=== PATIENT | female | born 1945 | race Caucasian/White ===

== ENCOUNTER 2019-11-13 17:54 | Inpatient (IN) | payer MEDICARE, BC ==
--- NOTE | 2019-11-13 18:07 | ED ---
General Adult HPI - General Chief complaint: Chest Pain Stated complaint: chest pain Time Seen by Provider: 11/13/19 18:00 Source: patient Mode of arrival: wheelchair Limitations: no limitations - History of Present Illness Initial comments: Patient presents to the ED with her for evaluation. Patient states that she developed lower central chest pain about 1.5 hours ago while at rest. Patient states that she ate some chili about 3 hours ago, and she is unsure if it may be the cause of her chest pain. Patient states that her chest pain is currently very mild, and she rates it 2/10 in intensity. She also admits to having associated jaw pain. Patient denies trauma or injury, fever or chills, headache, focal numbness/weakness/neuro deficit, arm pain, back pain, pleuritic pain, fever or chills, cough or cold symptoms, dyspnea, palpitations, dizziness, nausea/vomiting/diaphoresis, abdominal pain, urinary symptoms, leg or calf swelling or pain, or any other symptoms or complaints. Patient has CAD risk factors of hypertension, hyperlipidemia and family history of ID in her father. - Related Data Allergies Allergy/AdvReac Type Severity Reaction Status Date / Time codeine Allergy Unknown Verified 11/13/19 17:59 Review of Systems ROS Statement: Those systems with pertinent positive or pertinent negative responses have been documented in the HPI. ROS Other: All systems not noted in ROS Statement are negative. Past Medical History Past Medical History: Hyperlipidemia, Hypertension, Thyroid Disorder History of Any Multi-Drug Resistant Organisms: None Reported Past Surgical History: Tubal Ligation Additional Past Surgical History / Comment(s): thyroidectomy Past Psychological History: No Psychological Hx Reported Smoking Status: Never smoker Past Alcohol Use History: None Reported Past Drug Use History: None Reported General Exam Limitations: no limitations General appearance: alert, in no apparent distress Head exam: Present: atraumatic, normocephalic Eye exam: Present: normal appearance, EOMI ENT exam: Present: mucous membranes moist Neck exam: Present: other (Trachea is in midline) Respiratory exam: Present: normal lung sounds bilaterally. Absent: respiratory distress, wheezes, rales, rhonchi, chest wall tenderness Cardiovascular Exam: Present: regular rate, normal rhythm, normal heart sounds, other (Normal radial pulses bilaterally) GI/Abdominal exam: Present: soft. Absent: distended, tenderness, guarding Extremities exam: Present: other (Negative Prasanna's sign bilaterally). Absent: tenderness, pedal edema, calf tenderness Neurological exam: Present: alert, oriented X3. Absent: motor sensory deficit Psychiatric exam: Present: normal affect, normal mood Skin exam: Present: warm, dry, intact, normal color Course Vital Signs 11/13/19 11/13/19 17:54 18:02 Temperature 97.6 F Pulse Rate 81 Respiratory 18 20 Rate Blood Pressure 228/101 O2 Sat by Pulse 98 Oximetry - Reevaluation(s) Reevaluation #1: 11/13/19 20:38 Case, H&P and test results/imaging reports were discussed with Dr. Haley (general surgery). He recommends giving the patient a dose of IV antibiotics. He also recommends admission to the patient's medical service, and he states that he will see the patient in consultation. He has no further recommendations at this time. 11/13/19 20:43 Case, H&P, test results, ED management and my discussion with Dr. Haley as above were discussed with Dr. Boss. He accepts hospital floor admission. He has no further recommendations at this time. 11/13/19 20:47 Patient states that her pain has currently improved. Patient denies development of any new symptoms while in the ED. Patient's abdomen remains soft and nontender on exam. Patient and are aware of the patient's test results and my discussions as above. Patient agrees with hospital admission at this time. EKG Findings - EKG Comments: EKG Findings:: Normal sinus rhythm, ventricular rate of 76 bpm, no ectopy, normal AR and QRS intervals, normal QT interval, normal axis, minimal voltage criteria for LVH, no ST or T-wave abnormality Medical Decision Making - Medical Decision Making Given the patient's transaminitis and gallstones noted on ultrasound gallbladder, I suspect that the patient's pain may have been secondary to biliary colic. Patient does not have a Mckeon's sign on exam. Patient's troponin is negative. Patient's CT angiogram chest is negative for PE. Still, given the patient's cardiac risk factors and report of chest pain and jaw pain, will admit the patient for cardiac workup and rule out. Dr. Boss has accepted hospital admission. Dr. Haley has agreed to see the patient in consultation. Patient and agree with this plan. - Lab Data Result diagrams: 11/13/19 18:13 11/13/19 18:13 Lab Results 11/13/19 11/13/19 11/13/19 Range/Units 18:13 18:13 18:13 WBC 6.0 (3.8-10.6) k/uL RBC 4.15 (3.80-5.40) m/uL Hgb 12.9 (11.4-16.0) gm/dL Hct 37.1 (34.0-46.0) % MCV 89.3 (80.0-100.0) fL MCH 31.1 (25.0-35.0) pg MCHC 34.8 (31.0-37.0) g/dL RDW 12.6 (11.5-15.5) % Plt Count 274 (150-450) k/uL Neutrophils % 60 % Lymphocytes % 29 % Monocytes % 5 % Eosinophils % 2 % Basophils % 1 % Neutrophils # 3.6 (1.3-7.7) k/uL Lymphocytes # 1.8 (1.0-4.8) k/uL Monocytes # 0.3 (0-1.0) k/uL Eosinophils # 0.1 (0-0.7) k/uL Basophils # 0.0 (0-0.2) k/uL PT (9.0-12.0) sec INR (<1.2) APTT (22.0-30.0) sec D-Dimer (<0.60) mg/L FEU Sodium 140 (137-145) mmol/L Potassium 3.7 (3.5-5.1) mmol/L Chloride 104 (98-107) mmol/L Carbon Dioxide 26 (22-30) mmol/L Anion Gap 10 mmol/L BUN 25 H (7-17) mg/dL Creatinine 0.85 (0.52-1.04) mg/dL Est GFR (CKD-EPI)AfAm 77 (>60 ml/min/1.73 sqM) Est GFR (CKD-EPI)NonAf 67 (>60 ml/min/1.73 sqM) Glucose 125 H (74-99) mg/dL Calcium 9.6 (8.4-10.2) mg/dL Magnesium 1.8 (1.6-2.3) mg/dL Total Bilirubin 0.7 (0.2-1.3) mg/dL AST 147 H (14-36) U/L ALT 63 H (4-34) U/L Alkaline Phosphatase 122 (38-126) U/L Troponin I (0.000-0.034) ng/mL NT-Pro-B Natriuret Pep 381 pg/mL Total Protein 7.6 (6.3-8.2) g/dL Albumin 4.3 (3.5-5.0) g/dL Lipase 293 (23-300) U/L 11/13/19 11/13/19 Range/Units 18:13 18:13 WBC (3.8-10.6) k/uL RBC (3.80-5.40) m/uL Hgb (11.4-16.0) gm/dL Hct (34.0-46.0) % MCV (80.0-100.0) fL MCH (25.0-35.0) pg MCHC (31.0-37.0) g/dL RDW (11.5-15.5) % Plt Count (150-450) k/uL Neutrophils % % Lymphocytes % % Monocytes % % Eosinophils % % Basophils % % Neutrophils # (1.3-7.7) k/uL Lymphocytes # (1.0-4.8) k/uL Monocytes # (0-1.0) k/uL Eosinophils # (0-0.7) k/uL Basophils # (0-0.2) k/uL PT 10.5 (9.0-12.0) sec INR 1.0 (<1.2) APTT 21.8 L (22.0-30.0) sec D-Dimer 1.04 H (<0.60) mg/L FEU Sodium (137-145) mmol/L Potassium (3.5-5.1) mmol/L Chloride (98-107) mmol/L Carbon Dioxide (22-30) mmol/L Anion Gap mmol/L BUN (7-17) mg/dL Creatinine (0.52-1.04) mg/dL Est GFR (CKD-EPI)AfAm (>60 ml/min/1.73 sqM) Est GFR (CKD-EPI)NonAf (>60 ml/min/1.73 sqM) Glucose (74-99) mg/dL Calcium (8.4-10.2) mg/dL Magnesium (1.6-2.3) mg/dL Total Bilirubin (0.2-1.3) mg/dL AST (14-36) U/L ALT (4-34) U/L Alkaline Phosphatase (38-126) U/L Troponin I <0.012 (0.000-0.034) ng/mL NT-Pro-B Natriuret Pep pg/mL Total Protein (6.3-8.2) g/dL Albumin (3.5-5.0) g/dL Lipase (23-300) U/L - Radiology Data Radiology results: report reviewed (Ultrasound gallbladder shows gallbladder wall thickening with numerous gallstones consistent with acute and chronic cholecystitis, no dilated ducts, common bile duct is 5 mm, no focal liver defect; CT angiogram chest is negative for pulmonary embolism, but shows numerous gallstones), image reviewed (Chest x-ray is negative) Disposition Clinical Impression: Chest pain, Cholelithiasis Disposition: ADMITTED IP TO THIS [facility] Condition: Stable Is patient prescribed a controlled substance at d/c from ED?: No Referrals: Charley Brown MD [Primary Care Provider] - 1-2 days Time of Disposition: 20:43
[2019-11-13] MEDS ORDERED: ASPIRIN 81 MG PO STA (18:15)
[2019-11-13] MEDS ORDERED: NITROGLYCERIN OINT 1 INCH/GM PACKET TOPICAL STA (18:15)
[2019-11-13 18:52] LABS: Basophils % (A) 1 %; Eosinophils # (A) 0.1 k/uL (0-0.7); Eosinophils % (A) 2 %; HCT 37.1 % (34.0-46.0); HGB 12.9 gm/dL (11.4-16.0); Lymphocytes # (A) 1.8 k/uL (1.0-4.8); Lymphocytes % (A) 29 %; MCH 31.1 pg (25.0-35.0); MCHC 34.8 g/dL (31.0-37.0); MCV 89.3 fL (80.0-100.0); Mean Platelet Volume 7.3; Monocytes # (A) 0.3 k/uL (0-1.0); Monocytes % (A) 5 %; Neutrophils # (A) 3.6 k/uL (1.3-7.7); Neutrophils % (A) 60 %; Platelet Count 274 k/uL (150-450); RBC 4.15 m/uL (3.80-5.40); RDW 12.6 % (11.5-15.5)
--- NOTE | 2019-11-13 18:57 | XR ---
EXAMINATION TYPE: XR chest 2V DATE OF EXAM: 11/13/2019 COMPARISON: None HISTORY: Chest pain TECHNIQUE: 2 views FINDINGS: Heart is normal. Lungs are clear. Costophrenic angles are clear. There are chest leads. Bon y thorax is intact. IMPRESSION: No active cardiopulmonary disease. Normal heart.
[2019-11-13 19:00] LABS: Albumin 4.3 g/dL (3.5-5.0); Calcium 9.6 mg/dL (8.4-10.2); Magnesium 1.8 mg/dL (1.6-2.3); Potassium 3.7 mmol/L (3.5-5.1); Total Bilirubin 0.7 mg/dL (0.2-1.3); Total Protein 7.6 g/dL (6.3-8.2)
[2019-11-13 19:11] LABS: Prothrombin Time 10.5 sec (9.0-12.0)
[2019-11-13 19:13] LABS: D-Dimer 1.04 mg/L FEU (<0.60); Partial Thromboplastin Time 21.8 sec (22.0-30.0)
[2019-11-13] MEDS ORDERED: HYDROmorphone 0.5 MG/0.5 ML SYRINGE IM STA (19:24)
--- NOTE | 2019-11-13 19:47 | US ---
EXAMINATION TYPE: US gallbladder DATE OF EXAM: 11/13/2019 COMPARISON: NONE CLINICAL HISTORY: elevated LFT's, lower chest pain. EXAM MEASUREMENTS: Liver Length: cm Gallbladder Wall: cm CBD: cm Right Kidney: cm Large body habitus, technically difficult and somewhat limited study. Pancreas: Obscured by bowel gas Liver: Increased attenuation, decreased visualization of vessels suggestive of fatty infiltrate Gallbladder: TETE sign, thickened wall measuring up to 1.0cm, stones Evidence for sonographic Mckeon's sign: no CBD: wnl Right Kidney: cyst measuring 1.7 x 1.6 x 1.4cm IMPRESSION: There is thickening gallbladder wall with numerous gallstones consistent with acute and c hronic cholecystitis. No dilated ducts. Common bile duct is 5 mm. No focal liver defect.
--- NOTE | 2019-11-13 20:25 | CT ---
EXAMINATION TYPE: CT chest angio for PE DATE OF EXAM: 11/13/2019 COMPARISON: None HISTORY: Right sided chest pain with elevated d-dimer. CT DLP: 569.3 mGycm Automated exposure control for dose reduction was used. CONTRAST: Performed with IV Contrast, patient injected with 100 mL of Isovue 370. There are 3-D post processed images. There is no pleural effusion. The lungs are clear of infiltrate. Heart size is normal. There is no pe ricardial effusion. There are no hilar masses. There is no mediastinal adenopathy. There is normal co ntrast opacification of the pulmonary arteries. There are no filling defects. Upper abdominal soft ti ssues are intact. There are numerous calcified gallstones. IMPRESSION: No evidence of pulmonary embolism. Numerous gallstones.
[2019-11-13] MEDS ORDERED: PIPERACILLIN-TAZOBACTAM 4.5 GM in SODIUM CHLORIDE 0.9% 100 ML IVPB STA (20:40)
[2019-11-13] MEDS ORDERED: NALOXONE 0.4 MG/ML 1 ML VIAL IV PRN (20:44)
[2019-11-13] MEDS ORDERED: LABETALOL 5 MG/ML VIAL MDV IVP STA (21:04)
[2019-11-13] MEDS: SODIUM CHLORIDE 0.9% 1,000 ML IV SCH (21:14)
[2019-11-14] MEDS: MORPHINE SULFATE 4 MG/ML SYRINGE IV PRN ×3 (03:30→17:27)
[2019-11-14] MEDS: ONDANSETRON 4 MG/2 ML VIAL IVP PRN ×4 (03:31→22:47)
[2019-11-14 07:28] LABS: Basophils % (A) 1 %; Eosinophils # (A) 0.1 k/uL (0-0.7); Eosinophils % (A) 2 %; HCT 31.9 % (34.0-46.0); HGB 10.9 gm/dL (11.4-16.0); Lymphocytes % (A) 23 %; MCH 31.1 pg (25.0-35.0); MCHC 34.1 g/dL (31.0-37.0); MCV 91.3 fL (80.0-100.0); Mean Platelet Volume 8.3; Monocytes # (A) 0.5 k/uL (0-1.0); Monocytes % (A) 10 %; Neutrophils # (A) 2.7 k/uL (1.3-7.7); Neutrophils % (A) 62 %; Platelet Count 227 k/uL (150-450); RDW 12.8 % (11.5-15.5); WBC 4.4 k/uL (3.8-10.6)
[2019-11-14 07:41] LABS: Albumin 3.3 g/dL (3.5-5.0); Calcium 8.8 mg/dL (8.4-10.2); Potassium 4.3 mmol/L (3.5-5.1); Total Bilirubin 0.6 mg/dL (0.2-1.3); Total Protein 6.2 g/dL (6.3-8.2)
[2019-11-14] MEDS ORDERED: ATORVASTATIN 20 MG TAB PO SCH (09:00)
[2019-11-14] MEDS ORDERED: DEXAMETHASONE SOD PHOSPHATE 10 MG/ML 1 ML VIAL IV ONE (09:03)
[2019-11-14] MEDS ORDERED: ONDANSETRON 4 MG/2 ML VIAL IVP ONE (09:03)
--- NOTE | 2019-11-14 10:03 | P.HPIM ---
History of Present Illness H&P Date: 11/14/19 Chief Complaint: Chest pain. Cholecystitis This is a 74-year-old female patient of Dr. Brown. Patient presented to the ER with complaints of chest discomfort. Patient reports that she ate chili about 3 hours prior to pain starting patient does rate the pain radiated towards her jaw. Patient does have a past medical history of hyperlipidemia, hypertension, hyperthyroidism. Troponins have been negative 3. d-dimer elevated at 1.04. CTA of the chest was performed showing no evidence of pulmonary embolism but numerous gallstones. Gallbladder ultrasound completed showing thickening gallbladder wall with numerous gallstones consistent with acute and chronic cholecystitis no dilated ducts, bile duct is 5 mm no focal liver defect. EKG completed showing normal sinus rhythm minimal voltage criteria for LVH may be normal variant. Dr. Haley has been consulted for surgical services. Cardiology has been consulted for cardiac clearance prior to surgery. At this time patient denies chest pain or shortness of breath. Patient denies any nausea vomiting or diarrhea. Patient denies any urinary burning or frequency. Patient denies any history of cardiac conditions. Patient denies any history of stents. Patient denies any history of blood clots or irregular heart rate. Patient denies history of diabetes. Review of Systems Please refer to HPI otherwise unremarkable Past Medical History Past Medical History: Hyperlipidemia, Hypertension, Sleep Apnea/CPAP/BIPAP, Thyroid Disorder History of Any Multi-Drug Resistant Organisms: None Reported Past Surgical History: Tubal Ligation Additional Past Surgical History / Comment(s): thyroidectomy Past Anesthesia/Blood Transfusion Reactions: No Reported Reaction Past Psychological History: No Psychological Hx Reported Smoking Status: Former smoker Past Alcohol Use History: Occasional, Rare Past Drug Use History: None Reported - Past Family History Father History Unknown: Yes Mother History Unknown: Yes Medications and Allergies Home Medications Medication Instructions Recorded Confirmed Type Acetaminophen [Tylenol Arthritis] 1,300 mg PO HS 11/14/19 11/14/19 History Aspirin EC [Ecotrin Low Dose] 81 mg PO HS 11/14/19 11/14/19 History Atenolol [Tenormin] 50 mg PO HS 11/14/19 11/14/19 History Calcium Carbonate [Calcium] 600 mg PO HS 11/14/19 11/14/19 History Cholecalciferol [Vitamin D3 (25 1,000 unit PO DAILY 11/14/19 11/14/19 History Mcg = 1000 Iu)] Cinnamon Bark [Cinnamon] 500 mg PO DAILY 11/14/19 11/14/19 History Enalapril [Vasotec] 15 mg PO DAILY 11/14/19 11/14/19 History Flaxseed Oil 1,000 mg PO DAILY 11/14/19 11/14/19 History Furosemide [Lasix] 20 mg PO DAILY 11/14/19 11/14/19 History Levothyroxine Sodium [Synthroid] 75 mcg PO DAILY 11/14/19 11/14/19 History [place]-3 Fatty Acids/Fish Oil [Fish 1 cap PO DAILY 11/14/19 11/14/19 History Oil 1,000 mg Softgel] Simvastatin [Zocor] 40 mg PO MOWEFR 11/14/19 11/14/19 History Turmeric Curcumin Complex 1 tab PO DAILY 11/14/19 11/14/19 History Ubidecarenone [Co Q-10] 100 mg PO DAILY 11/14/19 11/14/19 History Vit C/E/Zn/Coppr/Lutein/Zeaxan 1 cap PO DAILY 11/14/19 11/14/19 History [Preservision Areds 2 Softgel] Allergies Allergy/AdvReac Type Severity Reaction Status Date / Time codeine Allergy Unknown Verified 11/14/19 09:30 Physical Exam Vitals: Vital Signs Temp Pulse Pulse Pulse Resp BP BP 11/14/19 07:50 98.6 F 69 17 170/81 11/14/19 00:52 98.3 F 64 17 147/68 11/13/19 22:57 98.2 F 72 18 156/73 11/13/19 21:53 78 18 153/80 11/13/19 20:52 68 18 201/94 11/13/19 18:02 20 11/13/19 17:54 97.6 F 81 18 228/101 Pulse Ox 11/14/19 07:50 93 L 11/14/19 00:52 96 11/13/19 22:57 98 11/13/19 21:53 100 11/13/19 20:52 98 11/13/19 18:02 11/13/19 17:54 98 Intake and Output 11/13/19 11/14/19 11/14/19 22:59 06:59 14:59 Intake Total 80 480 Balance 80 480 Intake: Intake, IV Titration 80 480 Amount Sodium Chloride 0.9% 1, 80 480 000 ml @ 80 mls/hr IV . [id number] [facility] Rx#:[id number] Other: Voiding Method Toilet Toilet # Voids 1 2 Weight 95.254 kg Head normocephalic Neck supple Lungs clear to auscultation bilaterally no wheezing or crackles Heart regular rate and rhythm S1-S2, no rub or gallop Abdomen is soft nontender nondistended positive bowel sounds no hepatosplenomegaly Extremities no edema Neuro alert and orientated to 3 Results CBC & Chem 7: 11/14/19 06:30 11/14/19 06:30 Labs: Abnormal Lab Results - Last 24 Hours (Table) 11/13/19 11/13/19 11/14/19 Range/Units 18:13 18:13 06:30 RBC 3.50 L (3.80-5.40) m/uL Hgb 10.9 L (11.4-16.0) gm/dL Hct 31.9 L (34.0-46.0) % APTT 21.8 L (22.0-30.0) sec D-Dimer 1.04 H (<0.60) mg/L FEU Carbon Dioxide (22-30) mmol/L BUN 25 H (7-17) mg/dL Glucose 125 H (74-99) mg/dL AST 147 H (14-36) U/L ALT 63 H (4-34) U/L Alkaline Phosphatase (38-126) U/L Total Protein (6.3-8.2) g/dL Albumin (3.5-5.0) g/dL 11/14/19 Range/Units 06:30 RBC (3.80-5.40) m/uL Hgb (11.4-16.0) gm/dL Hct (34.0-46.0) % APTT (22.0-30.0) sec D-Dimer (<0.60) mg/L FEU Carbon Dioxide 31 H (22-30) mmol/L BUN 20 H (7-17) mg/dL Glucose (74-99) mg/dL AST 233 H (14-36) U/L ALT 193 H (4-34) U/L Alkaline Phosphatase 134 H (38-126) U/L Total Protein 6.2 L (6.3-8.2) g/dL Albumin 3.3 L (3.5-5.0) g/dL Thrombosis Risk Factor Assmnt - Choose All That Apply Any of the Below Risk Factors Present?: Yes Each Risk Factor Represents 3 Points: Age 75 years or older Thrombosis Risk Factor Assessment Total Risk Factor Score: 3 Thrombosis Risk Factor Assessment Level: Moderate Risk Assessment and Plan Assessment: 1. Chest pain likely secondary to cholecystitis. Troponins negative 3. Chest CTA completed showing no evidence of pulmonary embolism. Numerous gallstones. Gallbladder ultrasound completed showing thickening gallbladder wall with numerous gallstones consistent with acute and chronic cholecystitis no dilated ducts. Common bile duct is 5 mm no focal level defect. Surgical services have been consulted. Cardiology services have been consulted for cardiac clearance. 2-D echo has been ordered 2. Elevated liver enzymes likely secondary to gallstones. AST 233 ALT 1 and 3 alkaline phosphatase 134. Lipitor on hold 3. History of hypothyroidism. Synthroid resumed 4. Essential hypertension with elevated blood pressures. Home meds resumed at this time 5. History of sleep apnea or CPAP at home DVT prophylaxis SCDs. GI prophylaxis Pepcid Surgical and cardiology services have been consulted patient to obtain cardiac clearance prior to surgery Time with Patient: Greater than 30 (Greater than 60% of the total time spent in counseling and coordination of care. I performed an examination of the patient and discussed their management with the Nurse Practitioner. I have reviewed the Nurse Practitioner's notes and agree with the documented findings and plan of care)
--- NOTE | 2019-11-14 10:10 | CONS ---
CONSULTATION Mrs. Nieto is a 74-year-old female with no prior history of coronary artery disease who presented with epigastric discomfort. She felt initially that the discomfort was related to the chili she ate. She had similar discomfort in the past and a few years ago, has underwent a stress test that showed no evidence of inducible ischemia according to her. She is average in his exercise tolerance, has no exertional chest discomfort. She has no dyspnea. No dizziness or palpitation on a regular basis. She has no history of PND, orthopnea, or peripheral edema. On presentation she had elevation of liver function tests and subsequently underwent a gallbladder ultrasound that showed thickening of the gallbladder with multiple cholelithiasis and cholecystitis evidenced. There is no evidence of dilatation of the duct. The patient is not aware of any prior history of cholelithiasis. Her coronary risk factors are remarkable for hypertension and hyperlipidemia. She is nonsmoker, nondiabetic. MEDICATION: Her medications include simvastatin 40 mg daily, Lasix 20 mg daily, enalapril 15 mg daily, calcium, atenolol 50 mg daily, aspirin once a day. REVIEW OF SYSTEMS: RESPIRATORY SYSTEM: She has no documented history of asthma or emphysema. No bronchitis. GI SYSTEM: She has no nausea. She has constipation. She had the epigastric pain as noted. SYSTEM: No dysuria or hematuria. NERVOUS SYSTEM: No stroke or seizure. FAMILY HISTORY: Her father had a myocardial infarction in his 60s. PHYSICAL EXAMINATION: She is a 74-year-old female, alert, oriented, in no apparent distress. Blood pressure running in the 140s to 170s with the heart rate in the 70s. HEAD: Normocephalic. EYES: Sclerae anicteric. NECK: Good upstroke. No bruit. No jugular venous distention. LUNGS: Clear to auscultation. HEART: Regular rate and rhythm. S1, S2. No S3. No rub or gallop. ABDOMEN: Soft, obese. Positive bowel sounds. No organomegaly. No significant tenderness. EXTREMITIES: No edema. Intact distal pulses. LAB DATA: Lab data revealed an AST 147, subsequently 233, ALT of 63, subsequently 193. Troponin less than 0.012. NT proBNP of 381. BUN and creatinine 20 and 0.83. Hemoglobin of 10.9, white blood cell of 4.4. EKG revealed a sinus mechanism, normal axis and intervals, left ventricular hypertrophy. IMPRESSION: 1. Acute cholecystitis. 2. Symptoms of epigastric pain, atypical for chest discomfort. 3. Hypertension. 4. Hyperlipidemia. RECOMMENDATION: I will re-initiate treatment with the beta emely and DOMENICA inhibitor. I will hold on her statin at this time. I will obtain echocardiogram with Doppler. The patient should be stable to proceed with scheduled surgical intervention. Depending on her progress, further recommendation will be made. Thank you for this consult. We will follow with you. YASMIN / IJN: [id number] /
[2019-11-14] MEDS: LACTATED RINGERS 1,000 ML IV SCH (10:18)
[2019-11-14] MEDS: LISINOPRIL 20 MG TAB PO SCH (10:18)
[2019-11-14] MEDS: SODIUM CHLORIDE 0.9% 1,000 ML IV SCH ×2 (10:19→20:53)
[2019-11-14] MEDS: hydrALAZINE HCL 20 MG/ML 1 ML VIAL IVP PRN ×2 (17:59→21:41)
[2019-11-14] MEDS ORDERED: ATENOLOL 50 MG TAB PO SCH (21:00)
[2019-11-15] MEDS: hydrALAZINE HCL 20 MG/ML 1 ML VIAL IVP PRN ×2 (02:11→05:44)
[2019-11-15] MEDS: ONDANSETRON 4 MG/2 ML VIAL IVP PRN (04:12)
[2019-11-15] MEDS ORDERED: LEVOTHYROXINE 75 MCG TAB PO SCH (06:30)
[2019-11-15] MEDS ORDERED: METOCLOPRAMIDE 5 MG/ML 2 ML VIAL IVP PRN (07:19)
[2019-11-15] MEDS: MORPHINE SULFATE 4 MG/ML SYRINGE IV PRN (07:26)
[2019-11-15 07:49] LABS: Basophils % (A) 0 %; Eosinophils # (A) 0.1 k/uL (0-0.7); Eosinophils % (A) 1 %; HCT 36.2 % (34.0-46.0); HGB 12.6 gm/dL (11.4-16.0); Lymphocytes % (A) 14 %; MCH 31.1 pg (25.0-35.0); MCHC 34.8 g/dL (31.0-37.0); MCV 89.5 fL (80.0-100.0); Mean Platelet Volume 7.5; Monocytes # (A) 0.3 k/uL (0-1.0); Monocytes % (A) 5 %; Neutrophils # (A) 5.5 k/uL (1.3-7.7); Neutrophils % (A) 80 %; Platelet Count 271 k/uL (150-450); RBC 4.05 m/uL (3.80-5.40); RDW 12.8 % (11.5-15.5)
--- NOTE | 2019-11-15 07:56 | P.GSCN ---
History of Present Illness Consult date: 11/14/19 Reason for Consult: right upper quadrant pain History of present illness: this a 74-year-old female who presented to the emergency room with complaints of chest and right quadrant pain. Patient's workup found have evidence of cholelithiasis and chronic cholecystitis. Past Medical History Past Medical History: Hyperlipidemia, Hypertension, Sleep Apnea/CPAP/BIPAP, Thyroid Disorder History of Any Multi-Drug Resistant Organisms: None Reported Past Surgical History: Tubal Ligation Additional Past Surgical History / Comment(s): thyroidectomy Past Anesthesia/Blood Transfusion Reactions: No Reported Reaction Past Psychological History: No Psychological Hx Reported Smoking Status: Former smoker Past Alcohol Use History: Occasional, Rare Past Drug Use History: None Reported - Past Family History Father History Unknown: Yes Mother History Unknown: Yes Medications and Allergies Home Medications Medication Instructions Recorded Confirmed Type Acetaminophen [Tylenol Arthritis] 1,300 mg PO HS 11/14/19 11/14/19 History Aspirin EC [Ecotrin Low Dose] 81 mg PO HS 11/14/19 11/14/19 History Atenolol 50 mg PO DAILY 11/14/19 11/14/19 History Calcium Carbonate [Calcium] 600 mg PO HS 11/14/19 11/14/19 History Cholecalciferol [Vitamin D3 (25 1,000 unit PO DAILY 11/14/19 11/14/19 History Mcg = 1000 Iu)] Cinnamon Bark [Cinnamon] 500 mg PO DAILY 11/14/19 11/14/19 History Enalapril [Vasotec] 15 mg PO DAILY 11/14/19 11/14/19 History Flaxseed Oil 1,000 mg PO DAILY 11/14/19 11/14/19 History Furosemide [Lasix] 20 mg PO DAILY 11/14/19 11/14/19 History Levothyroxine Sodium [Synthroid] 75 mcg PO DAILY 11/14/19 11/14/19 History [place]-3 Fatty Acids/Fish Oil [Fish 1 cap PO DAILY 11/14/19 11/14/19 History Oil 1,000 mg Softgel] Simvastatin [Zocor] 40 mg PO MOWEFR 11/14/19 11/14/19 History Turmeric Curcumin Complex 1 tab PO DAILY 11/14/19 11/14/19 History Ubidecarenone [Co Q-10] 100 mg PO DAILY 11/14/19 11/14/19 History Vit C/E/Zn/Coppr/Lutein/Zeaxan 1 cap PO DAILY 11/14/19 11/14/19 History [Preservision Areds 2 Softgel] Allergies Allergy/AdvReac Type Severity Reaction Status Date / Time codeine Allergy Unknown Verified 11/14/19 09:30 Surgical - Exam Vital Signs Temp Pulse Resp BP Pulse Ox 97.6 F 81 18 228/101 98 11/13/19 17:54 11/13/19 17:54 11/13/19 17:54 11/13/19 17:54 11/13/19 17:54 - General well developed, well nourished, no distress - Eyes PERRL - ENT normal pinna - Neck no masses - Respiratory normal expansion - Cardiovascular Rhythm: regular - Abdomen minimal rectal quadrant pain Abdomen: soft Results - Labs 11/15/19 06:52 11/14/19 06:30 - Imaging US - abdomen: report reviewed (thickened gallbladder wall, cholelithiasis acute and chronic cholecystitis) Assessment and Plan Assessment: acute cholecystitis. Patient will undergo laparoscopic cholecystectomy in the a.m.
[2019-11-15 08:04] LABS: ALT 146 U/L (4-34); AST 95 U/L (14-36); African American GFR (CKD) >90 (>60 ml/min/1.73 sqM); Albumin 4.1 g/dL (3.5-5.0); Alkaline Phosphatase 135 U/L (38-126); Anion Gap 10 mmol/L; Blood Urea Nitrogen 12 mg/dL (7-17); Calcium 9.2 mg/dL (8.4-10.2); Carbon Dioxide 21 mmol/L (22-30); Chloride 104 mmol/L (98-107); Glucose 127 mg/dL (74-99); Non-African American GFR(CKD) 86 (>60 ml/min/1.73 sqM); Sodium 135 mmol/L (137-145); Total Bilirubin 0.9 mg/dL (0.2-1.3); Total Protein 7.5 g/dL (6.3-8.2)
[2019-11-15] MEDS ORDERED: FUROSEMIDE 20 MG TAB PO SCH (09:00)
[2019-11-15] MEDS ORDERED: FAMOTIDINE 20 MG TAB PO SCH (09:00)
[2019-11-15] MEDS ORDERED: DEXAMETHASONE SOD PHOSPHATE 10 MG/ML 1 ML VIAL IV ONE (09:25)
[2019-11-15] MEDS ORDERED: ONDANSETRON 4 MG/2 ML VIAL IVP ONE (09:25)
[2019-11-15] MEDS: SODIUM CHLORIDE 0.9% 1,000 ML IV SCH ×2 (09:31→10:00)
[2019-11-15] MEDS ORDERED: SUCCINYLCHOLINE CHLORIDE 100 MG/5 ML SYR IV ONE (09:48)
[2019-11-15] MEDS ORDERED: GLYCOPYRROLATE 0.2 MG/ML 2 ML VIAL ONE (09:48)
[2019-11-15] MEDS ORDERED: NEOSTIGMINE 1 MG/ML 10 ML VIAL ONE (09:48)
[2019-11-15] MEDS ORDERED: KETOROLAC 30 MG/ML 1 ML VIAL ONE (09:48)
[2019-11-15] MEDS ORDERED: MIDAZOLAM 2 MG/2 ML VIAL ONE (09:48)
[2019-11-15] MEDS ORDERED: LIDOCAINE 1% INJ 10MG/ML (20 ML MDV) ONE (09:48)
[2019-11-15] MEDS ORDERED: ROCURONIUM BROMIDE 10 MG/ML 10 ML VIAL IV ONE (09:48)
[2019-11-15] MEDS ORDERED: PROPOFOL 10 MG/ML 20 ML VIAL IV ONE (09:48)
[2019-11-15] MEDS ORDERED: fentaNYL (PF) 50 MCG/ML 2 ML AMP ONE (09:48)
--- NOTE | 2019-11-15 09:53 | P.PN ---
Subjective Progress Note Date: 11/15/19 Principal diagnosis: Cholecystitis This is a pleasant 74-year-old female with no prior history of CAD who presented with epigastric discomfort. Liver function tests were found to be abnormal on admission and she subsequently underwent ultrasound of the gallbladder which showed thickening of the gallbladder with multiple cholelithiasis and evidence of cholecystitis. She's been no complaint of chest discomfort. EKG on admission showed sinus rhythm with no ST-T wave abnormalities indicative of ischemia. Troponins were negative 3 and NT proBNP was normal. The patient is scheduled to undergo cholecystectomy today by Dr. Haley. Patient continues to have abdominal discomfort. Denies any complaints of chest discomfort, palpitations, dizziness or lightheadedness. She has no edema and no complaints of orthopnea. Objective - Vital Signs Vital signs: Vital Signs Temp 97.7 F 11/15/19 09:24 Pulse 76 11/15/19 09:24 Resp 18 11/15/19 09:24 BP 188/86 11/15/19 09:24 Pulse Ox 94 L 11/15/19 09:24 Intake & Output 11/14/19 11/15/19 11/15/19 18:59 06:59 18:59 Intake Total 550 Output Total 20 Balance 550 -20 Intake: Oral 550 Output: Emesis 20 Other: Voiding Method Toilet Toilet # Voids 2 1 - Exam PHYSICAL EXAMINATION: HEENT: Head is atraumatic, normocephalic. Pupils equal, round. Neck is supple. There is no elevated jugular venous pressure. HEART EXAMINATION: Heart sounds regular, S1 and S2 normal. No murmur or gallop heard. CHEST EXAMINATION: Lungs are clear to auscultation and precussion. No chest wall tenderness is noted on palpation or with deep breathing. ABDOMEN: Soft, nontender. Bowel sounds are heard. No organomegaly noted. EXTREMITIES: 2+ peripheral pulses with no evidence of peripheral edema and no calf tenderness noted. NEUROLOGIC patient is awake, alert and oriented x3. . - Labs CBC & Chem 7: 11/15/19 06:52 11/15/19 06:52 Labs: Abnormal Lab Results - Last 24 Hours (Table) 11/15/19 Range/Units 06:52 Sodium 135 L (137-145) mmol/L Carbon Dioxide 21 L (22-30) mmol/L Glucose 127 H (74-99) mg/dL AST 95 H (14-36) U/L ALT 146 H (4-34) U/L Alkaline Phosphatase 135 H (38-126) U/L Assessment and Plan Assessment: #1 acute cholecystitis #2 symptoms of epigastric pain, atypical for chest discomfort #3 hypertension #4 hyperlipidemia Plan: From cardiology's perspective, continue as needed hydralazine preoperatively for blood pressure control. Continue DOMENICA inhibitor and beta emely. Blood pressure remains elevated however this could be due to discomfort and anxiety surrounding the surgery. We will follow the patient and provide further recommendations accordingly. MANUFACTURING QUALITY INSPECTOR note has been reviewed, I agree with a documented findings and plan of care. Patient was seen and examined.
[2019-11-15] MEDS ORDERED: SODIUM CHLORIDE 0.9% 50 ML with ceFAZolin 2,000 MG IV ONE ×2 (10:00)
--- NOTE | 2019-11-15 10:00 | ECHOF ---
Referral Reason:htn MEASUREMENTS -------- HEIGHT: 165.1 cm WEIGHT: 95.3 kg BP: 170/81 IVSd: 1.2 cm (0.6 - 1.1) LVIDd: 4.2 cm (3.9 - 5.3) LVPWd: 1.4 cm (0.6 - 1.1) IVSs: 2.2 cm LVIDs: 2.2 cm LVPWs: 1.9 cm LAESV Index (A-L): 27.22 ml/m Ao Diam: 3.5 cm (2.0 - 3.7) AV Cusp: 1.8 cm (1.5 - 2.6) LA Diam: 4.1 cm (2.7 - 3.8) MV EXCURSION: 18.395 mm (> 18.000) MV EF SLOPE: 102 mm/s (70 - 150) EPSS: 0.3 cm MV E Joel: 0.98 m/s MV DecT: 236 ms MV A Joel: 1.06 m/s MV E/A Ratio: 0.93 AV maxP.21 mmHg AV meanP.48 mmHg RAP: 5.00 mmHg RVSP: 16.63 mmHg FINDINGS -------- Sinus rhythm. This was a technically adequate study. The left ventricular size is normal. There is mild concentric left ventricular hypertrophy. Overa ll left ventricular systolic function is normal with, an EF between 55 - 60 %. The right ventricle is normal in size. Normal LA size by volume 22+/-6 ml/m2. The right atrial size is normal. There is mild aortic valve sclerosis. Peak/mean gradient across the Aortic Valve is 14.21mmHg / 7.4 8mmHg. The mitral valve is normal. Mild mitral regurgitation is present. The tricuspid valve appears structurally normal. Mild tricuspid regurgitation present. Right vent ricular systolic pressure is normal at < 35 mmHg. Trace/mild (physiologic) pulmonic regurgitation. The aortic root size is normal. IVC Not well visulized. There is no pericardial effusion. CONCLUSIONS -------- 1. Sinus rhythm. 2. This was a technically adequate study. 3. The left ventricular size is normal. 4. There is mild concentric left ventricular hypertrophy. 5. Overall left ventricular systolic function is normal with, an EF between 55 - 60 %. 6. Normal LA size by volume 22+/-6 ml/m2. 7. There is mild aortic valve sclerosis. 8. Peak/mean gradient across the Aortic Valve is 14.21mmHg / 7.48mmHg. 9. The mitral valve is normal. 10. Mild mitral regurgitation is present. 11. The tricuspid valve appears structurally normal. 12. Mild tricuspid regurgitation present. 13. Right ventricular systolic pressure is normal at < 35 mmHg. 14. Trace/mild (physiologic) pulmonic regurgitation. 15. The aortic root size is normal. 16. IVC Not well visulized. 17. There is no pericardial effusion. STUDENT NURSE: Natalia Lockhart RDCS
[2019-11-15] MEDS ORDERED: BUPIVACAINE (PF) 0.25% 30 ML VIAL SQ ONE (10:31)
--- NOTE | 2019-11-15 10:31 | P.PN ---
Subjective Progress Note Date: 11/15/19 This is a 74-year-old female patient of Dr. Brown. Patient presented to the ER with complaints of chest discomfort. Patient reports that she ate chili about 3 hours prior to pain starting patient does rate the pain radiated towards her jaw. Patient does have a past medical history of hyperlipidemia, hypertension, hyperthyroidism. Troponins have been negative 3. d-dimer elevated at 1.04. CTA of the chest was performed showing no evidence of pulmonary embolism but numerous gallstones. Gallbladder ultrasound completed showing thickening gallbladder wall with numerous gallstones consistent with acute and chronic cholecystitis no dilated ducts, bile duct is 5 mm no focal liver defect. EKG completed showing normal sinus rhythm minimal voltage criteria for LVH may be normal variant. Dr. Haley has been consulted for surgical services. Cardiology has been consulted for cardiac clearance prior to surgery. At this time patient denies chest pain or shortness of breath. Patient denies any nausea vomiting or diarrhea. Patient denies any urinary burning or frequency. Patient denies any history of cardiac conditions. Patient denies any history of stents. Patient denies any history of blood clots or irregular heart rate. Patient denies history of diabetes. On 11/15/2019 patient is alert and oriented 3. Patient was evaluated by cardiology services. Patient to have lap cholecystectomy today with Dr. Haley. 2-D echo completed showing an EF of 55-60%. Liver enzymes are tr ending down. Hydralazine when necessary has been added per cardiology for blood pressure control. This time patient denies chest pain or shortness of breath. Patient denies nausea vomiting or diarrhea. Patient denies any urinary burning or frequency Objective - Vital Signs Vital signs: Vital Signs Temp 97.7 F 11/15/19 09:24 Pulse 76 11/15/19 09:24 Resp 18 11/15/19 09:24 BP 188/86 11/15/19 09:24 Pulse Ox 94 L 11/15/19 09:24 Intake & Output 11/14/19 11/15/19 11/15/19 18:59 06:59 18:59 Intake Total 550 50 Output Total 20 Balance 550 30 Intake: IV 50 Oral 550 Output: Emesis 20 Other: Voiding Method Toilet Toilet # Voids 2 1 - Exam Head normocephalic Neck supple Lungs clear to auscultation bilaterally no wheezing or crackles Heart regular rate and rhythm S1-S2, no rub or gallop Abdomen is soft nontender nondistended positive bowel sounds no hepatosplenomegaly Extremities no edema Neuro alert and orientated to 3 - Labs CBC & Chem 7: 11/15/19 06:52 11/15/19 06:52 Labs: Abnormal Lab Results - Last 24 Hours (Table) 11/15/19 Range/Units 06:52 Sodium 135 L (137-145) mmol/L Carbon Dioxide 21 L (22-30) mmol/L Glucose 127 H (74-99) mg/dL AST 95 H (14-36) U/L ALT 146 H (4-34) U/L Alkaline Phosphatase 135 H (38-126) U/L Assessment and Plan Assessment: 1. Chest pain likely secondary to cholecystitis. Troponins negative 3. Chest CTA completed showing no evidence of pulmonary embolism. Numerous gallstones. Gallbladder ultrasound completed showing thickening gallbladder wall with numerous gallstones consistent with acute and chronic cholecystitis no dilated ducts. Common bile duct is 5 mm no focal level defect. Surgical services have been consulted. Cardiology services have been consulted for cardiac clearance. G echo completed showing an EF of 55-60%. Patient to undergo lap antoni today per surgical services 2. Elevated liver enzymes likely secondary to gallstones. AST 233 ALT 1 and 3 alkaline phosphatase 134. Lipitor on hold. Her enzymes are trending down 3. History of hypothyroidism. Synthroid resumed 4. Essential hypertension with elevated blood pressures. Home meds resumed at this time. Hydralazine when necessary as needed for high blood pressure. Cardiology services are following 5. History of sleep apnea or CPAP at home DVT prophylaxis SCDs. GI prophylaxis Pepcid Surgical and cardiology services have been consulted I performed an examination of the patient and discussed their management with the Nurse Practitioner. I have reviewed the Nurse Practitioner's notes and agree with the documented findings and plan of care
--- NOTE | 2019-11-15 11:05 | P.OP ---
Date of Procedure: 11/15/19 Preoperative Diagnosis: cholecystitis Cholelithiasis Postoperative Diagnosis: cholecystitis Cholelithiasis Procedure(s) Performed: laparoscopic cholecystectomy Anesthesia: RITIKA Surgeon: Woody Haley Estimated Blood Loss (ml): 10 Pathology: other (gall bladder) Condition: stable Disposition: PACU Description of Procedure: The patient was placed on the operating table. The patient received a general endotracheal tube anesthesia. The patients abdomen was prepped and draped in the usual sterile fashion. Through an infraumbilical stab incision, the fascia of the anterior abdominal wall was grasped with a pair of Kochers and then the Veress needle was placed in the peritoneal cavity. Position of the Veress needle was confirmed with positive drop test. The abdomen was then insufflated. After adequate insufflation, the 10 mm trocar was placed in the pe ritoneal cavity. Following this the laparoscope was placed in the peritoneal cavity. The patient was placed in the head-up, right side up position and then a 5 mm trocar was placed in the right lateral and right subcostal position under direct visualization. A 8 mm trocar was placed in the epigastric position. The gallbladder was grasped in the fundus and infundibulum. Traction on the gallbladder was placed in the lateral and the cephalad positions. The triangle of [place] was visualized.. The cystic duct was bluntly dissected until the union of the cystic duct and common bile duct was seen. A critical view of safety was achieved. The cystic duct was then divided and sealed with the Harmonic scissors. A PDS Endoloop was then placed throughout the cystic duct stump. The cystic artery divided and sealed with the Harmonic scissors. The gallbladder was then removed from the liver bed using Harmonic scissors. The gallbladder was then extracted through the epigastric port site. Operative field was checked for any bleeding spots and Harmonic scissors was used to coagulate the liver bed. The abdomen was irrigated. The trocars were removed. The skin was closed using interrupted 3-0 Vicryl suture. Dermabond dressing were applied. The patient tolerated the procedure well.
[2019-11-15] MEDS ORDERED: LACTATED RINGERS 1,000 ML IV ONE (11:53)
[2019-11-15] MEDS: HYDROmorphone 0.5 MG/0.5 ML SYRINGE IVP PRN ×2 (11:54→12:00)
[2019-11-15] MEDS ORDERED: LABETALOL SYRINGE 5 MG/ML IVP ONE ×2 (12:05)
--- NOTE | 2019-11-15 12:19 | P.DS ---
Providers Date of admission: 11/15/19 10:10 Expected date of discharge: 11/15/19 Attending physician: Harman Boss Consults: 11/13/19 20:45 Consult Physician Urgent Consulting Provider: Woody Haley Consult Reason/Comments: Cholelithiasis Do you want consulting provider notified?: Yes 11/14/19 09:03 Consult Physician Urgent Consulting Provider: Danial Mccormick Consult Reason/Comments: cardio clearence Do you want consulting provider notified?: Yes Primary care physician: Charley Brown Hospital Course: Discharge diagnosis 1. Chest pain likely secondary to cholecystitis. Troponins negative 3. Chest CTA completed showing no evidence of pulmonary embolism. Numerous gallstones. Gallbladder ultrasound completed showing thickening gallbladder wall with numerous gallstones consistent with acute and chronic cholecystitis no dilated ducts. Common bile duct is 5 mm no focal level defect. Surgical services have been consulted. Cardiology services have been consulted for cardiac clearance. 2 echo completed showing an EF of 55-60%. Per cardiology services symptoms of epigastric pain atypical for chest discomfort secondary to acute cholecystitis. Status post laparoscopic cholecystectomy with Dr. Haley. Per surgical services. Patient may be discharged home later today if pain is well- controlled. Pain medications per surgical services 2. Elevated liver enzymes likely secondary to gallstones. AST 233 ALT 1 and 3 alkaline phosphatase 134. Lipitor on hold. Her enzymes are trending down 3. History of hypothyroidism. Synthroid resumed 4. Essential hypertension with elevated blood pressures. Home meds resumed at this time. Hydralazine when necessary as needed for high blood pressure. Cardiology services are following. Hydralazine has been added for blood pressure control 5. History of sleep apnea or CPAP at home Hospital course This is a 74-year-old female patient of Dr. Brown. Patient presented to the ER with complaints of chest discomfort. Patient reports that she ate chili about 3 hours prior to pain starting patient does rate the pain radiated towards her jaw. Patient does have a past medical history of hyperlipidemia, hypertension, hyperthyroidism. Troponins have been negative 3. d-dimer elevated at 1.04. CTA of the chest was performed showing no evidence of pulmonary embolism but numerous gallstones. Gallbladder ultrasound completed showing thickening gallbladder wall with numerous gallstones consistent with acute and chronic cholecystitis no dilated ducts, bile duct is 5 mm no focal liver defect. EKG completed showing normal sinus rhythm minimal voltage criteria for LVH may be normal variant. Dr. Haley has been consulted for surgical services. Cardiology has been consulted for cardiac clearance prior to surgery. At this time patient denies chest pain or shortness of breath. Patient denies any nausea vomiting or diarrhea. Patient denies any urinary burning or frequency. Patient denies any history of cardiac conditions. Patient denies any history of stents. Patient denies any history of blood clots or irregular heart rate. Pat shanika denies history of diabetes. On 11/15/2019 patient is alert and oriented 3. Patient was evaluated by cardiology services. Patient to have lap cholecystectomy today with Dr. Haley. 2-D echo completed showing an EF of 55-60%. Liver enzymes are trending down. Hydralazine when necessary has been added per cardiology for blood pressure control. This time patient denies chest pain or shortness of breath. Patient denies nausea vomiting or diarrhea. Patient denies any urinary burning or frequency Per surgical services patient may be discharged home later today. Patient is status post lap cholecystectomy. Patient to be cleared by surgical services prior to discharge. Hydralazine has been negative for blood pressure control. Patient was evaluated by cardiology services chest pain atypical for chest discomfort secondary to acute cholecystitis. Pain meds per surgical services for discharge. I performed an examination of the patient and discussed their management with the Nurse Practitioner. I have reviewed the Nurse Practitioner's notes and agree with the documented findings and plan of care Patient Condition at Discharge: Stable Plan - Discharge Summary Discharge Rx Participant: Yes New Discharge Prescriptions: New hydrALAZINE HCL [Apresoline] 25 mg PO TID 30 Days #90 tab Continue Calcium Carbonate [Calcium] 600 mg PO HS Flaxseed Oil 1,000 mg PO DAILY Cinnamon Bark [Cinnamon] 500 mg PO DAILY Cholecalciferol [Vitamin D3 (25 Mcg = 1000 Iu)] 1,000 unit PO DAILY Vit C/E/Zn/Coppr/Lutein/Zeaxan [Preservision Areds 2 Softgel] 1 cap PO DAILY Ubidecarenone [Co Q-10] 100 mg PO DAILY [place]-3 Fatty Acids/Fish Oil [Fish Oil 1,000 mg Softgel] 1 cap PO DAILY Aspirin EC [Ecotrin Low Dose] 81 mg PO HS Levothyroxine Sodium [Synthroid] 75 mcg PO DAILY Furosemide [Lasix] 20 mg PO DAILY Enalapril [Vasotec] 15 mg PO DAILY Turmeric Curcumin Complex 1 tab PO DAILY Acetaminophen [Tylenol Arthritis] 1,300 mg PO HS Atenolol 50 mg PO DAILY Discontinued Simvastatin [Zocor] 40 mg PO MOWEFR Discharge Medication List Acetaminophen [Tylenol Arthritis] 1,300 mg PO HS 11/14/19 [History] Aspirin EC [Ecotrin Low Dose] 81 mg PO HS 11/14/19 [History] Atenolol 50 mg PO DAILY 11/14/19 [History] Calcium Carbonate [Calcium] 600 mg PO HS 11/14/19 [History] Cholecalciferol [Vitamin D3 (25 Mcg = 1000 Iu)] 1,000 unit PO DAILY 11/14/19 [History] Cinnamon Bark [Cinnamon] 500 mg PO DAILY 11/14/19 [History] Enalapril [Vasotec] 15 mg PO DAILY 11/14/19 [History] Flaxseed Oil 1,000 mg PO DAILY 11/14/19 [History] Furosemide [Lasix] 20 mg PO DAILY 11/14/19 [History] Levothyroxine Sodium [Synthroid] 75 mcg PO DAILY 11/14/19 [History] [place]-3 Fatty Acids/Fish Oil [Fish Oil 1,000 mg Softgel] 1 cap PO DAILY 11/14/19 [History] Turmeric Curcumin Complex 1 tab PO DAILY 11/14/19 [History] Ubidecarenone [Co Q-10] 100 mg PO DAILY 11/14/19 [History] Vit C/E/Zn/Coppr/Lutein/Zeaxan [Preservision Areds 2 Softgel] 1 cap PO DAILY 11/14/19 [History] hydrALAZINE HCL [Apresoline] 25 mg PO TID 30 Days #90 tab 11/15/19 [Rx] Follow up Appointment(s)/Referral(s): Charley Brown MD [Primary Care Provider] - 1-2 days Woody Haley MD [STAFF PHYSICIAN] - 1 Week Activity/Diet/Wound Care/Special Instructions: Activity as tolerated
[2019-11-15] MEDS: LISINOPRIL 20 MG TAB PO SCH (12:30)
[2019-11-15] MEDS: LACTATED RINGERS 1,000 ML IV SCH (12:30)
[2019-11-15 14:17] VITALS: BP 164/77; PULSE 61; RESP 17; TEMP 98.6
[2019-11-15] MEDS ORDERED: HYDROcodone/APAP 5-325MG 1 EACH TAB PO PRN (15:45)
[2019-11-15] MEDS ORDERED: ACETAMINOPHEN TAB 325 MG TAB PO PRN (15:53)
[2019-11-15] MEDS ORDERED: hydrALAZINE HCL 25 MG TAB PO SCH (16:00)
[2019-11-15] MEDS ORDERED: DOCUSATE 100 MG CAP PO PRN (17:15)
== END 2019-11-15 17:56 | disposition home or self-care (01) | DRG 419 ==
LOC: EC 17:54 → 4SSUR 20:46 → OBSVTOIN 11-15 10:10
PROVIDERS: ADMIT Internal Medicine; ATTEND Internal Medicine
PROC: 0FT44ZZ Resection of Gallbladder, Percutaneous Endoscopic Approach (ICD-10-PCS; principal; 2019-11-15 10:15)
DX: K80.12 Calculus of gallbladder with acute and chronic cholecystitis without obstruction (principal); I25.10 Atherosclerotic heart disease of native coronary artery without angina pectoris; I10 Essential (primary) hypertension; G47.30 Sleep apnea, unspecified; E78.5 Hyperlipidemia, unspecified; R68.84 Jaw pain; E89.0 Postprocedural hypothyroidism; F41.9 Anxiety disorder, unspecified; Z88.5 Allergy status to narcotic agent; Z98.51 Tubal ligation status; Z87.891 Personal history of nicotine dependence; Z79.82 Long term (current) use of aspirin; Z79.899 Other long term (current) drug therapy; Z79.890 Hormone replacement therapy; Z82.49 Family history of ischemic heart disease and other diseases of the circulatory system
CPT/HCPCS: 36415; 71046; 71275; 76705; 80053; 83690; 83735; 83880; 84484; 85025; 85379; 85610; 85730; 88304; 93005; 93306; 94760; 96365; 96375; 99285

== ENCOUNTER → 2020-09-21 | Outpatient (CLI) | payer MEDICARE ==
--- NOTE | 2020-09-21 18:25 | CT ---
EXAMINATION TYPE: CT angio head neck DATE OF EXAM: 09/21/2020 HISTORY: Hypertension COMPARISON: Ultrasound thyroid 08/02/2014. CT DLP: 348.5 mGycm. Automated Exposure Control for Dose Reduction was Utilized. TECHNIQUE: CTA scan of the neck is performed with IV Contrast, patient injected with 65 mL of Isovue 370, axial images are obtained, coronal and sagittal reformatted images are reviewed. Three-D recons tructed images are created on an independent workstation and reviewed. Stenosis calculated utilizing NASCET criteria. FINDINGS: Carotid/Vascular Structures: Normal branching pattern of the thoracic aortic arch. There is no clinic ally significant stenosis, occlusion, or aneurysmal dilatation of the arteries of the neck. Cervical of [place]: Vertebral basilar system appears normal. Posterior cerebral vasculature is unrema rkable. Internal carotid arteries bifurcate normally into A1 and M1 segments. A2 segments are normal. The anterior communicating artery is patent. Left Posterior communicating artery is patent. Right po sterior communicating artery is patent. Other: Heterogenous appearance of the left thyroid gland with coarse calcifications. Status post righ t thyroidectomy. IMPRESSION: No flow-limiting stenosis, occlusion, or aneurysm of the arteries of the head and neck.
== END | disposition home or self-care (01) ==
LOC: RADCTMAIN 11:05
PROVIDERS: ATTEND Family Medicine
DX: R42 Dizziness and giddiness (principal); I10 Essential (primary) hypertension; Z82.49 Family history of ischemic heart disease and other diseases of the circulatory system
CPT/HCPCS: 82565; 84520; 70496; 70498; 36415; Q9967

== ENCOUNTER 2022-01-02 13:33 | Emergency (ER) | payer MEDICARE ==
[2022-01-02 14:30] VITALS: TEMP 98.1
[2022-01-02 15:02] LABS: HCT 37.7 % (34.0-46.0); HGB 12.7 gm/dL (11.4-16.0); MCH 31.7 pg (25.0-35.0); MCHC 33.8 g/dL (31.0-37.0); MCV 93.6 fL (80.0-100.0); Mean Platelet Volume 7.9; Platelet Count 246 k/uL (150-450); RBC 4.02 m/uL (3.80-5.40); WBC 5.1 k/uL (3.8-10.6)
[2022-01-02 15:14] LABS: Albumin 3.9 g/dL (3.5-5.0); Calcium 9.1 mg/dL (8.4-10.2); Potassium 4.4 mmol/L (3.5-5.1); Total Bilirubin 0.5 mg/dL (0.2-1.3)
[2022-01-02] MEDS ORDERED: hydrALAZINE HCL 50 MG TAB PO STA (16:51)
--- NOTE | 2022-01-02 16:52 | ED ---
General Adult HPI - General Chief complaint: Recheck/Abnormal Lab/Rx Stated complaint: High BP-sent by PCP Time Seen by Provider: 01/02/22 16:11 Source: patient Mode of arrival: ambulatory Limitations: no limitations - History of Present Illness Initial comments: Elena is a 76-year-old female who presents the ER today at the advice of an outside clinic due to her hypertension. Patient has a history of hypertension she is on multiple medications. She reports she's been compliant with these medications. She had an appointment today for intake with a pain management doctor for possible injections in her cervical spine due to chronic pain. At that appointment she was noted to have a blood pressure of greater than 200/100 and was advised to come to the emergency department. Patient denies any acute complaints today. - Related Data Home Medications Medication Instructions Recorded Confirmed Aspirin EC [Ecotrin Low Dose] 81 mg PO HS 11/14/19 01/02/22 Calcium Carbonate [Calcium] 600 mg PO HS 11/14/19 01/02/22 Cholecalciferol [Vitamin D3 (25 1,000 unit PO DAILY 11/14/19 01/02/22 Mcg = 1000 Iu)] Furosemide [Lasix] 20 mg PO DAILY 11/14/19 01/02/22 Levothyroxine Sodium [Synthroid] 75 mcg PO DAILY 11/14/19 01/02/22 Ubidecarenone [Co Q-10] 100 mg PO DAILY 11/14/19 01/02/22 Vit C/E/Zn/Coppr/Lutein/Zeaxan 1 cap PO DAILY 11/14/19 01/02/22 [Preservision Areds 2 Softgel] atenoloL 100 mg PO HS 11/14/19 01/02/22 Baclofen [Lioresal] 20 mg PO HS 01/02/22 01/02/22 Enalapril [Vasotec] 40 mg PO DAILY 01/02/22 01/02/22 Fexofenadine HCl [Viviana Allergy] 180 mg PO DAILY 01/02/22 01/02/22 Ibuprofen [Motrin] 600 mg PO Q6H PRN 01/02/22 01/02/22 Magnesium 200 mg PO DAILY 01/02/22 01/02/22 Simvastatin [Zocor] 40 mg PO HS 01/02/22 01/02/22 hydrALAZINE HCL [Apresoline] 25 mg PO BID 01/02/22 01/02/22 traMADol HCL 50 mg PO Q3H PRN 01/02/22 01/02/22 Allergies Allergy/AdvReac Type Severity Reaction Status Date / Time codeine Allergy Unknown Verified 01/02/22 17:28 Review of Systems ROS Statement: Those systems with pertinent positive or pertinent negative responses have been documented in the HPI. ROS Other: All systems not noted in ROS Statement are negative. Past Medical History Past Medical History: Hyperlipidemia, Hypertension, Sleep Apnea/CPAP/BIPAP, Thyroid Disorder History of Any Multi-Drug Resistant Organisms: None Reported Past Surgical History: Tubal Ligation Additional Past Surgical History / Comment(s): thyroidectomy Past Anesthesia/Blood Transfusion Reactions: No Reported Reaction Past Psychological History: No Psychological Hx Reported Smoking Status: Never smoker Past Alcohol Use History: Occasional, Rare Past Drug Use History: None Reported - Past Family History Father History Unknown: Yes Mother History Unknown: Yes General Exam - General Exam Comments Initial Comments: Physical Exam GENERAL: Patient is well-developed and well-nourished. Patient is nontoxic and well- hydrated and is in no distress. HENT: Normocephalic, Atraumatic. EYES: PERRL, EOMI PULMONARY: Unlabored respirations. No audible rales rhonchi or wheezing was noted. CARDIOVASCULAR: There is a regular rate and rhythm without any murmurs gallops or rubs. ABDOMEN: Soft and nontender with normal bowel sounds. SKIN: Skin is clear with no lesions or rashes and otherwise unremarkable. : Deferred NEUROLOGIC: Patient is alert and oriented x3. Moving all extremities spontaneously MUSCULOSKELETAL: Normal extremities with adequate strength and full range of motion. No lower extremity swelling or edema. No calf tenderness. PSYCHIATRIC: Normal psychiatric evaluation. Limitations: no limitations Course Vital Signs 01/02/22 01/02/22 14:28 17:08 Temperature 98.1 F Pulse Rate 79 73 Respiratory 16 18 Rate Blood Pressure 227/105 226/110 O2 Sat by Pulse 95 97 Oximetry EKG Findings - EKG Comments: EKG Findings:: EKG was obtained due to hypertension, EKG was obtained at 1446 rate is 72 rhythm is sinus normal axis, normal intervals, GA 170 QRS 110 QTC 404 there are no acute ST elevations or depressions no evidence of ischemia or infarction Medical Decision Making - Medical Decision Making The patient was seen and evaluated labs at been obtained in triage though the patient was asymptomatic Patient remained hypertensive she was given hydralazine which she takes at home, blood pressure improved significantly she remained asymptomatic given her normal meds I will discharge her home at this time she'll follow up outpatient for HTN management - Lab Data Result diagrams: 01/02/22 14:53 01/02/22 14:53 Lab Results 01/02/22 01/02/22 01/02/22 Range/Units 14:53 14:53 14:53 WBC 5.1 (3.8-10.6) k/uL RBC 4.02 (3.80-5.40) m/uL Hgb 12.7 (11.4-16.0) gm/dL Hct 37.7 (34.0-46.0) % MCV 93.6 (80.0-100.0) fL MCH 31.7 (25.0-35.0) pg MCHC 33.8 (31.0-37.0) g/dL RDW 13.0 (11.5-15.5) % Plt Count 246 (150-450) k/uL MPV 7.9 Sodium 139 (137-145) mmol/L Potassium 4.4 (3.5-5.1) mmol/L Chloride 105 (98-107) mmol/L Carbon Dioxide 28 (22-30) mmol/L Anion Gap 6 mmol/L BUN 27 H (7-17) mg/dL Creatinine 0.90 (0.52-1.04) mg/dL Est GFR (CKD-EPI)AfAm 71 (>60 ml/min/1.73 sqM) Est GFR (CKD-EPI)NonAf 62 (>60 ml/min/1.73 sqM) Glucose 117 H (74-99) mg/dL Calcium 9.1 (8.4-10.2) mg/dL Total Bilirubin 0.5 (0.2-1.3) mg/dL AST 28 (14-36) U/L ALT 20 (4-34) U/L Alkaline Phosphatase 77 (38-126) U/L Troponin I <0.012 (0.000-0.034) ng/mL Total Protein 7.0 (6.3-8.2) g/dL Albumin 3.9 (3.5-5.0) g/dL Disposition Clinical Impression: Hypertension Disposition: HOME SELF-CARE Condition: Stable Additional Instructions: Continue to take home medications, follow up with her primary care physician for discussion of hypertension and possible changing her medications Return to the emergency department if he develop any chest pain, headache vision changes or any new or concerning symptoms Is patient prescribed a controlled substance at d/c from ED?: No Referrals: Charley Brown MD [Primary Care Provider] - 1-2 days
[2022-01-02 17:12] VITALS: RESP 18
[2022-01-02] MEDS ORDERED: ENALAPRILAT 1.25 MG/ML 1 ML VIAL IVP STA (17:37)
[2022-01-02 18:23] VITALS: BP 174/84; PULSE 71
== END 2022-01-02 18:16 | disposition home or self-care (01) ==
LOC: EC 13:33
DX: I10 Essential (primary) hypertension (principal); E78.5 Hyperlipidemia, unspecified; Z79.82 Long term (current) use of aspirin; Z79.890 Hormone replacement therapy; Z79.899 Other long term (current) drug therapy
CPT/HCPCS: 36415; 80053; 84484; 85027; 93005; 99284

== ENCOUNTER → 2022-01-02 | Outpatient (CLI) | payer MEDICARE ==
[2022-01-02 12:56] VITALS: PULSE 70; RESP 18; TEMP 98.2
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
[2022-01-02 13:29] VITALS: BP 200/92
== END ==
LOC: PNWHC3 12:16
PROVIDERS: ATTEND Physician Assistant Medical
DX: M48.02 Spinal stenosis, cervical region (principal); M50.30 Other cervical disc degeneration, unspecified cervical region; M47.812 Spondylosis without myelopathy or radiculopathy, cervical region; E78.5 Hyperlipidemia, unspecified; I10 Essential (primary) hypertension; Z87.891 Personal history of nicotine dependence; Z88.5 Allergy status to narcotic agent
CPT/HCPCS: 99211

== ENCOUNTER 2022-02-06 08:00 | Day surgery (SDC) | payer MEDICARE ==
[2022-02-05 08:45] VITALS: BMI 38.6
[~2022-02-06 08:00] MED LIST: LACTATED RINGERS 1,000 ML IV SCH; LIDOCAINE 1% (10MG/ML) FOR IV START INTRADERMA PRN
[2022-02-06 08:26] VITALS: RESP 20; TEMP 97.4
[2022-02-06] MEDS ORDERED: ENALAPRILAT 1.25 MG/ML 1 ML VIAL ONE (08:39)
[2022-02-06] MEDS ORDERED: ENALAPRILAT 1.25 MG/ML 1 ML VIAL IVP ONE (08:43)
[2022-02-06] MEDS ORDERED: ENALAPRILAT 1.25 MG/ML 1 ML VIAL IV ONE (08:54)
--- NOTE | 2022-02-06 09:02 | P.PN ---
Progress Note - Text Progress Note Date: 02/06/22 This is 76 years old female, who was scheduled to have diagnostic medial branch block cervical area at C5, C6, C7, bilaterally, in the preop holding area patient was interviewed , and during the examination , the patient indicated that her pain in the upper cervical area, the pain mostly coming from C3, C4, C5 component, we tried to change the procedure to do the block on these levels, but we needed prior authorization from the insurance,for this reason, the procedure today will be canceled , we will get prior authorization from the insurance to do the diagnostic medial branch block bilateral C3, C4, C5, note= in the preop holding area the blood pressure was more than 200 and patient given vasotec 0.625 IV X2 . and patient will follow up with the primary care for blood pressure management
[2022-02-06 09:09] VITALS: BP 195/70; PULSE 76
== END 2022-02-06 09:09 | disposition home or self-care (01) ==
LOC: ORPAIN 08:00
PROVIDERS: ATTEND Specialist
DX: M54.2 Cervicalgia (principal); R20.2 Paresthesia of skin; Z53.8 Procedure and treatment not carried out for other reasons; M47.812 Spondylosis without myelopathy or radiculopathy, cervical region; M48.02 Spinal stenosis, cervical region

== ENCOUNTER 2022-03-06 07:34 | Day surgery (SDC) | payer MEDICARE ==
[~2022-03-06 07:34] MED LIST changes: -LIDOCAINE 1% (10MG/ML) FOR IV START INTRADERMA PRN
[2022-03-06 08:14] VITALS: RESP 16
[2022-03-06] MEDS ORDERED: LACTATED RINGERS 1,000 ML IV ONE (08:17)
[2022-03-06] MEDS ORDERED: LABETALOL 5 MG/ML VIAL MDV IV ONE (08:17)
[2022-03-06] MEDS ORDERED: ROPIVACAINE 5MG/ML 20ML VIAL ONE (08:22)
[2022-03-06] MEDS ORDERED: MIDAZOLAM 2 MG/2 ML VIAL ONE (08:22)
[2022-03-06] MEDS ORDERED: DEXAMETHASONE SOD PHOSPHATE 10 MG/ML 1 ML VIAL ONE (08:22)
--- NOTE | 2022-03-06 08:48 | P.PCN ---
Date of Procedure: 03/06/22 Description of Procedure: PREOPERATIVE DIAGNOSIS: Cervical Facet syndrome /cervical spondylosis. POSTOPERATIVE DIAGNOSIS: Cervical Facet syndrome /cervical spondylosis. PROCEDURES: Bilateral cervical C3-C4, and C4-C5 medial branch injections, with fluoroscopic guidance #1, SURGEON: Gilda Payne ANESTHESIA: 4ml of Local lidocaine 1% , and IV sedation with : versed 1mg, EBL: None Specimen removed: None Fluoroscopic image: Saved to electronic medical records. PROCEDURE INDICATION: Patient had chronic neck pain. He tried conservative therapy with minimal benefits. Came here for intervention procedure. PROCEDURE DESCRIPTION: The patient was seen and identified in the preoperative area. Risks, benefits, complications, and alternatives were discussed with the patient. The patient agreed to pursue with the procedure and signed the consent. IV was started and vital signs were stable. Patient was taken to the procedure room and time out was completed. The patient was placed in the prone position on the procedure table and cervical area was prepped with ChloraPrep 1 and draped in the usual sterile fashion. Critical pause was taken. Vital signs were closely monitored during the procedure. Using AP fluoroscopy, right side the waist of lateral margins of C4 was dentifie d and localized with 1% lidocaine. We used 22-gauge 3-1/2 inch spinal needles 1 used for the procedure. Using the posterior approach, spinal cannulas were guided by anterior posterior fluoroscopy to the waists of the lateral krista of C4. Needle tip position was confirmed at the centroid of the trapezoids of C4 with lateral fluoroscopy. 0.5 ml of block solution was given at each level. The C4 needle was redirected under lateral view to C3 level, and C5 levels . Each site injected after negative aspiration 0.5 mL of block solution. Block solution contained 10 MG of dexamethasone and 4 mL of preservative-free ropivacaine 0.5%. [place] were removed intact. Entire procedure repeated on the left side . [place] removed intact. Skin was cleansed and bandages were applied. COMPLICATIONS: None. DISPOSITION / PLANS: The patient was placed in a supine position and transferred to the recovery area in a stable condition for observation and was discharged from the recovery room after meeting discharge criteria. Home discharge instructions given to the patient by the staff. The patient was reexamined prior to discharge. Scheduled to follow up with the pain clinic in 2- 4 weeks dura tion.
[2022-03-06 09:13] VITALS: BP 162/75; PULSE 78; TEMP 97.9
[2022-03-06] MEDS ORDERED: IV FLUID CONTINUATION 1,000 ML IV ONE (09:18)
--- NOTE | 2022-03-06 09:38 | FL ---
EXAMINATION TYPE: FL guided pain mgmt statistic DATE OF EXAM: 03/06/2022 HISTORY: Fluoroscopy time 11 seconds of fluoroscopy provided. IMPRESSION: 1. Fluoroscopy time.
== END 2022-03-06 09:31 | disposition home or self-care (01) ==
LOC: ORPAIN 07:34
DX: M47.892 Other spondylosis, cervical region (principal); M47.812 Spondylosis without myelopathy or radiculopathy, cervical region; I10 Essential (primary) hypertension
CPT/HCPCS: 64490; 64491; J2250; J1100; J2795; 99152

== ENCOUNTER → 2022-03-17 | Outpatient (CLI) | payer MEDICARE ==
[2022-03-17 14:30] VITALS: BP 215/88; PULSE 73; RESP 18
--- NOTE | 2022-03-17 14:51 | P.PN ---
Subjective Progress Note Date: 03/17/22 Principal diagnosis: A 76 yr old female with a history of severe and chronic neck pain secondary to cervical degenerative disc diseases and spondylosis with facet arthropathy presents today for evaluation of facet block of the medial branches C3-C4, C4-C5 #1. Patient states she experienced 75% pain relief status post procedure. Pain level is currently at 2 out of 10 in intensity, dull, burning, stabbing sensation in the upper middle aspects of her cervical spine with radiation of pain to her shoulders bilaterally as well as up the head. Pain is provoked by extension and rotation. Pain is alleviated with medications, patches, injections, heat and very rarely, physical therapy in November 2021 integrated with massage therapy, chiropractic treatments in the past, home exercise regimen, hot showers, repositioning and rest. Interventional pain procedures completed include facet blocks of the medial branches C3-C4, C4-C5 #1 Patient is currently on Lidoderm patches Patient denies any side effects of the medication(s), denies excessive drowsiness or sleepiness, denies suicidal ideation and reports that the current pain medication is helping to control the pain and improve activities of daily living. Patient denies any motor or sensory deficits. Patient denies any fever or night sweats, denies any change in the bowel movements or urination. Physical Examination: -Constitutional: Cooperative. Not in acute distress . -HEENT: Neck is supple. No lymphadenopathy. No thyromegaly. Normal thyroid size. Eyes: No ptosis , no icterus, no photophobia. ENT: No auditory deficits. Normal oropharynx. No Thrush. - Respiratory: Chest clear to auscultations bilaterally. No wheezing. No rhonchi. - Cardiovascular: Regular rate and rhythm. S1 / S2 , no S3 , no S4. - Gastrointestinal: Abdomen soft no tenderness. Bowel sounds positive in all four quadrants. No organomegaly. - Genitourinary: Deferred. - Neurologic: Cranial nerve II to XII intact. No focal neurological deficits. - Psychatric: Alert & oriented x 3. Matching mood & appropriate affect. Judgment and insight intact. - Lymphatic: No Lymphadenopathy. - Musculoskeletal: Cervical spine: Muscle bulk/ tone/ strength in the bilateral upper extremities normal. Facet loading test cervical area positive. Lumbar spine: Motor bulk/ tone/ strength lower extremities , thigh and legs : 5/5 Deep tendon reflexes : Normal Knee Jerk. Normal Ankle Jerk . Vertebral body tenderness to palpation over Lumbar Facet Loading Test positive Straight Leg Raise: positive at 30 degrees right side/ left side Gaenslen's Test positive Sacral spine : Severe tenderness over the Sacroiliac joint: right side / left side Range of motion: Flexion of the lumbar spine <60 degrees Range of motion: Extension of the lumbar spine <20 degrees Gaenslen's Test positive Dede test: positive right side / left side Assessment and plan: Chronic neck pain secondary to cervical degenerative disc disease , spondylosis with facet arthropathy without myelopathy Recommendation of facet blocks and medial branches C3-C4, C4-C5 #2 with TPIs of BL C3-C7. Risks, benefits of procedure discussed and patient verbalized understanding. Denies anticoagulant use. Denies medical history of diabetes. Pt admits to elevated blood pressure and currently working with her PCP for management. All patient questions answered MAPS reviewed and it was appropriate. I have spent 31 minutes on patient care today. Dr Zuleta was available by phone for the evaluation of this patient. The time was used to review the medical records including relevant urine studies and Prescription history (MAPs), review of the available imaging, evaluation and examination of the patient, coordination of care with the medical staff and if applicable referring physicians, as well as creation of the medical record Objective - Vital Signs Vital signs: Vital Signs Temp Pulse 73 03/17/22 14:16 Resp 18 03/17/22 14:16 BP 215/88 03/17/22 14:16 Pulse Ox 95 03/17/22 14:16 Intake & Output 03/16/22 03/17/22 03/17/22 18:59 06:59 18:59 Weight 103.873 kg PQRS Measure Charge Sheet Mode of Arrival: Ambulatory - Pain Location Neck Non-Pharmacological Interventions: Chiropractic Treatment, Heat, Home Exercise, Inactivity, Massage, Physical Therapy, Position/Reposition, Stretching Pharmacological Interventions: Block, PRN Medication, Topical Medication PQRS Narrative: Smoking Status Former smoker Blood Pressure 215/88 Pain Intensity [Neck] 2 Scale Used Numeric (1 - 10) Hx Alcohol Use (MH) No Home Medications: Ambulatory Orders Aspirin EC [Ecotrin Low Dose] 81 mg PO HS 11/14/19 Calcium Carbonate [Calcium] 600 mg PO HS 11/14/19 Cholecalciferol [Vitamin D3 (25 Mcg = 1000 Iu)] 1,000 unit PO DAILY 11/14/19 Furosemide [Lasix] 20 mg PO DAILY 11/14/19 Levothyroxine Sodium [Synthroid] 75 mcg PO DAILY 11/14/19 Ubidecarenone [Co Q-10] 100 mg PO DAILY 11/14/19 Vit C/E/Zn/Coppr/Lutein/Zeaxan [Preservision Areds 2 Softgel] 1 cap PO DAILY 11/14/19 atenoloL 100 mg PO HS 11/14/19 Baclofen [Lioresal] 20 mg PO HS 01/02/22 Enalapril [Vasotec] 40 mg PO DAILY 01/02/22 Fexofenadine HCl [Viviana Allergy] 180 mg PO DAILY 01/02/22 Ibuprofen [Motrin] 600 mg PO HS 01/02/22 Magnesium 200 mg PO DAILY 01/02/22 Simvastatin [Zocor] 40 mg PO HS 01/02/22 hydrALAZINE HCL [Apresoline] 50 mg PO BID 01/02/22 traMADol HCL 50 mg PO Q3H PRN 01/02/22 Lidocaine 5% Patch [Lidoderm] 1 patch TOPICAL DAILY 15 Days #15 patch 03/10/22
== END ==
LOC: PNWHC3 13:34
PROVIDERS: ATTEND Specialist
DX: M50.30 Other cervical disc degeneration, unspecified cervical region (principal); M47.812 Spondylosis without myelopathy or radiculopathy, cervical region; G89.29 Other chronic pain; Z88.5 Allergy status to narcotic agent; Z87.891 Personal history of nicotine dependence
CPT/HCPCS: 99211

== ENCOUNTER → 2022-05-05 | Day surgery (SDC) | payer MEDICARE ==
[2022-05-05 10:52] VITALS: BP 172/101; PULSE 70; RESP 12; TEMP 98.6
--- NOTE | 2022-05-05 14:21 | MM ---
Electronically signed and approved by: Neptali Tucker M.D. [facility]iolog[facility]
== END ==
LOC: RADMAMWWP 10:08
PROVIDERS: ATTEND Student in an Organized Health Care Education/Training Program
DX: R92.8 Other abnormal and inconclusive findings on diagnostic imaging of breast (principal); Z53.8 Procedure and treatment not carried out for other reasons; R03.0 Elevated blood-pressure reading, without diagnosis of hypertension; S19.9XXA Unspecified injury of neck, initial encounter; S39.92XA Unspecified injury of lower back, initial encounter; W19.XXXA Unspecified fall, initial encounter

== ENCOUNTER 2022-06-03 16:41 | Inpatient (IN) | payer MEDICARE ==
--- NOTE | 2022-06-03 18:34 | ED ---
General Adult HPI - General Chief complaint: Back Pain/Injury Stated complaint: Fall-Back Pain Time Seen by Provider: 06/03/22 18:00 Source: patient, family, RN notes reviewed Mode of arrival: EMS Limitations: physical limitation - History of Present Illness Initial comments: 77-year-old female presents to the emergency department via EMS from home with complaints of persistent pain between her shoulders. Patient states this pain has been an ongoing issue, but has worsened over the past week. Patient states she did have a fall while on a cruise last week. States she flew in from [place] today. Also had COVID eight weeks ago. Pain is exacerbated by movement and deep breathing while sitting up right and alleviated to a tolerable level while recli [place]. States she did receive an injection of anti-inflammatory pain medication while on the cruise due to the pain. Reports decreased mobility and strength as well. Denies fever, chills, headache, dizziness, chest pain, abdominal pain, nausea, vomiting, diarrhea, loss of bowel or bladder control, saddle anesthesia, or foot drop. - Related Data Home Medications Medication Instructions Recorded Confirmed Albuterol Inhaler [Ventolin Hfa 2 puff INHALATION RT-Q6H PRN 06/03/22 06/03/22 Inhaler] Aspirin EC [Ecotrin Low Dose] 81 mg PO DAILY 06/03/22 06/03/22 Baclofen [Lioresal] 20 mg PO QID PRN 06/03/22 06/03/22 Calcium Carbonate [Calcium] 600 mg PO DAILY 06/03/22 06/03/22 Cholecalciferol [Vitamin D3 (25 25 mcg PO DAILY 06/03/22 06/03/22 Mcg = 1000 Iu)] Co Q-10 100mg 100 mg PO DAILY 06/03/22 06/03/22 Enalapril [Vasotec] 40 mg PO DAILY 06/03/22 06/03/22 Fluticasone/Umeclidin/Vilanter 1 puff INHALATION RT-BID 06/03/22 06/03/22 [Trelegy Ellipta 200-62.5-25] Furosemide [Lasix] 20 mg PO DAILY 06/03/22 06/03/22 Levothyroxine Sodium [Synthroid] 75 mcg PO DAILY 06/03/22 06/03/22 Magnesium 200 mg PO DAILY 06/03/22 06/03/22 Simvastatin 40 mg PO HS 06/03/22 06/03/22 Vit C/E/Zn/Coppr/Lutein/Zeaxan 1 tab PO DAILY 06/03/22 06/03/22 [Preservision Areds 2 Chew Tab] atenoloL [Atenolol] 100 mg PO HS 06/03/22 06/03/22 hydrALAZINE HCL [Apresoline] 50 mg PO BID 06/03/22 06/03/22 traMADol HCL 50 mg PO QID PRN 06/03/22 06/03/22 Allergies Allergy/AdvReac Type Severity Reaction Status Date / Time codeine Allergy Unknown Verified 06/03/22 23:05 Review of Systems ROS Statement: Those systems with pertinent positive or pertinent negative responses have been documented in the HPI. ROS Other: All systems not noted in ROS Statement are negative. Past Medical History Past Medical History: Hyperlipidemia, Hypertension, Thyroid Disorder History of Any Multi-Drug Resistant Organisms: None Reported Past Surgical History: Cholecystectomy, Tubal Ligation Past Psychological History: No Psychological Hx Reported Smoking Status: Never smoker Past Alcohol Use History: None Reported Past Drug Use History: None Reported General Exam Limitations: physical limitation General appearance: alert, in no apparent distress (Well-developed, well- nourished female in no acute distress at rest. Initial temperature 97.2, pulse 72, respirations 18, blood pressure 158/88, pulse ox 87% on room air, 95% on 2 L.) Head exam: Present: atraumatic, normocephalic, normal inspection Eye exam: Present: normal appearance, PERRL, EOMI. Absent: scleral icterus, conjunctival injection, periorbital swelling Neck exam: Present: normal inspection, full ROM. Absent: tenderness, meningismus, lymphadenopathy Respiratory exam: Present: normal lung sounds bilaterally. Absent: respiratory distress, wheezes, rales, rhonchi, stridor, chest wall tenderness Cardiovascular Exam: Present: regular rate, normal rhythm, normal heart sounds. Absent: systolic murmur, diastolic murmur, rubs, gallop, clicks GI/Abdominal exam: Present: soft, normal bowel sounds. Absent: distended, tenderness, guarding, rebound, rigid Back exam: Present: paraspinal tenderness (thoracic back pain, worsens with repositioning from laying flat to upright, as well as with palpation), vertebral tenderness Neurological exam: Present: alert, oriented X3 Psychiatric exam: Present: normal affect, normal mood Skin exam: Present: warm, dry, intact, normal color, other (scattered contusions on all four extremities; patient states this is not unusual as she takes a baby Aspirin daily.). Absent: rash Course Vital Signs 06/03/22 06/03/22 06/03/22 16:59 17:09 23:15 Temperature 97.2 F L 98.0 F Pulse Rate 72 78 Respiratory 18 18 Rate Blood Pressure 158/88 128/60 O2 Sat by Pulse 87 L 95 95 Oximetry - Reevaluation(s) Reevaluation #1: 06/03/22 19:45 Upon reassessment, patient continues to rest comfortably rating her pain a 1 out of 10 if she is not moving. However reports when repositioning upright the pain remains significant. Discussed laboratory studies resulted at this time. Explained that if d-dimer was elevated, that there would be need to do CT of the chest today which patient was agreeable. 06/03/22 22:15 Updated on results and CT findings. Explained plan of care including initiating heparin and admitting to the hospital. Patient is agreeable. Medical Decision Making - Medical Decision Making This is a 77-year-old female with a past medical history of hypertension, hyperlipidemia, and thyroid disease who presents to the emergency department via EMS from home for evaluation of back pain. Upon exam, patient is resting comfortably in a supine reclined position. However, upon repositioning upright and leaning forward, patient complains of back pain in the mid upper portion of the thoracic region. Patient has had this discomfort for 6 weeks or more, however reports it worsened while on the cruise after a fall. Denied any chest pain. She also reports having had Covid 8 weeks ago and has had issues with persistent shortness of breath since. Has been using Duo-Nebs at home with minimal relief. States she is able to breathe freely and easily at rest. Lung sounds are clear to auscultation. Room air sat was 87%, however increase to 95% on 2 L. Patient was given pain medication for her back discomfort with improvement. Chest x-ray is negative. EKG was obtained and is normal. Laboratory studies were reviewed showing an elevated troponin and d-dimer. Patient did have a CT that showed bilateral pulmonary emboli. She was heparinized and admitted to the hospital. I did speak with Dr. Boss who agrees to accept this admission. Cardiology and vascular consults were placed. The patient is agreeable with this plan of care. Attending: Parul. - Lab Data Result diagrams: 06/03/22 18:47 06/03/22 18:47 Lab Results 06/03/22 06/03/22 06/03/22 Range/Units 18:45 18:45 18:45 WBC (3.8-10.6) k/uL RBC (3.80-5.40) m/uL Hgb (11.4-16.0) gm/dL Hct (34.0-46.0) % MCV (80.0-100.0) fL MCH (25.0-35.0) pg MCHC (31.0-37.0) g/dL RDW (11.5-15.5) % Plt Count (150-450) k/uL MPV Neutrophils % % Lymphocytes % % Monocytes % % Eosinophils % % Basophils % % Neutrophils # (1.3-7.7) k/uL Lymphocytes # (1.0-4.8) k/uL Monocytes # (0-1.0) k/uL Eosinophils # (0-0.7) k/uL Basophils # (0-0.2) k/uL PT (9.0-12.0) sec INR (<1.2) APTT (22.0-30.0) sec D-Dimer (<0.60) mg/L FEU Sodium (137-145) mmol/L Potassium (3.5-5.1) mmol/L Chloride (98-107) mmol/L Carbon Dioxide (22-30) mmol/L Anion Gap mmol/L BUN (7-17) mg/dL Creatinine (0.52-1.04) mg/dL Est GFR (CKD-EPI)AfAm (>60 ml/min/1.73 sqM) Est GFR (CKD-EPI)NonAf (>60 ml/min/1.73 sqM) Glucose (74-99) mg/dL Calcium (8.4-10.2) mg/dL Total Bilirubin (0.2-1.3) mg/dL AST (14-36) U/L ALT (4-34) U/L Alkaline Phosphatase (38-126) U/L Troponin I 0.165 H* (0.000-0.034) ng/mL NT-Pro-B Natriuret Pep 1630 pg/mL Total Protein (6.3-8.2) g/dL Albumin (3.5-5.0) g/dL Lipase 186 (23-300) U/L 06/03/22 06/03/22 06/03/22 Range/Units 18:47 18:47 18:47 WBC 7.9 (3.8-10.6) k/uL RBC 4.48 (3.80-5.40) m/uL Hgb 14.0 (11.4-16.0) gm/dL Hct 41.1 (34.0-46.0) % MCV 91.8 (80.0-100.0) fL MCH 31.2 (25.0-35.0) pg MCHC 34.0 (31.0-37.0) g/dL RDW 13.8 (11.5-15.5) % Plt Count 223 (150-450) k/uL MPV 7.5 Neutrophils % 79 % Lymphocytes % 13 % Monocytes % 6 % Eosinophils % 1 % Basophils % 1 % Neutrophils # 6.2 (1.3-7.7) k/uL Lymphocytes # 1.0 (1.0-4.8) k/uL Monocytes # 0.5 (0-1.0) k/uL Eosinophils # 0.1 (0-0.7) k/uL Basophils # 0.0 (0-0.2) k/uL PT 10.5 (9.0-12.0) sec INR 1.0 (<1.2) APTT 20.7 L (22.0-30.0) sec D-Dimer 5.00 H (<0.60) mg/L FEU Sodium 132 L (137-145) mmol/L Potassium 4.0 (3.5-5.1) mmol/L Chloride 96 L (98-107) mmol/L Carbon Dioxide 31 H (22-30) mmol/L Anion Gap 5 mmol/L BUN 31 H (7-17) mg/dL Creatinine 0.80 (0.52-1.04) mg/dL Est GFR (CKD-EPI)AfAm 81 (>60 ml/min/1.73 sqM) Est GFR (CKD-EPI)NonAf 71 (>60 ml/min/1.73 sqM) Glucose 126 H (74-99) mg/dL Calcium 8.6 (8.4-10.2) mg/dL Total Bilirubin 0.6 (0.2-1.3) mg/dL AST 25 (14-36) U/L ALT 26 (4-34) U/L Alkaline Phosphatase 84 (38-126) U/L Troponin I (0.000-0.034) ng/mL NT-Pro-B Natriuret Pep pg/mL Total Protein 6.3 (6.3-8.2) g/dL Albumin 3.6 (3.5-5.0) g/dL Lipase (23-300) U/L - EKG Data EKG shows normal: sinus rhythm Rate: normal EKG Comments: EKG obtained at 2157 shows sinus rhythm with moderate intraventricular conduction delay. Ventricular rate 75, KS interval 151, QRS duration 113, QT/QTC 390/119. Interpretation borderline ECG. - Radiology Data Radiology results: report reviewed, image reviewed Chest x-ray was obtained. Report was reviewed in its entirety. Impression per Dr. García is no acute cardiopulmonary disease/process. CT chest for PE was obtained. Report was reviewed in its entirety. Impression per Dr. García is #1. Bilateral pulmonary emboli involving the subsegmental branches of the bilateral upper and lower lobes as well as the middle lobe. Correlate with cardiac serum markers for right heart strain. #2.. Pancreatic lesion which is indeterminate measuring 50 Hounsfield units given that it was previously 32 Hounsfield units and was larger in 2019. This could represent involuting slightly complex pseudocyst versus lymph node. Correlate with prior history of pancreatitis. If there is clinical concern consider, MRI of the a bdomen with IV contrast. Disposition Clinical Impression: Pulmonary embolism, bilateral, Hypoxia, Back pain Disposition: ADMITTED IP TO THIS HOSP Condition: Serious Decision Date: 06/03/22 Decision Time: 21:49
[2022-06-03] MEDS ORDERED: ORPHENADRINE 30 MG/ML 2 ML VIAL IVP STA (18:38)
[2022-06-03 19:16] LABS: Basophils % (A) 1 %; Eosinophils # (A) 0.1 k/uL (0-0.7); Eosinophils % (A) 1 %; HCT 41.1 % (34.0-46.0); Lymphocytes % (A) 13 %; MCH 31.2 pg (25.0-35.0); MCV 91.8 fL (80.0-100.0); Mean Platelet Volume 7.5; Monocytes # (A) 0.5 k/uL (0-1.0); Monocytes % (A) 6 %; Neutrophils # (A) 6.2 k/uL (1.3-7.7); Neutrophils % (A) 79 %; Platelet Count 223 k/uL (150-450); RBC 4.48 m/uL (3.80-5.40); RDW 13.8 % (11.5-15.5); WBC 7.9 k/uL (3.8-10.6)
[2022-06-03 19:19] LABS: Albumin 3.6 g/dL (3.5-5.0); Calcium 8.6 mg/dL (8.4-10.2); Total Bilirubin 0.6 mg/dL (0.2-1.3); Total Protein 6.3 g/dL (6.3-8.2)
[2022-06-03 19:32] LABS: Partial Thromboplastin Time 20.7 sec (22.0-30.0); Prothrombin Time 10.5 sec (9.0-12.0)
--- NOTE | 2022-06-03 19:48 | XR ---
EXAMINATION TYPE: XR chest 1V portable DATE OF EXAM: 06/03/2022 7:12 PM COMPARISON: Chest radiographs from 11/13/2019 TECHNIQUE: XR chest 1V portable Frontal view of the chest. CLINICAL INDICATION:Female, 77 years old with history of shortness of breath, recent COVID; FINDINGS: Lungs/Pleura: There is no evidence of pleural effusion, focal consolidation, or pneumothorax. Streak y atelectasis within the lung bases. Pulmonary vascularity: Unremarkable. Heart/mediastinum: Cardiomediastinal silhouette is unremarkable. Musculoskeletal: Degenerative changes of the shoulder joints. IMPRESSION: No acute cardiopulmonary disease/process.
[2022-06-03] MEDS ORDERED: SODIUM CHLORIDE 0.9% 500 ML 500 ML IV STA (19:53)
[2022-06-03] MEDS ORDERED: ONDANSETRON 4 MG/2 ML VIAL IVP STA (20:00)
[2022-06-03] MEDS ORDERED: MORPHINE SULFATE 2 MG/ML SYRINGE IVP ONE (20:00)
--- NOTE | 2022-06-03 21:30 | CT ---
EXAMINATION TYPE: CT chest angio for PE CT DLP: 818.2 mGycm, Automated exposure control for dose reduction was used. DATE OF EXAM: 06/03/2022 9:07 PM COMPARISON: Chest radiograph 06/03/2022. CT angiogram no 11/13/2019. CLINICAL INDICATION:Female, 77 years old with history of shortness of breath, elevated D-Dimer; short ness of breath, elevated D-Dimer TECHNIQUE/CONTRAST: CTA scan of the thorax is performed with IV Contrast, patient injected with 100ml mL of Isovue 370, p ulmonary embolism protocol. MIP images are created and reviewed. FINDINGS: Pulmonary Artery: Filling defects are seen within the bilateral lung pulmonary arterial vasculature i ncluding the right upper, right middle and right lower lobes as well as the left lower and left upper lobes segmental and subsegmental branches. No significant reflux of contrast into the hepatic veins is seen to suggest right heart strain. The interventricular septum is mildly straightened which could be due to phase of cardiac cycle Lungs/Pleura: No evidence of focal consolidation, pleural effusion or pneumothorax. Airway: Large airways are patent. Heart: Heart is mildly enlarged for size. Vasculature: No evidence of aortic aneurysm. Mediastinum: No gross evidence of adenopathy. Musculoskeletal: No acute osseous abnormalities Soft Tissues: Unremarkable. Lower neck: The right thyroid gland is absent. Mild heterogenous appearance of the left thyroid gland . Upper Abdomen: Right renal cyst measuring up to 2.9 cm. Dilation of the extrahepatic biliary system w hich can be seen in post cholecystectomy physiology. Abnormal peripancreatic lesion measuring up to 1 6 mm in short axis and 50 Hounsfield units, this was previously larger measuring up to 3.0 cm and glory suring 32 Hounsfield units Hounsfield units. IMPRESSION: 1. Bilateral pulmonary emboli involving the subsegmental branches of the bilateral upper and lower lo bes as well as the middle lobe. Correlate with cardiac serum markers for right heart strain. 2. Peripancreatic lesion which is indeterminate measuring 50 Hounsfield units given that it was previ ously 32 Hounsfield units and was larger in 2019. This could represent involuting slightly complex ps eudocyst versus lymph node. Correlate with prior history of pancreatitis, If there is clinically conc ruy consider MRI of the abdomen with IV contrast.
[2022-06-03] MEDS ORDERED: HEPARIN SODIUM 1,000 UN/ML (10ML VL) IV ONE (22:10)
[2022-06-03] MEDS ORDERED: HEPARIN SODIUM 1,000 UN/ML (10ML VL) IV PRN (22:10)
[2022-06-03] MEDS ORDERED: ACETAMINOPHEN TAB 325 MG TAB PO PRN (22:27)
[2022-06-03] MEDS ORDERED: MORPHINE SULFATE 4 MG/ML SYRINGE IV PRN (22:27)
[2022-06-03] MEDS ORDERED: NALOXONE 0.4 MG/ML 1 ML VIAL IV PRN (22:27)
[2022-06-03] MEDS: HEPARIN SOD,PORK IN 0.45% NACL 25,000 UNIT in 0.45% NACL 1 250ML.BAG IV SCH (23:06)
[2022-06-03] MEDS: SODIUM CHLORIDE 0.9% 1,000 ML IV SCH (23:31)
[2022-06-04 03:44] LABS: Basophils # (A) 0.1 k/uL (0-0.2); Basophils % (A) 1 %; Eosinophils # (A) 0.2 k/uL (0-0.7); Eosinophils % (A) 3 %; HCT 37.1 % (34.0-46.0); HGB 12.5 gm/dL (11.4-16.0); Lymphocytes # (A) 1.1 k/uL (1.0-4.8); Lymphocytes % (A) 18 %; MCH 30.3 pg (25.0-35.0); MCHC 33.7 g/dL (31.0-37.0); Mean Platelet Volume 8.1; Monocytes # (A) 0.4 k/uL (0-1.0); Monocytes % (A) 7 %; Neutrophils # (A) 4.5 k/uL (1.3-7.7); Neutrophils % (A) 71 %; Platelet Count 181 k/uL (150-450); RBC 4.13 m/uL (3.80-5.40); RDW 13.6 % (11.5-15.5); WBC 6.3 k/uL (3.8-10.6)
[2022-06-04 04:59] LABS: Calcium 7.9 mg/dL (8.4-10.2); Potassium 3.5 mmol/L (3.5-5.1)
[2022-06-04] MEDS: LEVOTHYROXINE 75 MCG TAB PO SCH (06:37)
[2022-06-04] MEDS: ONDANSETRON 4 MG/2 ML VIAL IVP PRN (06:44)
[2022-06-04] MEDS: SYMBICORT 80-4.5 MCG INHALER INHALATION SCH ×2 (07:23→19:06)
[2022-06-04] MEDS: IPRATROPIUM 0.5 MG/2.5 ML NEBU INHALATION SCH ×4 (07:23→19:06)
[2022-06-04] MEDS ORDERED: FUROSEMIDE 20 MG TAB PO SCH (09:00)
[2022-06-04] MEDS ORDERED: HYDROmorphone 0.5 MG/0.5 ML SYRINGE IVP STA (09:04)
[2022-06-04] MEDS: lisinopriL 20 MG TAB PO SCH ×2 (09:05→20:18)
[2022-06-04] MEDS: FAMOTIDINE 20 MG TAB PO SCH ×2 (09:06→20:18)
[2022-06-04] MEDS: hydrALAZINE HCL 50 MG TAB PO SCH ×2 (09:06→20:30)
--- NOTE | 2022-06-04 09:48 | US ---
EXAMINATION TYPE: US venous doppler duplex LE DATE OF EXAM: 06/04/2022 9:31 AM COMPARISON: NONE CLINICAL HISTORY: dvt pain. BLE Pain after recent fall SIDE PERFORMED: Bilateral TECHNIQUE: The lower extremity deep venous system is examined utilizing real time linear array sonog jose david with graded compression, doppler sonography and color-flow sonography. VESSELS IMAGED: Common Femoral Vein Deep Femoral Vein Greater Saphenous Vein * Femoral Vein Popliteal Vein Small Saphenous Vein * Proximal Calf Veins (* superficial vessels) Right Leg: Negative for DVT Left Leg: Negative for DVT Left calf veins limited Grayscale, color doppler, spectral doppler imaging performed of the deep veins of the bilateral lower extremities. There is normal flow, compressibility, vascular waveforms. IMPRESSION: No ultrasound evidence for acute deep or superficial venous thrombosis in either lower extremity.
--- NOTE | 2022-06-04 11:46 | CA ---
Transthoracic Echo Report Name: Elena Nieto Age: 77 Gender: F : 1945 Exam Date: 06/04/2022 09:48 Exam Location: [facility] Ht (in): 65 Wt (lb): 250 Ordering Physician: Laura Leiva Attending/Referring Phys: Sales Secretary Danielle Cooper RDCS Procedure CPT: Indications: PE, evaluate for right heart strain Cardiac Hx: Technical Quality: Good Contrast 1: Total Dose (mL): Contrast 2: Total Dose (mL): MEASUREMENTS (Male / Female) Normal Values 2D ECHO LV Diastolic Diameter PLAX 4.4 cm 4.2 - 5.9 / 3.9 - 5.3 cm LV Systolic Diameter PLAX 2.8 cm IVS Diastolic Thickness 1.2 cm 0.6 - 1.0 / 0.6 - 0.9 cm LVPW Diastolic Thickness 1.2 cm 0.6 - 1.0 / 0.6 - 0.9 cm LV Relative Wall Thickness 0.6 RV Internal Dim ED PLAX 3.2 cm LA Systolic Diameter LX 3.7 cm 3.0 - 4.0 / 2.7 - 3.8 cm LA Volume 56.2 cm??? 18 - 58 / 22 - 52 cm??? M-MODE Aortic Root Diameter MM 3.5 cm MV E Point Septal Separation 0.6 cm AV Cusp Separation MM 2.3 cm DOPPLER AV Peak Velocity 169.3 cm/s AV Peak Gradient 11.5 mmHg MV Area PHT 2.0 cm??? Mitral E Point Velocity 68.0 cm/s Mitral A Point Velocity 116.0 cm/s Mitral E to A Ratio 0.6 MV Deceleration Time 383.5 ms MV E' Velocity 6.4 cm/s Mitral E to MV E' Ratio 10.6 TR Peak Velocity 324.4 cm/s TR Peak Gradient 42.1 mmHg Right Ventricular Systolic Press 47.1 mmHg FINDINGS Left Ventricle Left ventricular ejection fraction is estimated at 55-60 %. Left ventricular cavity size normal. Borderline left ventricular hypertrophy. Right Ventricle Normal right ventricular size. Moderate pulmonary hypertension. Right ventricular systolic pressure estimated at 47 mm hg. Right Atrium Normal right atrial size. Left Atrium Normal left atrial size. Mildly increased left atrial volume. No evidence for an atrial septal defect. Mitral Valve Mitral valve thickened. Mild mitral annular calcification. Mild mitral regurgitation Aortic Valve Trileaflet aortic valve. Focal thickening of the aortic valve cusps. Tricuspid Valve Mild tricuspid regurgitation. Normal appearance of the tricuspid valve Pulmonic Valve Not well visualized Pericardium Normal pericardium. No pericardial effusion. Aorta Normal size aortic root and proximal ascending aorta. CONCLUSIONS 1. Normal left ventricle size and systolic function 2. Normal right ventricle size with [id number] pulmonary hypertension 3. Mitral anulus calcification with mild mitral regurgitation 4. Mild tricuspid regurgitation Previewed by: Dr. Dick Jurado MD (Electronically Signed) Final Date: 04 June 2022 11:45
[2022-06-04] MEDS: SODIUM CHLORIDE 0.9% 1,000 ML IV SCH (13:13)
[2022-06-04] MEDS: HEPARIN SOD,PORK IN 0.45% NACL 25,000 UNIT in 0.45% NACL 1 250ML.BAG IV SCH ×2 (13:15→18:42)
--- NOTE | 2022-06-04 15:11 | P.CONS ---
History of Present Illness - Reason for Consult Consult date: 06/04/22 Peripancreatic lesion Requesting physician: Nicki Houston - Chief Complaint Back pain - History of Present Illness This appeared pleasant 77-year-old female who presented to the emergency department with complaints of persistent pain between her shoulder blades. It has been ongoing issue for the last couple months but has been worsening over the past 1 week. She's had multiple falls over the last couple months as well. She states that she was diagnosed with Covid in March of this year and since then has had numbness and tingling in her upper and lower extremities. Patient was also noted to have a low oxygen saturation of 87% on admission. She is currently on 3 L of nasal cannula. She states she's had shortness of breath but she has related that to her COVID-19. She underwent a CT angiogram of the chest was found to have bilateral pulmonary embolism as well as a finding of care he pancreatic lesion which is indeterminate, which had been measuring larger in 2018. Report states it could represent a complex pseudocyst versus a lymph node. Patient denies any previous history of knowing of any pseudocyst or pancreatic lesion, she still denies any history of pancreatitis. She denies any chest pain, abdominal pain, epigastric pain, nausea or vomiting. Patient had elevated troponins 3, echocardiogram pending. Patient was started on a heparin drip, cardiology and pulmonology following for pulmonary embolism. WBC 6.3 hemoglobin 12.5 hematocrit 37 platelet count 181,000 total bilirubin 0.6 AST 25 ALT 26 alkaline phosphatase 84 lipase 186 Review of Systems REVIEW OF SYSTEMS: CARDIOPULMONARY: No chest pain, positive shortness of breath. Gastrointestinal: No abdominal pain. No epigastric pain. No nausea or vomiti ng. No hematemesis, coffee-ground emesis. No rectal bleeding, or melena. GENITOURINARY: No dysuria or hematuria. MUSCULOSKELETAL: Reports normal range of motion. Complaints of pain between her shoulder blades. Numbness and tingling in upper and lower extremities. Skin: No rashes. No jaundice. ENDOCRINE: No chills, fevers. No excessive weight gain or loss. No polydipsia or polyuria. PSYCHIATRIC: Unremarkable. NEUROLOGY: No change in mental status. Denies dizziness, headache. ENT: Vision unremarkable. CONSTITUTIONAL: No recent weight loss. No fever, chills, night sweats. Past Medical History Past Medical History: Hyperlipidemia, Hypertension, Thyroid Disorder Additional Past Medical History / Comment(s): Arthritis History of Any Multi-Drug Resistant Organisms: None Reported Past Surgical History: Cholecystectomy, Tubal Ligation Additional Past Surgical History / Comment(s): bilateral cataract surgery Past Anesthesia/Blood Transfusion Reactions: No Reported Reaction Past Psychological History: No Psychological Hx Reported Smoking Status: Former smoker Past Alcohol Use History: Rare Past Drug Use History: None Reported - Past Family History Father Family Medical History: Coronary Artery Disease (CAD), Myocardial Infarction ([place]) Mother Family Medical History: Cancer Medications and Allergies Home Medications Medication Instructions Recorded Confirmed Type Albuterol Inhaler [Ventolin Hfa 2 puff INHALATION RT-Q6H PRN 06/03/22 06/03/22 History Inhaler] Aspirin EC [Ecotrin Low Dose] 81 mg PO DAILY 06/03/22 06/03/22 History Baclofen [Lioresal] 20 mg PO QID PRN 06/03/22 06/03/22 History Calcium Carbonate [Calcium] 600 mg PO DAILY 06/03/22 06/03/22 History Cholecalciferol [Vitamin D3 (25 25 mcg PO DAILY 06/03/22 06/03/22 History Mcg = 1000 Iu)] Co Q-10 100mg 100 mg PO DAILY 06/03/22 06/03/22 History Enalapril [Vasotec] 40 mg PO DAILY 06/03/22 06/03/22 History Fluticasone/Umeclidin/Vilanter 1 puff INHALATION RT-BID 06/03/22 06/03/22 Histor y [Trelegy Ellipta 200-62.5-25] Furosemide [Lasix] 20 mg PO DAILY 06/03/22 06/03/22 History Levothyroxine Sodium [Synthroid] 75 mcg PO DAILY 06/03/22 06/03/22 History Magnesium 200 mg PO DAILY 06/03/22 06/03/22 History Simvastatin 40 mg PO HS 06/03/22 06/03/22 History Vit C/E/Zn/Coppr/Lutein/Zeaxan 1 tab PO DAILY 06/03/22 06/03/22 History [Preservision Areds 2 Chew Tab] atenoloL [Atenolol] 100 mg PO HS 06/03/22 06/03/22 History hydrALAZINE HCL [Apresoline] 50 mg PO BID 06/03/22 06/03/22 History traMADol HCL 50 mg PO QID PRN 06/03/22 06/03/22 History Allergies Allergy/AdvReac Type Severity Reaction Status Date / Time codeine Allergy Unknown Verified 06/03/22 23:05 Physical Exam Vitals: Vital Signs Temp Pulse Resp BP Pulse Ox 06/04/22 08:00 92 L 06/04/22 07:33 74 16 06/04/22 07:23 66 16 06/04/22 06:50 87 22 184/102 97 06/03/22 23:15 98.0 F 78 18 128/60 95 06/03/22 17:09 95 06/03/22 16:59 97.2 F L 72 18 158/88 87 L Intake and Output 06/03/22 06/04/22 06/04/22 22:59 06:59 14:59 Intake Total 111.926 Balance 111.926 Intake: Intake, IV Titration 111.926 Amount Heparin Sod,Pork in 0.45% 111.926 NaCl 25,000 unit In 0.45 % NaCl 1 250ml.bag @ 18 UNITS/KG/HR 20.412 mls/hr IV .[id number] [facility] Rx#: [id number] Other: Weight 113.398 kg 113.398 kg General appearance: The patient is alert, oriented, appears in no acute distress. HET: Head is normocephalic and atraumatic. Conjunctiva pink. Sclera anicteric. Neck: Supple without lymphadenopathy. Abdomen: Soft, nontender, nondistended with bowel sounds. No guarding or rigidity. Extremities: Normal skin color and turgor. No pedal edema Skin: No rashes, no jaundice Neurological: No focal deficits. Alert and oriented x 3. Results CBC & Chem 7: 06/04/22 03:34 06/04/22 03:34 Labs: Abnormal Lab Results - Last 24 Hours (Table) 06/03/22 06/03/22 06/03/22 Range/Units 18:45 18:47 18:47 APTT 20.7 L (22.0-30.0) sec D-Dimer 5.00 H (<0.60) mg/L FEU Sodium 132 L (137-145) mmol/L Chloride 96 L (98-107) mmol/L Carbon Dioxide 31 H (22-30) mmol/L BUN 31 H (7-17) mg/dL Glucose 126 H (74-99) mg/dL Calcium (8.4-10.2) mg/dL Troponin I 0.165 H* (0.000-0.034) ng/mL 06/04/22 06/04/22 06/04/22 Range/Units 00:08 03:34 03:34 APTT >200.0 H* (22.0-30.0) sec D-Dimer (<0.60) mg/L FEU Sodium 133 L (137-145) mmol/L Chloride (98-107) mmol/L Carbon Dioxide (22-30) mmol/L BUN 24 H (7-17) mg/dL Glucose 111 H (74-99) mg/dL Calcium 7.9 L (8.4-10.2) mg/dL Troponin I 0.126 H* (0.000-0.034) ng/mL 06/04/22 Range/Units 03:34 APTT (22.0-30.0) sec D-Dimer (<0.60) mg/L FEU Sodium (137-145) mmol/L Chloride (98-107) mmol/L Carbon Dioxide (22-30) mmol/L BUN (7-17) mg/dL Glucose (74-99) mg/dL Calcium (8.4-10.2) mg/dL Troponin I 0.135 H* (0.000-0.034) ng/mL Comments: Chest CTA. Pancreatic lesion which is indeterminate measuring 50 Hounsfield units given that it was previously 32 Hounsfield units and was larger in 2019. This could represent involuting slightly complex pseudocyst versus lymph node. Correlate with prior history of pancreatitis if there is clinically concern cons ider MRI of the abdomen with IV contrast. CT scan - chest: report reviewed Assessment and Plan (1) Pancreatic lesion Narrative/Plan: Pleasant 77-year-old female who presented to the emergency department with complaints of pain between her shoulder blades. Patient had a recent diagnosis of COVID-19 infection back in March of this year. She was found to be hypoxic on admission and had a CT angiogram showing bilateral pulmonary embolism as well as a a pancreatic lesion that actually is smaller in size in previously seen on CT in 2019. Patient states she was not aware of any pancreatic lesion in the past. Denies any history of pancreatitis. This is likely incidental finding and since he lesion is significantly smaller in the past there is no acute concern. Patient can have outpatient follow-up with gastroenterology and consider possible MRI in the future. No further workup indicated. Current Visit: Yes Status: Acute Code(s): K86.9 - DISEASE OF PANCREAS, UNSPECIFIED SNOMED Code(s): 5852747 Plan: 1. Continue symptomatic and supportive care 2. Continue with medical management 3. No plans for any further workup 4. It was discussed with patient for follow-up with gastroenterology, can consider outpatient MRI Thank you for this consultation, we will sign off at this time. Dr. Nicole Kiran I agree with the dictator's note, documented as a scribe by Laura Duke.
[2022-06-04] MEDS: hydrALAZINE HCL 20 MG/ML 1 ML VIAL IVP PRN (15:38)
--- NOTE | 2022-06-04 17:24 | P.HPIM ---
History of Present Illness H&P Date: 06/04/22 Elena Nieto, is a 77-year-old female who presented to [facility] emergency room with a chief complaint of upper back pain She was evaluated in the emergency room vital examination on presentation revealed a temperature of 97.2 pulse 72 respiration 18 blood pressure 158/88 pulse ox 87% on room air Laboratory data revealed a white blood count of 7.9 hemoglobin 14.0 platelet count 223 d-dimer 5 sodium 132 potassium 4.0 chloride 96 CO2 31 BUN 31 creatinine 0.8 troponin 0.165 BNP 1630 Testing in the emergency room revealed CT angiogram of the chest was done in the emergency room and revealed evidence of bilateral pulmonary emboli involving the subsegmental branches of the bilateral upper and lower lobes as well as the middle lobe, and also revealed evidence of a peripancreatic lesion which is indeterminate and was larger in 2019 and might represent a complex pseudocyst versus a lymph node Patient was admitted to medical floor for further evaluation and treatment, consultation for cardiology and gastroenterology were initiated Past Medical History Past Medical History: Hyperlipidemia, Hypertension, Thyroid Disorder Additional Past Medical History / Comment(s): Arthritis History of Any Multi-Drug Resistant Organisms: None Reported Past Surgical History: Cholecystectomy, Tubal Ligation Additional Past Surgical History / Comment(s): bilateral cataract surgery Past Anesthesia/Blood Transfusion Reactions: No Reported Reaction Past Psychological History: No Psychological Hx Reported Smoking Status: Former smoker Past Alcohol Use History: Rare Past Drug Use History: None Reported - Past Family History Father Family Medical History: Coronary Artery Disease (CAD), Myocardial Infarction ([place]) Mother Family Medical History: Cancer Medications and Allergies Home Medications Medication Instructions Recorded Confirmed Type Albuterol Inhaler [Ventolin Hfa 2 puff INHALATION RT-Q6H PRN 06/03/22 06/03/22 History Inhaler] Aspirin EC [Ecotrin Low Dose] 81 mg PO DAILY 06/03/22 06/03/22 History Baclofen [Lioresal] 20 mg PO QID PRN 06/03/22 06/03/22 History Calcium Carbonate [Calcium] 600 mg PO DAILY 06/03/22 06/03/22 History Cholecalciferol [Vitamin D3 (25 25 mcg PO DAILY 06/03/22 06/03/22 History Mcg = 1000 Iu)] Co Q-10 100mg 100 mg PO DAILY 06/03/22 06/03/22 History Enalapril [Vasotec] 40 mg PO DAILY 06/03/22 06/03/22 History Fluticasone/Umeclidin/Vilanter 1 puff INHALATION RT-BID 06/03/22 06/03/22 History [Trelegy Ellipta 200-62.5-25] Furosemide [Lasix] 20 mg PO DAILY 06/03/22 06/03/22 History Levothyroxine Sodium [Synthroid] 75 mcg PO DAILY 06/03/22 06/03/22 History Magnesium 200 mg PO DAILY 06/03/22 06/03/22 History Simvastatin 40 mg PO HS 06/03/22 06/03/22 History Vit C/E/Zn/Coppr/Lutein/Zeaxan 1 tab PO DAILY 06/03/22 06/03/22 History [Preservision Areds 2 Chew Tab] atenoloL [Atenolol] 100 mg PO HS 06/03/22 06/03/22 History hydrALAZINE HCL [Apresoline] 50 mg PO BID 06/03/22 06/03/22 History traMADol HCL 50 mg PO QID PRN 06/03/22 06/03/22 History Allergies Allergy/AdvReac Type Severity Reaction Status Date / Time codeine Allergy Unknown Verified 06/03/22 23:05 Physical Exam Vitals: Vital Signs Temp Pulse Resp BP Pulse Ox 06/04/22 11:24 71 18 06/04/22 11:16 75 16 06/04/22 09:10 98.2 F 68 20 191/88 96 06/04/22 08:00 92 L 06/04/22 07:33 74 16 06/04/22 07:23 66 16 06/04/22 06:50 87 22 184/102 97 06/03/22 23:15 98.0 F 78 18 128/60 95 06/03/22 17:09 95 06/03/22 16:59 97.2 F L 72 18 158/88 87 L Intake and Output 06/03/22 06/04/22 06/04/22 22:59 06:59 14:59 Intake Total 111.926 51.937 Balance 111.926 51.937 Intake: Intake, IV Titration 111.926 51.937 Amount Heparin Sod,Pork in 0.45% 111.926 51.937 NaCl 25,000 unit In 0.45 % NaCl 1 250ml.bag @ 18 UNITS/KG/HR 20.412 mls/hr IV .[id number] [facility] Rx#: [id number] Other: Weight 113.398 kg 113.398 kg In general patient is alert and oriented x 3 in no distress HEENT head normocephalic and atraumatic Neck is supple no JVD no goiter no lymphadenopathy no carotid bruit Chest examination is clear to auscultation no crackles no wheezing Cardiac exam reveals regular heart sounds S1 and S2 no gallops no murmurs Abdomen is soft nontender no organomegaly with normal bowel sounds Extremity exam reveals no edema no cyanosis or clubbing Neurological examination reveals no gross focal deficits Results CBC & Chem 7: 06/04/22 03:34 06/04/22 03:34 Labs: Abnormal Lab Results - Last 24 Hours (Table) 06/03/22 06/03/22 06/03/22 Range/Units 18:45 18:47 18:47 APTT 20.7 L (22.0-30.0) sec D-Dimer 5.00 H (<0.60) mg/L FEU Sodium 132 L (137-145) mmol/L Chloride 96 L (98-107) mmol/L Carbon Dioxide 31 H (22-30) mmol/L BUN 31 H (7-17) mg/dL Glucose 126 H (74-99) mg/dL Calcium (8.4-10.2) mg/dL Troponin I 0.165 H* (0.000-0.034) ng/mL 06/04/22 06/04/22 06/04/22 Range/Units 00:08 03:34 03:34 APTT >200.0 H* (22.0-30.0) sec D-Dimer (<0.60) mg/L FEU Sodium 133 L (137-145) mmol/L Chloride (98-107) mmol/L Carbon Dioxide (22-30) mmol/L BUN 24 H (7-17) mg/dL Glucose 111 H (74-99) mg/dL Calcium 7.9 L (8.4-10.2) mg/dL Troponin I 0.126 H* (0.000-0.034) ng/mL 06/04/22 06/04/22 Range/Units 03:34 09:28 APTT 37.4 H (22.0-30.0) sec D-Dimer (<0.60) mg/L FEU Sodium (137-145) mmol/L Chloride (98-107) mmol/L Carbon Dioxide (22-30) mmol/L BUN (7-17) mg/dL Glucose (74-99) mg/dL Calcium (8.4-10.2) mg/dL Troponin I 0.135 H* (0.000-0.034) ng/mL Thrombosis Risk Factor Assmnt - Choose All That Apply Other Risk Factors: Yes Each Risk Factor Represents 3 Points: Age 75 years or older Thrombosis Risk Factor Assessment Total Risk Factor Score: 3 Thrombosis Risk Factor Assessment Level: Moderate Risk Assessment and Plan Plan: Upper back pain, severe per patient, with evidence of multilobar pulmonary embolism History of chronic back pain patient recently received epidural injections at the pain clinic, will consult anesthesiology Peripancreatic lesion, not entirely clear on computed tomography scan, patient stated that she was seen by Dr. Kiran the past, consultation was requested. CT mentions that the lesion was larger in 2019 which is reassuring. Underlying history of diabetes mellitus type 2 Underlying history of hypertension Underlying history of hyperlipidemia Underlying history of hypothyroidism At this time patient is admitted to telemetry floor Auscultation for cardiology and gastroenterology were initiated Patient was started on IV heparin in the emergency room For GI prophylaxis Will use Protonix Recheck labs and follow-up in a.m.
[2022-06-04] MEDS: HYDROmorphone 0.5 MG/0.5 ML SYRINGE IVP PRN ×2 (17:57→23:51)
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
[2022-06-04] MEDS: ATORVASTATIN 20 MG TAB PO SCH (20:18)
[2022-06-04] MEDS ORDERED: atenoloL 50 MG TAB PO SCH (21:00)
[2022-06-04] MEDS: atenoloL 50 MG TAB PO SCH (21:35)
[2022-06-05] MEDS: SODIUM CHLORIDE 0.9% 1,000 ML IV SCH ×2 (00:10→16:40)
[2022-06-05] MEDS: LEVOTHYROXINE 75 MCG TAB PO SCH (05:42)
[2022-06-05] MEDS: PANTOPRAZOLE 40 MG TABLET PO SCH (06:34)
[2022-06-05] MEDS: SYMBICORT 80-4.5 MCG INHALER INHALATION SCH ×2 (07:45→20:29)
[2022-06-05] MEDS: IPRATROPIUM 0.5 MG/2.5 ML NEBU INHALATION SCH ×4 (07:45→20:29)
[2022-06-05] MEDS: hydrALAZINE HCL 50 MG TAB PO SCH ×2 (08:05→21:23)
[2022-06-05] MEDS: HYDROmorphone 0.5 MG/0.5 ML SYRINGE IVP PRN ×3 (08:05→21:23)
[2022-06-05] MEDS: lisinopriL 20 MG TAB PO SCH ×2 (08:05→21:23)
[2022-06-05] MEDS: FAMOTIDINE 20 MG TAB PO SCH ×2 (08:05→21:23)
[2022-06-05 08:14] LABS: Basophils % (A) 0 %; Eosinophils # (A) 0.1 k/uL (0-0.7); Eosinophils % (A) 2 %; HGB 12.3 gm/dL (11.4-16.0); Lymphocytes # (A) 0.7 k/uL (1.0-4.8); Lymphocytes % (A) 15 %; MCH 30.9 pg (25.0-35.0); MCHC 33.3 g/dL (31.0-37.0); MCV 92.6 fL (80.0-100.0); Mean Platelet Volume 7.4; Monocytes # (A) 0.3 k/uL (0-1.0); Monocytes % (A) 6 %; Neutrophils # (A) 3.6 k/uL (1.3-7.7); Neutrophils % (A) 74 %; Platelet Count 187 k/uL (150-450); RBC 3.99 m/uL (3.80-5.40); RDW 13.9 % (11.5-15.5); WBC 4.9 k/uL (3.8-10.6)
[2022-06-05 08:35] LABS: Albumin 2.8 g/dL (3.5-5.0); Calcium 7.9 mg/dL (8.4-10.2); Potassium 4.1 mmol/L (3.5-5.1); Total Bilirubin 0.9 mg/dL (0.2-1.3); Total Protein 5.3 g/dL (6.3-8.2)
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
[2022-06-05] MEDS: HEPARIN SOD,PORK IN 0.45% NACL 25,000 UNIT in 0.45% NACL 1 250ML.BAG IV SCH (16:41)
--- NOTE | 2022-06-05 18:27 | PN ---
PROGRESS NOTE Mrs. Elena Nieto had pulmonary emboli yesterday, hemodynamically stable, and no evidence of any right ventricular strain. She is doing well today. No chest pain or shortness of breath. She is on IV heparin. I will switch her to 10 mg b.i.d. of Eliquis starting this evening, and then after one week 5 mg b.i.d. Vitals are stable. No JVD. S1-S2 heard normally. No significant murmurs. Lungs are clear. Abdomen is soft, nontender. Lower extremities reveal palpable pulses. No edema. Central nervous system is normal. RECOMMENDATIONS: Plan is to switch her from IV heparin to Eliquis 10 mg b.i.d. later on today or early tomorrow. Patient can be discharged in the morning. MMODL / IJN: [id number] /
[2022-06-05] MEDS: ATORVASTATIN 20 MG TAB PO SCH (21:23)
[2022-06-05] MEDS: APIXABAN 5 MG TAB PO SCH (21:23)
[2022-06-05] MEDS: atenoloL 50 MG TAB PO SCH (21:23)
[2022-06-06] MEDS: HYDROmorphone 0.5 MG/0.5 ML SYRINGE IVP PRN ×5 (04:19→20:03)
[2022-06-06] MEDS: LEVOTHYROXINE 75 MCG TAB PO SCH (05:16)
[2022-06-06] MEDS: PANTOPRAZOLE 40 MG TABLET PO SCH (06:28)
[2022-06-06] MEDS: SYMBICORT 80-4.5 MCG INHALER INHALATION SCH ×2 (07:36→19:39)
[2022-06-06] MEDS: IPRATROPIUM 0.5 MG/2.5 ML NEBU INHALATION SCH ×4 (07:37→19:39)
[2022-06-06] MEDS: FAMOTIDINE 20 MG TAB PO SCH ×2 (07:55→20:03)
[2022-06-06] MEDS: lisinopriL 20 MG TAB PO SCH ×2 (07:55→20:03)
[2022-06-06] MEDS: hydrALAZINE HCL 50 MG TAB PO SCH ×2 (07:55→20:03)
[2022-06-06] MEDS: APIXABAN 5 MG TAB PO SCH ×2 (07:55→20:03)
[2022-06-06] MEDS: SODIUM CHLORIDE 0.9% 1,000 ML IV SCH (10:45)
[2022-06-06] MEDS ORDERED: LORazepam 2 MG/ML INJ IV PRN (13:10)
[2022-06-06] MEDS ORDERED: LORazepam 1 MG/0.5 ML VIAL IV PRN (13:12)
--- NOTE | 2022-06-06 14:27 | P.PN ---
Subjective Progress Note Date: 06/05/22 Elena Nieto, is a 77-year-old female who presented to [facility] emergency room with a chief complaint of upper back pain She was evaluated in the emergency room vital examination on presentation revealed a temperature of 97.2 pulse 72 respiration 18 blood pressure 158/88 pulse ox 87% on room air Laboratory data revealed a white blood count of 7.9 hemoglobin 14.0 platelet count 223 d-dimer 5 sodium 132 potassium 4.0 chloride 96 CO2 31 BUN 31 creatinine 0.8 troponin 0.165 BNP 1630 Testing in the emergency room revealed CT angiogram of the chest was done in the emergency room and revealed evidence of bilateral pulmonary emboli involving the subsegmental branches of the bilateral upper and lower lobes as well as the middle lobe, and also revealed evidence of a peripancreatic lesion which is indeterminate and was larger in 2019 and might represent a complex pseudocyst versus a lymph node Patient was admitted to medical floor for further evaluation and treatment, consultation for cardiology and gastroenterology were initiated On 06/05/2022 patient was seen and examined the telemetry floor she is alert and oriented 3 in no apparent distress she is complaining of upper back pain between her shoulder blades, otherwise she denies any complaints there is no fever or chills no headache or dizziness no chest pain no shortness of breath no cough no nausea or vomiting no abdominal pain no diarrhea and no urinary symptoms, temperature is 97.6 pulse 70 respirations 16 blood pressure 153/64 pulse ox 94% on 2 L nasal cannula white blood count 4.9 hemoglobin 12.3 platelet count 187 sodium 132 potassium 4.1 chloride 105 BUN 18 creatinine 0.8 Objective - Vital Signs Vital signs: Vital Signs Temp 98 F 06/05/22 08:13 Pulse 71 06/05/22 08:13 Resp 17 06/05/22 08:13 BP 144/84 06/05/22 08:13 Pulse Ox 93 L 06/05/22 08:13 FiO2 Intake & Output 06/04/22 06/05/22 06/05/22 18:59 06:59 18:59 Intake Total 318.074 131.242 86.732 Output Total 150 Balance 318.074 -18.758 86.732 Intake: Intake, IV Titration 138.074 131.242 86.732 Amount Heparin Sod,Pork in 0.45% 138.074 131.242 86.732 NaCl 25,000 unit In 0.45 % NaCl 1 250ml.bag @ 18 UNITS/KG/HR 20.412 mls/hr IV .[id number] [facility] Rx#: [id number] Oral 180 Output: Urine 150 Other: Voiding Method External Catheter External Catheter # Voids 1 - Exam In general patient is alert and oriented x 3 in no distress HEENT head normocephalic and atraumatic Neck is supple no JVD no goiter no lymphadenopathy no carotid bruit Chest examination is clear to auscultation no crackles no wheezing Cardiac exam reveals regular heart sounds S1 and S2 no gallops no murmurs Abdomen is soft nontender no organomegaly with normal bowel sounds Extremity exam reveals no edema no cyanosis or clubbing Neurological examination reveals no gross focal deficits - Labs CBC & Chem 7: 06/05/22 07:48 06/05/22 07:48 Labs: Abnormal Lab Results - Last 24 Hours (Table) 06/05/22 06/05/22 06/05/22 Range/Units 01:04 07:48 07:48 Lymphocytes # 0.7 L (1.0-4.8) k/uL APTT 183.2 H* (22.0-30.0) sec Sodium 132 L (137-145) mmol/L BUN 18 H (7-17) mg/dL Glucose 150 H (74-99) mg/dL Calcium 7.9 L (8.4-10.2) mg/dL Total Protein 5.3 L (6.3-8.2) g/dL Albumin 2.8 L (3.5-5.0) g/dL 06/05/22 Range/Units 07:48 Lymphocytes # (1.0-4.8) k/uL APTT >200.0 H* (22.0-30.0) sec Sodium (137-145) mmol/L BUN (7-17) mg/dL Glucose (74-99) mg/dL Calcium (8.4-10.2) mg/dL Total Protein (6.3-8.2) g/dL Albumin (3.5-5.0) g/dL Assessment and Plan Plan: Upper back pain, severe per patient, with evidence of multilobar pulmonary emb olism History of chronic back pain patient recently received epidural injections at the pain clinic, will consult anesthesiology Peripancreatic lesion, not entirely clear on computed tomography scan, patient stated that she was seen by Dr. Kiran the past, consultation was requested. CT mentions that the lesion was larger in 2019 which is reassuring. Underlying history of diabetes mellitus type 2 Underlying history of hypertension Underlying history of hyperlipidemia Underlying history of hypothyroidism At this time patient is admitted to telemetry floor Auscultation for cardiology and gastroenterology were initiated Patient was started on IV heparin in the emergency room For GI prophylaxis Will use Protonix Recheck labs and follow-up in a.m.
--- NOTE | 2022-06-06 14:28 | P.PN ---
Subjective Progress Note Date: 06/06/22 Elena Nieto, is a 77-year-old female who presented to [facility] emergency room with a chief complaint of upper back pain She was evaluated in the emergency room vital examination on presentation revealed a temperature of 97.2 pulse 72 respiration 18 blood pressure 158/88 pulse ox 87% on room air Laboratory data revealed a white blood count of 7.9 hemoglobin 14.0 platelet count 223 d-dimer 5 sodium 132 potassium 4.0 chloride 96 CO2 31 BUN 31 creatinine 0.8 troponin 0.165 BNP 1630 Testing in the emergency room revealed CT angiogram of the chest was done in the emergency room and revealed evidence of bilateral pulmonary emboli involving the subsegmental branches of the bilateral upper and lower lobes as well as the middle lobe, and also revealed evidence of a peripancreatic lesion which is indeterminate and was larger in 2019 and might represent a complex pseudocyst versus a lymph node Patient was admitted to medical floor for further evaluation and treatment, consultation for cardiology and gastroenterology were initiated On 06/05/2022 patient was seen and examined the telemetry floor she is alert and oriented 3 in no apparent distress she is complaining of upper back pain between her shoulder blades, otherwise she denies any complaints there is no fever or chills no headache or dizziness no chest pain no shortness of breath no cough no nausea or vomiting no abdominal pain no diarrhea and no urinary symptoms, temperature is 97.6 pulse 70 respirations 16 blood pressure 153/64 pulse ox 94% on 2 L nasal cannula white blood count 4.9 hemoglobin 12.3 platelet count 187 sodium 132 potassium 4.1 chloride 105 BUN 18 creatinine 0.8 On 06/06/2022 patient was seen and examined on the telemetry floor she is alert and oriented 3 she is still complaining of upper back pain otherwise she denies any complaints there is no fever or chills no headache or dizziness no chest pain no shortness of breath no cough no nausea or vomiting no abdominal pain no diarrhea and no urinary symptoms. On IV heparin for pulmonary embolism, she was evaluated by pain management and is scheduled for thoracic spine MRI today. Objective - Vital Signs Vital signs: Vital Signs Temp 97.8 F 06/06/22 11:53 Pulse 77 06/06/22 11:53 Resp 18 06/06/22 11:53 BP 163/89 06/06/22 11:53 Pulse Ox 96 06/06/22 11:53 FiO2 Intake & Output 06/05/22 06/06/22 06/06/22 18:59 06:59 18:59 Intake Total 86.732 10 Output Total 200 1820 550 Balance -113.268 -1820 -540 Intake: IV 10 Invasive Line 2 10 Intake, IV Titration 86.732 Amount Heparin Sod,Pork in 0.45% 86.732 NaCl 25,000 unit In 0.45 % NaCl 1 250ml.bag @ 18 UNITS/KG/HR 20.412 mls/hr IV .[id number] [facility] Rx#: [id number] Output: Urine 200 1820 550 Other: Voiding Method External Catheter - Exam In general patient is alert and oriented x 3 in no distress HEENT head normocephalic and atraumatic Neck is supple no JVD no goiter no lymphadenopathy no carotid bruit Chest examination is clear to auscultation no crackles no wheezing Cardiac exam reveals regular heart sounds S1 and S2 no gallops no murmurs Abdomen is soft nontender no organomegaly with normal bowel sounds Extremity exam reveals no edema no cyanosis or clubbing Neurological examination reveals no gross focal deficits - Labs CBC & Chem 7: 06/05/22 07:48 06/05/22 07:48 Labs: Abnormal Lab Results - Last 24 Hours (Table) 06/05/22 Range/Units 16:28 APTT 59.1 H (22.0-30.0) sec Assessment and Plan Plan: Upper back pain, severe per patient, with evidence of multilobar pulmonary embolism History of chronic back pain patient recently received epidural injections at the pain clinic, will consult anesthesiology Peripancreatic lesion, not entirely clear on computed tomography scan, patient stated that she was seen by Dr. Kiran the past, consultation was requested. CT mentions that the lesion was larger in 2019 which is reassuring. Underlying history of diabetes mellitus type 2 Underlying history of hypertension Underlying history of hyperlipidemia Underlying history of hypothyroidism At this time patient is admitted to telemetry floor Auscultation for cardiology and gastroenterology were initiated Patient was started on IV heparin in the emergency room For GI prophylaxis Will use Protonix Recheck labs and follow-up in a.m.
--- NOTE | 2022-06-06 19:26 | PN ---
PROGRESS NOTE Mrs. Nieto has pulmonary embolism. She is doing very well, hemodynamically stable. Good oxygenation. I am recommending Eliquis 10 mg b.i.d. for one week and then 5 mg b.i.d. after that. Patient can be discharged later on today when okayed by the admitting doctor. Vitals are stable. JVD is not significant. S1, S2 heard normally, short systolic murmur. Lungs are clear. Abdomen and lower extremity exam is unchanged. MMODL / IJN: [id number] /
[2022-06-06] MEDS: atenoloL 50 MG TAB PO SCH (20:03)
[2022-06-06] MEDS: ATORVASTATIN 20 MG TAB PO SCH (20:03)
[2022-06-06] MEDS: hydrALAZINE HCL 20 MG/ML 1 ML VIAL IVP PRN (21:30)
[2022-06-07] MEDS: HYDROmorphone 0.5 MG/0.5 ML SYRINGE IVP PRN ×5 (05:31→23:26)
[2022-06-07] MEDS: PANTOPRAZOLE 40 MG TABLET PO SCH (06:31)
[2022-06-07] MEDS: LEVOTHYROXINE 75 MCG TAB PO SCH (06:31)
[2022-06-07 08:12] LABS: Basophils % (A) 0 %; Eosinophils # (A) 0.1 k/uL (0-0.7); Eosinophils % (A) 2 %; HCT 35.5 % (34.0-46.0); HGB 11.9 gm/dL (11.4-16.0); Lymphocytes # (A) 0.6 k/uL (1.0-4.8); Lymphocytes % (A) 11 %; MCH 30.6 pg (25.0-35.0); MCHC 33.5 g/dL (31.0-37.0); MCV 91.3 fL (80.0-100.0); Mean Platelet Volume 7.4; Monocytes # (A) 0.4 k/uL (0-1.0); Monocytes % (A) 7 %; Neutrophils % (A) 78 %; Platelet Count 195 k/uL (150-450); RBC 3.88 m/uL (3.80-5.40); RDW 13.6 % (11.5-15.5); WBC 5.1 k/uL (3.8-10.6)
[2022-06-07] MEDS: SODIUM CHLORIDE 0.9% 1,000 ML IV SCH (08:12)
[2022-06-07] MEDS: APIXABAN 5 MG TAB PO SCH ×2 (08:21→20:14)
[2022-06-07] MEDS: lisinopriL 20 MG TAB PO SCH ×2 (08:21→20:14)
[2022-06-07] MEDS: FAMOTIDINE 20 MG TAB PO SCH ×2 (08:22→20:14)
[2022-06-07] MEDS: hydrALAZINE HCL 50 MG TAB PO SCH ×2 (08:22→20:14)
[2022-06-07 08:24] LABS: Calcium 8.3 mg/dL (8.4-10.2); Potassium 4.6 mmol/L (3.5-5.1); Total Bilirubin 0.9 mg/dL (0.2-1.3); Total Protein 5.5 g/dL (6.3-8.2)
[2022-06-07] MEDS: IPRATROPIUM 0.5 MG/2.5 ML NEBU INHALATION SCH ×4 (08:35→20:01)
[2022-06-07] MEDS: SYMBICORT 80-4.5 MCG INHALER INHALATION SCH ×2 (08:35→20:01)
[2022-06-07] MEDS: DOCUSATE 100 MG CAP PO SCH ×2 (12:28→20:14)
--- NOTE | 2022-06-07 12:31 | P.PN ---
Subjective Progress Note Date: 06/07/22 Elena Nieto, is a 77-year-old female who presented to [facility] emergency room with a chief complaint of upper back pain She was evaluated in the emergency room vital examination on presentation revealed a temperature of 97.2 pulse 72 respiration 18 blood pressure 158/88 pulse ox 87% on room air Laboratory data revealed a white blood count of 7.9 hemoglobin 14.0 platelet count 223 d-dimer 5 sodium 132 potassium 4.0 chloride 96 CO2 31 BUN 31 creatinine 0.8 troponin 0.165 BNP 1630 Testing in the emergency room revealed CT angiogram of the chest was done in the emergency room and revealed evidence of bilateral pulmonary emboli involving the subsegmental branches of the bilateral upper and lower lobes as well as the middle lobe, and also revealed evidence of a peripancreatic lesion which is indeterminate and was larger in 2019 and might represent a complex pseudocyst versus a lymph node Patient was admitted to medical floor for further evaluation and treatment, consultation for cardiology and gastroenterology were initiated On 06/05/2022 patient was seen and examined the telemetry floor she is alert and oriented 3 in no apparent distress she is complaining of upper back pain between her shoulder blades, otherwise she denies any complaints there is no fever or chills no headache or dizziness no chest pain no shortness of breath no cough no nausea or vomiting no abdominal pain no diarrhea and no urinary symptoms, temperature is 97.6 pulse 70 respirations 16 blood pressure 153/64 pulse ox 94% on 2 L nasal cannula white blood count 4.9 hemoglobin 12.3 platelet count 187 sodium 132 potassium 4.1 chloride 105 BUN 18 creatinine 0.8 On 06/06/2022 patient was seen and examined on the telemetry floor she is alert and oriented 3 she is still complaining of upper back pain otherwise she denies any complaints there is no fever or chills no headache or dizziness no chest pain no shortness of breath no cough no nausea or vomiting no abdominal pain no diarrhea and no urinary symptoms. On IV heparin for pulmonary embolism, she was evaluated by pain management and is scheduled for thoracic spine MRI today. On 06/07/2022 patient was seen and examined on the telemetry floor she is alert and oriented 3 in no apparent distress she is complaining of upper back pain between her shoulder blades she is also complaining of severe generalized weakness she is needing assistance to transfer from her bed to her bedside commode otherwise she denies any complaints there is no fever or chills no headache or dizziness no chest pain no shortness of breath no cough no nausea or vomiting no abdominal pain no diarrhea no blood in the stools no burning with urination no frequency or urgency and no hematuria. Patient had MRI of the thoracic spine yesterday however there is still no radiology reading of the MRI. Will continue with current management at this time will recheck in a.m. Objective - Vital Signs Vital signs: Vital Signs Temp 97.3 F L 06/07/22 08:11 Pulse 80 06/07/22 08:11 Resp 18 06/07/22 08:11 BP 164/72 06/07/22 08:11 Pulse Ox 94 L 06/07/22 08:11 FiO2 Intake & Output 06/06/22 06/07/22 06/07/22 18:59 06:59 18:59 Intake Total 380 20 5 Output Total 555 400 Balance -175 -380 5 Intake: IV 20 20 5 Invasive Line 2 10 Invasive Line 3 10 20 5 Oral 360 Output: Urine 555 400 Other: Voiding Method External Catheter External Catheter External Catheter - Exam In general patient is alert and oriented x 3 in no distress HEENT head normocephalic and atraumatic Neck is supple no JVD no goiter no lymphadenopathy no carotid bruit Chest examination is clear to auscultation no crackles no wheezing Cardiac exam reveals regular heart sounds S1 and S2 no gallops no murmurs Abdomen is soft nontender no organomegaly with normal bowel sounds Extremity exam reveals no edema no cyanosis or clubbing Neurological examination reveals no gross focal deficits - Labs CBC & Chem 7: 06/07/22 07:16 06/07/22 07:16 Labs: Abnormal Lab Results - Last 24 Hours (Table) 06/07/22 06/07/22 Range/Units 07:16 07:16 Lymphocytes # 0.6 L (1.0-4.8) k/uL Sodium 132 L (137-145) mmol/L Glucose 115 H (74-99) mg/dL Calcium 8.3 L (8.4-10.2) mg/dL Total Protein 5.5 L (6.3-8.2) g/dL Albumin 3.0 L (3.5-5.0) g/dL Assessment and Plan Plan: Upper back pain, severe per patient, with evidence of multilobar pulmonary embolism History of chronic back pain patient recently received epidural injections at the pain clinic, will consult anesthesiology Peripancreatic lesion, not entirely clear on computed tomography scan, patient stated that she was seen by Dr. Kiran the past, consultation was requested. CT mentions that the lesion was larger in 2019 which is reassuring. Underlying history of diabetes mellitus type 2 Underlying history of hypertension Underlying history of hyperlipidemia Underlying history of hypothyroidism At this time patient is admitted to telemetry floor Auscultation for cardiology and gastroenterology were initiated Patient was started on IV heparin in the emergency room For GI prophylaxis Will use Protonix Recheck labs and follow-up in a.m.
[2022-06-07] MEDS: atenoloL 50 MG TAB PO SCH (20:14)
[2022-06-07] MEDS: ATORVASTATIN 20 MG TAB PO SCH (20:14)
[2022-06-08] MEDS: HYDROmorphone 0.5 MG/0.5 ML SYRINGE IVP PRN ×7 (03:47→23:58)
[2022-06-08] MEDS: PANTOPRAZOLE 40 MG TABLET PO SCH (06:28)
[2022-06-08] MEDS: LEVOTHYROXINE 75 MCG TAB PO SCH (06:28)
[2022-06-08] MEDS: IPRATROPIUM 0.5 MG/2.5 ML NEBU INHALATION SCH ×4 (08:12→20:07)
[2022-06-08] MEDS: SYMBICORT 80-4.5 MCG INHALER INHALATION SCH ×2 (08:13→20:08)
[2022-06-08] MEDS: hydrALAZINE HCL 50 MG TAB PO SCH ×2 (08:39→21:15)
[2022-06-08] MEDS: lisinopriL 20 MG TAB PO SCH ×2 (08:39→21:15)
[2022-06-08] MEDS: FAMOTIDINE 20 MG TAB PO SCH (08:39)
[2022-06-08] MEDS: APIXABAN 5 MG TAB PO SCH ×2 (08:39→21:15)
[2022-06-08] MEDS: DOCUSATE 100 MG CAP PO SCH ×2 (08:39→21:15)
[2022-06-08] MEDS: ONDANSETRON 4 MG/2 ML VIAL IVP PRN (15:21)
[2022-06-08] MEDS: atenoloL 50 MG TAB PO SCH (21:15)
[2022-06-08] MEDS: ATORVASTATIN 20 MG TAB PO SCH (21:15)
[2022-06-09] MEDS: HYDROmorphone 0.5 MG/0.5 ML SYRINGE IVP PRN ×3 (04:10→11:54)
[2022-06-09] MEDS: PANTOPRAZOLE 40 MG TABLET PO SCH (06:45)
[2022-06-09] MEDS: LEVOTHYROXINE 75 MCG TAB PO SCH (06:45)
[2022-06-09] MEDS: lisinopriL 20 MG TAB PO SCH (08:14)
[2022-06-09] MEDS: DOCUSATE 100 MG CAP PO SCH (08:14)
[2022-06-09] MEDS: hydrALAZINE HCL 50 MG TAB PO SCH (08:14)
[2022-06-09] MEDS: APIXABAN 5 MG TAB PO SCH (08:14)
[2022-06-09] MEDS: SYMBICORT 80-4.5 MCG INHALER INHALATION SCH (08:30)
[2022-06-09] MEDS: IPRATROPIUM 0.5 MG/2.5 ML NEBU INHALATION SCH ×3 (08:30→16:15)
--- NOTE | 2022-06-09 08:36 | MR ---
EXAMINATION TYPE: MR juan cine/martiine wo con DATE OF EXAM: 06/06/2022 6:07 PM COMPARISON: NONE HISTORY: Intractable Upper Back Pain Multiplanar MultiSpin echo imaging of the cervical spine was performed. Comparison: none C2-C3: Moderate disc desiccation noted. Mild posterior disc bulge. No disc bulge/herniation or protru marissa. No Canal stenosis. Foramina are patent bilaterally. C3-C4: Moderate to severe disc desiccation. Moderate posterior disc bulge. Moderate central stenosis. Bilateral neural foraminal encroachment left greater than right. Early compressive myelopathy diffic ult to exclude. C4-C5: Moderate to severe disc desiccation. Posterior disc bulge. Mild effacement ventral thecal sac. No daysi stenosis or disc herniation. Mild left foraminal encroachment. C5-C6: Moderate to severe disc desiccation. Posterior disc bulge. Mild effacement ventral thecal sac. No daysi stenosis or disc herniation. Mild left foraminal encroachment. C6-C7: Moderate disc desiccation. Right paracentral disc herniation effaces the ventral thecal sac wi th mild ventral cord contact. Borderline stenosis suggested. Mild bilateral foraminal encroachment. C7-T1: No evidence for degenerative disc disease. No disc bulge/herniation or protrusion. No Canal stenosis. Foramina are patent bilaterally. Cervical segments are intact. There is normal alignment. Cervical spinal cord is of normal signal. Craniovertebral junction relationships are within normal limits. Ventral spondylosis seen throughou t. IMPRESSION: 1. Multilevel degenerative disc disease. 2. Central stenosis moderate in degree at C3-4. 3. Right paracentral disc herniation at C6-7 with ventral cord contact. Borderline stenosis. 3. Varying degrees of foraminal encroachment. EXAMINATION TYPE: MR osvaldo/melinda wo con DATE OF EXAM: 06/06/2022 6:07 PM COMPARISON: NONE HISTORY: Intractable Upper Back Pain Multiplanar MultiSpin echo imaging of the thoracic spine was performed. Disc spaces: Moderate multilevel degenerative disc desiccation. No disc herniation or protrusion seen . There is no evidence for central stenosis. Spinal canal: No evidence for canal stenosis. No intrinsic or extrinsic lesion. Thoracic spinal cord: Thoracic spinal cord is of normal caliber and signal. Paraspinal soft tissues: No evidence for paraspinal mass. No destructive lesions seen. Vertebral segments: Mild loss of height superior endplate of T12 with loss of height estimated at 15% . No bony retropulsion. This fractures of uncertain age and/or etiology. No additional fractures iden tified. IMPRESSION: 1. Mild superior endplate loss of height of T12 without bony retropulsion. This fracture is of uncert ain age and/or etiology. 2. Multilevel degenerative disc disease with mild disc bulging. No herniation or central stenosis jonathan reciated.
[2022-06-09] MEDS ORDERED: FAMOTIDINE 20 MG TAB PO SCH (09:00)
--- NOTE | 2022-06-09 14:31 | P.PN ---
Subjective Progress Note Date: 06/08/22 Elena Nieto, is a 77-year-old female who presented to [facility] emergency room with a chief complaint of upper back pain She was evaluated in the emergency room vital examination on presentation revealed a temperature of 97.2 pulse 72 respiration 18 blood pressure 158/88 pulse ox 87% on room air Laboratory data revealed a white blood count of 7.9 hemoglobin 14.0 platelet count 223 d-dimer 5 sodium 132 potassium 4.0 chloride 96 CO2 31 BUN 31 creatinine 0.8 troponin 0.165 BNP 1630 Testing in the emergency room revealed CT angiogram of the chest was done in the emergency room and revealed evidence of bilateral pulmonary emboli involving the subsegmental branches of the bilateral upper and lower lobes as well as the middle lobe, and also revealed evidence of a peripancreatic lesion which is indeterminate and was larger in 2019 and might represent a complex pseudocyst versus a lymph node Patient was admitted to medical floor for further evaluation and treatment, consultation for cardiology and gastroenterology were initiated On 06/05/2022 patient was seen and examined the telemetry floor she is alert and oriented 3 in no apparent distress she is complaining of upper back pain between her shoulder blades, otherwise she denies any complaints there is no fever or chills no headache or dizziness no chest pain no shortness of breath no cough no nausea or vomiting no abdominal pain no diarrhea and no urinary symptoms, temperature is 97.6 pulse 70 respirations 16 blood pressure 153/64 pulse ox 94% on 2 L nasal cannula white blood count 4.9 hemoglobin 12.3 platelet count 187 sodium 132 potassium 4.1 chloride 105 BUN 18 creatinine 0.8 On 06/06/2022 patient was seen and examined on the telemetry floor she is alert and oriented 3 she is still complaining of upper back pain otherwise she denies any complaints there is no fever or chills no headache or dizziness no chest pain no shortness of breath no cough no nausea or vomiting no abdominal pain no diarrhea and no urinary symptoms. On IV heparin for pulmonary embolism, she was evaluated by pain management and is scheduled for thoracic spine MRI today. On 06/07/2022 patient was seen and examined on the telemetry floor she is alert and oriented 3 in no apparent distress she is complaining of upper back pain between her shoulder blades she is also complaining of severe generalized weakness she is needing assistance to transfer from her bed to her bedside commode otherwise she denies any complaints there is no fever or chills no headache or dizziness no chest pain no shortness of breath no cough no nausea or vomiting no abdominal pain no diarrhea no blood in the stools no burning with urination no frequency or urgency and no hematuria. Patient had MRI of the thoracic spine yesterday however there is still no radiology reading of the MRI. Will continue with current management at this time will recheck in a.m. On 06/08/2022 patient was seen and examined on the telemetry floor she is alert and oriented 3 in no apparent distress she is complaining of upper back pain between her shoulder blades she is also complaining of severe generalized weakness she is needing assistance to transfer from her bed to her bedside commode otherwise she denies any complaints there is no fever or chills no headache or dizziness no chest pain no shortness of breath no cough no nausea or vomiting no abdominal pain no diarrhea no blood in the stools no burning with urination no frequency or urgency and no hematuria. Patient had MRI of the thoracic spine on Thursday however there is still no radiology reading of the MRI again today. Objective - Vital Signs Vital signs: Vital Signs Temp 97.7 F 06/08/22 08:33 Pulse 79 06/08/22 08:33 Resp 18 06/08/22 08:33 BP 123/76 06/08/22 08:33 Pulse Ox 94 L 06/08/22 08:33 FiO2 Intake & Output 06/07/22 06/08/22 06/08/22 18:59 06:59 18:59 Intake Total 605 370 Output Total 450 575 Balance 155 -205 Intake: IV 5 10 Invasive Line 3 5 Invasive Line 4 10 Oral 600 360 Output: Urine 450 575 Other: Voiding Method External Catheter External Catheter External Catheter # Voids 0 # Bowel Movements 0 - Exam In general patient is alert and oriented x 3 in no distress HEENT head normocephalic and atraumatic Neck is supple no JVD no goiter no lymphadenopathy no carotid bruit Chest examination is clear to auscultation no crackles no wheezing Cardiac exam reveals regular heart sounds S1 and S2 no gallops no murmurs Abdomen is soft nontender no organomegaly with normal bowel sounds Extremity exam reveals no edema no cyanosis or clubbing Neurological examination reveals no gross focal deficits - Labs CBC & Chem 7: 06/07/22 07:16 07/16/22 07:16 Assessment and Plan Plan: Upper back pain, severe per patient, with evidence of multilobar pulmonary embolism History of chronic back pain patient recently received epidural injections at the pain clinic, will consult anesthesiology Peripancreatic lesion, not entirely clear on computed tomography scan, patient stated that she was seen by Dr. Kiran the past, consultation was requested. CT mentions that the lesion was larger in 2019 which is reassuring. Underlying history of diabetes mellitus type 2 Underlying history of hypertension Underlying history of hyperlipidemia Underlying history of hypothyroidism At this time patient is admitted to telemetry floor Auscultation for cardiology and gastroenterology were initiated Patient was started on IV heparin in the emergency room For GI prophylaxis Will use Protonix Recheck labs and follow-up in a.m.
--- NOTE | 2022-06-09 14:40 | P.DS ---
Providers Date of admission: 06/03/22 21:55 Expected date of discharge: 06/09/22 Attending physician: Harman Boss Consults: 06/03/22 23:32 Consult Physician Routine Consulting Provider: Larry Kaye Consult Reason/Comments: Elevated Troponin, Pulmonary Emboli Do you want consulting provider notified?: Yes, Notify in am 06/04/22 13:30 Consult Physician Routine Consulting Provider: Heena Zuleta Consult Reason/Comments: upper back pain, recent epidural injection Do you want consulting provider notified?: Yes Primary care physician: Charley Brown [facility] Course: Diagnosis on discharge: Upper back pain, severe per patient, with evidence of multilobar pulmonary embolism History of chronic back pain patient recently received epidural injections at the pain clinic, will consult anesthesiology Peripancreatic lesion, not entirely clear on computed tomography scan, patient stated that she was seen by Dr. Kiran the past, consultation was requested. CT mentions that the lesion was larger in 2019 which is reassuring. Underlying history of diabetes mellitus type 2 Underlying history of hypertension Underlying history of hyperlipidemia Underlying history of hypothyroidism Hospital course: Elena Nieto, is a 77-year-old female who presented to [facility] emergency room with a chief complaint of upper back pain She was evaluated in the emergency room vital examination on presentation revealed a temperature of 97.2 pulse 72 respiration 18 blood pressure 158/88 pulse ox 87% on room air Laboratory data revealed a white blood count of 7.9 hemoglobin 14.0 platelet count 223 d-dimer 5 sodium 132 potassium 4.0 chloride 96 CO2 31 BUN 31 creatinine 0.8 troponin 0.165 BNP 1630 Testing in the emergency room revealed CT angiogram of the chest was done in the emergency room and revealed evidence of bilateral pulmonary emboli involving the subsegmental branches of the bilateral upper and lower lobes as well as the middle lobe, and also revealed evidence of a peripancreatic lesion which is indeterminate and was larger in 2019 and might represent a complex pseudocyst versus a lymph node Patient was admitted to medical floor for further evaluation and treatment, consultation for cardiology and gastroenterology were initiated On 06/05/2022 patient was seen and examined the telemetry floor she is alert and oriented 3 in no apparent distress she is complaining of upper back pain between her shoulder blades, otherwise she denies any complaints there is no fever or chills no headache or dizziness no chest pain no shortness of breath no cough no nausea or vomiting no abdominal pain no diarrhea and no urinary symptoms, temperature is 97.6 pulse 70 respirations 16 blood pressure 153/64 pulse ox 94% on 2 L nasal cannula white blood count 4.9 hemoglobin 12.3 platelet count 187 sodium 132 potassium 4.1 chloride 105 BUN 18 creatinine 0.8 On 06/06/2022 patient was seen and examined on the telemetry floor she is alert and oriented 3 she is still complaining of upper back pain otherwise she denies any complaints there is no fever or chills no headache or dizziness no chest pain no shortness of breath no cough no nausea or vomiting no abdominal pain no diarrhea and no urinary symptoms. On IV heparin for pulmonary embolism, she was evaluated by pain management and is scheduled for thoracic spine MRI today. On 06/07/2022 patient was seen and examined on the telemetry floor she is alert and oriented 3 in no apparent distress she is complaining of upper back pain between her shoulder blades she is also complaining of severe generalized weakness she is needing assistance to transfer from her bed to her bedside commode otherwise she denies any complaints there is no fever or chills no headache or dizziness no chest pain no shortness of breath no cough no nausea or vomiting no abdominal pain no diarrhea no blood in the stools no burning with urination no frequency or urgency and no hematuria. Patient had MRI of the thoracic spine yesterday however there is still no radiology reading of the MRI. Will continue with current management at this time will recheck in a.m. On 06/08/2022 patient was seen and examined on the telemetry floor she is alert and oriented 3 in no apparent distress she is complaining of upper back pain between her shoulder blades she is also complaining of severe generalized weakness she is needing assistance to transfer from her bed to her bedside commode otherwise she denies any complaints there is no fever or chills no head ache or dizziness no chest pain no shortness of breath no cough no nausea or vomiting no abdominal pain no diarrhea no blood in the stools no burning with urination no frequency or urgency and no hematuria. Patient had MRI of the thoracic spine on Thursday however there is still no radiology reading of the MRI again today. DOSE OF ELIQUIS 10 MG BID FOR 7 DAYS THEN % MG BID Patient Condition at Discharge: Serious Plan - Discharge Summary Discharge Rx Participant: No New Discharge Prescriptions: New Apixaban [Eliquis] 10 mg PO BID tab Pantoprazole [Protonix] 40 mg PO AC-BRKFST tab Docusate [Colace] 100 mg PO BID cap HYDROmorphone [Dilaudid] 2 mg PO Q4H PRN 3 Days #18 tab PRN Reason: Pain Apixaban [Eliquis] 5 mg PO BID tab Famotidine [Pepcid] 20 mg PO DAILY tab Continue Cholecalciferol [Vitamin D3 (25 Mcg = 1000 Iu)] 25 mcg PO DAILY Aspirin EC [Ecotrin Low Dose] 81 mg PO DAILY hydrALAZINE HCL [Apresoline] 50 mg PO BID Levothyroxine Sodium [Synthroid] 75 mcg PO DAILY atenoloL 100 mg PO HS Co Q-10 100mg 100 mg PO DAILY Vit C/E/Zn/Coppr/Lutein/Zeaxan [Preservision Areds 2 Chew Tab] 1 tab PO DAILY Simvastatin 40 mg PO HS Furosemide [Lasix] 20 mg PO DAILY Enalapril [Vasotec] 40 mg PO DAILY Baclofen [Lioresal] 20 mg PO QID PRN PRN Reason: Muscle Pain Albuterol Inhaler [Ventolin Hfa Inhaler] 2 puff INHALATION RT-Q6H PRN PRN Reason: Shortness Of Breath Calcium Carbonate [Calcium] 600 mg PO DAILY Fluticasone/Umeclidin/Vilanter [Trelegy Ellipta 200-62.5-25] 1 puff INHALATION RT-BID Magnesium 200 mg PO DAILY Discontinued traMADol HCL 50 mg PO QID PRN PRN Reason: Pain Discharge Medication List Albuterol Inhaler [Ventolin Hfa Inhaler] 2 puff INHALATION RT-Q6H PRN 06/03/22 [History] Aspirin EC [Ecotrin Low Dose] 81 mg PO DAILY 06/03/22 [History] Baclofen [Lioresal] 20 mg PO QID PRN 06/03/22 [History] Calcium Carbonate [Calcium] 600 mg PO DAILY 06/03/22 [History] Cholecalciferol [Vitamin D3 (25 Mcg = 1000 Iu)] 25 mcg PO DAILY 06/03/22 [History] Co Q-10 100mg 100 mg PO DAILY 06/03/22 [History] Enalapril [Vasotec] 40 mg PO DAILY 06/03/22 [History] Fluticasone/Umeclidin/Vilanter [Trelegy Ellipta 200-62.5-25] 1 puff INHALATION RT-BID 06/03/22 [History] Furosemide [Lasix] 20 mg PO DAILY 06/03/22 [History] Levothyroxine Sodium [Synthroid] 75 mcg PO DAILY 06/03/22 [History] Magnesium 200 mg PO DAILY 06/03/22 [History] Simvastatin 40 mg PO HS 06/03/22 [History] Vit C/E/Zn/Coppr/Lutein/Zeaxan [Preservision Areds 2 Chew Tab] 1 tab PO DAILY 06/03/22 [History] atenoloL 100 mg PO HS 06/03/22 [History] hydrALAZINE HCL [Apresoline] 50 mg PO BID 06/03/22 [History] Apixaban [Eliquis] 5 mg PO BID tab 06/09/22 [Rx] Apixaban [Eliquis] 10 mg PO BID tab 06/09/22 [Rx] Docusate [Colace] 100 mg PO BID cap 06/09/22 [Rx] Famotidine [Pepcid] 20 mg PO DAILY tab 06/09/22 [Rx] HYDROmorphone [Dilaudid] 2 mg PO Q4H PRN 3 Days #18 tab 06/09/22 [Rx] Pantoprazole [Protonix] 40 mg PO AC-BRKFST tab 06/09/22 [Rx] Follow up Appointment(s)/Referral(s): Charley Brown MD [Primary Care Provider] - 1-2 days Loni Kiran MD [STAFF PHYSICIAN] - 4 Weeks
[2022-06-09] MEDS ORDERED: HYDROmorphone 2 MG TAB PO PRN (16:50)
[2022-06-09 17:56] VITALS: BP 120/64; PULSE 71; RESP 18; TEMP 98
[2022-06-12] MEDS ORDERED: APIXABAN 5 MG TAB PO SCH (21:00)
== END 2022-06-09 19:44 | DRG 175 ==
LOC: EC 16:41 → 3SCARD 21:55 → MERGE 21:55 → 3SCARD 06-04 12:45
PROVIDERS: ADMIT Internal Medicine; ATTEND Internal Medicine
DX: I26.99 Other pulmonary embolism without acute cor pulmonale (principal); J96.01 Acute respiratory failure with hypoxia; K86.3 Pseudocyst of pancreas; I10 Essential (primary) hypertension; E11.9 Type 2 diabetes mellitus without complications; E03.9 Hypothyroidism, unspecified; R77.8 Other specified abnormalities of plasma proteins; E78.5 Hyperlipidemia, unspecified; I25.10 Atherosclerotic heart disease of native coronary artery without angina pectoris; M47.814 Spondylosis without myelopathy or radiculopathy, thoracic region; M47.812 Spondylosis without myelopathy or radiculopathy, cervical region; W01.0XXA Fall on same level from slipping, tripping and stumbling without subsequent striking against object, initial encounter; R29.6 Repeated falls; G89.29 Other chronic pain; R01.1 Cardiac murmur, unspecified; Y92.838 Other recreation area as the place of occurrence of the external cause; Z86.16 Personal history of COVID-19; Z79.82 Long term (current) use of aspirin; Z79.51 Long term (current) use of inhaled steroids; Z79.890 Hormone replacement therapy; Z88.5 Allergy status to narcotic agent; Z87.891 Personal history of nicotine dependence; Z87.828 Personal history of other (healed) physical injury and trauma; Z79.899 Other long term (current) drug therapy; Z90.49 Acquired absence of other specified parts of digestive tract; Z98.51 Tubal ligation status; Z95.5 Presence of coronary angioplasty implant and graft; Z91.81 History of falling; Z98.41 Cataract extraction status, right eye; Z98.42 Cataract extraction status, left eye; Z82.49 Family history of ischemic heart disease and other diseases of the circulatory system; Z80.9 Family history of malignant neoplasm, unspecified
CPT/HCPCS: 36415; 71045; 71275; 72141; 72146; 80048; 80053; 83690; 83880; 84484; 85025; 85379; 85610; 85730; 93005; 93306; 93970; 94640; 94760; 96361; 96374; 96375; 96376; 99285

== ENCOUNTER 2022-06-13 20:01 | Inpatient (IN) | payer MEDICARE ==
[2022-06-13] MEDS ORDERED: HYDROmorphone 1 MG/ML 1 ML SYRINGE IVP STA (21:16)
[2022-06-13] MEDS ORDERED: ONDANSETRON 4 MG/2 ML VIAL IVP STA (21:17)
[2022-06-13 22:04] LABS: Basophils % (A) 1 %; Eosinophils # (A) 0.1 k/uL (0-0.7); Eosinophils % (A) 1 %; HCT 37.6 % (34.0-46.0); HGB 12.5 gm/dL (11.4-16.0); Lymphocytes # (A) 0.6 k/uL (1.0-4.8); Lymphocytes % (A) 11 %; MCH 29.7 pg (25.0-35.0); MCHC 33.3 g/dL (31.0-37.0); MCV 89.3 fL (80.0-100.0); Mean Platelet Volume 7.5; Monocytes # (A) 0.4 k/uL (0-1.0); Monocytes % (A) 7 %; Neutrophils # (A) 4.5 k/uL (1.3-7.7); Neutrophils % (A) 79 %; Platelet Count 315 k/uL (150-450); RBC 4.21 m/uL (3.80-5.40); RDW 13.3 % (11.5-15.5); WBC 5.7 k/uL (3.8-10.6)
[2022-06-13 22:18] LABS: Albumin 3.6 g/dL (3.5-5.0); Total Bilirubin 0.9 mg/dL (0.2-1.3); Total Protein 6.5 g/dL (6.3-8.2)
[2022-06-13 22:18] LABS: INR 1.1 (<1.2); Partial Thromboplastin Time 26.8 sec (22.0-30.0); Prothrombin Time 12.2 sec (9.0-12.0)
[2022-06-13 22:30] LABS: Potassium 4.4 mmol/L (3.5-5.1)
--- NOTE | 2022-06-13 23:23 | ED ---
Back Pain HPI - General Chief Complaint: Back Pain/Injury Stated Complaint: Back Pain Time Seen by Provider: 06/13/22 20:10 Source: patient Limitations: no limitations - History of Present Illness Initial Comments: 77-year-old female presents emergency Department with intractable back pain. She has a long-standing history of chronic neck pain however states that the pain moved into her upper back after she had injections in December. Patient was just recently seen in the hospital for the chest pain and found to have PEs. She was placed on anticoagulation. MRI of her back was performed as well due to the pain. Reports that she was discharged to [facility]. She is getting Dilaudid 2 mg every 6 hours and states her pain is still uncontrolled. She denies any new symptoms. No chest pain. Denies any shortness of breath. Oxygenation has been between 93 and 94% on room air. She has been wearing 2 L of oxygen at the facility. She has been taking her anticoagulation as directed without any missed doses. No other alleviating count was obtained modifying factors - Related Data Home Medications Medication Instructions Recorded Confirmed Ubidecarenone [Co Q-10] 100 mg PO DAILY 11/14/19 06/13/22 Vit C/E/Zn/Coppr/Lutein/Zeaxan 1 cap PO DAILY 11/14/19 06/13/22 [Preservision Areds 2 Softgel] Aspirin EC [Ecotrin Low Dose] 81 mg PO DAILY 06/03/22 06/13/22 Baclofen [Lioresal] 20 mg PO QID PRN 06/03/22 06/13/22 Calcium Carbonate [Calcium] 600 mg PO DAILY 06/03/22 06/13/22 Enalapril [Vasotec] 40 mg PO DAILY 06/03/22 06/13/22 Furosemide [Lasix] 20 mg PO DAILY 06/03/22 06/13/22 Levothyroxine Sodium [Synthroid] 75 mcg PO DAILY 06/03/22 06/13/22 Magnesium 200 mg PO DAILY 06/03/22 06/13/22 Simvastatin 40 mg PO HS 06/03/22 06/13/22 atenoloL 100 mg PO HS 06/03/22 06/13/22 hydrALAZINE HCL [Apresoline] 50 mg PO BID 06/03/22 06/13/22 polyethylene glycoL 3350 [Miralax] 17 gm PO DAILY 06/13/22 06/13/22 Previous Rx's Medication Instructions Recorded Apixaban [Eliquis] 5 mg PO BID tab 06/09/22 Docusate [Colace] 100 mg PO BID cap 06/09/22 Famotidine [Pepcid] 20 mg PO DAILY tab 06/09/22 HYDROmorphone [Dilaudid] 2 mg PO Q4H PRN 3 Days #18 tab 06/09/22 Allergies Allergy/AdvReac Type Severity Reaction Status Date / Time codeine Allergy Unknown Verified 06/13/22 23:12 Review of Systems ROS Statement: Those systems with pertinent positive or pertinent negative responses have been documented in the HPI. ROS Other: All systems not noted in ROS Statement are negative. Past Medical History Past Medical History: Eye Disorder, Hyperlipidemia, Hypertension, Sleep Apnea/CPAP/BIPAP, Thyroid Disorder Additional Past Medical History / Comment(s): Arthritis History of Any Multi-Drug Resistant Organisms: None Reported Past Surgical History: Cholecystectomy, Tubal Ligation Additional Past Surgical History / Comment(s): bilateral cataract surgery Past Anesthesia/Blood Transfusion Reactions: No Reported Reaction Past Psychological History: No Psychological Hx Reported Smoking Status: Former smoker Past Alcohol Use History: Rare Past Drug Use History: None Reported - Past Family History Father History Unknown: Yes Mother History Unknown: Yes Additional Family Medical History / Comment(s): lung mets unsure of primary source General Exam Limitations: no limitations General appearance: alert, in no apparent distress Head exam: Present: atraumatic, normocephalic, normal inspection Eye exam: Present: normal appearance, PERRL, EOMI. Absent: scleral icterus, conjunctival injection, periorbital swelling ENT exam: Present: normal exam, mucous membranes moist Neck exam: Present: tenderness (c7-2 midline. 4/5 strength b/ hands. 3/5 strength bl le). Absent: meningismus, lymphadenopathy Respiratory exam: Present: normal lung sounds bilaterally. Absent: respiratory distress, wheezes, rales, rhonchi, stridor Cardiovascular Exam: Present: regular rate, normal rhythm, normal heart sounds. Absent: systolic murmur, diastolic murmur, rubs, gallop, clicks GI/Abdominal exam: Present: soft, normal bowel sounds. Absent: distended, tenderness, guarding, rebound, rigid Extremities exam: Present: normal inspection, full ROM, normal capillary refill. Absent: tenderness, pedal edema, joint swelling, calf tenderness Back exam: Present: normal inspection Neurological exam: Present: alert, oriented X3, CN II-XII intact Psychiatric exam: Present: normal affect, normal mood Skin exam: Present: warm, dry, intact, normal color. Absent: rash Course Vital Signs 06/13/22 06/14/22 06/14/22 20:09 00:39 00:55 Temperature 98.0 F 98.1 F Pulse Rate 64 60 Pulse Rate [ 56 L Pulse Oximetery ] Respiratory 18 18 18 Rate Blood Pressure 128/78 159/77 Blood Pressure 156/75 [Right Arm] O2 Sat by Pulse 94 L 99 96 Oximetry Medical Decision Making - Medical Decision Making Upon arrival patient was placed in room 19. Her history and physical exam was performed. Patient was given 1 mg of Dilaudid IV. Laboratory studies are conducted. I did review the patient's chart. She does have intractable pain I will admit her for a management consult. Spoke with Dr. Boss who agreed to ad bria the patient - Lab Data Result diagrams: 06/16/22 06:36 06/16/22 06:36 Lab Results 06/13/22 06/13/22 06/13/22 Range/Units 21:15 21:15 21:15 WBC 5.7 (3.8-10.6) k/uL RBC 4.21 (3.80-5.40) m/uL Hgb 12.5 (11.4-16.0) gm/dL Hct 37.6 (34.0-46.0) % MCV 89.3 (80.0-100.0) fL MCH 29.7 (25.0-35.0) pg MCHC 33.3 (31.0-37.0) g/dL RDW 13.3 (11.5-15.5) % Plt Count 315 (150-450) k/uL MPV 7.5 Immature Gran % (Auto) % Absolute Nucleated RBC (0.00-0.00) X 10*3/uL Neutrophils % 79 % Lymphocytes % 11 % Monocytes % 7 % Eosinophils % 1 % Basophils % 1 % Immature Gran # (0.00-0.04) X 10*3/uL Neutrophils # 4.5 (1.3-7.7) k/uL Lymphocytes # 0.6 L (1.0-4.8) k/uL Monocytes # 0.4 (0-1.0) k/uL Eosinophils # 0.1 (0-0.7) k/uL Basophils # 0.0 (0-0.2) k/uL NRBC/100 WBC Diff (0.0-0.0) /100 WBCS PT (9.0-12.0) sec INR (<1.2) APTT (22.0-30.0) sec Sodium 133 L (137-145) mmol/L Potassium 4.4 (3.5-5.1) mmol/L Chloride 99 (98-107) mmol/L Carbon Dioxide 30 (22-30) mmol/L Anion Gap 4 mmol/L BUN 22 H (7-17) mg/dL Creatinine 0.74 (0.52-1.04) mg/dL Est GFR (CKD-EPI)AfAm 90 (>60 ml/min/1.73 sqM) Est GFR (CKD-EPI)NonAf 78 (>60 ml/min/1.73 sqM) BUN/Creatinine Ratio (12.00-20.00) Ratio Glucose 103 H (74-99) mg/dL POC Glucose (mg/dL) (70-110) mg/dL POC Glu Motor Equipment Captain ID Estimated Ave Glu mg/dL Hemoglobin A1c % Calcium 9.0 (8.4-10.2) mg/dL Magnesium 2.0 (1.6-2.3) mg/dL Total Bilirubin 0.9 (0.2-1.3) mg/dL AST 34 (14-36) U/L ALT 23 (4-34) U/L Alkaline Phosphatase 71 (38-126) U/L Ammonia (<30) umol/L Troponin I <0.012 (0.000-0.034) ng/mL NT-Pro-B Natriuret Pep pg/mL Total Protein 6.5 (6.3-8.2) g/dL Albumin 3.6 (3.5-5.0) g/dL Globulin (1.6-3.3) g/dL Albumin/Globulin Ratio (1.60-3.17) g/dL Vitamin B12 (200.0-944.0) pg/mL Folate (4.40-31.00) ng/mL TSH (0.350-5.500) uIU/mL Urine Color Urine Appearance (Clear) Urine pH (5.0-8.0) Ur Specific Eastman (1.001-1.035) Urine Protein (Negative) Urine Glucose (UA) (Negative) Urine Ketones (Negative) Urine Blood (Negative) Urine Nitrite (Negative) Urine Bilirubin (Negative) Urine Urobilinogen (<2.0) mg/dL Ur Leukocyte Esterase (Negative) Urine RBC (0-5) /hpf Urine WBC (0-5) /hpf Ur Squamous Epith Cells (0-4) /hpf Urine Bacteria (None) /hpf Hyaline Casts (0-2) /lpf Urine Mucus (None) /hpf 06/13/22 06/13/22 06/14/22 Range/Units 21:15 21:54 06:18 WBC 3.9 (3.8-10.6) k/uL RBC 3.88 (3.80-5.40) m/uL Hgb 11.7 (11.4-16.0) gm/dL Hct 35.6 (34.0-46.0) % MCV 91.7 (80.0-100.0) fL MCH 30.2 (25.0-35.0) pg MCHC 33.0 (31.0-37.0) g/dL RDW 13.7 (11.5-15.5) % Plt Count 312 (150-450) k/uL MPV 7.4 Immature Gran % (Auto) % Absolute Nucleated RBC (0.00-0.00) X 10*3/uL Neutrophils % 64 % Lymphocytes % 22 % Monocytes % 9 % Eosinophils % 1 % Basophils % 1 % Immature Gran # (0.00-0.04) X 10*3/uL Neutrophils # 2.5 (1.3-7.7) k/uL Lymphocytes # 0.9 L (1.0-4.8) k/uL Monocytes # 0.3 (0-1.0) k/uL Eosinophils # 0.1 (0-0.7) k/uL Basophils # 0.0 (0-0.2) k/uL NRBC/100 WBC Diff (0.0-0.0) /100 WBCS PT 12.2 H (9.0-12.0) sec INR 1.1 (<1.2) APTT 26.8 (22.0-30.0) sec Sodium (137-145) mmol/L Potassium (3.5-5.1) mmol/L Chloride (98-107) mmol/L Carbon Dioxide (22-30) mmol/L Anion Gap mmol/L BUN (7-17) mg/dL Creatinine (0.52-1.04) mg/dL Est GFR (CKD-EPI)AfAm (>60 ml/min/1.73 sqM) Est GFR (CKD-EPI)NonAf (>60 ml/min/1.73 sqM) BUN/Creatinine Ratio (12.00-20.00) Ratio Glucose (74-99) mg/dL POC Glucose (mg/dL) (70-110) mg/dL POC Glu Motor Equipment Captain ID Estimated Ave Glu mg/dL Hemoglobin A1c % Calcium (8.4-10.2) mg/dL Magnesium (1.6-2.3) mg/dL Total Bilirubin (0.2-1.3) mg/dL AST (14-36) U/L ALT (4-34) U/L Alkaline Phosphatase (38-126) U/L Ammonia (<30) umol/L Troponin I (0.000-0.034) ng/mL NT-Pro-B Natriuret Pep 895 pg/mL Total Protein (6.3-8.2) g/dL Albumin (3.5-5.0) g/dL Globulin (1.6-3.3) g/dL Albumin/Globulin Ratio (1.60-3.17) g/dL Vitamin B12 (200.0-944.0) pg/mL Folate (4.40-31.00) ng/mL TSH (0.350-5.500) uIU/mL Urine Color Urine Appearance (Clear) Urine pH (5.0-8.0) Ur Specific Eastman (1.001-1.035) Urine Protein (Negative) Urine Glucose (UA) (Negative) Urine Ketones (Negative) Urine Blood (Negative) Urine Nitrite (Negative) Urine Bilirubin (Negative) Urine Urobilinogen (<2.0) mg/dL Ur Leukocyte Esterase (Negative) Urine RBC (0-5) /hpf Urine WBC (0-5) /hpf Ur Squamous Epith Cells (0-4) /hpf Urine Bacteria (None) /hpf Hyaline Casts (0-2) /lpf Urine Mucus (None) /hpf 06/14/22 06/14/22 06/14/22 Range/Units 06:18 07:34 11:16 WBC (3.8-10.6) k/uL RBC (3.80-5.40) m/uL Hgb (11.4-16.0) gm/dL Hct (34.0-46.0) % MCV (80.0-100.0) fL MCH (25.0-35.0) pg MCHC (31.0-37.0) g/dL RDW (11.5-15.5) % Plt Count (150-450) k/uL MPV Immature Gran % (Auto) % Absolute Nucleated RBC (0.00-0.00) X 10*3/uL Neutrophils % % Lymphocytes % % Monocytes % % Eosinophils % % Basophils % % Immature Gran # (0.00-0.04) X 10*3/uL Neutrophils # (1.3-7.7) k/uL Lymphocytes # (1.0-4.8) k/uL Monocytes # (0-1.0) k/uL Eosinophils # (0-0.7) k/uL Basophils # (0-0.2) k/uL NRBC/100 WBC Diff (0.0-0.0) /100 WBCS PT (9.0-12.0) sec INR (<1.2) APTT (22.0-30.0) sec Sodium 134 L (137-145) mmol/L Potassium 4.3 (3.5-5.1) mmol/L Chloride 98 (98-107) mmol/L Carbon Dioxide 32 H (22-30) mmol/L Anion Gap 4 mmol/L BUN 25 H (7-17) mg/dL Creatinine 0.81 (0.52-1.04) mg/dL Est GFR (CKD-EPI)AfAm 80 (>60 ml/min/1.73 sqM) Est GFR (CKD-EPI)NonAf 70 (>60 ml/min/1.73 sqM) BUN/Creatinine Ratio (12.00-20.00) Ratio Glucose 95 (74-99) mg/dL POC Glucose (mg/dL) 134 H 146 H (70-110) mg/dL POC Glu Motor Equipment Captain ID Kirill, Sindi Kirill, Sindi Estimated Ave Glu mg/dL Hemoglobin A1c % Calcium 8.9 (8.4-10.2) mg/dL Magnesium (1.6-2.3) mg/dL Total Bilirubin (0.2-1.3) mg/dL AST (14-36) U/L ALT (4-34) U/L Alkaline Phosphatase (38-126) U/L Ammonia (<30) umol/L Troponin I (0.000-0.034) ng/mL NT-Pro-B Natriuret Pep pg/mL Total Protein (6.3-8.2) g/dL Albumin (3.5-5.0) g/dL Globulin (1.6-3.3) g/dL Albumin/Globulin Ratio (1.60-3.17) g/dL Vitamin B12 (200.0-944.0) pg/mL Folate (4.40-31.00) ng/mL TSH (0.350-5.500) uIU/mL Urine Color Urine Appearance (Clear) Urine pH (5.0-8.0) Ur Specific Eastman (1.001-1.035) Urine Protein (Negative) Urine Glucose (UA) (Negative) Urine Ketones (Negative) Urine Blood (Negative) Urine Nitrite (Negative) Urine Bilirubin (Negative) Urine Urobilinogen (<2.0) mg/dL Ur Leukocyte Esterase (Negative) Urine RBC (0-5) /hpf Urine WBC (0-5) /hpf Ur Squamous Epith Cells (0-4) /hpf Urine Bacteria (None) /hpf Hyaline Casts (0-2) /lpf Urine Mucus (None) /hpf 06/14/22 06/14/22 06/15/22 Range/Units 16:59 21:30 07:18 WBC (3.8-10.6) k/uL RBC (3.80-5.40) m/uL Hgb (11.4-16.0) gm/dL Hct (34.0-46.0) % MCV (80.0-100.0) fL MCH (25.0-35.0) pg MCHC (31.0-37.0) g/dL RDW (11.5-15.5) % Plt Count (150-450) k/uL MPV Immature Gran % (Auto) % Absolute Nucleated RBC (0.00-0.00) X 10*3/uL Neutrophils % % Lymphocytes % % Monocytes % % Eosinophils % % Basophils % % Immature Gran # (0.00-0.04) X 10*3/uL Neutrophils # (1.3-7.7) k/uL Lymphocytes # (1.0-4.8) k/uL Monocytes # (0-1.0) k/uL Eosinophils # (0-0.7) k/uL Basophils # (0-0.2) k/uL NRBC/100 WBC Diff (0.0-0.0) /100 WBCS PT (9.0-12.0) sec INR (<1.2) APTT (22.0-30.0) sec Sodium (137-145) mmol/L Potassium (3.5-5.1) mmol/L Chloride (98-107) mmol/L Carbon Dioxide (22-30) mmol/L Anion Gap mmol/L BUN (7-17) mg/dL Creatinine (0.52-1.04) mg/dL Est GFR (CKD-EPI)AfAm (>60 ml/min/1.73 sqM) Est GFR (CKD-EPI)NonAf (>60 ml/min/1.73 sqM) BUN/Creatinine Ratio (12.00-20.00) Ratio Glucose (74-99) mg/dL POC Glucose (mg/dL) 117 H 124 H 107 (70-110) mg/dL POC Glu Motor Equipment Captain Sindi Rodriguez Jamie Cataldo, Abigail Estimated Ave Glu mg/dL Hemoglobin A1c % Calcium (8.4-10.2) mg/dL Magnesium (1.6-2.3) mg/dL Total Bilirubin (0.2-1.3) mg/dL AST (14-36) U/L ALT (4-34) U/L Alkaline Phosphatase (38-126) U/L Ammonia (<30) umol/L Troponin I (0.000-0.034) ng/mL NT-Pro-B Natriuret Pep pg/mL Total Protein (6.3-8.2) g/dL Albumin (3.5-5.0) g/dL Globulin (1.6-3.3) g/dL Albumin/Globulin Ratio (1.60-3.17) g/dL Vitamin B12 (200.0-944.0) pg/mL Folate (4.40-31.00) ng/mL TSH (0.350-5.500) uIU/mL Urine Color Urine Appearance (Clear) Urine pH (5.0-8.0) Ur Specific Eastman (1.001-1.035) Urine Protein (Negative) Urine Glucose (UA) (Negative) Urine Ketones (Negative) Urine Blood (Negative) Urine Nitrite (Negative) Urine Bilirubin (Negative) Urine Urobilinogen (<2.0) mg/dL Ur Leukocyte Esterase (Negative) Urine RBC (0-5) /hpf Urine WBC (0-5) /hpf Ur Squamous Epith Cells (0-4) /hpf Urine Bacteria (None) /hpf Hyaline Casts (0-2) /lpf Urine Mucus (None) /hpf 06/15/22 06/15/22 06/15/22 Range/Units 11:09 15:03 15:03 WBC (3.8-10.6) k/uL RBC (3.80-5.40) m/uL Hgb (11.4-16.0) gm/dL Hct (34.0-46.0) % MCV (80.0-100.0) fL MCH (25.0-35.0) pg MCHC (31.0-37.0) g/dL RDW (11.5-15.5) % Plt Count (150-450) k/uL MPV Immature Gran % (Auto) % Absolute Nucleated RBC (0.00-0.00) X 10*3/uL Neutrophils % % Lymphocytes % % Monocytes % % Eosinophils % % Basophils % % Immature Gran # (0.00-0.04) X 10*3/uL Neutrophils # (1.3-7.7) k/uL Lymphocytes # (1.0-4.8) k/uL Monocytes # (0-1.0) k/uL Eosinophils # (0-0.7) k/uL Basophils # (0-0.2) k/uL NRBC/100 WBC Diff (0.0-0.0) /100 WBCS PT (9.0-12.0) sec INR (<1.2) APTT (22.0-30.0) sec Sodium (137-145) mmol/L Potassium (3.5-5.1) mmol/L Chloride (98-107) mmol/L Carbon Dioxide (22-30) mmol/L Anion Gap mmol/L BUN (7-17) mg/dL Creatinine (0.52-1.04) mg/dL Est GFR (CKD-EPI)AfAm (>60 ml/min/1.73 sqM) Est GFR (CKD-EPI)NonAf (>60 ml/min/1.73 sqM) BUN/Creatinine Ratio (12.00-20.00) Ratio Glucose (74-99) mg/dL POC Glucose (mg/dL) 122 H (70-110) mg/dL POC Glu Motor Equipment Captain ID Sindi Roy Estimated Ave Glu mg/dL [facility] Hemoglobin A1c CANCELED % Calcium (8.4-10.2) mg/dL Magnesium (1.6-2.3) mg/dL Total Bilirubin (0.2-1.3) mg/dL AST (14-36) U/L ALT (4-34) U/L Alkaline Phosphatase (38-126) U/L Ammonia (<30) umol/L Troponin I (0.000-0.034) ng/mL NT-Pro-B Natriuret Pep pg/mL Total Protein (6.3-8.2) g/dL Albumin (3.5-5.0) g/dL Globulin (1.6-3.3) g/dL Albumin/Globulin Ratio (1.60-3.17) g/dL Vitamin B12 760.0 (200.0-944.0) pg/mL Folate (4.40-31.00) ng/mL TSH 3.810 (0.350-5.500) uIU/mL Urine Color Urine Appearance (Clear) Urine pH (5.0-8.0) Ur Specific Eastman (1.001-1.035) Urine Protein (Negative) Urine Glucose (UA) (Negative) Urine Ketones (Negative) Urine Blood (Negative) Urine Nitrite (Negative) Urine Bilirubin (Negative) Urine Urobilinogen (<2.0) mg/dL Ur Leukocyte Esterase (Negative) Urine RBC (0-5) /hpf Urine WBC (0-5) /hpf Ur Squamous Epith Cells (0-4) /hpf Urine Bacteria (None) /hpf Hyaline Casts (0-2) /lpf Urine Mucus (None) /hpf 06/15/22 06/15/22 06/15/22 Range/Units 15:03 16:24 22:15 WBC (3.8-10.6) k/uL RBC (3.80-5.40) m/uL Hgb (11.4-16.0) gm/dL Hct (34.0-46.0) % MCV (80.0-100.0) fL MCH (25.0-35.0) pg MCHC (31.0-37.0) g/dL RDW (11.5-15.5) % Plt Count (150-450) k/uL MPV Immature Gran % (Auto) % Absolute Nucleated RBC (0.00-0.00) X 10*3/uL Neutrophils % % Lymphocytes % % Monocytes % % Eosinophils % % Basophils % % Immature Gran # (0.00-0.04) X 10*3/uL Neutrophils # (1.3-7.7) k/uL Lymphocytes # (1.0-4.8) k/uL Monocytes # (0-1.0) k/uL Eosinophils # (0-0.7) k/uL Basophils # (0-0.2) k/uL NRBC/100 WBC Diff (0.0-0.0) /100 WBCS PT (9.0-12.0) sec INR (<1.2) APTT (22.0-30.0) sec Sodium (137-145) mmol/L Potassium (3.5-5.1) mmol/L Chloride (98-107) mmol/L Carbon Dioxide (22-30) mmol/L Anion Gap mmol/L BUN (7-17) mg/dL Creatinine (0.52-1.04) mg/dL Est GFR (CKD-EPI)AfAm (>60 ml/min/1.73 sqM) Est GFR (CKD-EPI)NonAf (>60 ml/min/1.73 sqM) BUN/Creatinine Ratio (12.00-20.00) Ratio Glucose (74-99) mg/dL POC Glucose (mg/dL) 138 H 134 H (70-110) mg/dL POC Glu Motor Equipment Captain ID Sindi Roy Jamie Estimated Ave Glu mg/dL Hemoglobin A1c % Calcium (8.4-10.2) mg/dL Magnesium (1.6-2.3) mg/dL Total Bilirubin (0.2-1.3) mg/dL AST (14-36) U/L ALT (4-34) U/L Alkaline Phosphatase (38-126) U/L Ammonia (<30) umol/L Troponin I (0.000-0.034) ng/mL NT-Pro-B Natriuret Pep pg/mL Total Protein (6.3-8.2) g/dL Albumin (3.5-5.0) g/dL Globulin (1.6-3.3) g/dL Albumin/Globulin Ratio (1.60-3.17) g/dL Vitamin B12 (200.0-944.0) pg/mL Folate >20.00 (4.40-31.00) ng/mL TSH (0.350-5.500) uIU/mL Urine Color Urine Appearance (Clear) Urine pH (5.0-8.0) Ur Specific [place]man (1.001-1.035) Urine Protein (Negative) Urine Glucose (UA) (Negative) Urine Ketones (Negative) Urine Blood (Negative) Urine Nitrite (Negative) Urine Bilirubin (Negative) Urine Urobilinogen (<2.0) mg/dL Ur Leukocyte Esterase (Negative) Urine RBC (0-5) /hpf Urine WBC (0-5) /hpf Ur Squamous Epith Cells (0-4) /hpf Urine Bacteria (None) /hpf Hyaline Casts (0-2) /lpf Urine Mucus (None) /hpf 06/15/22 06/15/22 06/16/22 Range/Units 23:02 23:02 06:36 WBC 4.32 L (3.8-10.6) k/uL RBC 3.54 L (3.80-5.40) m/uL Hgb 10.1 L (11.4-16.0) gm/dL Hct 31.4 L (34.0-46.0) % MCV 88.7 (80.0-100.0) fL MCH 28.5 (25.0-35.0) pg MCHC 32.2 (31.0-37.0) g/dL RDW 13.2 (11.5-15.5) % Plt Count 325 (150-450) k/uL MPV 9.8 Immature Gran % (Auto) 1.4 % Absolute Nucleated RBC 0 (0.00-0.00) X 10*3/uL Neutrophils % 60.8 % Lymphocytes % 21.8 % Monocytes % 13.9 % Eosinophils % 1.6 % Basophils % 0.5 % Immature Gran # 0.06 H (0.00-0.04) X 10*3/uL Neutrophils # 2.63 (1.3-7.7) k/uL Lymphocytes # 0.94 (1.0-4.8) k/uL Monocytes # 0.60 (0-1.0) k/uL Eosinophils # 0.07 (0-0.7) k/uL Basophils # 0.02 (0-0.2) k/uL NRBC/100 WBC Diff 0 (0.0-0.0) /100 WBCS PT (9.0-12.0) sec INR (<1.2) APTT (22.0-30.0) sec Sodium (137-145) mmol/L Potassium (3.5-5.1) mmol/L Chloride (98-107) mmol/L Carbon Dioxide (22-30) mmol/L Anion Gap mmol/L BUN (7-17) mg/dL Creatinine (0.52-1.04) mg/dL Est GFR (CKD-EPI)AfAm (>60 ml/min/1.73 sqM) Est GFR (CKD-EPI)NonAf (>60 ml/min/1.73 sqM) BUN/Creatinine Ratio (12.00-20.00) Ratio Glucose (74-99) mg/dL POC Glucose (mg/dL) (70-110) mg/dL POC Glu Motor Equipment Captain ID Estimated Ave Glu mg/dL Hemoglobin A1c % Calcium (8.4-10.2) mg/dL Magnesium (1.6-2.3) mg/dL Total Bilirubin (0.2-1.3) mg/dL AST (14-36) U/L ALT (4-34) U/L Alkaline Phosphatase (38-126) U/L Ammonia <9 (<30) umol/L Troponin I <0.012 (0.000-0.034) ng/mL NT-Pro-B Natriuret Pep pg/mL Total Protein (6.3-8.2) g/dL Albumin (3.5-5.0) g/dL Globulin (1.6-3.3) g/dL Albumin/Globulin Ratio (1.60-3.17) g/dL Vitamin B12 (200.0-944.0) pg/mL Folate (4.40-31.00) ng/mL TSH (0.350-5.500) uIU/mL Urine Color Urine Appearance (Clear) Urine pH (5.0-8.0) Ur Specific [place]man (1.001-1.035) Urine Protein (Negative) Urine Glucose (UA) (Negative) Urine Ketones (Negative) Urine Blood (Negative) Urine Nitrite (Negative) Urine Bilirubin (Negative) Urine Urobilinogen (<2.0) mg/dL Ur Leukocyte Esterase (Negative) Urine RBC (0-5) /hpf Urine WBC (0-5) /hpf Ur Squamous Epith Cells (0-4) /hpf Urine Bacteria (None) /hpf Hyaline Casts (0-2) /lpf Urine Mucus (None) /hpf 06/16/22 06/16/22 06/16/22 Range/Units 06:36 06:36 06:36 WBC (3.8-10.6) k/uL RBC (3.80-5.40) m/uL Hgb (11.4-16.0) gm/dL Hct (34.0-46.0) % MCV (80.0-100.0) fL MCH (25.0-35.0) pg MCHC (31.0-37.0) g/dL RDW (11.5-15.5) % Plt Count (150-450) k/uL MPV Immature Gran % (Auto) % Absolute Nucleated RBC (0.00-0.00) X 10*3/uL Neutrophils % % Lymphocytes % % Monocytes % % Eosinophils % % Basophils % % Immature Gran # (0.00-0.04) X 10*3/uL Neutrophils # (1.3-7.7) k/uL Lymphocytes # (1.0-4.8) k/uL Monocytes # (0-1.0) k/uL Eosinophils # (0-0.7) k/uL Basophils # (0-0.2) k/uL NRBC/100 WBC Diff (0.0-0.0) /100 WBCS PT 11.4 (9.0-12.0) sec INR 1.1 (<1.2) APTT 24.8 (22.0-30.0) sec Sodium 134 L (137-145) mmol/L Potassium 4.1 (3.5-5.1) mmol/L Chloride 97 (98-107) mmol/L Carbon Dioxide 26.1 (22-30) mmol/L Anion Gap 10.90 mmol/L BUN 20.8 (7-17) mg/dL Creatinine 1.2 (0.52-1.04) mg/dL Est GFR (CKD-EPI)AfAm 49.8 L (>60 ml/min/1.73 sqM) Est GFR (CKD-EPI)NonAf 42.9 L (>60 ml/min/1.73 sqM) BUN/Creatinine Ratio 17.33 (12.00-20.00) Ratio Glucose 105 (74-99) mg/dL POC Glucose (mg/dL) (70-110) mg/dL POC Glu Motor Equipment Captain ID Estimated Ave Glu mg/dL 126 Hemoglobin A1c 6.0 % Calcium 8.6 L (8.4-10.2) mg/dL Magnesium (1.6-2.3) mg/dL Total Bilirubin 0.30 (0.2-1.3) mg/dL AST 20 (14-36) U/L ALT 18 (4-34) U/L Alkaline Phosphatase 56 (38-126) U/L Ammonia (<30) umol/L Troponin I (0.000-0.034) ng/mL NT-Pro-B Natriuret Pep pg/mL Total Protein 5.1 L (6.3-8.2) g/dL Albumin 3.0 L (3.5-5.0) g/dL Globulin 2.1 (1.6-3.3) g/dL Albumin/Globulin Ratio 1.43 L (1.60-3.17) g/dL Vitamin B12 (200.0-944.0) pg/mL Folate (4.40-31.00) ng/mL TSH (0.350-5.500) uIU/mL Urine Color Urine Appearance (Clear) Urine pH (5.0-8.0) Ur Specific [place] (1.001-1.035) Urine Protein (Negative) Urine Glucose (UA) (Negative) Urine Ketones (Negative) Urine Blood (Negative) Urine Nitrite (Negative) Urine Bilirubin (Negative) Urine Urobilinogen (<2.0) mg/dL Ur Leukocyte Esterase (Negative) Urine RBC (0-5) /hpf Urine WBC (0-5) /hpf Ur Squamous Epith Cells (0-4) /hpf Urine Bacteria (None) /hpf Hyaline Casts (0-2) /lpf Urine Mucus (None) /hpf 06/16/22 06/16/22 06/16/22 Range/Units 07:16 09:40 11:20 WBC (3.8-10.6) k/uL RBC (3.80-5.40) m/uL Hgb (11.4-16.0) gm/dL Hct (34.0-46.0) % MCV (80.0-100.0) fL MCH (25.0-35.0) pg MCHC (31.0-37.0) g/dL RDW (11.5-15.5) % Plt Count (150-450) k/uL MPV Immature Gran % (Auto) % Absolute Nucleated RBC (0.00-0.00) X 10*3/uL Neutrophils % % Lymphocytes % % Monocytes % % Eosinophils % % Basophils % % Immature Gran # (0.00-0.04) X 10*3/uL Neutrophils # (1.3-7.7) k/uL Lymphocytes # (1.0-4.8) k/uL Monocytes # (0-1.0) k/uL Eosinophils # (0-0.7) k/uL Basophils # (0-0.2) k/uL NRBC/100 WBC Diff (0.0-0.0) /100 WBCS PT (9.0-12.0) sec INR (<1.2) APTT (22.0-30.0) sec Sodium (137-145) mmol/L Potassium (3.5-5.1) mmol/L Chloride (98-107) mmol/L Carbon Dioxide (22-30) mmol/L Anion Gap mmol/L BUN (7-17) mg/dL Creatinine (0.52-1.04) mg/dL Est GFR (CKD-EPI)AfAm (>60 ml/min/1.73 sqM) Est GFR (CKD-EPI)NonAf (>60 ml/min/1.73 sqM) BUN/Creatinine Ratio (12.00-20.00) Ratio Glucose (74-99) mg/dL POC Glucose (mg/dL) 104 126 H (70-110) mg/dL POC Glu Motor Equipment Captain MARGARITO AvilezgregHayde Makailarelis Estimated Ave Glu mg/dL Hemoglobin A1c % Calcium (8.4-10.2) mg/dL Magnesium (1.6-2.3) mg/dL Total Bilirubin (0.2-1.3) mg/dL AST (14-36) U/L ALT (4-34) U/L Alkaline Phosphatase (38-126) U/L Ammonia (<30) umol/L Troponin I (0.000-0.034) ng/mL NT-Pro-B Natriuret Pep pg/mL Total Protein (6.3-8.2) g/dL Albumin (3.5-5.0) g/dL Globulin (1.6-3.3) g/dL Albumin/Globulin Ratio (1.60-3.17) g/dL Vitamin B12 (200.0-944.0) pg/mL Folate (4.40-31.00) ng/mL TSH (0.350-5.500) uIU/mL Urine Color Yellow Urine Appearance Cloudy H (Clear) Urine pH 5.5 (5.0-8.0) Ur Specific [place] 1.012 (1.001-1.035) Urine Protein Trace H (Negative) Urine Glucose (UA) Negative (Negative) Urine Ketones Negative (Negative) Urine Blood Moderate H (Negative) Urine Nitrite Negative (Negative) Urine Bilirubin Negative (Negative) Urine Urobilinogen <2.0 (<2.0) mg/dL Ur Leukocyte Esterase Moderate H (Negative) Urine RBC 141 H (0-5) /hpf Urine WBC 25 H (0-5) /hpf Ur Squamous Epith Cells 2 (0-4) /hpf Urine Bacteria Moderate H (None) /hpf Hyaline Casts 36 H (0-2) /lpf Urine Mucus Few H (None) /hpf Disposition Clinical Impression: Back pain Disposition: ADMITTED IP TO THIS HOSP Condition: Stable Is patient prescribed a controlled substance at d/c from ED?: No Time of Disposition: 23:23 Decision to Admit Reason: Admit from EC Decision Date: 06/13/22 Decision Time: 23:23
[2022-06-13] MEDS ORDERED: NALOXONE 0.4 MG/ML 1 ML VIAL IV PRN (23:25)
[2022-06-14] MEDS: HYDROmorphone 1 MG/ML 1 ML SYRINGE IVP PRN ×4 (01:52→14:53)
[2022-06-14] MEDS: APIXABAN 5 MG TAB PO SCH ×3 (01:52→21:34)
[2022-06-14] MEDS: ONDANSETRON 4 MG/2 ML VIAL IVP PRN ×2 (01:57→17:24)
[2022-06-14] MEDS: LEVOTHYROXINE 75 MCG TAB PO SCH (05:39)
[2022-06-14 07:13] LABS: Basophils % (A) 1 %; Eosinophils # (A) 0.1 k/uL (0-0.7); Eosinophils % (A) 1 %; HCT 35.6 % (34.0-46.0); HGB 11.7 gm/dL (11.4-16.0); Lymphocytes # (A) 0.9 k/uL (1.0-4.8); Lymphocytes % (A) 22 %; MCH 30.2 pg (25.0-35.0); MCV 91.7 fL (80.0-100.0); Mean Platelet Volume 7.4; Monocytes # (A) 0.3 k/uL (0-1.0); Monocytes % (A) 9 %; Neutrophils # (A) 2.5 k/uL (1.3-7.7); Neutrophils % (A) 64 %; Platelet Count 312 k/uL (150-450); RBC 3.88 m/uL (3.80-5.40); RDW 13.7 % (11.5-15.5); WBC 3.9 k/uL (3.8-10.6)
[2022-06-14 07:35] LABS: Calcium 8.9 mg/dL (8.4-10.2); Potassium 4.3 mmol/L (3.5-5.1)
[2022-06-14 07:36] LABS: Glucose,Whole Blood 134 mg/dL (70-110)
[2022-06-14] MEDS: lisinopriL 20 MG TAB PO SCH (08:40)
[2022-06-14] MEDS: DOCUSATE 100 MG CAP PO SCH ×2 (08:40→21:35)
[2022-06-14] MEDS: hydrALAZINE HCL 50 MG TAB PO SCH ×2 (08:40→21:35)
[2022-06-14] MEDS: FAMOTIDINE 20 MG TAB PO SCH (08:40)
[2022-06-14] MEDS: ASPIRIN 81 MG PO SCH (08:40)
[2022-06-14] MEDS: CALCIUM CARBONATE 500 MG CHEWABLE PO SCH (08:40)
[2022-06-14] MEDS: FUROSEMIDE 20 MG TAB PO SCH (08:40)
[2022-06-14] MEDS: MAGNESIUM OXIDE 400 MG TAB PO SCH (08:40)
[2022-06-14] MEDS: polyethylene glycoL 3350 17 GM POWD.PACK PO SCH (08:40)
[2022-06-14] MEDS ORDERED: BACLOFEN 10 MG TAB PO PRN (09:00)
[2022-06-14 11:18] LABS: Glucose,Whole Blood 146 mg/dL (70-110)
--- NOTE | 2022-06-14 15:50 | P.HPIM ---
History of Present Illness H&P Date: 06/14/22 Elena Nieto, is a 77-year-old female who presented to [facility] emergency room with a chief complaint of generalized weakness with inability to stand or walk, bilateral upper extremities and lower extremities weakness and numbness, and generalized deterioration in her condition. Patient stated that she was in her usual state of health until about 2 months ago when she was having neck pain, she had an MRI of the cervical spine and she was seen at the pain management clinic and received 1 epidural injection, subsequently patient stated that she started having some numbness in her hands, she went on a trip to [place] for 10 days, in the beginning of the treatment patient was complaining only of some weakness and numbness in her hands, at the end of the trip she was extremely weak with numbness extending to all bilateral upper extremities up to the shoulders and in the lower extremities she was having difficulty standing up and walking, at that time she was brought into the hospital, evaluation revealed evidence of pulmonary embolism she was started on IV heparin and then switched to oral Eliquis, consultation for the pain management team was initiated however they stated that they are not able to do any procedure for 3 months after starting anticoagulation for pulmonary embolism. Patient was sent to [facility] on the [facility] for rehabilitation, she was there for about 4 days, she stated that her weakness has worsened, she is having more numbness and weakness in her hands she is stating that she can hardly push the button on the remote control, patient was evaluated in the emergency room and admitted to medical floor for further evaluation by pain management team. In the emergency room vital examination on presentation revealed a temperature of 98 pulse 64 respiration 18 blood pressure 128/78 pulse ox 94% on room air Laboratory data on presentation revealed a a white blood count of 5.7 hemoglobin 12.5 platelet count 315 sodium 133 potassium 4.4 chloride 99 CO2 30 BUN 22 creatinine 0.74 Patient was admitted to medical floor for further evaluation and treatment Past Medical History Past Medical History: Eye Disorder, Hyperlipidemia, Hypertension, Sleep Apnea/CPAP/BIPAP, Thyroid Disorder Additional Past Medical History / Comment(s): Arthritis History of Any Multi-Drug Resistant Organisms: None Reported Past Surgical History: Cholecystectomy, Tubal Ligation Additional Past Surgical History / Comment(s): bilateral cataract surgery Past Anesthesia/Blood Transfusion Reactions: No Reported Reaction Past Psychological History: No Psychological Hx Reported Smoking Status: Former smoker Past Alcohol Use History: Rare Past Drug Use History: None Reported - Past Family History Father History Unknown: Yes Mother History Unknown: Yes Additional Family Medical History / Comment(s): lung mets unsure of primary source Medications and Allergies Home Medications Medication Instructions Recorded Confirmed Type Ubidecarenone [Co Q-10] 100 mg PO DAILY 11/14/19 06/13/22 History Vit C/E/Zn/Coppr/Lutein/Zeaxan 1 cap PO DAILY 11/14/19 06/13/22 History [Preservision Areds 2 Softgel] Aspirin EC [Ecotrin Low Dose] 81 mg PO DAILY 06/03/22 06/13/22 History Baclofen [Lioresal] 20 mg PO QID PRN 06/03/22 06/13/22 History Calcium Carbonate [Calcium] 600 mg PO DAILY 06/03/22 06/13/22 History Enalapril [Vasotec] 40 mg PO DAILY 06/03/22 06/13/22 History Furosemide [Lasix] 20 mg PO DAILY 06/03/22 06/13/22 History Levothyroxine Sodium [Synthroid] 75 mcg PO DAILY 06/03/22 06/13/22 History Magnesium 200 mg PO DAILY 06/03/22 06/13/22 History Simvastatin 40 mg PO HS 06/03/22 06/13/22 History atenoloL 100 mg PO HS 06/03/22 06/13/22 History hydrALAZINE HCL [Apresoline] 50 mg PO BID 06/03/22 06/13/22 History Apixaban [Eliquis] 5 mg PO BID tab 06/09/22 06/13/22 Rx Docusate [Colace] 100 mg PO BID cap 06/09/22 06/13/22 Rx Famotidine [Pepcid] 20 mg PO DAILY tab 06/09/22 06/13/22 Rx HYDROmorphone [Dilaudid] 2 mg PO Q4H PRN 3 Days #18 tab 06/09/22 06/13/22 Rx polyethylene glycoL 3350 [Miralax] 17 gm PO DAILY 06/13/22 06/13/22 History Allergies Allergy/AdvReac Type Severity Reaction Status Date / Time codeine Allergy Unknown Verified 06/13/22 23:12 Physical Exam Vitals: Vital Signs Temp Pulse Pulse Resp BP BP Pulse Ox 06/14/22 08:00 98.0 F 55 L 17 155/89 99 06/14/22 05:53 57 L 174/84 99 06/14/22 00:55 98.1 F 56 L 18 156/75 96 06/14/22 00:39 60 18 159/77 99 06/13/22 20:09 98.0 F 64 18 128/78 94 L Intake and Output 06/13/22 06/14/22 06/14/22 22:59 06:59 14:59 Intake Total 120 Output Total [id number] Balance -[id number] Intake: Oral 120 Output: Urine 400 Post Void Residual 590662 Other: # Voids 1 Weight 97.522 kg 97.522 kg In general patient is alert and oriented 3 in no apparent distress HEENT head normocephalic and atraumatic Neck is supple no JVD no goiter no lymphadenopathy Chest exam reveals a clear respiratory sounds no crackles no wheezing Cardiac exam reveals regular heart sounds S1 and S2 no gallops no murmurs Abdomen is soft nontender no organomegaly with normal bowel sounds Extremity exam reveals no edema no cyanosis or clubbing Neurological examination reveals generalized weakness without any focal lateral neurological deficit Results CBC & Chem 7: 06/14/22 06:18 06/14/22 06:18 Labs: Abnormal Lab Results - Last 24 Hours (Table) 06/13/22 06/13/22 06/13/22 Range/Units 21:15 21:15 21:54 Lymphocytes # 0.6 L (1.0-4.8) k/uL PT 12.2 H (9.0-12.0) sec Sodium 133 L (137-145) mmol/L Carbon Dioxide (22-30) mmol/L BUN 22 H (7-17) mg/dL Glucose 103 H (74-99) mg/dL POC Glucose (mg/dL) (70-110) mg/dL 06/14/22 06/14/22 06/14/22 Range/Units 06:18 06:18 07:34 Lymphocytes # 0.9 L (1.0-4.8) k/uL PT (9.0-12.0) sec Sodium 134 L (137-145) mmol/L Carbon Dioxide 32 H (22-30) mmol/L BUN 25 H (7-17) mg/dL Glucose (74-99) mg/dL POC Glucose (mg/dL) 134 H (70-110) mg/dL 06/14/22 Range/Units 11:16 Lymphocytes # (1.0-4.8) k/uL PT (9.0-12.0) sec Sodium (137-145) mmol/L Carbon Dioxide (22-30) mmol/L BUN (7-17) mg/dL Glucose (74-99) mg/dL POC Glucose (mg/dL) 146 H (70-110) mg/dL Thrombosis Risk Factor Assmnt - Choose All That Apply Each Factor Represents 1 point: Obesity (BMI >25) Each Risk Factor Represents 3 Points: Age 75 years or older, History of DVT/PE Thrombosis Risk Factor Assessment Total Risk Factor Score: 7 Thrombosis Risk Factor Assessment Level: High Risk Assessment and Plan Plan: Generalized weakness with inability to stand and walk Weakness and numbness that started in bilateral upper extremities and now in bi lateral lower extremities Complaint of constipation for several days Recent diagnosis of pulmonary embolism on 06/03/2022 Recent diagnosis of COVID-19 infection about 4 months ago Underlying history of diabetes mellitus type 2 Underlying history of hypertension Underlying history of hyperlipidemia Underlying history of hypothyroidism Peripancreatic lesion on computed tomography scan At this time patient is admitted to medical floor Will obtain computed tomography scan of the brain and the cervical spine without contrast to rule out any bleeding that may be responsible for the deterioration of her condition Will decrease dose of baclofen from 20 mg 4 times daily to 10 mg 3 times daily, and decrease the dose of Tylenol dipped to 0.5 mg every 3 hours when necessary IV Will consult neurology in regard to generalized weakness and weakness and numbness in bilateral upper and lower extremities, patient had COVID-19 infection about 4 months ago possibility of Guillain-Pathak syndrome is in the differential at this time Home medications reviewed and reordered Recheck labs in a.m. Will follow closely
[2022-06-14 17:00] LABS: Glucose,Whole Blood 117 mg/dL (70-110)
--- NOTE | 2022-06-14 17:07 | CT ---
EXAMINATION TYPE: CT brain wo con CT DLP: 1664.5 mGycm, Automated exposure control for dose reduction was used. DATE OF EXAM: 06/14/2022 5:01 PM COMPARISON: None. CLINICAL INDICATION:Female, 77 years old with history of weakness and numbness in extremities, TECHNIQUE: Brain: Multiple axial CT images of the brain were obtained without IV contrast. Coronal and sagittals reformats reviewed. FINDINGS: Brain: Extra-axial spaces: No abnormal extra-axial fluid collections. Ventricular system: Within normal limits Cerebral parenchyma: No acute intraparenchymal hemorrhage or mass effect. The darden-white junction is well differentiated. Scattered hypoattenuating areas are seen within the white matter. Cerebellum: Unremarkable. Mass effect: No evidence of midline shift. Intracranial vasculature: unremarkable Soft tissues: Normal. Calvarium/osseous structures: No depressed skull fracture. Paranasal sinuses and mastoid air cells: Mild scattered paranasal sinus disease. Visualized orbits: Bilateral aphakia IMPRESSION: 1. No acute intracranial process. 2. Nonspecific white matter changes, likely secondary to chronic small vessel ischemic disease.
--- NOTE | 2022-06-14 17:15 | CT ---
EXAMINATION TYPE: CT cervical spine wo con CT DLP: 1664.5 mGycm, Automated exposure control for dose reduction was used. DATE OF EXAM: 06/14/2022 5:00 PM COMPARISON: MRI C-spine 06/06/2022. CLINICAL INDICATION:Female, 77 years old with history of weakness and numbness in extremities; TECHNIQUE: Axial CT images from the skull base to the inferior aspect of T2 we obtained without intra venous contrast. Coronal and sagittal reformatted images were also reviewed. FINDINGS: Fracture: None. Osseous structures: Multilevel degenerative disc disease changes with endplate spurring and disc oste ophyte complex's. Generation changes of the temporomandibular joints bilaterally. Vertebral alignment: Straightening of the alignment. Grade 1 anterolisthesis of C3 on C4 with at leas t mild spinal canal stenosis. Spinal canal/Neural Foramina: No evidence of significant spinal canal narrowing. Facet joint uncovert ebral joint arthropathy scattered throughout the cervical spine with varying degrees of neural forami nal stenosis. Neck soft tissues: Prevertebral soft tissues are within normal limits. Other: The airway is patent. The lung apices are clear. IMPRESSION: No change from findings in the MRI C-spine 06/06/2022. No acute fracture.
[2022-06-14] MEDS: BACLOFEN 10 MG TAB PO SCH ×2 (17:22→21:34)
[2022-06-14] MEDS: HYDROmorphone 0.5 MG/0.5 ML SYRINGE IVP PRN ×2 (17:23→21:35)
[2022-06-14] MEDS ORDERED: ATORVASTATIN 20 MG TAB PO SCH (21:00)
[2022-06-14 21:31] LABS: Glucose,Whole Blood 124 mg/dL (70-110)
[2022-06-14] MEDS: atenoloL 50 MG TAB PO SCH (21:34)
[2022-06-15] MEDS: HYDROmorphone 0.5 MG/0.5 ML SYRINGE IVP PRN ×3 (00:39→07:13)
[2022-06-15] MEDS: LEVOTHYROXINE 75 MCG TAB PO SCH (05:29)
[2022-06-15] MEDS: ONDANSETRON 4 MG/2 ML VIAL IVP PRN ×2 (07:13→23:37)
[2022-06-15 07:20] LABS: Glucose,Whole Blood 107 mg/dL (70-110)
--- NOTE | 2022-06-15 08:23 | P.PN ---
Subjective Progress Note Date: 06/15/22 Elena Nieto, is a 77-year-old female who presented to [facility] emergency room with a chief complaint of generalized weakness with inability to stand or walk, bilateral upper extremities and lower extremities weakness and numbness, and generalized deterioration in her condition. Patient stated that she was in her usual state of health until about 2 months ago when she was having neck pain, she had an MRI of the cervical spine and she was seen at the pain management clinic and received 1 epidural injection, subsequently patient stated that she started having some numbness in her hands, she went on a trip to [place] for 10 days, in the beginning of the treatment patient was compla ining only of some weakness and numbness in her hands, at the end of the trip she was extremely weak with numbness extending to all bilateral upper extremities up to the shoulders and in the lower extremities she was having difficulty standing up and walking, at that time she was brought [facility], evaluation revealed evidence of pulmonary embolism she was started on IV heparin and then switched to oral Eliquis, consultation for the pain management team was initiated however they stated that they are not able to do any procedure for 3 months after starting anticoagulation for pulmonary embolism. Patient was sent to [facility] on the [facility] for rehabilitation, she was there for about 4 days, she stated that her weakness has worsened, she is having more numbness and weakness in her hands she is stating that she can hardly push the button on the remote control, patient was evaluated in the emergency room and admitted to medical floor for further evaluation by pain management team. In the emergency room vital examination on presentation revealed a temperature of 98 pulse 64 respiration 18 blood pressure 128/78 pulse ox 94% on room air Laboratory data on presentation revealed a a white blood count of 5.7 hemoglobin 12.5 platelet count 315 sodium 133 potassium 4.4 chloride 99 CO2 30 BUN 22 creatinine 0.74 Patient was admitted to medical floor for further evaluation and treatment. On 06/15/2022 patient was seen and examined on the medical floor she is alert and oriented 3 in no apparent distress, patient was complaining of uncontrolled pain, she was receiving dialogued 0.5 mg IV every 3 hours, however she stated that her pain is not well controlled and she was not able to sleep because of her pain, location of the pain is in the middle of her back between her shoulder blades, she is still complaining of generalized weakness, and weakness and numbness in her upper and lower extremities. Computed tomography scan of the head and the cervical spine was reviewed. At this time will increase dose of dialogued to 1 mg IV every 4 hours when necessary, awaiting input from neurology and and his [facility] pain management service. During the night patient had an e pisode of urinary retention requiring straight catheter use. If further episodes happen will use Cline catheter. Objective - Vital Signs Vital signs: Vital Signs Temp 97.5 F L 06/15/22 02:00 Pulse 52 L 06/15/22 02:00 Resp 17 06/15/22 02:00 BP 165/80 06/15/22 02:00 Pulse Ox 98 06/15/22 02:00 FiO2 Intake & Output 06/14/22 06/15/22 06/15/22 18:59 06:59 18:59 Intake Total 240 Output Total [id number] 500 Balance -577304 -500 Intake: Oral 240 Output: Urine 800 500 Post Void Residual [id number] Other: Voiding Method External Catheter - Exam In general patient is alert and oriented 3 in no apparent distress HEENT head normocephalic and atraumatic Neck is supple no JVD no goiter no lymphadenopathy Chest exam reveals a clear respiratory sounds no crackles no wheezing Cardiac exam reveals regular heart sounds S1 and S2 no gallops no murmurs Abdomen is soft nontender no organomegaly with normal bowel sounds Extremity exam reveals no edema no cyanosis or clubbing Neurological examination reveals generalized weakness without any focal lateral neurological deficit - Labs CBC & Chem 7: 06/14/22 06:18 06/14/22 06:18 Labs: Abnormal Lab Results - Last 24 Hours (Table) 06/14/22 06/14/22 06/14/22 Range/Units 06:18 07:34 11:16 Sodium 134 L (137-145) mmol/L Carbon Dioxide 32 H (22-30) mmol/L BUN 25 H (7-17) mg/dL POC Glucose (mg/dL) 134 H 146 H (70-110) mg/dL 06/14/22 06/14/22 Range/Units 16:59 21:30 Sodium (137-145) mmol/L Carbon Dioxide (22-30) mmol/L BUN (7-17) mg/dL POC Glucose (mg/dL) 117 H 124 H (70-110) mg/dL Assessment and Plan Plan: Generalized weakness with inability to stand and walk Weakness and numbness that started in bilateral upper extremities and now in bilateral lower extremities Complaint of constipation for several days Recent diagnosis of pulmonary embolism on 06/03/2022 Recent diagnosis of COVID-19 infection about 4 months ago Underlying history of diabetes mellitus type 2 Underlying history of hypertension Underlying history of hyperlipidemia Underlying history of hypothyroidism Peripancreatic lesion on computed tomography scan At this time patient is admitted to medical floor Will obtain computed tomography scan of the brain and the cervical spine without contrast to rule out any bleeding that may be responsible for the deterioration of her condition Will decrease dose of baclofen from 20 mg 4 times daily to 10 mg 3 times daily, and decrease the dose of Tylenol dipped to 0.5 mg every 3 hours when necessary IV Will consult neurology in regard to generalized weakness and weakness and numbness in bilateral upper and lower extremities, patient had COVID-19 infection about 4 months ago possibility of Guillain-Pathak syndrome is in the differential at this time Home medications reviewed and reordered Recheck labs in a.m. Will follow closely
[2022-06-15] MEDS: BACLOFEN 10 MG TAB PO SCH ×3 (08:57→19:53)
[2022-06-15] MEDS: DOCUSATE 100 MG CAP PO SCH ×2 (08:57→19:53)
[2022-06-15] MEDS: hydrALAZINE HCL 50 MG TAB PO SCH ×3 (08:57→19:53)
[2022-06-15] MEDS: FAMOTIDINE 20 MG TAB PO SCH (08:57)
[2022-06-15] MEDS: lisinopriL 20 MG TAB PO SCH (08:57)
[2022-06-15] MEDS: ASPIRIN 81 MG PO SCH (08:57)
[2022-06-15] MEDS: CALCIUM CARBONATE 500 MG CHEWABLE PO SCH (08:57)
[2022-06-15] MEDS: MAGNESIUM OXIDE 400 MG TAB PO SCH (08:58)
[2022-06-15] MEDS: FUROSEMIDE 20 MG TAB PO SCH (08:58)
[2022-06-15] MEDS: APIXABAN 5 MG TAB PO SCH ×2 (08:58→19:53)
[2022-06-15] MEDS: polyethylene glycoL 3350 17 GM POWD.PACK PO SCH (08:59)
[2022-06-15] MEDS: HYDROmorphone 1 MG/ML 1 ML SYRINGE IVP PRN ×3 (09:31→17:13)
[2022-06-15 11:12] LABS: Glucose,Whole Blood 122 mg/dL (70-110)
--- NOTE | 2022-06-15 13:31 | P.CNNES ---
History of Present Illness Consult date: 06/15/22 Requesting physician: Harman Boss Reason for Consult: weakness and numbness in extremities History of Present Illness: This is a 77-year-old woman with history of chronic neck pain and back pain, COVID-19 in first week of March 2022, hypertension, hypothyroidism who presented emergency department because of worsening of generalized weakness and numbness of the upper and lower extremity. Patient is accompanied by her was at bedside. Knowledge is consulted for weakness and numbness and concern for Bailey Pathak syndrome because of history of COVID-19. Patient stated that that she has chronic neck pain from a whiplash injury in 1967 and had a pain injection to her neck on 03/06/2022 and since then she is been having sudden onset of numbness from the hands all the way to the elbows as well as from the feet to her knees. In the last couple weeks the patient has been having worsening weakness of her bilateral upper and lower extremity and is having a hard time now walk-in. She feels her numbness and her upper extremity has been worsening. Patient denies of any fever or any cough any diarrhea any recent infection recently. Prior to that she was using a cane or walker and was doing well. Patient had COVID-19 and first of March and stated she had mild symptoms but recovered fast. She stated that her symptoms began Covid and it began when she had the pain injections to her neck. She had pain injection on 03/06/2022. She denies her neck pain is rating down but feels her numbness is from the f ingertips all the way to her armpits bilaterally. Patient had MRI of the cervical and thoracic spine on 06/06/2022 and the cervical spine is reported as multiple level degenerative disc disease. Central stenosis moderate in degree at C3-C4. Right paracentral disc herniation at C6-C7 with ventral cord contact. Borderline stenosis. Brain degree of foraminal encroachment. While the MRI of the lumbar is reported as mild superior endplate loss of height of T12 without bony retro-bulge and. This fracture is of uncertain age and cardiology. Multiple level degenerative disc disease with mild disc bulging. No herniation or central stenosis appreciated. Patient is on home medication of aspirin 81 daily,Eliquis 5 mg tablet twice a day for pulmonary embolism on May 2022. Some of the other workup in our facility during this hospital visit consisted of: CT of the head is reported as no acute intracranial processes. Nonspecific white matter changes, likely secondary due to chronic small vessel ischemic disease. She cervical spine without port as no change from the finding in the MRI ce rvical spine on 06/06/2022. No acute fracture. Review of Systems Review of system: The 12 point system was reviewed and apparent positive and negative per HPI. Past Medical History Past Medical History: Eye Disorder, Hyperlipidemia, Hypertension, Sleep Apnea/CPAP/BIPAP, Thyroid Disorder Additional Past Medical History / Comment(s): Arthritis History of Any Multi-Drug Resistant Organisms: None Reported Past Surgical History: Cholecystectomy, Tubal Ligation Additional Past Surgical History / Comment(s): bilateral cataract surgery Past Anesthesia/Blood Transfusion Reactions: No Reported Reaction Past Psychological History: No Psychological Hx Reported Smoking Status: Former smoker Past Alcohol Use History: Rare Past Drug Use History: None Reported - Past Family History Father History Unknown: Yes Mother History Unknown: Yes Additional Family Medical History / Comment(s): lung mets unsure of primary source Medications and Allergies Home Medications Medication Instructions Recorded Confirmed Type Ubidecarenone [Co Q-10] 100 mg PO DAILY 11/14/19 06/13/22 History Vit C/E/Zn/Coppr/Lutein/Zeaxan 1 cap PO DAILY 11/14/19 06/13/22 History [Preservision Areds 2 Softgel] Aspirin EC [Ecotrin Low Dose] 81 mg PO DAILY 06/03/22 06/13/22 History Baclofen [Lioresal] 20 mg PO QID PRN 06/03/22 06/13/22 History Calcium Carbonate [Calcium] 600 mg PO DAILY 06/03/22 06/13/22 History Enalapril [Vasotec] 40 mg PO DAILY 06/03/22 06/13/22 History Furosemide [Lasix] 20 mg PO DAILY 06/03/22 06/13/22 History Levothyroxine Sodium [Synthroid] 75 mcg PO DAILY 06/03/22 06/13/22 History Magnesium 200 mg PO DAILY 06/03/22 06/13/22 History Simvastatin 40 mg PO HS 06/03/22 06/13/22 History atenoloL 100 mg PO HS 06/03/22 06/13/22 History hydrALAZINE HCL [Apresoline] 50 mg PO BID 06/03/22 06/13/22 History Apixaban [Eliquis] 5 mg PO BID tab 06/09/22 06/13/22 Rx Docusate [Colace] 100 mg PO BID cap 06/09/22 06/13/22 Rx Famotidine [Pepcid] 20 mg PO DAILY tab 06/09/22 06/13/22 Rx HYDROmorphone [Dilaudid] 2 mg PO Q4H PRN 3 Days #18 tab 06/09/22 06/13/22 Rx polyethylene glycoL 3350 [Miralax] 17 gm PO DAILY 06/13/22 06/13/22 History Allergies Allergy/AdvReac Type Severity Reaction Status Date / Time codeine Allergy Unknown Verified 06/13/22 23:12 Physical Examination - Vital Signs Vital Signs: Vital Signs Temp Pulse Resp BP Pulse Ox 06/15/22 08:00 97.9 F 62 15 130/67 95 06/15/22 02:00 97.5 F L 52 L 17 165/80 98 06/15/22 00:35 61 18 06/14/22 21:35 61 18 06/14/22 20:11 98.0 F 61 18 176/77 06/14/22 14:00 97.9 F 57 L 16 110/67 98 Intake and Output 06/14/22 06/15/22 06/15/22 22:59 06:59 14:59 Intake Total 120 60 Output Total 650 250 800 Balance -530 -250 -740 Intake: Oral 120 60 Output: Urine 650 250 800 Uretheral (Cline) 400 Other: Voiding Method External Catheter External Catheter GENERAL: The patient is lying in bed and is not in acute distress. CHEST: The heart rate is regular rate rhythm. No murmurs to auscultation. LUNG: Clear to auscultation bilaterally no wheezing noted throughout. Not labored breathing. ABDOMEN/GI: Bowel sounds present in all 4 quadrants. No tenderness to palpation throughout. NEUROLOGICAL: Higher mental function: The patient is awake, alert, oriented to self, place and time. Patient is following commands. No aphasia and no neglect. Cranial nerves: The pupils are round, equal and reactive to light and accommodation. Visual steward are full to confrontation throughout. Extraocular movement is intact no nystagmus is noted. Facial sensation is normal to touch throughout. The facial strength is normal throughout. Hearing is normal bilaterally to hand rub. Tongue is midline and moved [id number] without any difficulty. No dysarthria is noted. Shoulder shrug is normal bilaterally. Motor: The strength is 2-3 throughout. Knee extension bilaterally is 0-1 bilaterally. Decrease tone throughout. Cerebellum: Normal finger to nose bilaterally. Sensation: Sensation is normal to touch throughout. Reflexes (right/left): 1+ over the left brachioradialis and biceps. Otherwise 2+ thorughout.. Plantars are mute bilaterally. Results - Laboratory Findings CBC and BMP: 06/14/22 06:18 06/14/22 06:18 Abnormal Lab Findings: Abnormal Labs 06/13/22 06/13/22 06/13/22 21:15 21:15 21:54 Lymphocytes # 0.6 L PT 12.2 H Sodium 133 L Carbon Dioxide BUN 22 H Glucose 103 H POC Glucose (mg/dL) 06/14/22 06/14/22 06/14/22 06:18 06:18 07:34 Lymphocytes # 0.9 L PT Sodium 134 L Carbon Dioxide 32 H BUN 25 H Glucose POC Glucose (mg/dL) 134 H 06/14/22 06/14/22 06/14/22 11:16 16:59 21:30 Lymphocytes # PT Sodium Carbon Dioxide BUN Glucose POC Glucose (mg/dL) 146 H 117 H 124 H 06/15/22 11:09 Lymphocytes # PT Sodium Carbon Dioxide BUN Glucose POC Glucose (mg/dL) 122 H Assessment and Plan Assessment: * 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 Mostly C3-C4). Unlikely acute demylinating polyneuropathy (such as GBS) since reflexes seems relatively preserved. She repoted having numbness of uppers and lowers noticed after having pain injection to neck on 03/06/2022 but n oticed significant weakness in the past couple weeks. * Moderate to severe cervical spondylosis (predominately C3-C5 but mostly C3-C4) * Chronic neck pain s/p pain injection in 03/06/2022 * Chronic low back pain * Mild COVID-19 symptoms in begining of March 2022 * Pulmonary embolism on Eliquis * Hypertension * Hypothyroidism Plan: I ordered MRI lumbar buying with and without I consulted orthopedic surgery team because of her moderate to significant cervical spondylosis I ordered vitamin B12, folate, repeat TSH and hemoglobin A1c. Her hemoglobin A1c and TSH were normal on November 2021 Pain team are consulted by ED team. We'll defer the rest of the medical management to the primary team The plan was discussed with the patient and her was R bedside as well as the patient's nurse. Thank you for the consultation. Dr. Diaz will start neurology service tomorrow Chandrika Oseguera M.D. Neuro-Hospitalist. Time with Patient: Greater than 30
[2022-06-15 16:26] LABS: Glucose,Whole Blood 138 mg/dL (70-110)
--- NOTE | 2022-06-15 17:12 | CONS ---
CONSULTATION CHIEF COMPLAINT: Elevated blood pressures. Elena is a 77-year-old lady who is admitted to hospital with intractable upper thoracic pain. She has history of arthritis and apparently has had physical therapy and injections. She was recently on a cruise to [place]. She tripped and fell, had a mechanical fall and subsequently the pain got worse. She was admitted to hospital on June 03, was in the hospital for a while and had recently gone to the shelter where yesterday she had more discomfort and had weakness involving left upper and lower extremities due to which the primary care physician re-admitted the patient. At last admission, patient had pulmonary embolism and had been started on anticoagulant. At the time of my evaluation, her predominant symptom is the chest discomfort that she has been having, which is musculoskeletal and she has had it all along. Blood pressure was elevated at times and she is on hydralazine 50 mg b.i.d., which I am going to increase to t.i.d. for better blood pressure control. PAST MEDICAL HISTORY: Significant for arthritis, hypertension, recent pulmonary embolism, and hypothyroidism. MEDICATIONS: Home medications are as charted and I reviewed them. ALLERGIES: ALLERGIC TO CODEINE. FAMILY HISTORY: Negative for premature coronary artery disease. SOCIAL HISTORY: Negative for current smoking, EtOH abuse or drug abuse. REVIEW OF SYSTEMS: 14 out of 14 system review has been performed. Pertinents are as documented. PHYSICAL EXAMINATION: On exam heart rate is 60 beats per minute. Blood pressure is 130/67, 165/80, O2 saturation is 95%. There is no jugular venous distention. Carotid upstroke is normal. There is no bruit. Chest exam reveals good air entry bilaterally. Heart exam reveals first and second heart sounds. No gallop. No murmur. Abdomen is soft. Exam of extremities did not reveal any edema. Peripheral pulses are felt. A detailed VISUAL DISPLAY MANAGER exam has not been performed but the patient is not able to move upper and lower extremities. ASSESSMENT AND PLAN: 1. Uncontrolled hypertension. 2. History of pulmonary embolism. 3. Severe back pain with difficulty in using upper and lower extremities. PLAN: I am going to better control the blood pressure with hydralazine. She will continue the Eliquis for pulmonary embolism. The musculoskeletal pain is being managed by primary care physician and neuro deficits are being addressed by the neurologist. Thank you for allowing us to participate in the care of this pleasant lady. MMODL / IJN: [id number] /
[2022-06-15] MEDS: atenoloL 50 MG TAB PO SCH (19:53)
[2022-06-15 22:17] LABS: Glucose,Whole Blood 134 mg/dL (70-110)
[2022-06-15 22:36] LABS: Estimated Average Glucose UNC
[2022-06-15] MEDS: LACTULOSE 20 GM/30 ML CUP PO SCH (23:31)
[2022-06-15] MEDS: GABAPENTIN 100 MG CAP PO SCH (23:31)
[2022-06-15] MEDS: SODIUM CHLORIDE 0.9% 1,000 ML IV SCH (23:32)
[2022-06-16] MEDS: LEVOTHYROXINE 75 MCG TAB PO SCH (05:33)
[2022-06-16 07:18] LABS: Glucose,Whole Blood 104 mg/dL (70-110)
[2022-06-16] MEDS ORDERED: ALPRAZolam 0.25 MG TAB PO STA (07:28)
[2022-06-16] MEDS: BACLOFEN 10 MG TAB PO SCH ×3 (07:33→21:44)
[2022-06-16] MEDS: GABAPENTIN 100 MG CAP PO SCH ×3 (07:33→21:44)
[2022-06-16] MEDS: APIXABAN 5 MG TAB PO SCH ×4 (08:56→15:06)
[2022-06-16] MEDS: ASPIRIN 81 MG PO SCH ×2 (09:09→15:05)
[2022-06-16] MEDS: CALCIUM CARBONATE 500 MG CHEWABLE PO SCH (09:09)
[2022-06-16] MEDS: MAGNESIUM OXIDE 400 MG TAB PO SCH (09:11)
[2022-06-16] MEDS: DOCUSATE 100 MG CAP PO SCH ×2 (09:14→20:26)
[2022-06-16] MEDS: lisinopriL 20 MG TAB PO SCH (09:14)
[2022-06-16] MEDS: SODIUM CHLORIDE 0.9% 1,000 ML IV SCH ×2 (09:14→15:04)
[2022-06-16] MEDS: hydrALAZINE HCL 50 MG TAB PO SCH ×3 (09:15→21:44)
[2022-06-16] MEDS: FAMOTIDINE 20 MG TAB PO SCH (09:15)
[2022-06-16] MEDS: polyethylene glycoL 3350 17 GM POWD.PACK PO SCH (09:15)
[2022-06-16] MEDS: FUROSEMIDE 20 MG TAB PO SCH (09:15)
[2022-06-16] MEDS: LACTULOSE 20 GM/30 ML CUP PO SCH ×3 (09:15→21:43)
[2022-06-16 09:17] LABS: Basophils # (A) 0.02 X 10*3/uL (0.00-0.10); Basophils % (A) 0.5 %; Eosinophils # (A) 0.07 X 10*3/uL (0.04-0.35); Eosinophils % (A) 1.6 %; HCT 31.4 % (37.2-46.3); HGB 10.1 g/dL (12.0-15.0); Immature Grans, Automated 1.4 %; Lymphocytes # (A) 0.94 X 10*3/uL (0.90-5.00); Lymphocytes % (A) 21.8 %; MCH 28.5 pg (27.0-32.0); MCHC 32.2 g/dL (32.0-37.0); MCV 88.7 fL (80.0-97.0); Mean Platelet Volume 9.8 fL (9.5-12.2); Monocytes % (A) 13.9 %; NRBC Per 100 WBC 0 /100 WBCS (0.0-0.0); Neutrophils # (A) 2.63 X 10*3/uL (1.80-7.70); Neutrophils % (A) 60.8 %; Platelet Count 325 X 10*3/uL (140-440); RBC 3.54 X 10*6/uL (4.10-5.20); RDW 13.2 % (11.5-14.5); WBC 4.32 X 10*3/uL (4.50-10.00)
[2022-06-16] MEDS: methylPREDNISolone SOD SUCCI 125 MG/2 ML VIAL IV SCH ×2 (09:23→20:25)
[2022-06-16 09:26] LABS: African American GFR (CKD) 49.8 (60.0-200.0); Albumin/Globulin Ratio 1.43 (1.60-3.17); Anion Gap 10.9 mmol/L (10.00-18.00); BUN/Creat Ratio 17.33 Ratio (12.00-20.00); Blood Urea Nitrogen 20.8 mg/dL (9.0-27.0); Calcium 8.6 mg/dL (8.7-10.3); Carbon Dioxide 26.1 mmol/L (20.0-27.5); Globulin 2.1 g/dL (1.6-3.3); Non-African American GFR(CKD) 42.9 (60.0-200.0); Potassium 4.1 mmol/L (3.5-5.5); Total Bilirubin 0.3 mg/dL (0.30-1.20); Total Protein 5.1 g/dL (6.2-8.2)
--- NOTE | 2022-06-16 09:36 | P.CNOR ---
History of Present Illness - [facility] Consult date: 06/16/22 Consult reason: neck pain History of present illness: The patient is a very pleasant 77-year-old female who is seen and examined today at bedside. Her is with her at bedside. The patient has been having worsening pain at her neck with worsening debility that her upper and lower extremities over the past few weeks. The patient has been having significant worsening in having great debility where she is unable to ambulate unable to walk. 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 She did sustain a small fall a few months ago but is unsure if that started giving her increasing problems. She has a long history of having to crack her neck for some soreness at her neck and was having worsening neck problems. She was evaluated and underwent further treatment for her cervical spine with interventional pain management. She says at that point she did not have any relief but felt that she was having significant worsening. She went on vacation with her to [place] and was initially using a cane when she started her trip. She says she is having significant unsteadiness and had a couple of falls during her vacation. She says by the end of the vacation she had use a wheelchair because she was not able to ambulate and was not using her arm straight well. She says this has continued to worsen. She has been having evaluation and head recent Covid in March of this year. She also says that she had pneumonia and pulmonary embolism. She had been started on blood thinners for these issues as well. Currently she denies any shortness of breath or any chest pain but did take her blood thinners yesterday. She denies changes in her bowel bladder function. She is not able to stand up on her own she is not having good use of her arms or her legs bilaterally. She is slightly stronger on the right than the left but has significant difficulties with both. She says the pain is primarily at the back of her neck and between her shoulder blades. She does have numbness and tingling down both her arms and both her legs worse on the left than the right. Review of Systems Significant bilateral upper and lower extremity strength loss worse on the left than the right. She is normally a community ambulator with a cane but is now unable to mobilize at all and requires a wheelchair. She is unable to transfer herself on her own. She is unable to feed herself at this point. 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 She denies any new chest pain or shortness of breath. She denies any fevers or chills. She did have Covid in March of this year. She said she had pneumonia as well and had pulmonary embolism and was started on blood thinners for this. She recalls a number of falls once earlier in the spring and then a couple of times during her vacation in [place]. Past Medical History Past Medical History: Eye Disorder, Hyperlipidemia, Hypertension, Sleep Apnea/CPAP/BIPAP, Thyroid Disorder Additional Past Medical History / Comment(s): Arthritis History of Any Multi-Drug Resistant Organisms: None Reported Past Surgical History: Cholecystectomy, Tubal Ligation Additional Past Surgical History / Comment(s): bilateral cataract surgery Past Anesthesia/Blood Transfusion Reactions: No Reported Reaction Past Psychological History: No Psychological Hx Reported Smoking Status: Former smoker Past Alcohol Use History: Rare Past Drug Use History: None Reported - Past Family History Father History Unknown: Yes Mother History Unknown: Yes Additional Family Medical History / Comment(s): lung mets unsure of primary source Medications and Allergies Home Medications Medication Instructions Recorded Confirmed Type Ubidecarenone [Co Q-10] 100 mg PO DAILY 11/14/19 06/13/22 History Vit C/E/Zn/Coppr/Lutein/Zeaxan 1 cap PO DAILY 11/14/19 06/13/22 History [Preservision Areds 2 Softgel] Aspirin EC [Ecotrin Low Dose] 81 mg PO DAILY 06/03/22 06/13/22 History Baclofen [Lioresal] 20 mg PO QID PRN 06/03/22 06/13/22 History Calcium Carbonate [Calcium] 600 mg PO DAILY 06/03/22 06/13/22 History Enalapril [Vasotec] 40 mg PO DAILY 06/03/22 06/13/22 History Furosemide [Lasix] 20 mg PO DAILY 06/03/22 06/13/22 History Levothyroxine Sodium [Synthroid] 75 mcg PO DAILY 06/03/22 06/13/22 History Magnesium 200 mg PO DAILY 06/03/22 06/13/22 History Simvastatin 40 mg PO HS 06/03/22 06/13/22 History atenoloL 100 mg PO HS 06/03/22 06/13/22 History hydrALAZINE HCL [Apresoline] 50 mg PO BID 06/03/22 06/13/22 History Apixaban [Eliquis] 5 mg PO BID tab 06/09/22 06/13/22 Rx Docusate [Colace] 100 mg PO BID cap 06/09/22 06/13/22 Rx Famotidine [Pepcid] 20 mg PO DAILY tab 06/09/22 06/13/22 Rx HYDROmorphone [Dilaudid] 2 mg PO Q4H PRN 3 Days #18 tab 06/09/22 06/13/22 Rx polyethylene glycoL 3350 [Miralax] 17 gm PO DAILY 06/13/22 06/13/22 History Allergies Allergy/AdvReac Type Severity Reaction Status Date / Time codeine Allergy Unknown Verified 06/13/22 23:12 Physical Examination Osteopathic Statement: *. No significant issues noted on an osteopathic structural exam other than those noted in the History and Physical/Consult. - Cervical Spine Nerve symptoms: tingling in the arms: bilateral, pain in the arms: bilateral, weakness in the arms: bilateral, difficulty with manipulative tasks: bilateral, numbness: bilateral - C Spine: dermatomal strength & reflexes left Shoulder strength: flexion: 2/5 Shoulder strength: extension: 5/5 Shoulder strength: abduction: 5/5 Shoulder strength: adduction: 5/5 Shoulder strength: internal rotation: 5/5 Shoulder strength: external rotation: 5/5 Wrist strength: flexion: 2/5 Wrist strength: extension: 2/5 Wrist strength: pronation: 5/5 Wrist strength: supination: 5/5 Wrist strength: radial deviation: 5/5 Wrist strength: ulnar deviation: 5/5 Strength: trademark affixer: 2/5 right Shoulder strength: flexion: 2/5 Wrist strength: ulnar deviation: 3/5 (Slightly better strength on the right than the left upper extremity with 2+ out of 5 biceps on the right and 2 out of 5 on the left. Same with her triceps. She has positive Nixon's on the right. Some hyperreflexia on the right.) Strength: trademark affixer: 3/5 (At her neck she has difficulty with extension but could flexion and rotation. She has paravertebral spasm at the base of her neck and between her shoulder blades. She is able to shrug her shoulders but not able to lift her arms actively against gravity from her shoulders bilaterally. She has slig) - L Spine: dermatomal strength & reflexes bilateral Strength: hip flexion: 2/5 (At her lower extremities she has very limited strength. She is unable to lift her legs up off the bed independently. She is unable to hold her leg extended with about 2 out of 5 bilateral quadriceps worse on the left than the right. 3 out of 5 dorsiflexion on the right to L5 on the left. No pain) Results - Labs Labs: Abnormal Lab Results - Last 24 Hours (Table) 06/15/22 06/15/22 06/15/22 Range/Units 11:09 16:24 22:15 POC Glucose (mg/dL) 122 H 138 H 134 H (70-110) mg/dL H & H 06/13/22 06/14/22 Range/Units 21:15 06:18 Hgb 12.5 11.7 (11.4-16.0) gm/dL Hct 37.6 35.6 (34.0-46.0) % Coagulation 06/13/22 Range/Units 21:54 INR 1.1 (<1.2) Result Diagrams: 06/14/22 06:18 06/14/22 06:18 - Diagnostic results Cervical MRI with/without contrast: report reviewed (There is mild to moderate encroachment at C5 6 C6 7. The most severe at C3 4. There is disc degeneration C2 3), image reviewed (Her computed tomography scan from June 14 and her MRI of her cervical spine from June 06 are reviewed. She has severe cervical stenosis at C3 4 with anterolisthesis and evidence of cord signal change. There is moderate stenosis C4 5. There is disc protrusion and bulging see 56 C6 7 with mild to m) CT scan - cervical: report reviewed, image reviewed Assessment and Plan Assessment: Severe cervical myelopathy with bilateral upper and lower extremity weakness Cervical myelomalacia Severe cervical stenosis C3 4 and moderate stenosis C4 5 Neurologic deficit which had progressed over the past couple weeks Degenerative disc disease cervical spine Patient currently on blood thinner of Eliquis and Aspirin for pulmonary embolism Plan: Severe cervical myelopathy with bilateral upper and lower extremity weakness Cervical myelomalacia Severe cervical stenosis C3 4 and moderate stenosis C4 5 Neurologic deficit which had progressed over the past couple weeks Degenerative disc disease cervical spine Patient currently on blood thinner of Eliquis and Aspirin for pulmonary embolism Chronic T12 compression fracture, stable I agree with neurology that the patient's weakness stems from her cervical decompression and myelopathy rather than vascular accident. The patient has severe cervical stenosis C3 4 with moderate stenosis C4 5 and some disc changes and spondylosis C5 6 C6 7. The primary symptoms stem from C3 4 were she has severe stenosis and evidence of myelomalacia with cord signal change causing her myelopathy. She has significant weakness at her bilateral upper and lower extremities stemming from this. Her symptoms have been progressive for her. She is normally an ambulator with a cane and does gardening and quilting but now is unable to even feed herself her transfer out of her bed. She had a couple of recent falls with 1 in the spring and then a couple more while she was on vacation recently. These may have exacerbated her symptoms with extension type injuries at her neck further worsening her symptoms and creating further central cord syndrome with her myelopathy. I think that we should start steroid medication to see if we can alleviate some of her swelling at her cord. This may help give her some relief at her upper extremities in terms of pain as well as potentially improve some of her function She is on blood thinners and we will have to hold this as we would plan to pursue surgical intervention at her cervical spine and is to limit the risk any significant bleeding or significant blood collection postoperatively I would plan for anterior cervical decompression with discectomy and fusion C3 4 possibly C4 5 corpectomy at C4. There are multiple levels of disc degeneration but certainly the C3 4 level is by far the worst and would need to be addressed. It may also require later treatment with posterior cervical decompression but I would start with anterior cervical discectomy and fusion at C3 4 and C4 5. Cardiology was present at bedside and they feel that she would be okay to hold her blood thinners and pursue surgery as soon as possible. We will have medicine see her for evaluation as well. We'll check labs for appropriate clearance. I discussed the patient's issues with her at length. I discussed the VAC that she has significant weakness which I believe is stemming from her cervical myelopathy and myelomalacia. I explained to them that many of these changes that she has could be permanent and may not improve. She may have significant motor had functional loss permanently. We discussed that medication and surgical intervention can if her some chance to keep matters from worsening and potentially help improve some of her function but her neurologic loss may be permanent for her. We discussed this at length I discussed the risk of occasions alternatives and benefits of surgery and they want to proceed with surgical intervention. Time with Patient: Greater than 30
[2022-06-16 09:53] LABS: INR 1.1 (<1.2); Partial Thromboplastin Time 24.8 sec (22.0-30.0); Prothrombin Time 11.4 sec (9.0-12.0)
[2022-06-16 10:27] LABS: Appearance,Urine Cloudy (Clear); Bacteria,Urine Moderate /hpf; Bilirubin,Urine Negative (Negative); Blood,Urine Moderate (Negative); Color,Urine Yellow; Glucose,Urine (UA) Negative (Negative); Hyaline Casts,Urine 36 /lpf (0-2); Ketones,Urine Negative (Negative); Leukocyte Esterase,Urine Moderate (Negative); Mucus,Urine Few /hpf; Nitrite,Urine Negative (Negative); PH, Urine 5.5 (5.0-8.0); Protein,Urine Trace (Negative); RBC,Urine 141 /hpf (0-5); Specific Gravity,Urine 1.012 (1.001-1.035); Squamous Epithelial Cell,Urine 2 /hpf (0-4); Urobilinogen,Urine <2.0 mg/dL (<2.0); WBC,Urine 25 /hpf (0-5)
--- NOTE | 2022-06-16 10:58 | P.PN ---
Subjective Progress Note Date: 06/16/22 HISTORY OF PRESENT ILLNESS: This is a 77-year-old female who presented to the hospital with worsening pain in her neck, weakness of her upper and bilateral lower extremities, and incr eased ability. She has been evaluated by Dr. Iraheta with plans to undergo surgical intervention in the near future for severe cervical stenosis. Patient examined this morning the bedside. She denies chest pain or pressure. She denies shortness of breath. Vital signs are stable. Recent echocardiogram performed revealed ejection fraction 55-60%, moderate pulmonary hypertension, mild mitral regurgitation, and mild tricuspid regurgitation. PHYSICAL EXAM: VITAL SIGNS: Reviewed. GENERAL: Well-developed in no acute distress. NECK: Supple. No JVD or thyromegaly LUNGS: Respirations even and unlabored. Lungs essentially clear to auscultation bilaterally. HEART: Regular rate and rhythm. S1 and S2 heard. EXTREMITIES: Normal range of motion. No clubbing or cyanosis. Peripheral pulses intact. No lower extremity edema ASSESSMENT: Severe cervical myelopathy with bilateral upper and lower extremity weakness Severe cervical stenosis C3-C4 and moderate cervical stenosis C4-5 History of pulmonary embolism Hypertension PLAN: Continue current cardiac medications Continue Eliquis. Once surgery date is confirmed, Eliquis will need to be held. Will defer this to Dr. Iraheta Patient is moderate to high risk to undergo surgical intervention. However there are no absolute contraindications from a cardiac standpoint Further recommendations pending patient's course Nurse practitioner note has been reviewed by physician. Signing provider agrees with the documented findings, assessment, and plan of care. Objective - Vital Signs Vital signs: Vital Signs Temp 98.8 F 06/16/22 06:50 Pulse 58 L 06/16/22 06:50 Resp 18 06/16/22 06:50 BP 156/73 06/16/22 06:50 Pulse Ox 97 06/16/22 06:50 FiO2 Intake & Output 06/15/22 06/16/22 06/16/22 18:59 06:59 18:59 Intake Total 60 Output Total 1200 200 Balance -1140 -200 Intake: Oral 60 Output: Urine 1200 200 Uretheral (Cline) 400 Other: Voiding Method Indwelling Catheter Indwelling Catheter - Labs CBC & Chem 7: 06/16/22 06:36 06/16/22 06:36 Labs: Abnormal Lab Results - Last 24 Hours (Table) 06/15/22 06/15/22 06/15/22 Range/Units 11:09 16:24 22:15 WBC (4.50-10.00) X 10*3/uL RBC (4.10-5.20) X 10*6/uL Hgb (12.0-15.0) g/dL Hct (37.2-46.3) % Immature Gran # (0.00-0.04) X 10*3/uL Sodium (135-145) mmol/L Est GFR (CKD-EPI)AfAm (60.0-200.0) Est GFR (CKD-EPI)NonAf (60.0-200.0) POC Glucose (mg/dL) 122 H 138 H 134 H (70-110) mg/dL Calcium (8.7-10.3) mg/dL Total Protein (6.2-8.2) g/dL Albumin (3.8-4.9) g/dL Albumin/Globulin Ratio (1.60-3.17) g/dL Urine Appearance (Clear) Urine Protein (Negative) Urine Blood (Negative) Ur Leukocyte Esterase (Negative) Urine RBC (0-5) /hpf Urine WBC (0-5) /hpf Urine Bacteria (None) /hpf Hyaline Casts (0-2) /lpf Urine Mucus (None) /hpf 06/16/22 06/16/22 06/16/22 Range/Units 06:36 06:36 09:40 WBC 4.32 L (4.50-10.00) X 10*3/uL RBC 3.54 L (4.10-5.20) X 10*6/uL Hgb 10.1 L (12.0-15.0) g/dL Hct 31.4 L (37.2-46.3) % Immature Gran # 0.06 H (0.00-0.04) X 10*3/uL Sodium 134 L (135-145) mmol/L Est GFR (CKD-EPI)AfAm 49.8 L (60.0-200.0) Est GFR (CKD-EPI)NonAf 42.9 L (60.0-200.0) POC Glucose (mg/dL) (70-110) mg/dL Calcium 8.6 L (8.7-10.3) mg/dL Total Protein 5.1 L (6.2-8.2) g/dL Albumin 3.0 L (3.8-4.9) g/dL Albumin/Globulin Ratio 1.43 L (1.60-3.17) g/dL Urine Appearance Cloudy H (Clear) Urine Protein Trace H (Negative) Urine Blood Moderate H (Negative) Ur Leukocyte Esterase Moderate H (Negative) Urine RBC 141 H (0-5) /hpf Urine WBC 25 H (0-5) /hpf Urine Bacteria Moderate H (None) /hpf Hyaline Casts 36 H (0-2) /lpf Urine Mucus Few H (None) /hpf
[2022-06-16 11:22] LABS: Glucose,Whole Blood 126 mg/dL (70-110)
[2022-06-16] MEDS ORDERED: LORazepam 1 MG/0.5 ML VIAL IV STA (12:29)
--- NOTE | 2022-06-16 14:08 | EEG ---
ELECTROENCEPHALOGRAM REPORT DATE OF SERVICE: 06/16/2022 PREAMBLE: This is a 77-year-old female who has generalized weakness, also has some mental status change. Therefore this EEG was performed. EEG FINDINGS: This is a 21 channel digital EEG recorded with video component, utilizing 10/20 international system with referential and bipolar montages. Background consists of well-developed, moderately well regulated, mixed frequencies of alpha, with some fast frequency beta activity as seen in bihemispheric region. A lot of myogenic activity was seen in the frontal temporal head region bilaterally. Frontal and intermittent rhythmic delta activity was seen. Photic driving response was not clearly seen. No focal or generalized epileptiform activity was seen. Different stages of sleep were not seen. IMPRESSION: This is mildly abnormal EEG because of slightly disorganized background, and the presence of frontal intermittent rhythmic delta activity. This is suggestive of mild generalized cerebral dysfunction as can be seen with various causes of encephalopathy. No epileptiform activity was seen. MMAMOSL / IJN: [id number] / [facility]
--- NOTE | 2022-06-16 14:27 | MR ---
MR brain without contrast HISTORY: Altered mental status Multiplanar multisequence imaging through the brain. Correlation to CT brain 06/14/2022 There is no restricted diffusion. Confluent and scattered pericallosal, periventricular and subcortic al white matter hyperintensity is present on inversion recovery T2-weighted sequences. There is no he morrhage or hydrocephalus. Some inflammatory change present in the right mastoid air cells, bilateral maxillary sinuses, ethmoid air cells, sphenoid sinus. Orbits show symmetric appearance. Corpus callo sum, cervical medullary junction, cerebellopontine angles are within normal limits. Cortical atrophy is likely age-related. IMPRESSION: Age-related changes of atrophy and chronic small vessel ischemia. Sinus disease, inflamma tory change also noted in the mastoid air cells on the right.
--- NOTE | 2022-06-16 15:07 | MR ---
EXAMINATION TYPE: MR lumbar spine wo/w con DATE OF EXAM: 06/16/2022 COMPARISON: MR thoracic spine 06/06/2022 HISTORY: Low back pain with weakness and numbness TECHNIQUE: Multiplanar, multisequence images of the lumbar spine were acquired without and with 10 mL intravenou s Gadavist gadolinium contrast. Superior endplate fracture T12 is again noted. There is a spinal curvature. A serpiginous structure showing T1 intermediate, T2 mixed increased and showing enhancement along the right posterior paraspinal musculature is noted, findings may represent a varix or aneurysm measurin g approximately 15 mm in AP dimension by 13 mm in transverse dimension at the L5-S1 level. L1-L2: Posterior broad-based disc bulge causes mild anterior mass effect on the thecal sac. Mild face t arthropathy. L2-L3: Posterior broad-based disc bulge causes mild anterior mass effect thecal sac. No definite fora heriberto encroachment. L3-L4: Posterior broad-based disc bulge causes mild anterior mass effect on the thecal sac somewhat e ccentric towards the left. Circumferential extension of disc material encroaches somewhat on the fora salina inferiorly. There is facet arthropathy with hypertrophy ligamentum flavum causing some minimal p osterior lateral mass effect on the thecal sac. L4-L5: Posterior broad-based disc bulge causes mild anterior mass effect on the thecal sac. Facet art hropathy with hypertrophy ligamentum flavum causes some posterior lateral mass effect on the thecal s ac. Circumferential extension endplate disc complex results in bilateral foraminal encroachment. L5-S1: There is facet arthropathy change, hypertrophy ligamentum flavum causing posterior lateral mas s effect on the thecal sac. Listhesis contributes to cause bilateral foraminal encroachment greater o n the right than on the left. No evident disc herniation Lumbar segments are intact. There is some atrophy of the paraspinal musculature. No paraspinal krista s are identified. Conus medullaris has a normal appearance. Retrolisthesis grade 1 L2-3. There is mu ltilevel spondylosis, endplate discogenic marrow signal change. Loss of disc height signal is greates t at L2-3, L1-L2. No significant spinal stenosis. Anterolisthesis grade 1 L5-S1. No additional abnorm al enhancement following contrast administration. IMPRESSION: Degenerative disc disease, spinal curvature. Possible varix or aneurysm within the paraspinal muscula ture the lower lumbar spine. Superior endplate fracture T12 again noted.
[2022-06-16] MEDS ORDERED: HYDROmorphone 0.5 MG/0.5 ML SYRINGE IVP PRN (15:42)
--- NOTE | 2022-06-16 15:55 | P.PAINPG ---
Objective - Vital Signs Vital signs: Vital Signs Temp 98.3 F 06/16/22 13:26 Pulse 62 06/16/22 13:26 Resp 16 06/16/22 13:26 BP 142/74 06/16/22 13:26 Pulse Ox 96 06/16/22 13:26 FiO2 Intake & Output 06/15/22 06/16/22 06/16/22 18:59 06:59 18:59 Intake Total 60 240 Output Total 1200 200 Balance -1140 -200 240 Intake: Oral 60 240 Output: Urine 1200 200 Uretheral (Cline) 400 Other: Voiding Method Indwelling Catheter Indwelling Catheter - Labs CBC & Chem 7: 06/16/22 06:36 06/16/22 06:36 Labs: Abnormal Lab Results - Last 24 Hours (Table) 06/15/22 06/15/22 06/16/22 Range/Units 16:24 22:15 06:36 WBC 4.32 L (4.50-10.00) X 10*3/uL RBC 3.54 L (4.10-5.20) X 10*6/uL Hgb 10.1 L (12.0-15.0) g/dL Hct 31.4 L (37.2-46.3) % Immature Gran # 0.06 H (0.00-0.04) X 10*3/uL Sodium (135-145) mmol/L Est GFR (CKD-EPI)AfAm (60.0-200.0) Est GFR (CKD-EPI)NonAf (60.0-200.0) POC Glucose (mg/dL) 138 H 134 H (70-110) mg/dL Calcium (8.7-10.3) mg/dL Total Protein (6.2-8.2) g/dL Albumin (3.8-4.9) g/dL Albumin/Globulin Ratio (1.60-3.17) g/dL Urine Appearance (Clear) Urine Protein (Negative) Urine Blood (Negative) Ur Leukocyte Esterase (Negative) Urine RBC (0-5) /hpf Urine WBC (0-5) /hpf Urine Bacteria (None) /hpf Hyaline Casts (0-2) /lpf Urine Mucus (None) /hpf 06/16/22 06/16/22 06/16/22 Range/Units 06:36 09:40 11:20 WBC (4.50-10.00) X 10*3/uL RBC (4.10-5.20) X 10*6/uL Hgb (12.0-15.0) g/dL Hct (37.2-46.3) % Immature Gran # (0.00-0.04) X 10*3/uL Sodium 134 L (135-145) mmol/L Est GFR (CKD-EPI)AfAm 49.8 L (60.0-200.0) Est GFR (CKD-EPI)NonAf 42.9 L (60.0-200.0) POC Glucose (mg/dL) 126 H (70-110) mg/dL Calcium 8.6 L (8.7-10.3) mg/dL Total Protein 5.1 L (6.2-8.2) g/dL Albumin 3.0 L (3.8-4.9) g/dL Albumin/Globulin Ratio 1.43 L (1.60-3.17) g/dL Urine Appearance Cloudy H (Clear) Urine Protein Trace H (Negative) Urine Blood Moderate H (Negative) Ur Leukocyte Esterase Moderate H (Negative) Urine RBC 141 H (0-5) /hpf Urine WBC 25 H (0-5) /hpf Urine Bacteria Moderate H (None) /hpf Hyaline Casts 36 H (0-2) /lpf Urine Mucus Few H (None) /hpf PQRS Measure Charge Sheet Comment: HISTORY OF PRESENT ILLNESS: 77 yr old inpatient female as a referral from Dr Boss presents today with severe and chronic neck pain secondary to C3-C4 severe spinal stenosis, C4-C5 moderate spinal stenosis, C5-C6/ C6-C7 DDD, disc bulges and facet arthropathy for evaluation. Pt's pain level is 10/10, but waxes & wanes based on rotation, flexion and extension. Admits to crepitus with movement. States she went from using a cane for ambulatory assistance to relying on a walker. Admits to UE weakness over the last couple of weeks. PMH: Hyperlipidemia, HTN, Sleep Apnea/CPAP/BIPAP, Hypothyroidism, OA PSH: BL Cataract Resection, Cholecystectomy, Tubal Ligation SH: Former tobacco user, Rare ETOH use, No illicit drug use FH: Mo- Lung Metastasis. Fa- Unknown All: Codeine Meds: See list REVIEW OF ORGAN SYSTEMS: CONSTITUTIONAL: No fevers or chills. No recent weight loss. NEUROLOGICAL: + numbness and tingling along the distal extremities. No seizure disorders or headaches. MUSCULOSKELETAL: + pain PSYCHIATRIC: Denies current depression or suicidal thoughts. Physical Examinations : Constitutional : Cooperative , not in acute distress . Neurologic : Cranial nerve II to XII intact. No focal neurological deficits. Psychiatric : alert & oriented x 3. Matching mood & appropriate affect. Judgment & insight intact. Musculoskeletal : Cervical Spine Motor strength in the deltoid and biceps: Normal right side. Normal Left side Motor strength biceps and the wrist extensors: Normal right side . Normal left side Motor strength in the triceps muscle: Normal right side. Normal left side Deep tendon reflexes: Normal at the biceps. Normal at Brachioradialis. Normal at triceps Vertebral body tenderness to deep palpation over C3, C4, C5, C6, C7 Cervical facet loading test: positive bilaterally Spurling test: positive bilaterally Neck distraction test: positive bilaterally Nixon sign: positive bilaterally Lumbar spine Motor strength lower extremities ,thigh and legs 5/5 Right side , 5/5 Left side Deep tendon reflexes : Normal Knee Jerk. Normal Ankle Jerk Vertebral body tenderness over Lumbar facet Loading Test: positive Right / positive Left Range of motion of the lumbar spine Flexion 30 degrees, extension 10 degrees Straight Leg Raise test: Left/ Right positive at degree Dede test: positive right / positive left. Severe tenderness over the Sacroiliac joint on the Right / Left sides Gaenslen test: positive bilaterally Seated flexion test: positive bilaterally. Sacral spine : Severe tenderness over the Sacroiliac joint: right side / left side Range of motion: Flexion of the lumbar spine <60 degrees Range of motion: Extension of the lumb ar spine <20 degrees Gaenslen's Test positive Koko's Test positive Dede test: positive right side / left side Thigh Thrust Test Sacral Thrust Test Assessment/ Plan : Cervical spinal stenosis, Cervical DDD Currently has multiple pain medications on file including Hydromorphone 0.5mg IV P Q3h prn pain levels of 1-5, Hydromorphone 1mg IVP Q4h prn pain, to space greater than 3 hrs apart from last Hydromorphone dose, Methylprednisone 100mg IV Q12h and Narcan 0.2mg IV Q2 minutes prn diminished level of consciousness or respiratory distress. She will undergo ACDF, currently holding Eliquis and ASA in anticipation of surgery. We will monitor her pain status and intervene on an as needed basis. All questions answered. I have spent greater than 30 minutes on patient care today. Dr Zuleta was available by phone for the evaluation of this patient. The time was used to review the medical records including relevant urine studies and Prescription history (MAPs), review of the available imaging, evaluation and examination of the patient, coordination of care with the medical staff and if applicable referring physicians, as well as creation of the medical record - Pain Location Back Non-Pharmacological Interventions: Darkened Room, Distraction, Position/Reposition Pharmacological Interventions: Discuss Pain Med Options, Scheduled Medication Pain Comment: Dr. Oseguera if possible wants to wait on giving dilaudid due to patient's increased shayy decline PQRS Narrative: Smoking Status Former smoker Do You Want the Pneumonia Vaccine Up to Date Vaccine AT THIS TIME? Blood Pressure [Right Arm] 142/74 Blood Pressure 159/77 Pain Intensity [Back] 8 Pain Intensity 7 Pain Scale Used Numeric (1 - 10) Scale Used Non Verbal Pain Indicator Hx Alcohol Use (MH) No Home Medications: Ambulatory Orders Ubidecarenone [Co Q-10] 100 mg PO DAILY 11/14/19 Vit C/E/Zn/Coppr/Lutein/Zeaxan [Preservision Areds 2 Softgel] 1 cap PO DAILY 11/14/19 Aspirin EC [Ecotrin Low Dose] 81 mg PO DAILY 06/03/22 Baclofen [Lioresal] 20 mg PO QID PRN 06/03/22 Calcium Carbonate [Calcium] 600 mg PO DAILY 06/03/22 Enalapril [Vasotec] 40 mg PO DAILY 06/03/22 Furosemide [Lasix] 20 mg PO DAILY 06/03/22 Levothyroxine Sodium [Synthroid] 75 mcg PO DAILY 06/03/22 Magnesium 200 mg PO DAILY 06/03/22 Simvastatin 40 mg PO HS 06/03/22 atenoloL 100 mg PO HS 06/03/22 hydrALAZINE HCL [Apresoline] 50 mg PO BID 06/03/22 Apixaban [Eliquis] 5 mg PO BID tab 06/09/22 Docusate [Colace] 100 mg PO BID cap 06/09/22 Famotidine [Pepcid] 20 mg PO DAILY tab 06/09/22 HYDROmorphone [Dilaudid] 2 mg PO Q4H PRN 3 Days #18 tab 06/09/22 polyethylene glycoL 3350 [Miralax] 17 gm PO DAILY 06/13/22 Controlled Substance Measures - Controlled Substance Measures Is patient prescribed a controlled substance at discharge?: No
[2022-06-16 16:36] LABS: Glucose,Whole Blood 165 mg/dL (70-110)
--- NOTE | 2022-06-16 19:07 | P.PN ---
Subjective Progress Note Date: 06/16/22 Elena Nieto, is a 77-year-old female who presented to [facility] emergency room with a chief complaint of generalized weakness with inability to stand or walk, bilateral upper extremities and lower extremities weakness and numbness, and generalized deterioration in her condition. Patient stated that she was in her usual state of health until about 2 months ago when she was having neck pain, she had an MRI of the cervical spine and she was seen at the pain management clinic and received 1 epidural injection, subsequently patient stated that she started having some numbness in her hands, she went on a trip to [place] for 10 days, in the beginning of the treatment patient was compla ining only of some weakness and numbness in her hands, at the end of the trip she was extremely weak with numbness extending to all bilateral upper extremities up to the shoulders and in the lower extremities she was having difficulty standing up and walking, at that time she was brought into the [facility], evaluation revealed evidence of pulmonary embolism she was started on IV heparin and then switched to oral Eliquis, consultation for the pain management team was initiated however they stated that they are not able to do any procedure for 3 months after starting anticoagulation for pulmonary embolism. Patient was sent to [facility] on the [facility] for rehabilitation, she was there for about 4 days, she stated that her weakness has worsened, she is having more numbness and weakness in her hands she is stating that she can hardly push the button on the remote control, patient was evaluated in the emergency room and admitted to medical floor for further evaluation by pain management team. In the emergency room vital examination on presentation revealed a temperature of 98 pulse 64 respiration 18 blood pressure 128/78 pulse ox 94% on room air Laboratory data on presentation revealed a a white blood count of 5.7 hemoglobin 12.5 platelet count 315 sodium 133 potassium 4.4 chloride 99 CO2 30 BUN 22 creatinine 0.74 Patient was admitted to medical floor for further evaluation and treatment. On 06/15/2022 patient was seen and examined on the medical floor she is alert and oriented 3 in no apparent distress, patient was complaining of uncontrolled pain, she was receiving dialogued 0.5 mg IV every 3 hours, however she stated that her pain is not well controlled and she was not able to sleep because of her pain, location of the pain is in the middle of her back between her shoulder blades, she is still complaining of generalized weakness, and weakness and numbness in her upper and lower extremities. Computed tomography scan of the head and the cervical spine was reviewed. At this time will increase dose of dialogued to 1 mg IV every 4 hours when necessary, awaiting input from neurology and and his [facility] pain management service. During the night patient had an e pisode of urinary retention requiring straight catheter use. If further episodes happen will use Cline catheter. On 06/16/2022 patient was seen and examined on the medical floor she is alert and oriented 3 in no apparent distress there is no fever or chills no headache or dizziness no chest pain no shortness of breath no cough no nausea or vomiting no abdominal pain no diarrhea no blood in the stools no burning with urination no frequency or urgency and no hematuria. At this time MRI of the cervical spine is showing significant abnormality, neurology and neurosurgery are following, plan is for possible surgery soon, cardiology are consulted for management of anticoagulation, patient had a recent admission with pulmonary embolism, will continue to follow closely Objective - Vital Signs Vital signs: Vital Signs Temp 98.8 F 06/16/22 06:50 Pulse 58 L 06/16/22 06:50 Resp 18 06/16/22 06:50 BP 156/73 06/16/22 06:50 Pulse Ox 97 06/16/22 06:50 FiO2 Intake & Output 06/15/22 06/16/22 06/16/22 18:59 06:59 18:59 Intake Total 60 Output Total 1200 200 Balance -1140 -200 Intake: Oral 60 Output: Urine 1200 200 Uretheral (Cline) 400 Other: Voiding Method Indwelling Catheter - Exam In general patient is alert and oriented 3 in no apparent distress HEENT head normocephalic and atraumatic Neck is supple no JVD no goiter no lymphadenopathy Chest exam reveals a clear respiratory sounds no crackles no wheezing Cardiac exam reveals regular heart sounds S1 and S2 no gallops no murmurs Abdomen is soft nontender no organomegaly with normal bowel sounds Extremity exam reveals no edema no cyanosis or clubbing Neurological examination reveals generalized weakness without any focal lateral neurological deficit - Labs CBC & Chem 7: 06/16/22 06:36 06/16/22 06:36 Labs: Abnormal Lab Results - Last 24 Hours (Table) 06/15/22 06/15/22 06/15/22 Range/Units 11:09 16:24 22:15 POC Glucose (mg/dL) 122 H 138 H 134 H (70-110) mg/dL Assessment and Plan Plan: Generalized weakness with inability to stand and walk Weakness and numbness that started in bilateral upper extremities and now in bilateral lower extremities Complaint of constipation for several days Recent diagnosis of pulmonary embolism on 06/03/2022 Recent diagnosis of COVID-19 infection about 4 months ago Underlying history of diabetes mellitus type 2 Underlying history of hypertension Underlying history of hyperlipidemia Underlying history of hypothyroidism Peripancreatic lesion on computed tomography scan At this time patient is admitted to medical floor Will obtain computed tomography scan of the brain and the cervical spine without contrast to rule out any bleeding that may be responsible for the deterioration of her condition Will decrease dose of baclofen from 20 mg 4 times daily to 10 mg 3 times daily, and decrease the dose of Tylenol dipped to 0.5 mg every 3 hours when necessary IV Will consult neurology in regard to generalized weakness and weakness and numbness in bilateral upper and lower extremities, patient had COVID-19 infection about 4 months ago possibility of Guillain-Pathak syndrome is in the differential at this time Home medications reviewed and reordered Recheck labs in a.m. Will follow closely
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
[2022-06-16] MEDS: atenoloL 50 MG TAB PO SCH (20:25)
[2022-06-16 20:41] LABS: Glucose,Whole Blood 227 mg/dL (70-110)
[2022-06-17] MEDS: LEVOTHYROXINE 75 MCG TAB PO SCH (05:52)
[2022-06-17] MEDS: SODIUM CHLORIDE 0.9% 1,000 ML IV SCH ×3 (05:56→22:43)
[2022-06-17] MEDS: methylPREDNISolone SOD SUCCI 125 MG/2 ML VIAL IV SCH ×2 (07:44→20:20)
--- NOTE | 2022-06-17 08:46 | P.PN ---
Progress Note - Text Progress Note Date: 06/17/22 Orthopedic spine: History of present illness: Patient is a very pleasant 77-year-old female who is seen and examined at bedside for follow-up evaluation of her cervical spine. She has not had any change or improvement of her symptoms as compared to yesterday. She has significant weakness of the bilateral upper extremities. She has lower extremity weakness as well. She has significant difficulty with mobilization. She does continue to have cervical pain with upper extremity numbness and tingling. Reviewing of imaging showed severe cervical stenosis at C3-4 and moderate cervical stenosis at C4-5. She has significant neurological deficit. We are currently planning to proceed forward with surgical intervention tomorrow morning. Patient states she is ready for surgical intervention. Patient does have a history of pulmonary embolism and was on Eliquis. This is currently being held in anticipation for surgical intervention tomorrow morning. She is being seen by multiple medical providers including medicine, neurology, and cardiology. Patient does have some swelling of the bilateral upper extremities. Nursing states this was present yesterday. Patient currently has a Cline catheter intact. Physical exam: Patient is awake, alert, and oriented 3 Vital signs stable Good chest excursion with deep inspiration and expiration Examination of the cervical spine reveals skin is intact with no abrasions, la cerations, or bruises; no erythema, purulence or signs of infection Full range of motion of the cervical spine with adequate flexion and bilateral rotation Difficulty with cervical extension. 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 bilaterally Patient has significant weakness with her bilateral upper extremities Patient is unable to lift her arms up off the bed bilaterally Positive Mccord's sign on the right Right upper extremity hyperreflexia Patient is currently unable to perform significant deltoids, biceps and triceps range of motion bilaterally No signs or symptoms of DVT; no calf pain Patient has difficulty lifting her left lower extremities off the bed Assessment: C3-4 severe spinal stenosis C4-5 moderate spinal stenosis Significant upper extremity and lower extremity weakness bilaterally Cervicalgia Upper extremity radiculopathy Cervical degenerative disc disease Cervical myelomalacia Cervical myelopathy Chronic T12 compression fracture deformity History of pulmonary embolism Plan: 1. Patient has evidence of significant changes at her cervical spine with C3-4 severe spinal stenosis and C4-5 moderate spinal stenosis with cervical myelomalacia. She has myelopathic symptoms with neurological loss of the bilateral upper extremities and lower extremities. She has right upper extremity hyperreflexia with a positive Mccord's sign. She has had significant decline over the past couple weeks. Given her significant symptoms and significant findings on MRI imaging, we currently planning to proceed for surgical intervention tomorrow, 06/18/2022, patient is cleared from a medical standpoint prior to surgical intervention. Patient has a history of pulmonary embolism is currently on Eliquis which is being held in anticipation for surgical intervention. We did discuss surgical intervention in significant detail at the bedside today. The proposed surgical intervention is a C3-4 and and possibly C4-5 anterior cervical decompression and fusion with possible corpectomy of C4. Patient feels she is feeling conservative treatment options and is ready to proceed forward with surgical intervention as scheduled. I discussed these issues with the patient at length and I answered all of their questions to the best of my ability and the patient understands. I discussed the risk of surgical intervention and alternative treatment options. The risk of surgical intervention was explained to the patient in detail including but not limited to risk of bleeding, risk of infection, risk and need for further surgery, risk of decreased loss of motion of function, malunion, nonunion, hardware failure, nerve damage, paralysis, heart attack, , as well as the fact that surgery may not alleviate her symptoms. I answered all the patient's questions the best of my ability. The patient would like to proceed forward with surgical intervention and will sign informed consent. 2. Patient will continue to be seen and examined by multiple medical providers; was discussed in detail with nursing patient must have clearance prior to surgical intervention tomorrow
[2022-06-17] MEDS: MAGNESIUM OXIDE 400 MG TAB PO SCH (09:45)
[2022-06-17] MEDS: LACTULOSE 20 GM/30 ML CUP PO SCH ×3 (09:46→21:19)
[2022-06-17] MEDS: polyethylene glycoL 3350 17 GM POWD.PACK PO SCH (09:46)
[2022-06-17] MEDS: lisinopriL 20 MG TAB PO SCH (09:47)
[2022-06-17] MEDS: CALCIUM CARBONATE 500 MG CHEWABLE PO SCH (09:47)
[2022-06-17] MEDS: FAMOTIDINE 20 MG TAB PO SCH (09:47)
[2022-06-17] MEDS: FUROSEMIDE 20 MG TAB PO SCH (09:47)
[2022-06-17] MEDS: hydrALAZINE HCL 50 MG TAB PO SCH ×3 (09:47→21:17)
[2022-06-17] MEDS: BACLOFEN 10 MG TAB PO SCH ×3 (09:47→21:18)
[2022-06-17] MEDS: DOCUSATE 100 MG CAP PO SCH ×2 (09:47→21:17)
[2022-06-17] MEDS: GABAPENTIN 100 MG CAP PO SCH ×3 (09:47→21:17)
--- NOTE | 2022-06-17 10:15 | P.PN ---
Subjective Progress Note Date: 06/17/22 HISTORY OF PRESENT ILLNESS: This is a 77-year-old female who presented to the hospital with worsening pain in her neck, weakness of her upper and bilateral lower extremities, and incr eased ability. She has been evaluated by Dr. Iraheta with plans to undergo surgical intervention in the near future for severe cervical stenosis. Patient examined this morning the bedside. She denies chest pain or pressure. She denies shortness of breath. Vital signs are stable. Recent echocardiogram performed revealed ejection fraction 55-60%, moderate pulmonary hypertension, mild mitral regurgitation, and mild tricuspid regurgitation. 06/17/2022 Patient examined this morning at bedside. Patient denies any chest pain or pressure. She denies shortness of breath. She continues to report weakness of her upper and lower summary is. She is scheduled for surgical intervention with Dr. Iraheta tomorrow. Vital signs are stable. PHYSICAL EXAM: VITAL SIGNS: Reviewed. GENERAL: Well-developed in no acute distress. NECK: Supple. No JVD or thyromegaly LUNGS: Respirations even and unlabored. Lungs essentially clear to auscultation bilaterally. HEART: Regular rate and rhythm. S1 and S2 heard. EXTREMITIES: Normal range of motion. No clubbing or cyanosis. Peripheral p ulses intact. No lower extremity edema ASSESSMENT: Severe cervical myelopathy with bilateral upper and lower extremity weakness Severe cervical stenosis C3-C4 and moderate cervical stenosis C4-5 History of pulmonary embolism Hypertension PLAN: Continue current cardiac medications Hold Eliquis for upcoming surgery Patient is moderate to high risk to undergo surgical intervention. However there are no absolute contraindications from a cardiac standpoint Further recommendations pending patient's course Nurse practitioner note has been reviewed by physician. Signing provider agrees with the documented findings, assessment, and plan of care. Objective - Vital Signs Vital signs: Vital Signs Temp 98.2 F 06/17/22 08:22 Pulse 62 06/17/22 08:22 Resp 17 06/17/22 08:22 BP 107/55 06/17/22 08:22 Pulse Ox 93 L 06/17/22 07:00 FiO2 Intake & Output 06/16/22 06/17/22 06/17/22 18:59 06:59 18:59 Intake Total 420 Output Total 1000 1200 Balance -580 -1200 Intake: Oral 420 Output: Urine 1000 1200 Other: Voiding Method Indwelling Catheter Indwelling Catheter Indwelling Catheter - Labs CBC & Chem 7: 06/16/22 06:36 06/16/22 06:36 Labs: Abnormal Lab Results - Last 24 Hours (Table) 06/16/22 06/16/22 06/16/22 Range/Units 09:40 11:20 16:35 POC Glucose (mg/dL) 126 H 165 H (70-110) mg/dL Urine Appearance Cloudy H (Clear) Urine Protein Trace H (Negative) Urine Blood Moderate H (Negative) Ur Leukocyte Esterase Moderate H (Negative) Urine RBC 141 H (0-5) /hpf Urine WBC 25 H (0-5) /hpf Urine Bacteria Moderate H (None) /hpf Hyaline Casts 36 H (0-2) /lpf Urine Mucus Few H (None) /hpf 06/16/22 Range/Units 20:39 POC Glucose (mg/dL) 227 H (70-110) mg/dL Urine Appearance (Clear) Urine Protein (Negative) Urine Blood (Negative) Ur Leukocyte Esterase (Negative) Urine RBC (0-5) /hpf Urine WBC (0-5) /hpf Urine Bacteria (None) /hpf Hyaline Casts (0-2) /lpf Urine Mucus (None) /hpf
[2022-06-17 11:31] LABS: Glucose,Whole Blood 215 mg/dL (70-110)
[2022-06-17] MEDS: APIXABAN 5 MG TAB PO SCH (13:46)
[2022-06-17] MEDS: ASPIRIN 81 MG PO SCH (13:47)
[2022-06-17 16:48] LABS: Glucose,Whole Blood 194 mg/dL (70-110)
--- NOTE | 2022-06-17 17:12 | P.PN ---
Subjective Progress Note Date: 06/17/22 Elena Nieto, is a 77-year-old female who presented to [facility] emergency room with a chief complaint of generalized weakness with inability to stand or walk, bilateral upper extremities and lower extremities weakness and numbness, and generalized deterioration in her condition. Patient stated that she was in her usual state of health until about 2 months ago when she was having neck pain, she had an MRI of the cervical spine and she was seen at the pain management clinic and received 1 epidural injection, subsequently patient stated that she started having some numbness in her hands, she went on a trip to [place] for 10 days, in the beginning of the treatment patient was compla ining only of some weakness and numbness in her hands, at the end of the trip she was extremely weak with numbness extending to all bilateral upper extremities up to the shoulders and in the lower extremities she was having difficulty standing up and walking, at that time she was brought into the [facility], evaluation revealed evidence of pulmonary embolism she was started on IV heparin and then switched to oral Eliquis, consultation for the pain management team was initiated however they stated that they are not able to do any procedure for 3 months after starting anticoagulation for pulmonary embolism. Patient was sent to [facility] the [facility] for rehabilitation, she was there for about 4 days, she stated that her weakness has worsened, she is having more numbness and weakness in her hands she is stating that she can hardly push the button on the remote control, patient was evaluated in the emergency room and admitted to medical floor for further evaluation by pain management team. In the emergency room vital examination on presentation revealed a temperature of 98 pulse 64 respiration 18 blood pressure 128/78 pulse ox 94% on room air Laboratory data on presentation revealed a a white blood count of 5.7 hemoglobin 12.5 platelet count 315 sodium 133 potassium 4.4 chloride 99 CO2 30 BUN 22 creatinine 0.74 Patient was admitted to medical floor for further evaluation and treatment. On 06/15/2022 patient was seen and examined on the medical floor she is alert and oriented 3 in no apparent distress, patient was complaining of uncontrolled pain, she was receiving dialogued 0.5 mg IV every 3 hours, however she stated that her pain is not well controlled and she was not able to sleep because of her pain, location of the pain is in the middle of her back between her shoulder blades, she is still complaining of generalized weakness, and weakness and numbness in her upper and lower extremities. Computed tomography scan of the head and the cervical spine was reviewed. At this time will increase dose of dialogued to 1 mg IV every 4 hours when necessary, awaiting input from neurology and and his [facility] pain management service. During the night patient had an e pisode of urinary retention requiring straight catheter use. If further episodes happen will use Cline catheter. On 06/16/2022 patient was seen and examined on the medical floor she is alert and oriented 3 in no apparent distress there is no fever or chills no headache or dizziness no chest pain no shortness of breath no cough no nausea or vomiting no abdominal pain no diarrhea no blood in the stools no burning with urination no frequency or urgency and no hematuria. At this time MRI of the cervical spine is showing significant abnormality, neurology and neurosurgery are following, plan is for possible surgery soon, cardiology are consulted for management of anticoagulation, patient had a recent admission with pulmonary embolism, will continue to follow closely On 06/16/2022 patient was seen and examined on the medical floor she is alert and oriented 3 in no apparent distress there is no fever or chills no headache or dizziness no chest pain no shortness of breath no cough no nausea or vomiting no abdominal pain no diarrhea no blood in the stools no burning with urination no frequency or urgency and no hematuria. At this time neurology and neurosurgery cardiology and pain management are following plan is for cervical spine surgery in the next 1-2 days Objective - Vital Signs Vital signs: Vital Signs Temp 98 F 06/17/22 13:22 Pulse 68 06/17/22 13:22 Resp 17 06/17/22 13:22 BP 131/90 06/17/22 13:22 Pulse Ox 94 L 06/17/22 13:22 FiO2 Intake & Output 06/16/22 06/17/22 06/17/22 18:59 06:59 18:59 Intake Total 420 Output Total 1000 1200 1200 Balance -580 -1200 -1200 Intake: Oral 420 Output: Urine 1000 1200 1200 Other: Voiding Method Indwelling Catheter Indwelling Catheter Indwelling Catheter - Exam In general patient is alert and oriented 3 in no apparent distress HEENT head normocephalic and atraumatic Neck is supple no JVD no goiter no lymphadenopathy Chest exam reveals a clear respiratory sounds no crackles no wheezing Cardiac exam reveals regular heart sounds S1 and S2 no gallops no murmurs Abdomen is soft nontender no organomegaly with normal bowel sounds Extremity exam reveals no edema no cyanosis or clubbing Neurological examination reveals generalized weakness without any focal lateral neurological deficit - Labs CBC & Chem 7: 06/16/22 06:36 06/16/22 06:36 Labs: Abnormal Lab Results - Last 24 Hours (Table) 06/16/22 06/16/22 06/17/22 Range/Units 16:35 20:39 11:29 POC Glucose (mg/dL) 165 H 227 H 215 H (70-110) mg/dL Assessment and Plan Plan: Generalized weakness with inability to stand and walk Weakness and numbness that started in bilateral upper extremities and now in bilateral lower extremities Complaint of constipation for several days Recent diagnosis of pulmonary embolism on 06/03/2022 Recent diagnosis of COVID-19 infection about 4 months ago Underlying history of diabetes mellitus type 2 Underlying history of hypertension Underlying history of hyperlipidemia Underlying history of hypothyroidism Peripancreatic lesion on computed tomography scan At this time patient is admitted to medical floor Will obtain computed tomography scan of the brain and the cervical spine without contrast to rule out any bleeding that may be responsible for the deterioration of her condition Will decrease dose of baclofen from 20 mg 4 times daily to 10 mg 3 times daily, and decrease the dose of Tylenol dipped to 0.5 mg every 3 hours when necessary IV Will consult neurology in regard to generalized weakness and weakness and numbne ss in bilateral upper and lower extremities, patient had COVID-19 infection about 4 months ago possibility of Guillain-Pathak syndrome is in the differential at this time Home medications reviewed and reordered Recheck labs in a.m. Will follow closely
[2022-06-17] MEDS: atenoloL 50 MG TAB PO SCH (21:18)
[2022-06-18 00:16] LABS: Glucose,Whole Blood 167 mg/dL (70-110)
[2022-06-18] MEDS: LEVOTHYROXINE 75 MCG TAB PO SCH (06:14)
[2022-06-18] MEDS ORDERED: IV FLUID CONTINUATION 200 ML IV ONE (06:48)
[2022-06-18 07:01] LABS: Glucose,Whole Blood 140 mg/dL (70-110)
[2022-06-18] MEDS ORDERED: ONDANSETRON 4 MG/2 ML VIAL IVP ONE (07:02)
[2022-06-18] MEDS ORDERED: DEXAMETHASONE SOD PHOSPHATE 10 MG/ML 1 ML VIAL ONE (07:29)
[2022-06-18] MEDS ORDERED: fentaNYL (PF) 50 MCG/ML 2 ML AMP ONE (07:29)
[2022-06-18] MEDS ORDERED: GLYCOPYRROLATE 0.2 MG/ML 2 ML VIAL ONE (07:29)
[2022-06-18] MEDS ORDERED: PROPOFOL 10 MG/ML 20 ML VIAL IV ONE (07:29)
[2022-06-18] MEDS ORDERED: ROCURONIUM 10 MG/ML (5 ML VIAL) IV ONE (07:29)
[2022-06-18] MEDS ORDERED: SUCCINYLCHOLINE CHLORIDE 200 MG/10 ML VIAL IV ONE (07:29)
[2022-06-18] MEDS ORDERED: LIDOCAINE 2% INJ 20 MG/ML (2 ML VIAL) ONE (07:29)
[2022-06-18] MEDS ORDERED: MIDAZOLAM 2 MG/2 ML VIAL ONE (07:29)
[2022-06-18] MEDS ORDERED: NEOSTIGMINE 1 MG/ML 10 ML VIAL ONE (07:29)
[2022-06-18] MEDS ORDERED: ceFAZolin 1,000 MG in SODIUM CHLORIDE 0.9% 1,000 ML IRRIGATION ONE (07:34)
[2022-06-18] MEDS ORDERED: GELATIN SPONGE,ABSORB (LARGE) 1 EACH SPONGE TOPICAL ONE (07:34)
[2022-06-18] MEDS ORDERED: THROMBIN (BOVINE) 5,000 UNIT VIAL TOPICAL ONE (07:34)
[2022-06-18] MEDS ORDERED: LIDOCAINE 0.5%-EPI 1:200,000 50 ML VIAL SQ ONE (07:34)
[2022-06-18] MEDS ORDERED: LACTATED RINGERS 1,000 ML IV ONE (08:05)
--- NOTE | 2022-06-18 09:08 | XR ---
EXAMINATION TYPE: XR cervical spine 1V DATE OF EXAM: 06/18/2022 COMPARISON: NONE HISTORY: Pain TECHNIQUE: One view submitted FINDINGS: There is a metallic needle overlying the C3-C4 disc space. Degenerative and hypertrophic ch anges in the spine with facet arthropathy. ET tube noted. IMPRESSION: Intraoperative localization
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
[2022-06-18] MEDS ORDERED: HYDROmorphone 0.5 MG/0.5 ML SYRINGE IVP PRN (10:03)
[2022-06-18] MEDS ORDERED: MAGNESIUM HYDROXIDE 2,400 MG/10 ML CUP PO PRN (10:03)
[2022-06-18] MEDS ORDERED: BENZOCAINE/MENTHOL LOZENG 1 EACH LOZENGE MUCOUS MEM PRN (10:03)
[2022-06-18] MEDS ORDERED: ONDANSETRON 4 MG/2 ML VIAL IVP PRN (10:04)
[2022-06-18] MEDS: GABAPENTIN 100 MG CAP PO SCH ×3 (10:21→22:07)
[2022-06-18] MEDS: hydrALAZINE HCL 50 MG TAB PO SCH ×3 (10:21→22:07)
[2022-06-18] MEDS: LACTULOSE 20 GM/30 ML CUP PO SCH ×3 (10:21→22:07)
[2022-06-18] MEDS ORDERED: diphenhydrAMINE 50 MG/ML 1 ML VIAL IVP ONE (10:25)
[2022-06-18] MEDS ORDERED: HYDROmorphone 0.5 MG/0.5 ML SYRINGE IVP ONE (10:26)
--- NOTE | 2022-06-18 10:32 | P.OP ---
Date of Procedure: 06/18/22 Preoperative Diagnosis: Severe cervical myelopathy, cervical myelomalacia, bilateral upper extremity and lower extremity severe weakness, severe cervical stenosis C3 4 C4 5, degenerative disc disease C3 4 C4 5, inability to ambulate Postoperative Diagnosis: Same Anesthesia: GETA Pathology: none sent Condition: stable Disposition: PACU Description of Procedure: BRIEF OPERATIVE NOTE Preoperative Diagnosis:Severe cervical myelopathy, cervical myelomalacia, bilateral upper extremity and lower extremity severe weakness, severe cervical stenosis C3 4 C4 5, degenerative disc disease C3 4 C4 5, inability to ambulate Postoperative Diagnosis:Severe cervical myelopathy, cervical myelomalacia, bilateral upper extremity and lower extremity severe weakness, severe cervical stenosis C3 4 C4 5, degenerative disc disease C3 4 C4 5, inability to ambulate Procedure: Anterior cervical decompression with discectomy and fusion C3 4 C4 5 Placement of interbody graft C3 4 C4 5 Application of anterior cervical plate C3 4 and 5 Surgeon: Dr. Iraheta Kiln Setter: Chuy Ventura is present throughout the entire the case persistence during positioning, dissection, exposure, visualization, and all crucial elements of the case as well as closure. Anesthesia: General anesthesia Estimated blood loss: Approximately 50 mL Complications: None apparent Components implanted: K2M [place] anterior cervical plate system with screws and because interbody allograft bone graft Disposition: To recovery room in good stable condition. OPERATIVE INDICATIONS The patient has had severe in their neck and upper extremities over the past couple of months. Patient has had significant progressive worsening over the past couple of weeks. She started having workup and treatment with medical management interventional pain management but felt that she was having worsening. The patient has been through conservative treatment. She had sustained a fall a few months ago which correlates to some degree with when she started having symptoms and then had a couple more falls over the past couple of weeks which likely contributed further to her myelopathic symptoms and central cord syndrome symptoms. She had recently been on a trip where she was on a cruise in [place] and had been using a cane at the beginning of the trip was having need for a wheelchair by the end of the trip. She is having severe weakness at her upper extremities and lower extremities and inability to ambulate. She has developed significant problems with function at her upper extremities with her weakness and limited function and use of her arms and legs. She is unable to get out of bed on her own. She had evaluation in the hospital and we are consult in and felt that her symptoms are primarily due to to Central cord syndrome and cervical myelopathy. This was correlated with the severe cervical stenosis particular at C3 4 and at C4 5 with changes within her spinal cord and cervical myomalacia. The patient has been on blood thinners with Eliquis and Aspirin over this time and we have stop her blood thinners to prepare her for surgical intervention. I felt that she likely had severe cords damage with irreversible neurologic change but she would have significant risk of further worsening without surgical intervention and surgery we could give her the potential of some improvement in her neurologic function. We stopped her blood thinners and prepared for clearance for surgical intervention for decompression and fusion at C3 4 C4 5 .We discussed various treatment options including surgery, and the patient wishes to proceed with surgery We discussed the risk, patient's alternatives and benefits of surgery including but not limited to, risk of bleeding risk of infection, risk of need for further surgery, risk of decreased, loss of motion, muscle function, malunion nonunion, hardware failure, nerve damage, paralysis, heart attack, and . I had long discussion with the and the patient in regards to her severe neurologic changes and the fact that surgery may not alleviate her symptoms and she would likely have permanent neurologic change. OPERATIVE SUMMARY After discussing all the risks, patient alternatives and benefits at length, the patient elected to proceed with surgical intervention, signed informed consent, and presented for their procedure. The patient was seen and examined in the preoperative holding area and the surgical site was marked. The patient was given antibiotics and brought to the operating room. The patient was positioned on the operating room table in a supine position being careful to pad any bony prominences and pressure points. The patient was sedated and intubated by anesthesia in standard fashion. Once the airway and C- spine were stabilized the patient's arms were padded and tucked at her side, with her shoulders gently taped. The head was placed in a donut pad with the neck in good neutral alignment and position. We were careful to maintain the patient's cervical spine and good neutral alignment and position throughout. The patient was prepped and draped in a normal standard fashion. An appropriate timeout and keystone protocol performed. We were able to proceed with the surgery. The local wound area was infiltrated with local anesthetic. An incision was made transversely approximately 2-1/2 cm over the appropriate levels at C4. Dissection was taken down subcutaneously to the level of the platysma which was split in line with its fibers. Dissection was taken with a carotid approach, with the trachea and esophagus medial and the carotid sheath laterally. We dissected down to the anterior surface of the vertebral bodies. Intraoperative x-ray was taken which showed a marker at the appropriate level of C3 4. With the appropriate level positively confirmed, we were able to proceed with discectomy at the appropriate levels first at C3 4 and then at C4 5. All of the operative levels were exposed appropriately. The patient had all their twitches back, and there was no evidence of recurrent laryngeal issue. The wound was copiously irrigated and suctioned dry as had been done periodically throughout the case. At the appropriate level/levels, first at C3 4 than at C4 5, I established an annulotomy with an 11 blade scalpel. A discectomy was performed with a combination of pituitary rongeurs, curettes, a high-speed bur, and Kerrison rongeurs. The posterior longitudinal ligament was taken down as were any posterior osteophytes. There is severe disc loss at these levels with posterior osteophytic spurring and large disc herniation. I had to remove significant portions of the vertebrae at both levels in order to gain good decompression at C3 4 and at C4 5. I did not feel I had to perform complete corpectomy but perform somewhat of a subtotal corpectomy. This gave good central and bilateral foraminal decompression. There is no evidence of any dural tear or leak. The endplates were prepared with a high-speed bur. With the endplates in good parallel position, I was able to size for the appropriate size interbody graft. The wound was irrigated and suctioned dry the graft was prepared and malleted into position. It had good alignment and position with the anterior surface flush with the anterior surface of the vertebral bodies. This was done similarly the appropriate levels first at C3 4 and then at C4 5. With the grafts intact, I was able to measure and contour and appropriate sized plate. The plate was positioned at the midline over the appropriate levels at C3 4 and 5. Screw holes were established with a hand drill and drill guide. Screws were placed in good alignment and position with excellent bony purchase. They were seated under the locking device. The construct was checked and found to be stable. Intraoperative x-ray was taken which showed good alignment and position of the implants at the appropriate levels. There was no evidence of any dural tear or leak. Good hemostasis was maintained. The wound was copiously irrigated and suctioned dry as had been done periodically throughout the case. The platysma was closed with absorbable suture. The subcutaneous tissue was closed. The subcuticular tissue was closed with absorbable suture. The wound was cleaned and dried and dressed appropriately. A soft cervical collar was placed appropriately. The patient was woken up by anesthesia, extubated, transferred back gently to their hospital bed and brought to the recovery room in good stable condition. The patient will be admitted to the hospital for appropriate postoperative care, medical management and monitoring. We will continue to follow them closely about the postoperative course.
[2022-06-18] MEDS: methylPREDNISolone SOD SUCCI 125 MG/2 ML VIAL IV SCH ×2 (11:05→20:09)
[2022-06-18] MEDS ORDERED: SODIUM CHLORIDE 0.9% 1,000 ML IV ONE (11:07)
[2022-06-18] MEDS: CYCLOBENZAPRINE 5 MG TAB PO PRN (11:19)
[2022-06-18] MEDS: HYDROcodone/APAP 5-325MG 1 EACH TAB PO PRN ×2 (11:20→18:45)
--- NOTE | 2022-06-18 11:41 | XR ---
EXAMINATION TYPE: XR cervical spine 1V DATE OF EXAM: 06/18/2022 COMPARISON: NONE HISTORY: Postop TECHNIQUE: One view submitted FINDINGS: Postsurgical changes involving the cervical spine noted. Severe degenerative disc disease C 2-C3. Endotracheal tube noted. IMPRESSION: Postop
[2022-06-18] MEDS: BACLOFEN 10 MG TAB PO SCH ×3 (13:06→22:07)
[2022-06-18] MEDS: DOCUSATE 100 MG CAP PO SCH ×2 (13:06→20:09)
[2022-06-18] MEDS: polyethylene glycoL 3350 17 GM POWD.PACK PO SCH (13:15)
[2022-06-18] MEDS: CALCIUM CARBONATE 500 MG CHEWABLE PO SCH (13:15)
[2022-06-18] MEDS: FAMOTIDINE 20 MG TAB PO SCH (13:15)
[2022-06-18] MEDS: FUROSEMIDE 20 MG TAB PO SCH (13:15)
[2022-06-18] MEDS: MAGNESIUM OXIDE 400 MG TAB PO SCH (13:16)
[2022-06-18] MEDS: lisinopriL 20 MG TAB PO SCH (13:16)
--- NOTE | 2022-06-18 13:51 | P.PN ---
Subjective Progress Note Date: 06/18/22 HISTORY OF PRESENT ILLNESS: This is a 77-year-old female who presented to the hospital with worsening pain in her neck, weakness of her upper and bilateral lower extremities, and incr eased ability. She has been evaluated by Dr. Iraheta with plans to undergo surgical intervention in the near future for severe cervical stenosis. Patient examined this morning the bedside. She denies chest pain or pressure. She denies shortness of breath. Vital signs are stable. Recent echocardiogram performed revealed ejection fraction 55-60%, moderate pulmonary hypertension, mild mitral regurgitation, and mild tricuspid regurgitation. 06/17/2022 Patient examined this morning at bedside. Patient denies any chest pain or pressure. She denies shortness of breath. She continues to report weakness of her upper and lower summary is. She is scheduled for surgical intervention with Dr. Iraheta tomorrow. Vital signs are stable. 06/18/2022 Patient underwent anterior cervical decompression with discectomy and fusion C3- 4 C4-5. Patient examined this afternoon at the bedside. She denies chest pain or pressure. Denies shortness of breath. Vital signs are stable. Eliquis remains on hold. PHYSICAL EXAM: VITAL SIGNS: Reviewed. GENERAL: Well-developed in no acute distress. NECK: Supple. No JVD or thyromegaly LUNGS: Respirations even and unlabored. Lungs essentially clear to auscultation bilaterally. HEART: Regular rate and rhythm. S1 and S2 heard. EXTREMITIES: Normal range of motion. No clubbing or cyanosis. Peripheral pulses intact. No lower extremity edema ASSESSMENT: Severe cervical myelopathy with bilateral upper and lower extremity weakness Severe cervical stenosis C3-C4 and moderate cervical stenosis C4-5 History of pulmonary embolism Hypertension PLAN: Continue current cardiac medications Resume Eliquis when okay with orthopedic surgery Further recommendations pending patient's course Nurse practitioner note has been reviewed by physician. Signing provider agrees with the documented findings, assessment, and plan of care. Objective - Vital Signs Vital signs: Vital Signs Temp 98.5 F 06/18/22 11:15 Pulse 63 06/18/22 12:15 Resp 16 06/18/22 11:15 BP 147/72 06/18/22 12:15 Pulse Ox 94 L 06/18/22 12:27 FiO2 Intake & Output 06/17/22 06/18/22 06/18/22 18:59 06:59 18:59 Intake Total 560 50 951 Output Total 1450 900 300 Balance -890 -850 651 Intake: IV 50 951 Oral 560 Output: Urine 1450 900 250 Estimated Blood Loss 50 Other: Voiding Method Indwelling Catheter Indwelling Catheter # Bowel Movements 1 - Labs CBC & Chem 7: 06/16/22 06:36 06/16/22 06:36 Labs: Abnormal Lab Results - Last 24 Hours (Table) 06/17/22 06/18/22 06/18/22 Range/Units 16:46 00:15 06:59 POC Glucose (mg/dL) 194 H 167 H 140 H (70-110) mg/dL
--- NOTE | 2022-06-18 17:46 | P.PN ---
Subjective Progress Note Date: 06/18/22 Elena Nieto, is a 77-year-old female who presented to [facility] emergency room with a chief complaint of generalized weakness with inability to stand or walk, bilateral upper extremities and lower extremities weakness and numbness, and generalized deterioration in her condition. Patient stated that she was in her usual state of health until about 2 months ago when she was having neck pain, she had an MRI of the cervical spine and she was seen at the pain management clinic and received 1 epidural injection, subsequently patient stated that she started having some numbness in her hands, she went on a trip to [place] for 10 days, in the beginning of the treatment patient was compla ining only of some weakness and numbness in her hands, at the end of the trip she was extremely weak with numbness extending to all bilateral upper extremities up to the shoulders and in the lower extremities she was having difficulty standing up and walking, at that time she was [facility], evaluation revealed evidence of pulmonary embolism she was started on IV heparin and then switched to oral Eliquis, consultation for the pain management team was initiated however they stated that they are not able to do any procedure for 3 months after starting anticoagulation for pulmonary embolism. Patient was sent to [facility] on the [facility] for rehabilitation, she was there for about 4 days, she stated that her weakness has worsened, she is having more numbness and weakness in her hands she is stating that she can hardly push the button on the remote control, patient was evaluated in the emergency room and admitted to medical floor for further evaluation by pain management team. In the emergency room vital examination on presentation revealed a temperature of 98 pulse 64 respiration 18 blood pressure 128/78 pulse ox 94% on room air Laboratory data on presentation revealed a a white blood count of 5.7 hemoglobin 12.5 platelet count 315 sodium 133 potassium 4.4 chloride 99 CO2 30 BUN 22 creatinine 0.74 Patient was admitted to medical floor for further evaluation and treatment. On 06/15/2022 patient was seen and examined on the medical floor she is alert and oriented 3 in no apparent distress, patient was complaining of uncontrolled pain, she was receiving dialogued 0.5 mg IV every 3 hours, however she stated that her pain is not well controlled and she was not able to sleep because of her pain, location of the pain is in the middle of her back between her shoulder blades, she is still complaining of generalized weakness, and weakness and numbness in her upper and lower extremities. Computed tomography scan of the head and the cervical spine was reviewed. At this time will increase dose of dialogued to 1 mg IV every 4 hours when necessary, awaiting input from neurology and and his [facility] pain management service. During the night patient had an e pisode of urinary retention requiring straight catheter use. If further episodes happen will use Cline catheter. On 06/16/2022 patient was seen and examined on the medical floor she is alert and oriented 3 in no apparent distress there is no fever or chills no headache or dizziness no chest pain no shortness of breath no cough no nausea or vomiting no abdominal pain no diarrhea no blood in the stools no burning with urination no frequency or urgency and no hematuria. At this time MRI of the cervical spine is showing significant abnormality, neurology and neurosurgery are following, plan is for possible surgery soon, cardiology are consulted for management of anticoagulation, patient had a recent admission with pulmonary embolism, will continue to follow closely On 06/17/2022 patient was seen and examined on the medical floor she is alert and oriented 3 in no apparent distress there is no fever or chills no headache or dizziness no chest pain no shortness of breath no cough no nausea or vomiting no abdominal pain no diarrhea no blood in the stools no burning with urination no frequency or urgency and no hematuria. At this time neurology and neurosurgery cardiology and pain management are following plan is for cervical spine surgery in the next 1-2 days On 06/18/2022 patient was seen and examined on the medical floor she is alert and oriented 3 in no apparent distress there is no fever or chills no headache or dizziness no chest pain no shortness of breath no cough no nausea or vomiting no abdominal pain no diarrhea no blood in the stools no burning with urination no frequency or urgency and no hematuria. At this time neurology and neurosurgery, and pain management are following plan is for cervical spine surgery today. Cardiology are following closely and direct in regard to anticoagulation due to recent history of pulmonary embolism. Objective - Vital Signs Vital signs: Vital Signs Temp 97.5 F L 06/18/22 06:51 Pulse 60 06/18/22 06:51 Resp 16 06/18/22 06:51 BP 164/72 06/18/22 06:55 Pulse Ox 96 07/27/22 06:51 FiO2 Intake & Output 06/17/22 06/18/22 06/18/22 18:59 06:59 18:59 Intake Total 560 50 Output Total 1450 900 Balance -890 -850 Intake: IV 50 Oral 560 Output: Urine 1450 900 Other: Voiding Method Indwelling Catheter Indwelling Catheter # Bowel Movements 1 - Exam In general patient is alert and oriented 3 in no apparent distress HEENT head normocephalic and atraumatic Neck is supple no JVD no goiter no lymphadenopathy Chest exam reveals a clear respiratory sounds no crackles no wheezing Cardiac exam reveals regular heart sounds S1 and S2 no gallops no murmurs Abdomen is soft nontender no organomegaly with normal bowel sounds Extremity exam reveals no edema no cyanosis or clubbing Neurological examination reveals generalized weakness without any focal lateral neurological deficit - Labs CBC & Chem 7: 06/16/22 06:36 06/16/22 06:36 Labs: Abnormal Lab Results - Last 24 Hours (Table) 06/17/22 06/17/22 06/18/22 Range/Units 11:29 16:46 00:15 POC Glucose (mg/dL) 215 H 194 H 167 H (70-110) mg/dL 06/18/22 Range/Units 06:59 POC Glucose (mg/dL) 140 H (70-110) mg/dL Assessment and Plan Plan: Generalized weakness with inability to stand and walk Weakness and numbness that started in bilateral upper extremities and now in bilateral lower extremities Complaint of constipation for several days Recent diagnosis of pulmonary embolism on 06/03/2022 Recent diagnosis of COVID-19 infection about 4 months ago Underlying history of diabetes mellitus type 2 Underlying history of hypertension Underlying history of hyperlipidemia Underlying history of hypothyroidism Peripancreatic lesion on computed tomography scan At this time patient is admitted to medical floor Will obtain computed tomography scan of the brain and the cervical spine without contrast to rule out any bleeding that may be responsible for the deterioration of her condition Will decrease dose of baclofen from 20 mg 4 times daily to 10 mg 3 times daily, and decrease the dose of Tylenol dipped to 0.5 mg every 3 hours when necessary IV Will consult neurology in regard to generalized weakness and weakness and numbness in bilateral upper and lower extremities, patient had COVID-19 infection about 4 months ago possibility of Guillain-Pathak syndrome is in the differential at this time Home medications reviewed and reordered Recheck labs in a.m. Will follow closely
[2022-06-18] MEDS: atenoloL 50 MG TAB PO SCH (20:09)
[2022-06-18] MEDS: APIXABAN 5 MG TAB PO SCH (20:09)
[2022-06-18] MEDS: SODIUM CHLORIDE 0.9% 1,000 ML IV SCH ×2 (21:24)
[2022-06-19] MEDS: LEVOTHYROXINE 75 MCG TAB PO SCH (05:28)
[2022-06-19] MEDS: SODIUM CHLORIDE 0.9% 1,000 ML IV SCH ×5 (05:28→17:50)
[2022-06-19] MEDS ORDERED: LIDOCAINE 1% (10MG/ML) FOR IV START INTRADERMA PRN (07:10)
[2022-06-19] MEDS ORDERED: DEXAMETHASONE SOD PHOSPHATE 4 MG/ML 1 ML VIAL IV ONE (07:10)
[2022-06-19] MEDS ORDERED: HYDROmorphone 0.5 MG/0.5 ML SYRINGE IVP PRN (07:10)
[2022-06-19] MEDS ORDERED: ONDANSETRON 4 MG/2 ML VIAL IVP ONE (07:10)
[2022-06-19] MEDS ORDERED: METOCLOPRAMIDE 5 MG/ML 2 ML VIAL IVP PRN (07:10)
[2022-06-19] MEDS ORDERED: LACTATED RINGERS 1,000 ML IV SCH (07:10)
[2022-06-19] MEDS ORDERED: NA PHOS,M-B/NA PHOS,DI-BA 133 ML ENEMA RECTAL PRN (08:33)
[2022-06-19 08:40] LABS: Basophils # (A) 0 X 10*3/uL (0.00-0.10); Basophils % (A) 0 %; Eosinophils # (A) 0 X 10*3/uL (0.04-0.35); Eosinophils % (A) 0 %; HCT 28.2 % (37.2-46.3); HGB 9.3 g/dL (12.0-15.0); Immature Grans, Automated 1.6 %; Lymphocytes # (A) 0.59 X 10*3/uL (0.90-5.00); Lymphocytes % (A) 7.9 %; MCH 29.9 pg (27.0-32.0); MCV 90.7 fL (80.0-97.0); Mean Platelet Volume 10.3 fL (9.5-12.2); Monocytes % (A) 5.4 %; NRBC Per 100 WBC 0 /100 WBCS (0.0-0.0); Neutrophils # (A) 6.35 X 10*3/uL (1.80-7.70); Neutrophils % (A) 85.1 %; Platelet Count 306 X 10*3/uL (140-440); RBC 3.11 X 10*6/uL (4.10-5.20); RDW 13.5 % (11.5-14.5); WBC 7.46 X 10*3/uL (4.50-10.00)
--- NOTE | 2022-06-19 08:42 | P.PN ---
Progress Note - Text Progress Note Date: 06/19/22 Postoperative day #1 Patient is seen and examined today at bedside. The patient is very happy with her improvement after her surgery. Her daughter is with her at bedside and they insisted on give me Timothy. 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 She is almost able to reach her face. She can hold her remote control. She was doing none of this yesterday. She is able to move her ankles and feet which she was not able to yesterday. The patient has some pain around the surgical site as expected. Pain is being controlled with medication. She is tolerating soft food but still has some difficulty with her swallowing she denies any nausea Physical Exam Afebrile with stable vital signs Abdomen is soft nontender. Chest has good excursion deep and space expiration The incision site is clean dry and intact. No erythema there is no purulence. Her neck is soft and supple Extremities have made improvements since her surgery. She has some increased strength at her bilateral upper and lower extremities but still just against gravity had her bilateral upper and lower extremities. She is very happy with her improvement thus far Calves and thighs were soft nontender without evidence of DVT. Assessment/Plan Postoperative day #1 status post anterior cervical decompression with discectomy and fusion C3 4 C4 5 for her cervical myelopathy with myelomalacia and severe cervical stenosis Patient is progressing quite nicely thus far from the surgery. She already has some improved strength in her upper extremities which is encouraging. It is difficult to determine to what extent her improvement will continue but we are encouraged by this morning change. We will continue to increase the patient's mobilization with therapy. Therapy will be working with her. We will discontinue her Cline catheter. She will likely need rehab or usp post hospitalization potentially tomorrow We will continue pain control with oral or IV medications. We'll continue to follow patient closely.
[2022-06-19] MEDS: methylPREDNISolone SOD SUCCI 125 MG/2 ML VIAL IV SCH ×2 (08:43→21:11)
[2022-06-19] MEDS: HYDROcodone/APAP 5-325MG 1 EACH TAB PO PRN ×3 (08:51→21:10)
[2022-06-19 09:12] LABS: ALT 18 U/L (8-44); AST 20 U/L (13-35); African American GFR (CKD) 81.3 (60.0-200.0); Albumin 2.8 g/dL (3.8-4.9); Albumin/Globulin Ratio 1.33 (1.60-3.17); Alkaline Phosphatase 48 U/L (41-126); BUN/Creat Ratio 29.63 Ratio (12.00-20.00); Blood Urea Nitrogen 23.7 mg/dL (9.0-27.0); Calcium 8.1 mg/dL (8.7-10.3); Carbon Dioxide 24.2 mmol/L (20.0-27.5); Chloride 105 mmol/L (96-109); Globulin 2.1 g/dL (1.6-3.3); Glucose 157 mg/dL (70-110); Non-African American GFR(CKD) 70.1 (60.0-200.0); Potassium 4.8 mmol/L (3.5-5.5); Sodium 138 mmol/L (135-145); Total Bilirubin <0.15 mg/dL (0.30-1.20); Total Protein 4.9 g/dL (6.2-8.2)
--- NOTE | 2022-06-19 09:47 | P.PN ---
Subjective Progress Note Date: 06/19/22 HISTORY OF PRESENT ILLNESS: This is a 77-year-old female who presented to the hospital with worsening pain in her neck, weakness of her upper and bilateral lower extremities, and incr eased ability. She has been evaluated by Dr. Iraheta with plans to undergo surgical intervention in the near future for severe cervical stenosis. Patient examined this morning the bedside. She denies chest pain or pressure. She denies shortness of breath. Vital signs are stable. Recent echocardiogram performed revealed ejection fraction 55-60%, moderate pulmonary hypertension, mild mitral regurgitation, and mild tricuspid regurgitation. 06/17/2022 Patient examined this morning at bedside. Patient denies any chest pain or pressure. She denies shortness of breath. She continues to report weakness of her upper and lower summary is. She is scheduled for surgical intervention with Dr. Iraheta tomorrow. Vital signs are stable. 06/18/2022 Patient underwent anterior cervical decompression with discectomy and fusion C3- 4 C4-5. Patient examined this afternoon at the bedside. She denies chest pain or pressure. Denies shortness of breath. Vital signs are stable. Eliquis remains on hold. 06/19/2022 Patient examined this morning at the bedside. Patient denies chest pain or pressure. She denies shortness of breath. She reports increased strength and mobility of her upper extremities. Vital signs remain stable. PHYSICAL EXAM: VITAL SIGNS: Reviewed. GENERAL: Well-developed in no acute distress. NECK: Supple. No JVD or thyromegaly LUNGS: Respirations even and unlabored. Lungs essentially clear to auscultation bilaterally. HEART: Regular rate and rhythm. S1 and S2 heard. EXTREMITIES: Normal range of motion. No clubbing or cyanosis. Peripheral pulses intact. No lower extremity edema ASSESSMENT: Severe cervical myelopathy with bilateral upper and lower extremity weakness Severe cervical stenosis C3-C4 and moderate cervical stenosis C4-5 History of pulmonary embolism Hypertension PLAN: Continue current cardiac medications Spoke with ESTRELLITA Hernandez, who stated okay to resume Eliquis We will sign off. Please reconsult if needed Nurse practitioner note has been reviewed by physician. Signing provider agrees with the documented findings, assessment, and plan of care. Objective - Vital Signs Vital signs: Vital Signs Temp 98.5 F 06/19/22 02:20 Pulse 60 06/19/22 02:20 Resp 18 06/19/22 09:30 BP 137/72 06/19/22 02:20 Pulse Ox 93 L 06/19/22 02:20 FiO2 Intake & Output 06/18/22 06/19/22 06/19/22 18:59 06:59 18:59 Intake Total 951 Output Total 1100 1250 350 Balance -149 -1250 -350 Intake: IV 951 Output: Urine 1050 1250 350 Estimated Blood Loss 50 Other: Voiding Method Indwelling Catheter Indwelling Catheter Indwelling Catheter # Voids 1 - Labs CBC & Chem 7: 06/19/22 04:18 06/19/22 04:18 Labs: Abnormal Lab Results - Last 24 Hours (Table) 06/19/22 06/19/22 Range/Units 04:18 04:18 RBC 3.11 L (4.10-5.20) X 10*6/uL Hgb 9.3 L (12.0-15.0) g/dL Hct 28.2 L (37.2-46.3) % Immature Gran # 0.12 H (0.00-0.04) X 10*3/uL Lymphocytes # 0.59 L (0.90-5.00) X 10*3/uL Eosinophils # 0 L (0.04-0.35) X 10*3/uL Anion Gap 8.80 L (10.00-18.00) mmol/L BUN/Creatinine Ratio 29.63 H (12.00-20.00) Ratio Glucose 157 H (70-110) mg/dL Calcium 8.1 L (8.7-10.3) mg/dL Total Bilirubin <0.15 L (0.30-1.20) mg/dL Total Protein 4.9 L (6.2-8.2) g/dL Albumin 2.8 L (3.8-4.9) g/dL Albumin/Globulin Ratio 1.33 L (1.60-3.17) g/dL
[2022-06-19] MEDS: LACTULOSE 20 GM/30 ML CUP PO SCH ×3 (10:37→21:13)
[2022-06-19] MEDS: polyethylene glycoL 3350 17 GM POWD.PACK PO SCH (10:38)
[2022-06-19] MEDS: hydrALAZINE HCL 50 MG TAB PO SCH ×3 (10:38→21:11)
[2022-06-19] MEDS: FAMOTIDINE 20 MG TAB PO SCH (10:38)
[2022-06-19] MEDS: DOCUSATE 100 MG CAP PO SCH ×2 (10:38→21:12)
[2022-06-19] MEDS: CALCIUM CARBONATE 500 MG CHEWABLE PO SCH (10:38)
[2022-06-19] MEDS: SENNOSIDES-DOCUSATE SODIUM 1 EACH TAB PO SCH (10:38)
[2022-06-19] MEDS: APIXABAN 5 MG TAB PO SCH ×2 (10:39→21:12)
[2022-06-19] MEDS: GABAPENTIN 100 MG CAP PO SCH ×3 (10:39→21:11)
[2022-06-19] MEDS: BACLOFEN 10 MG TAB PO SCH ×3 (10:39→21:11)
[2022-06-19] MEDS: FUROSEMIDE 20 MG TAB PO SCH (10:39)
[2022-06-19] MEDS: ASPIRIN 81 MG PO SCH (10:39)
[2022-06-19] MEDS: lisinopriL 20 MG TAB PO SCH (10:40)
[2022-06-19] MEDS: MAGNESIUM OXIDE 400 MG TAB PO SCH (10:56)
[2022-06-19] MEDS: CYCLOBENZAPRINE 5 MG TAB PO PRN (10:58)
--- NOTE | 2022-06-19 11:51 | P.CONS ---
History of Present Illness - Chief Complaint Gait disturbance, cervical myelopathy - History of Present Illness I had the opportunity to see patient for inpatient rehab consultation with regard to gait disturbance. Patient admitted to [facility] June 13 with pain and inability to stand of at least a few days' duration. Seen by neurology, Dr. Estevan Oseguera who notes C3-5 disease. Notes history of cold bed but doubts a GBS related. Seen by Dr. Iraheta who reviewed C-spine MRI which demonstrates diffuse DDD, severe stenosis C3 and mild stenosis C5, 6. On June 18 patient underwent C3-4 decompression and fusion up. Also seen by pain management. Other diagnostic tests head CT with nonspecific white matter change. EEG with mild diffuse disturbance. Brain MRI with age and chronic change. Chest x-ray n egative. Lumbar MRI with disc bulges L1-4 and facet change L5 all with central L1-5 encroachment I. Note grade 1 retrolisthesis L1. PT and OT prescribed. Previous functional history as elicited patient corroborative by and 2 daughters: 77-year-old right-handed white female who is lives in one floor home. Both retired. Patient independent with cooking, laundry, driving, standing shower and gait without device previously. is capable of cooking, laundry, driving. PCP Dr. Brown. History smoking remote past and has rare drink. Review of Systems Review of systems: ENT: Denies sneezes or discharge. Eyes: Denies discharge or photophobia. Cardiac: Denies chest pain or palpitation. Pulmonary: Denies cough or shortness of breath. Breast: Denies discharge or lumps. Gastrointestinal: Constipation. Genitourinary: Denies discharge or frequency. Musculoskeletal: Cervical spine discomfort.. Neurologic: Generalized weakness and numbness. Endocrine: Denies shakes or sweats. Oncology: Denies cancers. Dermatologic: Denies rash, itching, pruritus. ALLERGY/immunology: Denies sneezes, rashes. Past Medical History Past Medical History: Eye Disorder, Hyperlipidemia, Hypertension, Sleep Apnea/CPAP/BIPAP, Thyroid Disorder Additional Past Medical History / Comment(s): Arthritis History of Any Multi-Drug Resistant Organisms: None Reported Past Surgical History: Cholecystectomy, Tubal Ligation Additional Past Surgical History / Comment(s): bilateral cataract surgery Past Anesthesia/Blood Transfusion Reactions: No Reported Reaction Past Psychological History: No Psychological Hx Reported Smoking Status: Former smoker Past Alcohol Use History: Rare Past Drug Use History: None Reported - Past Family History Father History Unknown: Yes Mother History Unknown: Yes Additional Family Medical History / Comment(s): lung mets unsure of primary source Medications and Allergies Home Medications Medication Instructions Recorded Confirmed Type Ubidecarenone [Co Q-10] 100 mg PO DAILY 11/14/19 06/13/22 History Vit C/E/Zn/Coppr/Lutein/Zeaxan 1 cap PO DAILY 11/14/19 06/13/22 History [Preservision Areds 2 Softgel] Aspirin EC [Ecotrin Low Dose] 81 mg PO DAILY 06/03/22 06/13/22 History Baclofen [Lioresal] 20 mg PO QID PRN 06/03/22 06/13/22 History Calcium Carbonate [Calcium] 600 mg PO DAILY 06/03/22 06/13/22 History Enalapril [Vasotec] 40 mg PO DAILY 06/03/22 06/13/22 History Furosemide [Lasix] 20 mg PO DAILY 06/03/22 06/13/22 History Levothyroxine Sodium [Synthroid] 75 mcg PO DAILY 06/03/22 06/13/22 History Magnesium 200 mg PO DAILY 06/03/22 06/13/22 History Simvastatin 40 mg PO HS 06/03/22 06/13/22 History atenoloL 100 mg PO HS 06/03/22 06/13/22 History hydrALAZINE HCL [Apresoline] 50 mg PO BID 06/03/22 06/13/22 History Apixaban [Eliquis] 5 mg PO BID tab 06/09/22 06/13/22 Rx Docusate [Colace] 100 mg PO BID cap 06/09/22 06/13/22 Rx Famotidine [Pepcid] 20 mg PO DAILY tab 06/09/22 06/13/22 Rx HYDROmorphone [Dilaudid] 2 mg PO Q4H PRN 3 Days #18 tab 06/09/22 06/13/22 Rx polyethylene glycoL 3350 [Miralax] 17 gm PO DAILY 06/13/22 06/13/22 History HYDROcodone/APAP 5-325MG [[place] 1 tab PO Q6HR PRN 3 Days #28 tab 06/19/22 Rx 5-325] predniSONE [Deltasone] 20 mg PO DAILY #24 tab 06/19/22 Rx Allergies Allergy/AdvReac Type Severity Reaction Status Date / Time codeine Allergy Unknown Verified 06/13/22 23:12 Physical Exam Vitals: Vital Signs Temp Pulse Resp BP Pulse Ox 06/19/22 11:04 68 18 06/19/22 09:30 18 06/19/22 02:20 98.5 F 60 16 137/72 93 L 06/18/22 19:36 98.5 F 67 16 151/64 94 L 06/18/22 14:51 98.4 F 58 L 16 130/76 93 L 06/18/22 13:45 63 16 06/18/22 12:27 94 L 06/18/22 12:15 63 147/72 06/18/22 12:00 59 L 134/76 Intake and Output 06/18/22 06/19/22 06/19/22 22:59 06:59 14:59 Output Total 1700 350 350 Balance -1700 -350 -350 Output: Urine 1700 350 350 Other: Voiding Method Indwelling Catheter Indwelling Catheter # Voids 1 Skin: Atrophic, intact. General: Overweight build and comfortable appearance. Head: Normocephalic, atraumatic. Eyes: Symmetric. Pupils equal round. Ears: Symmetric. Hearing within normal limits. Mouth: Clear. Neck: Supple. Carotid without bruit. Cardiac: Regular rate and rhythm. Lungs: Clear anteriorly and posteriorly. Abdomen: Soft active nontender. Overweight. Extremities: Normal tone. Overweight. Neurological: Mental status: Alert, cooperative, pleasant. Cranial nerves: Symmetric facial tone and trapezius. Motor: Active movement all 4 limbs and poor throughout, especially limb girdles. Sensation: Intact throughout. DTRs: Symmetric and equal throughout. Mobility: Requires physical assist for bed mobility. Results CBC & Chem 7: 06/19/22 04:18 06/19/22 04:18 Labs: Abnormal Lab Results - Last 24 Hours (Table) 06/19/22 06/19/22 Range/Units 04:18 04:18 RBC 3.11 L (4.10-5.20) X 10*6/uL Hgb 9.3 L (12.0-15.0) g/dL Hct 28.2 L (37.2-46.3) % Immature Gran # 0.12 H (0.00-0.04) X 10*3/uL Lymphocytes # 0.59 L (0.90-5.00) X 10*3/uL Eosinophils # 0 L (0.04-0.35) X 10*3/uL Anion Gap 8.80 L (10.00-18.00) mmol/L BUN/Creatinine Ratio 29.63 H (12.00-20.00) Ratio Glucose 157 H (70-110) mg/dL Calcium 8.1 L (8.7-10.3) mg/dL Total Bilirubin <0.15 L (0.30-1.20) mg/dL Total Protein 4.9 L (6.2-8.2) g/dL Albumin 2.8 L (3.8-4.9) g/dL Albumin/Globulin Ratio 1.33 L (1.60-3.17) g/dL Assessment and Plan (1) Generalized weakness Current Visit: Yes Status: Acute Code(s): R53.1 - WEAKNESS SNOMED Code(s): 56900192 Plan: Comments and plan: Patient appears to have cervical myelopathy with quadriparesis and in addition to lumbar DDD. Currently diffusely weak and do not believe to tolerate a full inpatient rehab program. In fact this is patient and family's opinion as well. Should begin to consider alternative slower paced discharge plan.
--- NOTE | 2022-06-19 16:22 | P.PN ---
Subjective Progress Note Date: 06/19/22 Elena Nieto, is a 77-year-old female who presented to [facility] emergency room with a chief complaint of generalized weakness with inability to stand or walk, bilateral upper extremities and lower extremities weakness and numbness, and generalized deterioration in her condition. Patient stated that she was in her usual state of health until about 2 months ago when she was having neck pain, she had an MRI of the cervical spine and she was seen at the pain management clinic and received 1 epidural injection, subsequently patient stated that she started having some numbness in her hands, she went on a trip to [place] for 10 days, in the beginning of the treatment patient was compla ining only of some weakness and numbness in her hands, at the end of the trip she was extremely weak with numbness extending to all bilateral upper extremities up to the shoulders and in the lower extremities she was having difficulty standing up and walking, at that time she was brought into the [facility], evaluation revealed evidence of pulmonary embolism she was started on IV heparin and then switched to oral Eliquis, consultation for the pain management team was initiated however they stated that they are not able to do any procedure for 3 months after starting anticoagulation for pulmonary embolism. Patient was sent to [facility] on the [facility] for rehabilitation, she was there for about 4 days, she stated that her weakness has worsened, she is having more numbness and weakness in her hands she is stating that she can hardly push the button on the remote control, patient was evaluated in the emergency room and admitted to medical floor for further evaluation by pain management team. In the emergency room vital examination on presentation revealed a temperature of 98 pulse 64 respiration 18 blood pressure 128/78 pulse ox 94% on room air Laboratory data on presentation revealed a a white blood count of 5.7 hemoglobin 12.5 platelet count 315 sodium 133 potassium 4.4 chloride 99 CO2 30 BUN 22 creatinine 0.74 Patient was admitted to medical floor for further evaluation and treatment. On 06/15/2022 patient was seen and examined on the medical floor she is alert and oriented 3 in no apparent distress, patient was complaining of uncontrolled pain, she was receiving dialogued 0.5 mg IV every 3 hours, however she stated that her pain is not well controlled and she was not able to sleep because of her pain, location of the pain is in the middle of her back between her shoulder blades, she is still complaining of generalized weakness, and weakness and numbness in her upper and lower extremities. Computed tomography scan of the head and the cervical spine was reviewed. At this time will increase dose of dialogued to 1 mg IV every 4 hours when necessary, awaiting input from neurology and and his [facility] pain management service. During the night patient had an e pisode of urinary retention requiring straight catheter use. If further episodes happen will use Cline catheter. On 06/16/2022 patient was seen and examined on the medical floor she is alert and oriented 3 in no apparent distress there is no fever or chills no headache or dizziness no chest pain no shortness of breath no cough no nausea or vomiting no abdominal pain no diarrhea no blood in the stools no burning with urination no frequency or urgency and no hematuria. At this time MRI of the cervical spine is showing significant abnormality, neurology and neurosurgery are following, plan is for possible surgery soon, cardiology are consulted for management of anticoagulation, patient had a recent admission with pulmonary embolism, will continue to follow closely On 06/17/2022 patient was seen and examined on the medical floor she is alert and oriented 3 in no apparent distress there is no fever or chills no headache or dizziness no chest pain no shortness of breath no cough no nausea or vomiting no abdominal pain no diarrhea no blood in the stools no burning with urination no frequency or urgency and no hematuria. At this time neurology and neurosurgery cardiology and pain management are following plan is for cervical spine surgery in the next 1-2 days On 06/18/2022 patient was seen and examined on the medical floor she is alert and oriented 3 in no apparent distress there is no fever or chills no headache or dizziness no chest pain no shortness of breath no cough no nausea or vomiting no abdominal pain no diarrhea no blood in the stools no burning with urination no frequency or urgency and no hematuria. At this time neurology and neurosurgery, and pain management are following plan is for cervical spine surgery today. Cardiology are following closely and direct in regard to anticoagulation due to recent history of pulmonary embolism. On 06/19 2022 patient was seen and examined on the medical floor she is alert oriented 3 in no apparent distress she reports improvement in her neck pain and in the weakness and numbness in her bilateral upper extremities, she is complaining of constipation otherwise she denies any complaints there is no fever or chills no headache or dizziness no chest pain no shortness of breath no cough no nausea or vomiting no abdominal pain no diarrhea no blood in the stools no burning with urination no frequency or urgency no hematuria, he was evaluated by cardiology and neurosurgery and was cleared to be restarted on Eliquis Objective - Vital Signs Vital signs: Vital Signs Temp 98.4 F 06/19/22 13:35 Pulse 63 06/19/22 13:35 Resp 18 06/19/22 13:35 BP 147/77 06/19/22 13:35 Pulse Ox 96 06/19/22 13:35 FiO2 Intake & Output 06/18/22 06/19/22 06/19/22 18:59 06:59 18:59 Intake Total 951 200 Output Total 1100 1250 350 Balance -149 -1250 -150 Intake: IV 951 Oral 200 Output: Urine 1050 1250 350 Estimated Blood Loss 50 Other: Voiding Method Indwelling Catheter Indwelling Catheter Indwelling Catheter # Voids 1 - Exam In general patient is alert and oriented 3 in no apparent distress HEENT head normocephalic and atraumatic Neck is supple no JVD no goiter no lymphadenopathy Chest exam reveals a clear respiratory sounds no crackles no wheezing Cardiac exam reveals regular heart sounds S1 and S2 no gallops no murmurs Abdomen is soft nontender no organomegaly with normal bowel sounds Extremity exam reveals no edema no cyanosis or clubbing Neurological examination reveals generalized weakness without any focal lateral neurological deficit - Labs CBC & Chem 7: 06/19/22 04:18 06/19/22 04:18 Labs: Abnormal Lab Results - Last 24 Hours (Table) 06/19/22 06/19/22 Range/Units 04:18 04:18 RBC 3.11 L (4.10-5.20) X 10*6/uL Hgb 9.3 L (12.0-15.0) g/dL Hct 28.2 L (37.2-46.3) % Immature Gran # 0.12 H (0.00-0.04) X 10*3/uL Lymphocytes # 0.59 L (0.90-5.00) X 10*3/uL Eosinophils # 0 L (0.04-0.35) X 10*3/uL Anion Gap 8.80 L (10.00-18.00) mmol/L BUN/Creatinine Ratio 29.63 H (12.00-20.00) Ratio Glucose 157 H (70-110) mg/dL Calcium 8.1 L (8.7-10.3) mg/dL Total Bilirubin <0.15 L (0.30-1.20) mg/dL Total Protein 4.9 L (6.2-8.2) g/dL Albumin 2.8 L (3.8-4.9) g/dL Albumin/Globulin Ratio 1.33 L (1.60-3.17) g/dL Assessment and Plan Plan: Generalized weakness with inability to stand and walk Weakness and numbness that started in bilateral upper extremities and now in bilateral lower extremities Complaint of constipation for several days Recent diagnosis of pulmonary embolism on 06/03/2022 Recent diagnosis of COVID-19 infection about 4 months ago Underlying history of diabetes mellitus type 2 Underlying history of hypertension Underlying history of hyperlipidemia Underlying history of hypothyroidism Peripancreatic lesion on computed tomography scan At this time patient is admitted to medical floor Will obtain computed tomography scan of the brain and the cervical spine without contrast to rule out any bleeding that may be responsible for the deterioration of her condition Will decrease dose of baclofen from 20 mg 4 times daily to 10 mg 3 times daily, and decrease the dose of Tylenol dipped to 0.5 mg every 3 hours when necessary IV Will consult neurology in regard to generalized weakness and weakness and nu mbness in bilateral upper and lower extremities, patient had COVID-19 infection about 4 months ago possibility of Guillain-Pathak syndrome is in the differential at this time Home medications reviewed and reordered Recheck labs in a.m. Will follow closely
[2022-06-19] MEDS: atenoloL 50 MG TAB PO SCH (21:12)
[2022-06-19 21:48] LABS: Glucose,Whole Blood 124 mg/dL (70-110)
[2022-06-20 02:37] VITALS: RESP 16
[2022-06-20] MEDS: LEVOTHYROXINE 75 MCG TAB PO SCH (06:16)
[2022-06-20] MEDS: HYDROcodone/APAP 5-325MG 1 EACH TAB PO PRN ×2 (06:20→11:20)
[2022-06-20] MEDS: SODIUM CHLORIDE 0.9% 1,000 ML IV SCH ×3 (06:50→11:00)
[2022-06-20 07:24] LABS: Glucose,Whole Blood 100 mg/dL (70-110)
[2022-06-20] MEDS: CYCLOBENZAPRINE 5 MG TAB PO PRN (08:41)
[2022-06-20] MEDS: polyethylene glycoL 3350 17 GM POWD.PACK PO SCH (08:45)
[2022-06-20] MEDS: LACTULOSE 20 GM/30 ML CUP PO SCH (08:45)
[2022-06-20] MEDS: FAMOTIDINE 20 MG TAB PO SCH (08:46)
[2022-06-20] MEDS: lisinopriL 20 MG TAB PO SCH (08:46)
[2022-06-20] MEDS: DOCUSATE 100 MG CAP PO SCH (08:46)
[2022-06-20] MEDS: MAGNESIUM OXIDE 400 MG TAB PO SCH (08:46)
[2022-06-20] MEDS: CALCIUM CARBONATE 500 MG CHEWABLE PO SCH (08:46)
[2022-06-20] MEDS: hydrALAZINE HCL 50 MG TAB PO SCH (08:46)
[2022-06-20] MEDS: APIXABAN 5 MG TAB PO SCH (08:46)
[2022-06-20] MEDS: ASPIRIN 81 MG PO SCH (08:46)
[2022-06-20] MEDS: GABAPENTIN 100 MG CAP PO SCH (08:47)
[2022-06-20] MEDS: SENNOSIDES-DOCUSATE SODIUM 1 EACH TAB PO SCH (08:47)
[2022-06-20] MEDS: BACLOFEN 10 MG TAB PO SCH (08:47)
[2022-06-20] MEDS: FUROSEMIDE 20 MG TAB PO SCH (08:47)
--- NOTE | 2022-06-20 08:59 | P.PN ---
Progress Note - Text Progress Note Date: 06/20/22 Orthopedic spine: History of present illness: Patient is a very pleasant 77-year-old female who is seen and examined at bedside for follow-up evaluation of her cervical spine. She is status post C3-4 and C4-5 anterior cervical decompression and fusion performed on 06/18/2022. Postoperatively she had significant improvement of her symptoms overall. She does continue to have significant upper extremity lower extremity weakness but she is now able to use her hands. She has improved function with deltoids, biceps, and triceps bilaterally. She is able to reach her hands to her nose and her forehead bilaterally. She is able to use a remote control. She was able to void independently on her own yesterday. She has an external catheter intact. She is eating without difficulty. She has kept her soft cervical collar intact. Her pain is well-controlled. Her dressing is intact that her cervical spine. She is very happy with her progress postoperatively. She has better range of motion of the bilateral lower extremities. She has continued to have difficulty mobilization. It currently planning for discharge to a rehabilitation facility. Patient is hoping to be discharged today. Patient does feel she is ready for discharge. She continues to be seen and examined by medicine. She is also been evaluated by Dr. Guevara for possible inpatient rehabilitation. Physical Exam Cervical Fusion: Status post surgical day number 2 Patient is awake, alert, and oriented 3 Vital signs stable Good chest excursion with deep inspiration and expiration Dressing is clean, dry, and intact; no erythema, purulence, or signs of infection Patient is wearing soft cervical collar which is removed during physical examination Examination of the cervical spine reveals skin is intact with no abrasions, lacerations, or bruises; no erythema, purulence or signs of infection Adequate range of motion of the cervical spine with flexion and bilateral rotation Difficulty with cervical extension Uniform Room Attendant strength strength positive sustained bilaterally Patient has increased strength with biceps, triceps, and deltoids bilaterally but does continue to have significant weakness with her bilateral upper extremities Patient is able to lift her arms to touch her nose and forehead bilaterally Positive Mccord's sign on the right Right upper extremity hyperreflexia No signs or symptoms of DVT; no calf pain Patient has difficulty lifting her left lower extremities off the bed Assessment: Status post C3-4 and C4-5 anterior cervical decompression and fusion C3-4 severe spinal stenosis C4-5 moderate spinal stenosis Significant upper extremity and lower extremity weakness bilaterally Cervicalgia Upper extremity radiculopathy Cervical degenerative disc disease Cervical myelomalacia Cervical myelopathy Chronic T12 compression fracture deformity History of pulmonary embolism Plan: 1. Ambulate as tolerated; work with Physical Therapy to increase mobilization; she is encouraged to continue using a walker or other age as needed to aid in ambulation. 2. Continue pain control with oral medications as needed; patient has been prescribed Sanford 5 mg/25 mg 1 every 6 hours as needed for pain, dispensed #28 at discharge 3. Patient may shower with Optifoam dressing; patient may remove Optifoam in 3 days and shower without a dressing at that time 4. Medical management can continue to manage patient for patient's other medical diagnosis 5. Patient is clear for discharge from an orthopedic spine standpoint. Patient is planning for discharge to a rehabilitation facility at discharge. Discharge is hopefully happening today. Patient is ready for discharge. 6. Patient is prescribed prednisone 20 mg at discharge. She should take this medication until completion of the prescription. 7. Patient can follow-up with Chuy Salinas PA-C or Dr. Remigio Iraheta at [facility] in 2-3 weeks following discharge
[2022-06-20] MEDS: methylPREDNISolone SOD SUCCI 125 MG/2 ML VIAL IV SCH (09:45)
--- NOTE | 2022-06-20 13:38 | P.DS ---
Providers Date of admission: 06/16/22 14:58 Expected date of discharge: 06/20/22 Attending physician: Harman Boss Consults: 06/13/22 23:25 Consult Physician Urgent Consulting Provider: Heena Zuleta Consult Reason/Comments: chronic back pain Do you want consulting provider notified?: Yes 06/14/22 15:31 Consult Physician Routine Consulting Provider: Blaine Diaz Consult Reason/Comments: weakness and numbness in extremities Do you want consulting provider notified?: Yes 06/15/22 08:03 Consult to Anesthesia Routine Consulting Provider: Anesthesia,Services Consult Reason/Comments: pain 06/15/22 12:00 Consult Physician Urgent Consulting Provider: Sana Iraheta Consult Reason/Comments: moderate to severe cervical stenosis C3-C5 Do you want consulting provider notified?: Yes 06/19/22 07:10 Consult Physician Routine Consulting Provider: Kevyn Guevara Consult Reason/Comments: Severe cervical myelopathy with upper and lower extremity weakness Do you want consulting provider notified?: Yes Primary care physician: Charley Brown Hospital Course: Final diagnosis Generalized weakness with inability to stand or walk Weakness and numbness in bilateral upper extremities Status post C3-4 and C4-5 anterior cervical decompression and fusion Severe spinal stenosis of the C3-4 Constipation Pulmonary embolism history Recent COVID-19 infection, approximately 4 months ago History of diabetes mellitus type 2 History of hypertension History of hyperlipidemia History of hypothyroidism Full code Discharge disposition Patient is being discharged in a stable condition with guarded prognosis to [facility]. Patient will follow-up with Dr. Boss in the outpatient setting upon discharge. Patient is to continue with current medications as prescribed. Recommend repeat labs of CBC and BMP in the next 2-3 days. Recommend continue dysphagia 3 Diet and aspiration precautions with head of the bed elevated 30-45 at all times. Total time taken is greater than 35 minutes. Hospital course This is a 77-year-old female who was recently admitted for weakness that had been worsening and underwent cervical decompression with fusion with Dr. Iraheta and was being closely monitored. Patient continues with weakness although improving and will follow-up in the outpatient setting with orthopedics. Patient is agreeable to rehab and will be going to [facility] for continued PT/OT therapy. Continue dysphagia 3 chopped diet and aspiration precautions and also recommend repeat labs in the outpatient setting. Patient reports to feeling much better and would like to be discharged today. Patient has been cleared by orthopedics for discharge to [facility]. Currently no reports of chest pain, shortness of breath, or palpitations. Patient is afebrile. No reports of nausea or vomiting and patient is tolerating diet. Patient will be going to [facility] the [facility] today. Guarded prognosis. Physical exam: Gen: This is a 77-year-old female awake, alert and oriented 3, well-developed, well-nourished, obese. HEENT: Head is atraumatic, normocephalic. Pupils equal, round. Sclerae is anicteric. NECK: Supple. No JVD. No lymphadenopathy. No thyromegaly. Cervical dressing is dry and intact on the anterior portion of the neck LUNGS: Diminished breath sounds bilaterally with no wheezing or rhonchi noted. No intercostal retractions. HEART: Regular rate and rhythm. No murmur. ABDOMEN: Soft. Obese. Bowel sounds are present. No masses. No tenderness. EXTREMITIES: No pedal edema. No calf tenderness. NEUROLOGICAL: Patient is awake, alert and oriented x3. Cranial nerves 2 through 12 are grossly intact. Diffuse weakness. Please refer to medication reconciliation sheet for a list of medications. The impression and plan of care has been dictated by Corinne Boyd, Nurse Practitioner as directed. Dr. Gaetano MD I have performed a history and examination and MDM of this patient, discussed the same with the dictator, and agree with the dictator's assessment and plan as written ,documented as a scribe. Based on total visit time, I have performed more than 50% of the visit. Patient Condition at Discharge: Stable Plan - Discharge Summary Discharge Rx Participant: Yes New Discharge Prescriptions: New predniSONE [Deltasone] 20 mg PO DAILY #24 tab Baclofen [Lioresal] 10 mg PO TID tab HYDROcodone/APAP 5-325MG [[place] 5-325] 1 tab PO Q6HR PRN 3 Days #28 tab PRN Reason: Pain hydrALAZINE HCL [Apresoline] 50 mg PO TID tab Benzocaine/Menthol Lozeng [Cepacol lozenge] 1 each MUCOUS MEM Q4HR PRN lozenge PRN Reason: Sore Throat Lactulose [Cephulac] 20 gm PO TID ml Na Phos,M-B/Na Phos,Di-Ba [Fleet Adult] 133 ml RECTAL DAILY PRN each PRN Reason: Constipation Cyclobenzaprine [Flexeril] 5 mg PO TID PRN tab PRN Reason: Muscle Spasm Magnesium Hydroxide [Milk of Magnesia Concentrate] 2,400 mg PO DAILY PRN ml PRN Reason: Constipation Gabapentin [Neurontin] 100 mg PO TID #6 cap Sennosides-Docusate Sodium [Senokot-S] 1 each PO DAILY tab Continue Vit C/E/Zn/Coppr/Lutein/Zeaxan [Preservision Areds 2 Softgel] 1 cap PO DAILY Ubidecarenone [Co Q-10] 100 mg PO DAILY Aspirin EC [Ecotrin Low Dose] 81 mg PO DAILY Levothyroxine Sodium [Synthroid] 75 mcg PO DAILY atenoloL 100 mg PO HS polyethylene glycoL 3350 [Miralax] 17 gm PO DAILY Simvastatin 40 mg PO HS Furosemide [Lasix] 20 mg PO DAILY Enalapril [Vasotec] 40 mg PO DAILY Calcium Carbonate [Calcium] 600 mg PO DAILY Magnesium 200 mg PO DAILY Docusate [Colace] 100 mg PO BID cap Apixaban [Eliquis] 5 mg PO BID tab Famotidine [Pepcid] 20 mg PO DAILY tab Discontinued hydrALAZINE HCL [Apresoline] 50 mg PO BID Baclofen [Lioresal] 20 mg PO QID PRN PRN Reason: Muscle Pain HYDROmorphone [Dilaudid] 2 mg PO Q4H PRN 3 Days #18 tab PRN Reason: Pain Discharge Medication List Ubidecarenone [Co Q-10] 100 mg PO DAILY 11/14/19 [History] Vit C/E/Zn/Coppr/Lutein/Zeaxan [Preservision Areds 2 Softgel] 1 cap PO DAILY 11/14/19 [History] Aspirin EC [Ecotrin Low Dose] 81 mg PO DAILY 06/03/22 [History] Calcium Carbonate [Calcium] 600 mg PO DAILY 06/03/22 [History] Enalapril [Vasotec] 40 mg PO DAILY 06/03/22 [History] Furosemide [Lasix] 20 mg PO DAILY 06/03/22 [History] Levothyroxine Sodium [Synthroid] 75 mcg PO DAILY 06/03/22 [History] Magnesium 200 mg PO DAILY 06/03/22 [History] Simvastatin 40 mg PO HS 06/03/22 [History] atenoloL 100 mg PO HS 06/03/22 [History] Apixaban [Eliquis] 5 mg PO BID tab 06/09/22 [Rx] Docusate [Colace] 100 mg PO BID cap 06/09/22 [Rx] Famotidine [Pepcid] 20 mg PO DAILY tab 06/09/22 [Rx] polyethylene glycoL 3350 [Miralax] 17 gm PO DAILY 06/13/22 [History] HYDROcodone/APAP 5-325MG [[place] 5-325] 1 tab PO Q6HR PRN 3 Days #28 tab 06/19/22 [Rx] predniSONE [Deltasone] 20 mg PO DAILY #24 tab 06/19/22 [Rx] Baclofen [Lioresal] 10 mg PO TID tab 06/20/22 [Rx] Benzocaine/Menthol Lozeng [Cepacol lozenge] 1 each MUCOUS MEM Q4HR PRN lozenge 06/20/22 [Rx] Cyclobenzaprine [Flexeril] 5 mg PO TID PRN tab 06/20/22 [Rx] Gabapentin [Neurontin] 100 mg PO TID #6 cap 06/20/22 [Rx] Lactulose [Cephulac] 20 gm PO TID ml 06/20/22 [Rx] Magnesium Hydroxide [Milk of Magnesia Concentrate] 2,400 mg PO DAILY PRN ml 06/20/22 [Rx] Na Phos,M-B/Na Phos,Di-Ba [Fleet Adult] 133 ml RECTAL DAILY PRN each 06/20/22 [Rx] Sennosides-Docusate Sodium [Senokot-S] 1 each PO DAILY tab 06/20/22 [Rx] hydrALAZINE HCL [Apresoline] 50 mg PO TID tab 06/20/22 [Rx] Follow up Appointment(s)/Referral(s): Charley Brown MD [Primary Care Provider] - 1-2 days Sana Iraheta DO [Doctor of Osteopathic Medicine] - 2 Weeks [facility] on [facility], [NON-STAFF] - As Needed Ambulatory/Diagnostic Orders: Complete Blood Count w/diff [LAB.AMB] Time Frame: 3 Days, Location: None Selected Activity/Diet/Wound Care/Special Instructions: Patient is going to [facility] on the [place] [employer] Activity as tolerated Follow-up with Ortho-Est scheduled Follow with restrictions per orthopedics Continue dysphasia 3 chopped diet Continue with Glucerna twice a day with meals Recommend repeat labs of CBC and BMP in the next 2-3 days 1. Patient may shower with Optifoam dressing intact 2. Patient may remove Optifoam dressing in 3 days and shower without a dressing at that time 3. Patient may wear soft cervical collar for comfort support as needed 4. Patient should refrain from driving until at least after their first follow- up appointment in the office 5. Patient should avoid excessive cervical flexion, extension, and side bending ; avoid overhead lifting; no lifting greater than 10 pounds 6. Take medications as prescribed 7. Patient is encouraged to utilize a walker or other aid to aid in ambulation 8. Do not soak in tub Discharge Disposition: TRANSFER TO SNF/ECF
[2022-06-20 16:07] VITALS: BP 140/70; PULSE 64; TEMP 99.6
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
== END 2022-06-20 15:03 | DRG 472 ==
LOC: EC 20:01 → 6NMEDSUR 23:25 → 4SSUR 23:53 → OBSVTOIN 06-16 14:58
PROVIDERS: ADMIT Internal Medicine; ATTEND Internal Medicine
PROC: 0RG20A0 Fusion of 2 or more Cervical Vertebral Joints with Interbody Fusion Device, Anterior Approach, Anterior Column, Open Approach (ICD-10-PCS; principal; 2022-06-18 07:30)
PROC: 0RT30ZZ Resection of Cervical Vertebral Disc, Open Approach (ICD-10-PCS; 2022-06-18 07:30)
DX: M48.02 Spinal stenosis, cervical region (principal); G95.89 Other specified diseases of spinal cord; M50.01 Cervical disc disorder with myelopathy, high cervical region; M48.54XA Collapsed vertebra, not elsewhere classified, thoracic region, initial encounter for fracture; M62.81 Muscle weakness (generalized); M50.223 Other cervical disc displacement at C6-C7 level; M50.11 Cervical disc disorder with radiculopathy, high cervical region; E03.9 Hypothyroidism, unspecified; E11.9 Type 2 diabetes mellitus without complications; E78.5 Hyperlipidemia, unspecified; G89.29 Other chronic pain; I10 Essential (primary) hypertension; Z86.711 Personal history of pulmonary embolism; Z79.01 Long term (current) use of anticoagulants; I27.20 Pulmonary hypertension, unspecified; Z86.16 Personal history of COVID-19; R13.10 Dysphagia, unspecified; Z68.35 Body mass index [BMI] 35.0-35.9, adult; Z87.01 Personal history of pneumonia (recurrent); K59.00 Constipation, unspecified; M43.16 Spondylolisthesis, lumbar region; S14.129A Central cord syndrome at unspecified level of cervical spinal cord, initial encounter; Z91.81 History of falling; Z79.82 Long term (current) use of aspirin; Z79.890 Hormone replacement therapy; Z79.899 Other long term (current) drug therapy; Z87.891 Personal history of nicotine dependence
CPT/HCPCS: 36415; 70450; 70551; 72020; 72125; 72158; 80048; 80053; 81001; 82140; 82607; 82746; 83036; 83735; 83880; 84443; 84484; 85025; 85610; 85730; 94760; 95816; 96374; 96375; 96376; 99284

== ENCOUNTER 2022-06-29 14:39 | Emergency (ER) | payer MEDICARE ==
[2022-06-29 15:02] VITALS: RESP 18
[2022-06-29] MEDS ORDERED: hydrALAZINE HCL 20 MG/ML 1 ML VIAL IVP STA (15:04)
--- NOTE | 2022-06-29 15:41 | XR ---
EXAMINATION TYPE: XR chest 2V DATE OF EXAM: 06/29/2022 COMPARISON: NONE HISTORY: Short of breath TECHNIQUE: 2 views FINDINGS: There is a linear density left lung base. Heart size is normal. No heart failure. There are no hilar masses. There are chest leads. Bony thorax is intact. IMPRESSION: There is some atelectasis left lung base increased compared to old exam. Normal heart.
--- NOTE | 2022-06-29 15:45 | ED ---
General Adult HPI - General Source: patient, EMS, RN notes reviewed, old records reviewed Mode of arrival: EMS Limitations: no limitations <Arthur Ortiz - Last Filed: 06/29/22 15:57> <Mike Trevino - Last Filed: 06/29/22 18:34> - General Chief complaint: Abdominal Pain Stated complaint: abd pain Time Seen by Provider: 06/29/22 14:45 - History of Present Illness Initial comments: This is a 77-year-old female presents emergency Department complaining that she has a tightness around her upper abdomen that feels like a belt is around. Patient states his been ongoing intermittently for the last month. Patient states the pain is worse lately. Patient states it made her feel like she couldn't get a full breath today. Patient states she she has had a diagnosis recently of pulmonary embolisms and she is on eliquis. Patient also states she had recent neck surgery and that is why she is in a care home. Patient denies any vomiting or diarrhea. Patient states she's not eating much though. Patient denies any fever chills or cough. Patient denies any recent injury or trauma. (Arthur Ortiz) - Related Data Home Medications Medication Instructions Recorded Confirmed Ubidecarenone [Co Q-10] 100 mg PO DAILY@89911/14/19 06/29/22 Vit C/E/Zn/Coppr/Lutein/Zeaxan 1 cap PO HS@209911/14/19 06/29/22 [Preservision Areds 2 Softgel] Aspirin EC [Ecotrin Low Dose] 81 mg PO DAILY@89906/03/22 06/29/22 Calcium Carbonate [Calcium] 600 mg PO DAILY@89906/03/22 06/29/22 Enalapril [Vasotec] 40 mg PO DAILY@89906/03/22 06/29/22 Furosemide [Lasix] 40 mg PO DAILY@59906/03/22 06/29/22 Levothyroxine Sodium [Synthroid] 75 mcg PO DAILY@59906/03/22 06/29/22 Simvastatin 40 mg PO HS@209906/03/22 06/29/22 atenoloL 100 mg PO HS@209906/03/22 06/29/22 polyethylene glycoL 3350 [Miralax] 17 gm PO HS@209906/13/22 06/29/22 Apixaban [Eliquis] 5 mg PO BID@0900,209906/29/22 06/29/22 Baclofen [Lioresal] 10 mg PO TID@0600,1400,2200 06/29/22 06/29/22 Docusate [Colace] 100 mg PO BID@0900,209906/29/22 06/29/22 Famotidine [Pepcid] 20 mg PO DAILY@0600 06/29/22 06/29/22 Gabapentin [Neurontin] 100 mg PO TID@0600,1400,22006/29/22 06/29/22 Glucerna Shake 1 can PO BID@0900,209906/29/22 06/29/22 Lactose-Reduced Food [Ensure Plus] 1 can PO BID@0900,199906/29/22 06/29/22 Lactulose [Cephulac] 20 gm PO TID@0600,1400,22006/29/22 06/29/22 Magnesium Oxide [Mag-Ox] 400 mg PO DAILY@0906/29/22 06/29/22 Sennosides-Docusate Sodium 1 tab PO HS@209906/29/22 06/29/22 [Senokot-S] hydrALAZINE HCL [Apresoline] 50 mg PO TID@0600,1400,2200 06/29/22 06/29/22 predniSONE See Taper PO DAILY 06/29/22 06/29/22 Previous Rx's Medication Instructions Recorded Cyclobenzaprine [Flexeril] 5 mg PO TID PRN tab 06/20/22 HYDROcodone/APAP 5-325MG [[place] 1 tab PO Q6HR PRN 3 Days #6 tab 06/20/22 5-325] Pantoprazole [Protonix] 40 mg PO DAILY #30 tab 06/29/22 Allergies Allergy/AdvReac Type Severity Reaction Status Date / Time codeine Allergy Unknown Verified 06/29/22 15:55 Review of Systems ROS Other: All systems not noted in ROS Statement are negative. <Arthur Ortiz - Last Filed: 06/29/22 15:57> ROS Other: All systems not noted in ROS Statement are negative. <Mike Trevino - Last Filed: 06/29/22 18:34> ROS Statement: Those systems with pertinent positive or pertinent negative responses have been documented in the HPI. Past Medical History Past Medical History: Eye Disorder, Hyperlipidemia, Hypertension, Sleep Apnea/CPAP/BIPAP, Thyroid Disorder Additional Past Medical History / Comment(s): Arthritis History of Any Multi-Drug Resistant Organisms: None Reported Past Surgical History: Cholecystectomy, Tubal Ligation Additional Past Surgical History / Comment(s): bilateral cataract surgery Past Anesthesia/Blood Transfusion Reactions: No Reported Reaction Past Psychological History: No Psychological Hx Reported Smoking Status: Former smoker Past Alcohol Use History: Rare Past Drug Use History: None Reported - Past Family History Father History Unknown: Yes Mother History Unknown: Yes Additional Family Medical History / Comment(s): lung mets unsure of primary source <Arthur Ortiz - Last Filed: 06/29/22 15:57> General Exam Limitations: no limitations <Arthur Ortiz - Last Filed: 06/29/22 15:57> - General Exam Comments Initial Comments: GENERAL: Patient is well-developed and well-nourished. Patient is nontoxic and well- hydrated and is in mild distress. ENT: Neck is soft and supple. No significant lymphadenopathy is noted. Oropharynx is clear. Moist mucous membranes. Neck has full range of motion without eliciting any pain. EYES: The sclera were anicteric and conjunctiva were pink and moist. Extraocular movements were intact and pupils were equal round and reactive to light. Eyelids were unremarkable. PULMONARY: Unlabored respirations. Good breath sounds bilaterally. No audible rales rhonchi or wheezing was noted. CARDIOVASCULAR: There is a regular rate and rhythm without any murmurs gallops or rubs. ABDOMEN Soft and nontender with normal bowel sounds. SKIN: Skin is clear with no lesions or rashes and otherwise unremarkable. NEUROLOGIC: Patient is alert and oriented x3. Cranial nerves II through XII are grossly intact. Motor and sensory are also intact. Normal speech, volume and content. Symmetrical smile. MUSCULOSKELETAL: Normal extremities with adequate strength LYMPHATICS: No significant lymphadenopathy is noted PSYCHIATRIC: Normal psychiatric evaluation. (Arthur Ortiz) Course Vital Signs 06/29/22 06/29/22 06/29/22 14:42 16:47 17:53 Temperature 98.0 F Pulse Rate 77 76 74 Respiratory 18 18 18 Rate Blood Pressure 203/103 166/82 166/81 O2 Sat by Pulse 93 L 96 99 Oximetry Medical Decision Making <Arthur Ortiz - Last Filed: 06/29/22 15:57> - Lab Data Result diagrams: 06/29/22 15:23 06/29/22 15:23 - Radiology Data Radiology results: report reviewed (Computed tomography scan abdomen and pelvis does show some presacral edema, nonspecific) <Mike Trevino - Last Filed: 06/29/22 18:34> - Medical Decision Making EKG shows sinus rhythm at 71 bpm NE interval 154 QRS is 105 QT interval 357 QTC is 380. Patient's EKG shows no ST segment elevation or depression. Dr. Trevino will be taking over the care of this patient at 4 PM (Arthur Ortiz) Patient reevaluated and resting comfortably in bed. Abdomen soft and nontender. Patient and family updated on results and need for follow-up. Patient states symptoms do worsen with solid food intake. Patient and family are advised to consider endoscopy as a follow-up. Also informed will be given Protonix as well as prescription. (Mike Trevino) - Lab Data Lab Results 06/29/22 06/29/22 Range/Units 15:23 15:23 WBC 7.4 (3.8-10.6) k/uL RBC 3.68 L (3.80-5.40) m/uL Hgb 11.0 L (11.4-16.0) gm/dL Hct 33.8 L (34.0-46.0) % MCV 91.9 (80.0-100.0) fL MCH 29.8 (25.0-35.0) pg MCHC 32.4 (31.0-37.0) g/dL RDW 14.3 (11.5-15.5) % Plt Count 273 (150-450) k/uL MPV 8.0 Neutrophils % 85 % Lymphocytes % 9 % Monocytes % 4 % Eosinophils % 0 % Basophils % 0 % Neutrophils # 6.3 (1.3-7.7) k/uL Lymphocytes # 0.7 L (1.0-4.8) k/uL Monocytes # 0.3 (0-1.0) k/uL Eosinophils # 0.0 (0-0.7) k/uL Basophils # 0.0 (0-0.2) k/uL Sodium 136 L (137-145) mmol/L Potassium 5.2 H (3.5-5.1) mmol/L Chloride 101 (98-107) mmol/L Carbon Dioxide 29 (22-30) mmol/L Anion Gap 6 mmol/L BUN 23 H (7-17) mg/dL Creatinine 0.63 (0.52-1.04) mg/dL Est GFR (CKD-EPI)AfAm >90 (>60 ml/min/1.73 sqM) Est GFR (CKD-EPI)NonAf 86 (>60 ml/min/1.73 sqM) Glucose 164 H (74-99) mg/dL Calcium 8.6 (8.4-10.2) mg/dL Total Bilirubin 0.6 (0.2-1.3) mg/dL AST 42 H (14-36) U/L ALT 43 H (4-34) U/L Alkaline Phosphatase 61 (38-126) U/L Total Protein 5.9 L (6.3-8.2) g/dL Albumin 3.0 L (3.5-5.0) g/dL Amylase 52 (30-110) U/L Lipase 236 (23-300) U/L Disposition <Arthur Ortiz - Last Filed: 06/29/22 15:57> Is patient prescribed a controlled substance at d/c from ED?: No Time of Disposition: 18:33 <Mike Trevino - Last Filed: 06/29/22 18:34> Clinical Impression: Abdominal pain Disposition: HOME SELF-CARE Condition: Stable Instructions (If sedation given, give patient instructions): Abdominal Pain (ED) Additional Instructions: Prescription has been sent to pharmacy. Please follow-up to primary care phys coreyan in the next day or 2 for recheck. Consider endoscopy. Return for increased pain, vomiting, fevers, worsening or changing symptoms or other concerns. Prescriptions: Pantoprazole [Protonix] 40 mg PO DAILY #30 tab Referrals: Charley Brown MD [Primary Care Provider] - 1-2 days
[2022-06-29 16:03] LABS: ALT 43 U/L (4-34); African American GFR (CKD) >90 (>60 ml/min/1.73 sqM); Amylase 52 U/L (30-110); Anion Gap 6 mmol/L; Blood Urea Nitrogen 23 mg/dL (7-17); Calcium 8.6 mg/dL (8.4-10.2); Carbon Dioxide 29 mmol/L (22-30); Chloride 101 mmol/L (98-107); Glucose 164 mg/dL (74-99); Lipase 236 U/L (23-300); Non-African American GFR(CKD) 86 (>60 ml/min/1.73 sqM); Sodium 136 mmol/L (137-145); Total Bilirubin 0.6 mg/dL (0.2-1.3)
[2022-06-29 16:13] LABS: AST 42 U/L (14-36); Alkaline Phosphatase 61 U/L (38-126); Potassium 5.2 mmol/L (3.5-5.1); Total Protein 5.9 g/dL (6.3-8.2)
[2022-06-29] MEDS ORDERED: HYDROmorphone 0.5 MG/0.5 ML SYRINGE IVP STA (16:41)
[2022-06-29] MEDS ORDERED: ONDANSETRON 4 MG/2 ML VIAL IVP STA (16:45)
--- NOTE | 2022-06-29 17:20 | CT ---
EXAMINATION TYPE: CT abdomen pelvis w con DATE OF EXAM: 06/29/2022 COMPARISON: None HISTORY: abdominal pain CT DLP: 1921.2 mGycm Automated exposure control for dose reduction was used. CONTRAST: Performed with IV Contrast, patient injected with 100 mL of Isovue 300. Images obtained from the diaphragm to the floor the pelvis with the IV contrast. There are some mild atelectasis at the lung bases. Heart size is normal. No pericardial effusion. Liver spleen pancreas stomach appear intact. The intrahepatic bile ducts are not dilated. There are c lips from cholecystectomy. Common bile duct is large and measures 2.2 cm. There is no adrenal mass. Kidneys show satisfactory contrast opacification. There is no hydronephrosi s. There are right-sided renal parapelvic cysts. No retroperitoneal adenopathy. Bladder distends smoo thly. No inguinal hernia. There is moderate amount of presacral fluid that measures up to 1.3 cm in t hickness. There is retained fecal material in the rectum. There is no mesenteric edema. No ascites or free air. No bowel obstruction. Delayed images show ty l renal excretion. Appendix not seen. No sign of thickened appendix. The lumbar vertebrae have normal alignment. There is 25% compression deformity of T12 vertebral body not changed compared to chest CT scan of 06/03/2022. The bony pelvis is intact. The hip joints are int act. IMPRESSION: There are some patchy atelectasis at the lung bases similar to chest CT scan of 06/03/2022. Old T12 compression fracture. No bowel obstruction. There is presacral moderate edema of uncertain si gnificance. No rectal wall thickening.
[2022-06-29 18:13] LABS: Basophils % (A) 0 %; Eosinophils % (A) 0 %; HCT 33.8 % (34.0-46.0); Lymphocytes # (A) 0.7 k/uL (1.0-4.8); Lymphocytes % (A) 9 %; MCH 29.8 pg (25.0-35.0); MCHC 32.4 g/dL (31.0-37.0); MCV 91.9 fL (80.0-100.0); Monocytes # (A) 0.3 k/uL (0-1.0); Monocytes % (A) 4 %; Neutrophils # (A) 6.3 k/uL (1.3-7.7); Neutrophils % (A) 85 %; Platelet Count 273 k/uL (150-450); RBC 3.68 m/uL (3.80-5.40); RDW 14.3 % (11.5-15.5); WBC 7.4 k/uL (3.8-10.6)
[2022-06-29] MEDS ORDERED: PANTOPRAZOLE 40 MG/10 ML VIAL IVP STA (18:32)
[2022-06-29 19:26] VITALS: BP 172/84; PULSE 85; TEMP 98.1
== END 2022-06-29 19:26 | disposition home or self-care (01) ==
LOC: EC 14:39
DX: R10.9 Unspecified abdominal pain (principal); I10 Essential (primary) hypertension; E78.5 Hyperlipidemia, unspecified; E07.9 Disorder of thyroid, unspecified; Z87.891 Personal history of nicotine dependence; Z90.49 Acquired absence of other specified parts of digestive tract; Z88.5 Allergy status to narcotic agent; Z79.52 Long term (current) use of systemic steroids; Z79.01 Long term (current) use of anticoagulants; Z79.82 Long term (current) use of aspirin; Z79.890 Hormone replacement therapy; Z86.711 Personal history of pulmonary embolism
CPT/HCPCS: 36415; 93005; 80053; 82150; 83690; 85025; 71046; 74177; 99284; 96374; 96375; J0360; J2405; C9113; J1170; Q9967

== ENCOUNTER → 2023-05-28 | Outpatient (CLI) | payer MEDICARE, BC ==
[2023-05-28 10:18] LABS: INR 0.9 (<1.2); Prothrombin Time 9.9 sec (9.0-12.0)
[2023-05-28 10:21] LABS: Partial Thromboplastin Time 21.8 sec (22.0-30.0)
[2023-05-28 16:36] LABS: HCT 37.4 % (37.2-46.3); HGB 11.9 d/dL (12.0-15.0); MCH 30.5 pg (27.0-32.0); MCHC 31.8 d/dL (32.0-37.0); MCV 95.9 FL (80.0-97.0); Mean Platelet Volume 10.3 FL (9.5-12.2); NRBC Per 100 WBC 0 X 10*3/uL (0.00-0.01); Platelet Count 251 X 10*3/uL (140-440); RDW 12.9 % (11.5-14.5); WBC 4.67 X 10*3/uL (4.50-10.00)
[2023-05-28 16:46] LABS: ALT 19 U/L (8-44); AST 24 U/L (13-35); Albumin 3.8 d/dL (3.8-4.9); Albumin/Globulin Ratio 1.46 Ratio (1.60-3.17); Alkaline Phosphatase 79 U/L (41-126); BUN/Creat Ratio 20.89 Ratio (12.00-20.00); Blood Urea Nitrogen 18.8 mg/dL (9.0-27.0); Calcium 9.5 mg/dL (8.7-10.3); Carbon Dioxide 30.2 mmol/L (21.6-31.8); Chloride 105 mmol/L (96-109); Globulin 2.6 d/dL (1.6-3.3); Glucose 98 mg/dL (70-110); Potassium 4.6 mmol/L (3.5-5.5); Sodium 144 mmol/L (135-145); Total Bilirubin 0.2 mg/dL (0.3-1.2); Total Protein 6.4 d/dL (6.2-8.2)
== END | disposition home or self-care (01) ==
LOC: LABWHC1 09:23
PROVIDERS: ATTEND Orthopaedic Surgery
DX: Z01.818 Encounter for other preprocedural examination (principal); M17.12 Unilateral primary osteoarthritis, left knee
CPT/HCPCS: 80053; 85027; 85610; 85730; 93005

== ENCOUNTER → 2023-06-05 | Outpatient (CLI) | payer MEDICARE, BC ==
[2023-06-05 15:31] LABS: Appearance,Urine Clear (Clear); Bilirubin,Urine Negative (Negative); Blood,Urine Negative (Negative); Color,Urine Yellow (Yellow); Ketones,Urine Negative (Negative); Nitrite,Urine Negative (Negative); Specific Gravity,Urine 1.008 (1.001-1.030); Urobilinogen,Urine 0.2 E.U./DL
[2023-06-05 15:37] LABS: Bacteria,Urine None Seen (None Seen)
== END | disposition home or self-care (01) ==
LOC: LABPAT 10:06
PROVIDERS: ATTEND Orthopaedic Surgery
DX: Z01.812 Encounter for preprocedural laboratory examination (principal); M17.12 Unilateral primary osteoarthritis, left knee
CPT/HCPCS: 81001; 87070

== ENCOUNTER 2023-06-16 07:13 | Day surgery (SDC) | payer MEDICARE, BC ==
[~2023-06-16 07:13] MED LIST changes: +ACETAMINOPHEN TAB 500 MG TAB PO PRN; +DEXAMETHASONE SOD PHOSPHATE 4 MG/ML 1 ML VIAL IV ONE; +GABAPENTIN 300 MG CAP PO PRN; +HYDROmorphone 0.5 MG/0.5 ML SYRINGE IVP PRN; -LACTATED RINGERS 1,000 ML IV SCH; +LIDOCAINE 1% (10MG/ML) FOR IV START INTRADERMA PRN; +MELOXICAM 7.5 MG TAB PO PRN; +METOCLOPRAMIDE 5 MG/ML 2 ML VIAL IVP PRN; +MIDAZOLAM 2 MG/2 ML VIAL IV PRN; +ONDANSETRON 4 MG/2 ML VIAL IVP ONE; +TRANEXAMIC 1,000 MG/100ML-NACL 1,000 MG in SALINE 1 100ML.BAG IVPB PRN; +VANCOMYCIN 1,500 MG in SODIUM CHLORIDE 0.9% 500 ML 500 ML IVPB PRN
[2023-06-16] MEDS: LACTATED RINGERS 1,000 ML IV SCH (08:00)
[2023-06-16] MEDS ORDERED: MIDAZOLAM 2 MG/2 ML VIAL IVP ONE (08:18)
[2023-06-16] MEDS ORDERED: ONDANSETRON 4 MG/2 ML VIAL IVP PRN (08:47)
[2023-06-16] MEDS ORDERED: HYDROmorphone 0.5 MG/0.5 ML SYRINGE IVP PRN ×3 (08:47)
[2023-06-16] MEDS ORDERED: NALOXONE 0.4 MG/ML 1 ML VIAL IV PRN (08:47)
[2023-06-16] MEDS ORDERED: bisacodyL 10 MG SUPP RECTAL PRN (08:47)
[2023-06-16] MEDS ORDERED: MAGNESIUM HYDROXIDE 2,400 MG/30 ML CUP PO PRN (08:47)
[2023-06-16] MEDS ORDERED: NA PHOS,M-B/NA PHOS,DI-BA 133 ML ENEMA RECTAL PRN (08:47)
[2023-06-16] MEDS ORDERED: HYDROcodone/APAP 7.5-325MG 1 EACH TAB PO PRN (08:49)
[2023-06-16] MEDS ORDERED: APIXABAN 5 MG TAB PO SCH (09:00)
[2023-06-16] MEDS ORDERED: diphenhydrAMINE 50 MG/ML 1 ML VIAL ONE (09:12)
[2023-06-16] MEDS ORDERED: PROPOFOL 10 MG/ML 20 ML VIAL IV ONE (09:12)
[2023-06-16] MEDS ORDERED: ROPIVACAINE 5 MG/ML 30 ML VIAL ONE (09:12)
[2023-06-16] MEDS ORDERED: ONDANSETRON 4 MG/2 ML VIAL ONE (09:12)
[2023-06-16] MEDS ORDERED: MIDAZOLAM 2 MG/2 ML VIAL ONE (09:12)
[2023-06-16] MEDS ORDERED: GLYCOPYRROLATE 0.2 MG/ML 2 ML VIAL ONE (09:12)
[2023-06-16] MEDS ORDERED: KETAMINE 10 MG/ML 20 ML VIAL ONE (09:12)
[2023-06-16] MEDS ORDERED: fentaNYL (PF) 50 MCG/ML 2 ML AMP ONE (09:12)
[2023-06-16] MEDS ORDERED: LIDOCAINE 2% INJ 20 MG/ML (2 ML VIAL) ONE (09:12)
[2023-06-16] MEDS ORDERED: SODIUM CHLORIDE 0.9% (PF) 10 ML VIAL ONE (09:12)
[2023-06-16] MEDS ORDERED: PHENYLEPHRINE-0.9% NACL SYG 1,000 MCG/10 ML SYRINGE ONE (09:12)
--- NOTE | 2023-06-16 09:18 | P.ANPRN ---
Procedure Note - Anesthesia - Nerve Block Performed Left Adductor Canal Time Out Performed: Yes Date of Procedure: 06/16/23 Procedure Start Time: : Procedure Stop Time: : Location of Patient: PreOp Indication: Acute Post-Operative Pain, Requested by Surgeon (Dr Naidu) Sedation Type: Sedate with meaningful contact maintained Preparation: Sterile Prep, Sterile Dressing Position: Supine Catheter: Indwelling Needle Types: Pajunk Needle Gauge: 21 Ultrasound used to visualize needle placement: Yes Ultrasound used to observe medication spread: Yes Injectate: 0.5% Ropivacaine (see comment for volume) (20cc) Resistance on Injection: Normal Image Stored and Saved: Yes Events: Uneventful and Well Tolerated
--- NOTE | 2023-06-16 09:19 | P.ANPRN ---
Procedure Note - Anesthesia - Nerve Block Performed Left iPack Time Out Performed: Yes Date of Procedure: 06/16/23 Procedure Start Time: Procedure Stop Time: Location of Patient: PreOp Indication: Acute Post-Operative Pain, Requested by Surgeon (Dr Naidu) Sedation Type: Sedate with meaningful contact maintained Preparation: Sterile Prep Position: Supine Catheter: None Needle Types: Pajunk Needle Gauge: 21 Ultrasound used to visualize needle placement: Yes Ultrasound used to observe medication spread: Yes Injectate: 0.5% Ropivacaine (see comment for volume) (15cc +5cc PF Normal saline) Blood Aspirated: No Pain Paresthesia on Injection Noted: No Resistance on Injection: Normal Image Stored and Saved: Yes Events: Uneventful and Well Tolerated
[2023-06-16] MEDS ORDERED: ceFAZolin 1,000 MG in SODIUM CHLORIDE 0.9% 1,000 ML IRRIGATION ONE (09:52)
--- NOTE | 2023-06-16 10:35 | P.OP ---
Date of Procedure: 06/16/23 Preoperative Diagnosis: Severe osteoarthritis left knee Postoperative Diagnosis: Severe osteoarthritis left knee Procedure(s) Performed: Left total knee arthroplasty Implants: Patterson [employer] Nephew Journey II CR Oxinium cruciate retaining femoral component size 6, left [employer] Journey nonporous tibial baseplate size 4, left [employer] Journey II, XLPE Deep Dished articular insert, size 11 mm, Size 3-4, left [employer] Journey Carmella II resurfacing patellar component, oval, 29 mm All components were cemented using Palacos R bone cement The articulation is Oxinium on polyethylene Anesthesia: spinal Surgeon: Jimmy Naidu Wireless Architect #1: Rox Lima Estimated Blood Loss (ml): 30 Pathology: none sent Condition: stable Disposition: PACU Indications for Procedure: The patient's knee is end-stage, and conservative management has failed. The operation of knee replacement has been discussed at length in the office, as well as potential risks and complications. These are inclusive of, but not limited to: Infection, bleeding, scarring, discomfort, stiffness, blood vessel and nerve damage, need for further surgery, failure to relieve symptoms, persistence, recurrence, or worsening of problems, loosening, dislocation, wear, blood clot, pulmonary embolism, , gait dysfunction, stiffness, and other risks as discussed in the office. Patient elects to proceed and the consent form has been signed. Operative Findings: The operative findings are consistent with severe osteoarthritis of the left knee Description of Procedure: The patient was seen in the preoperative area, the consent was reviewed and the operative site was marked with a skin marker. The patient verified the procedure and the operative site. An adductor canal pain catheter and an iPACK block were placed by anesthesia in the preoperative area. The patient was then brought to the operating room and positioned on the operating room table in the supine position. Preoperative antibiotics and a gram of tranexamic acid were given intravenously. A spinal anesthetic was administered by the anesthesia department. Care was taken to make sure that all pressure points were adequately padded. A tourniquet was placed on the upper thigh and the lower extremity was prepped with ChloraPrep and draped in usual sterile fashion. A universal time-out was then performed which confirmed the patient's name, surgical site, ALLERGIES, and consent. The lower extremity was then exsanguinated and tourniquet was inflated to 250 mmHg. A standard anterior midline approach to the knee was performed. The skin and subcutaneous tissue were sharply dissected down to the patellar tendon. A medial parapatellar arthrotomy was then performed. The knee was then extended, the patellar was everted, and the knee was flexed. The infra-patellar fat pad was removed in order to enhance exposure. The anterior horns of both menisci were excised, and a release was performed to the posterior medial aspect of the knee. On gross visual inspection, there was complete loss of articular cartilage in the medial and patellofemoral joint spaces. There was also significant cartilage damage in the lateral compartment. There were multiple periarticular osteophytes globally about the knee which were then removed with a Ronguer. The femoral canal was then opened with the 9.5 mm intramedullary drill. The 8 mm intramedullary kris was then inserted into the femoral canal with the distal femoral cutting guide set for 5 of valgus. The distal femoral cutting block was then pinned in place. The intramedullary kris was then removed, and the distal femur was then cut. The cutting block was then removed and the cut was checked for symmetry. The resected bone was then measured to confirm the appropriate distal femoral resection. Next, the sizing guide was then placed and set for 3 external rotation based off of the epicondylar axis and Phoenix's line. Pins were then placed and the drill holes, and the femur was sized with the sizing stylus. The pins were then removed, and the sizing guide was then removed. The spikes of the appropriate size femoral block was then placed into the predrilled holes, and malleted into place. Two 45 mm pins were then placed into the fixation holes on the cutting block. An abhay wing was then used to ensure there would be no notching with the anterior cut. The anterior condyles were cut without notching. The anterior chord cut was then performed, followed by the posterior cut, posterior chamfer cut, and the anterior chamfer cut. The collateral ligaments were protected during the entire process. The cutting block was then removed. Any remaining bone and osteophytes were removed from the femur with a Ronguer. Attention was then directed to the tibia. The remaining ACL was removed with a Ronguer, and the tibia was then gently subluxed forward with a large bent knee retractor. Any remaining menisci were excised. The posterior lateral corner was cauterized in order to coagulate the lateral geniculate artery. The extra medullary tibial cutting guide was then placed, set for the appropriate rotation, slope, and depth of resection. The proximal tibia cutting guide was then pinned in place. Proximal tibia was then cut and sized. A curved osteotome was then used to remove any posterior osteophytes from the distal femur. The femoral trial was placed. A narrow saw blade was then used to remove the anterior intracondylar femoral bone. The CR notch trial was then placed. The tibial trial was placed with the appropriate-sized insert. The knee was able to fully extend and flex to 130 and was stable throughout all range of motion. The knee was then extended and the patella was everted. Patella was then measured, and then using an osteotomy guide, the patella was cut at the appropriate level. The patellar component was sized. The patellar drill guide was placed and the patella was drilled. The patella trial was then placed. The knee was then taken through range of motion with the patella trial and the patella tracked normally using the no thumbs technique. The patella trial was then removed. The knee was then flexed and lug holes were drilled through the femoral trial and the femoral trial was then removed. The tibial was then re- exposed, and the tibial broach guide was then pinned in place after it was set for the appropriate rotation to allow for the most coverage without overhang. The tibia was then reamed and broached. The femoral canal was plugged with autologous bone. The cut surfaces of bone were then irrigated with pulsatile lavage. The knee was also irrigated with Irrisept solution. The components were then opened, the cement was mixed. Cement was placed on the backside of the femoral, tibial, and patellar components. Cement was then applied to the tibial surface and pressurized into the surface using finger pressurization technique. The tibial component was then applied and excess cement was removed after it was impacted securely noted to be flush with the cut surface. In similar fashion, the cement was applied to the cut femoral surface, pressur ized and using finger pressurization the component was impacted in place. Excess cement was removed. The polyethylene spacer was then implanted and locked into position. Patellar component was then applied in a similar technique and the patellar clamp was used to hold patella in place while the cement hardened. The knee was held in full extension while the cement hardened. Once the cement had fully hardened, the knee was reinspected. Any other cement extrusion was removed the final range of motion testing showed range of motion from 0-130 with excellent stability, both medial and laterally and appropriate alignment of the leg. Patella tracked normally[default value] After the cemented hardened, the tourniquet was released and hemostasis was obtained. A second gram of transexamic acid was given intravenously. The knee was again irrigated. The knee was again taken through range of motion and found to be stable throughout all range of motion of 0-130, and the patella tracked normally. The fascia was then closed with 0 Vicryl followed by #2 strata fix suture. The subcutaneous tissue was closed with 3-0 Vicryl and 3-0 strata fix. Exofin glue was used for the skin and placed with the knee in flexion. After the glue had dried, and Optafoam silver impregnated dressing was applied. A lightly compressive dressing was applied using web roll and Moises wrap. Patient was then transferred to the stretcher and taken to recovery room in stable condition. Sponge and needle counts were correct. The family readiness support assistant ESTRELLITA Saldaña was required due the complexity surgery and the need for a skilled social media assistant. She assisted in positioning, draping, retraction, and closure of the wound.
[2023-06-16] MEDS: ROPIVACAINE 1,100 MG, SODIUM CHLORIDE 0.9% 500 ML 330 ML, EMPTY PAIN BALL 1 EACH MISCELLANE PRN ×4 (11:23→11:55)
--- NOTE | 2023-06-16 11:53 | XR ---
EXAMINATION TYPE: XR knee limited LT DATE OF EXAM: 06/16/2023 CLINICAL HISTORY: Postoperative evaluation Two views of the left knee are submitted. Identified are changes of total knee arthroplasty with fem oral and tibial components appearing well seated. Postsurgical soft tissue changes are noted. Align ment is anatomic.
[2023-06-16] MEDS ORDERED: IV FLUID CONTINUATION 1,000 ML IV ONE ×2 (11:54)
[2023-06-16] MEDS: HYDROcodone/APAP 7.5-325MG 1 EACH TAB PO PRN (15:25)
[2023-06-16] MEDS: SODIUM CHLORIDE 0.9% 1,000 ML IV SCH (15:26)
[2023-06-16] MEDS ORDERED: LORATADINE 10 MG TAB PO PRN (15:52)
[2023-06-16] MEDS ORDERED: traMADol 50 MG TAB PO PRN (15:52)
[2023-06-16] MEDS ORDERED: BACLOFEN 10 MG TAB PO PRN (15:52)
[2023-06-16 20:03] VITALS: TEMP 98.4
[2023-06-16] MEDS ORDERED: NON FORMULARY DRUG (Vit C/E/Zn/Coppr/Lutein/Zeaxan [Preservision Areds 2 Softgel] 1 EACH C PO SCH (21:00)
[2023-06-16] MEDS ORDERED: ATORVASTATIN 20 MG TAB PO SCH (21:00)
[2023-06-16] MEDS ORDERED: SENNOSIDES-DOCUSATE SODIUM 1 EACH TAB PO SCH (21:00)
[2023-06-16] MEDS ORDERED: atenoloL 50 MG TAB PO SCH (21:00)
[2023-06-16] MEDS: GABAPENTIN 100 MG CAP PO SCH (21:48)
[2023-06-16] MEDS: hydrALAZINE HCL 50 MG TAB PO SCH (21:48)
[2023-06-16] MEDS: ACETAMINOPHEN TAB 325 MG TAB PO PRN (22:45)
[2023-06-17] MEDS: SODIUM CHLORIDE 0.9% 1,000 ML IV SCH (00:42)
[2023-06-17 02:18] VITALS: PULSE 67
[2023-06-17] MEDS: LACTATED RINGERS 1,000 ML IV SCH (05:17)
[2023-06-17] MEDS: ACETAMINOPHEN TAB 325 MG TAB PO PRN (05:39)
[2023-06-17] MEDS: GABAPENTIN 100 MG CAP PO SCH (05:45)
[2023-06-17] MEDS: hydrALAZINE HCL 50 MG TAB PO SCH (05:45)
[2023-06-17] MEDS ORDERED: FUROSEMIDE 20 MG TAB PO SCH (06:00)
[2023-06-17] MEDS ORDERED: LEVOTHYROXINE 75 MCG TAB PO SCH (06:00)
[2023-06-17] MEDS: HYDROcodone/APAP 7.5-325MG 1 EACH TAB PO PRN ×2 (06:39→11:48)
--- NOTE | 2023-06-17 07:15 | P.PN ---
Progress Note - Text Progress Note Date: 06/17/23 Postoperative day # 1 status post total knee arthroplasty, and adductor canal catheter placed for postoperative analgesia, currently at ropivacaine 0.2% 8 mL per hour and continuous infusion, visual analogue scale is 4/10, patient using oral pain medication for breakthrough pain. Assessment and plan= Acute postoperative pain, adductor canal catheter for pain control, pain is well controlled we'll continue the same management.
[2023-06-17 08:09] VITALS: BP 141/63; RESP 16
[2023-06-17] MEDS ORDERED: MAGNESIUM OXIDE 400 MG TAB PO SCH (09:00)
[2023-06-17] MEDS ORDERED: ASPIRIN 81 MG PO SCH (09:00)
[2023-06-17] MEDS ORDERED: lisinopriL 20 MG TAB PO SCH (09:00)
[2023-06-17] MEDS ORDERED: CALCIUM CARBONATE 500 MG CHEWABLE PO SCH (09:00)
[2023-06-17] MEDS ORDERED: CHOLECALCIFEROL 25 MCG (1000 IU) TABLET PO SCH (09:00)
[2023-06-17] MEDS ORDERED: APIXABAN 2.5 MG TABLET PO SCH (09:00)
[2023-06-17] MEDS ORDERED: NON FORMULARY DRUG (Ubidecarenone [Co Q-10] 100 MG Capsule) PO SCH (09:00)
[2023-06-17 09:21] LABS: Basophils # (A) 0.01 X 10*3/uL (0.00-0.10); Basophils % (A) 0.1 %; Eosinophils # (A) 0.01 X 10*3/uL (0.04-0.35); Eosinophils % (A) 0.1 %; HCT 32.7 % (37.2-46.3); HGB 10.6 d/dL (12.0-15.0); Lymphocytes # (A) 1.18 X 10*3/uL (0.90-5.00); Lymphocytes % (A) 11.9 %; MCH 30.2 pg (27.0-32.0); MCHC 32.4 d/dL (32.0-37.0); MCV 93.2 FL (80.0-97.0); Mean Platelet Volume 10.6 FL (9.5-12.2); Monocytes % (A) 13.1 %; NRBC Per 100 WBC 0 X 10*3/uL (0.00-0.01); Neutrophils # (A) 7.38 X 10*3/uL (1.80-7.70); Neutrophils % (A) 74.6 %; Platelet Count 223 X 10*3/uL (140-440); RBC 3.51 X 10*6/uL (4.10-5.20); RDW 12.7 % (11.5-14.5)
--- NOTE | 2023-06-17 09:44 | P.DS ---
Providers Expected date of discharge: 06/17/23 Attending physician: Jimmy Naidu Consults: 06/16/23 08:47 Consult Physician Routine Consulting Provider: Charley Brown Consult Reason/Comments: medical management Do you want consulting provider notified?: Yes Primary care physician: Charley Brown - Discharge Diagnosis(es) (1) Osteoarthritis of left knee Current Visit: Yes Status: Acute (2) Status post total left knee replacement Current Visit: Yes Status: Acute Hospital Course: This is a 78-year-old female with known history of degenerative arthritis of the left knee. The patient presented for evaluation as an outpatient. After discus marissa and consideration patient elects to proceed with total knee arthroplasty. The patient is seen preoperatively by Dr. Naidu and medically cleared for surgery by their primary care physician. Patient is admitted to [facility] on 06/16/2023 for total knee arthroplasty. The procedure is performed without complication or sequelae. The patient is doing well postoperatively. Labs and vital signs are stable on day of discharge. On day of discharge patient's knee incision is healing well. There is minimal erythema. There is no drainage noted at this time. There is minimal soft t issue swelling to the knee. Patient has full foot and ankle motion without difficulty or pain. Calf is soft and nontender to palpation. Neurovascular status to the left lower extremity is intact. Patient is discharged home in good condition. Please see med rec for accurate list of home medications. Plan - Discharge Summary Discharge Rx Participant: Yes New Discharge Prescriptions: New Apixaban [Eliquis] 2.5 mg PO BID 35 Days #70 tab HYDROcodone/APAP 7.5-325MG [[place] 7.5-325] 1 - 2 tab PO Q6H PRN #32 tab PRN Reason: Pain Sennosides [Senokot] 2 tab PO DAILY PRN #60 tablet PRN Reason: Constipation No Action Vit C/E/Zn/Coppr/Lutein/Zeaxan [Preservision Areds 2 Softgel] 1 cap PO HS@2100 Ubidecarenone [Co Q-10] 100 mg PO DAILY@0900 Aspirin EC [Ecotrin Low Dose] 81 mg PO DAILY@0900 Levothyroxine Sodium [Synthroid] 75 mcg PO DAILY@0600 atenoloL 100 mg PO HS@2100 Magnesium Oxide [Mag-Ox] 400 mg PO DAILY@0900 Baclofen [Lioresal] 10 mg PO TID PRN PRN Reason: Muscle Spasm Gabapentin [Neurontin] 100 mg PO TID@0600,1400,2200 traMADol HCL 50 mg PO Q6H PRN PRN Reason: Pain Fexofenadine HCl [Viviana Allergy] 180 mg PO DAILY PRN PRN Reason: allergies Cholecalciferol [Vitamin D3 (25 Mcg = 1000 Iu)] 25 mcg PO DAILY Lidocaine 5% Patch [Lidoderm] 1 patch TOPICAL DIRECTED PRN PRN Reason: Pain Simvastatin 40 mg PO HS@2099 Furosemide [Lasix] 40 mg PO DAILY@06 Enalapril [Vasotec] 40 mg PO DAILY@09 Calcium Carbonate [Calcium] 600 mg PO DAILY hydrALAZINE HCL [Apresoline] 50 mg PO TID@0600,1400,2200 Acetaminophen [Tylenol Arthritis] 650 mg PO Q6H PRN PRN Reason: Pain Discharge Medication List Ubidecarenone [Co Q-10] 100 mg PO DAILY@89911/14/19 [History] Vit C/E/Zn/Coppr/Lutein/Zeaxan [Preservision Areds 2 Softgel] 1 cap PO HS@209911/14/19 [History] Aspirin EC [Ecotrin Low Dose] 81 mg PO DAILY@89906/03/22 [History] Calcium Carbonate [Calcium] 600 mg PO DAILY 06/03/22 [History] Enalapril [Vasotec] 40 mg PO DAILY@89906/03/22 [History] Furosemide [Lasix] 40 mg PO DAILY@59906/03/22 [History] Levothyroxine Sodium [Synthroid] 75 mcg PO DAILY@59906/03/22 [History] Simvastatin 40 mg PO HS@209906/03/22 [History] atenoloL 100 mg PO HS@209906/03/22 [History] Baclofen [Lioresal] 10 mg PO TID PRN 06/29/22 [History] Gabapentin [Neurontin] 100 mg PO TID@0600,1400,2200 06/29/22 [History] Magnesium Oxide [Mag-Ox] 400 mg PO DAILY@0900 06/29/22 [History] hydrALAZINE HCL [Apresoline] 50 mg PO TID@0600,1400,2200 06/29/22 [History] Acetaminophen [Tylenol Arthritis] 650 mg PO Q6H PRN 06/10/23 [History] Cholecalciferol [Vitamin D3 (25 Mcg = 1000 Iu)] 25 mcg PO DAILY 06/10/23 [History] Fexofenadine HCl [Viviana Allergy] 180 mg PO DAILY PRN 06/10/23 [History] Lidocaine 5% Patch [Lidoderm] 1 patch TOPICAL DIRECTED PRN 06/10/23 [History] traMADol HCL 50 mg PO Q6H PRN 06/10/23 [History] Apixaban [Eliquis] 2.5 mg PO BID 35 Days #70 tab 06/16/23 [Rx] HYDROcodone/APAP 7.5-325MG [[place] 7.5-325] 1 - 2 tab PO Q6H PRN #32 tab 06/16/23 [Rx] Sennosides [Senokot] 2 tab PO DAILY PRN #60 tablet 06/16/23 [Rx] Follow up Appointment(s)/Referral(s): [facility] [NON-STAFF] - 1-2 Days Jimmy Naidu DO [Doctor of Osteopathic Medicine] - 2 Weeks Activity/Diet/Wound Care/Special Instructions: Weightbearing as tolerated with a walker. CPM 5-6h daily as tolerated. Leave dressing intact. Dressing may be removed by home care nurse or by patient in 7 days. Then change dressing twice daily until follow up. May shower with initial dressing intact and after removal. If dressing become saturated, please remove. Recommend use of compression stockings daily until follow up to help prevent swelling and blood clots. May remove at night before sleeping. Please take Eliquis twice daily for 35 days postop to prevent blood clots. Please follow up with [facility] and call with any questions or concerns, . Discharge Disposition: HOME WITH HOME HEALTH SERVICES
[2023-06-17 09:45] LABS: ALT 17 U/L (8-44); AST 21 U/L (13-35); Albumin 3.5 d/dL (3.8-4.9); Albumin/Globulin Ratio 1.59 Ratio (1.60-3.17); Alkaline Phosphatase 52 U/L (41-126); Blood Urea Nitrogen 26.4 mg/dL (9.0-27.0); Calcium 8.4 mg/dL (8.7-10.3); Carbon Dioxide 25.7 mmol/L (21.6-31.8); Chloride 105 mmol/L (96-109); Globulin 2.2 d/dL (1.6-3.3); Glucose 128 mg/dL (70-110); Potassium 4.8 mmol/L (3.5-5.5); Sodium 139 mmol/L (135-145); Total Bilirubin 0.2 mg/dL (0.3-1.2); Total Protein 5.7 d/dL (6.2-8.2)
--- NOTE | 2023-06-17 11:25 | P.CONS ---
History of Present Illness - Reason for Consult Consult date: 06/17/23 Medical management Requesting physician: Jimmy Morrow - Chief Complaint Osteoarthritis of the left knee - History of Present Illness This is an 78-year-old female patient of Dr. Brown who presented for an elective left knee arthroplasty with Dr. morrow on 06/16/2023. Patient has a past medical history of hyperlipidemia, hypertension, OA, pulmonary embolisms in May 2022 following Covid which patient was maintained on anticoagulation with but was DC'd after 6 months per PCP. Patient denies any history of coronary artery disease or stroke. Patient's vital signs currently temperature 98.4, heart rate 67, respiratory rate 17, blood pressure 151/72 with a pulse ox of 96% on room air. At this time patient is resting comfortably in chair. at bedside. Patient denies chest pain or shortness breath. Patient denies nausea vomiting or diarrhea. Patient denies any urinary burning or frequency. Per orthopedic services plans for discharge home today. Patient will be discharged on eliquis 2.5 twice a day for DVT prophylaxis. Review of Systems please refer to HPI otherwise unremarkable Past Medical History Past Medical History: Eye Disorder, Hyperlipidemia, Hypertension, Musculos keletal Disorder, Osteoarthritis (OA), Pulmonary Embolus (PE), Sleep Apnea/CPAP/BIPAP, Thyroid Disorder Additional Past Medical History / Comment(s): Covid March 2022, dx. w/shaila PE's in May 2022, shaila. ankle swelling, supposed to use CPAP, chronic low back pain, dysphagia @times since neck surg., white coat syndrome-"my BP will be up when I get here" History of Any Multi-Drug Resistant Organisms: ESBL Year Discovered:: 08/02/22 ESBL E.coli MDRO Source:: Urine Past Surgical History: Cholecystectomy, Tubal Ligation Additional Past Surgical History / Comment(s): bilateral cataract surgery, cervical fusion 3-4-5 w/plates & screws on right side, partial thyroidectomy Past Anesthesia/Blood Transfusion Reactions: No Reported Reaction Additional Past Anesthesia/Blood Transfusion Reaction / Comm: limited ROM to extend neck back since cervical surg. Smoking Status: Former smoker - Past Family History Father History Unknown: Yes Mother History Unknown: Yes Additional Family Medical History / Comment(s): lung mets unsure of primary source Medications and Allergies Home Medications Medication Instructions Recorded Confirmed Type Ubidecarenone [Co Q-10] 100 mg PO DAILY@0900 11/14/19 06/16/23 History Vit C/E/Zn/Coppr/Lutein/Zeaxan 1 cap PO HS@209911/14/19 06/16/23 History [Preservision Areds 2 Softgel] Aspirin EC [Ecotrin Low Dose] 81 mg PO DAILY@89906/03/22 06/10/23 History Calcium Carbonate [Calcium] 600 mg PO DAILY 06/03/22 06/16/23 History Enalapril [Vasotec] 40 mg PO DAILY@89906/03/22 06/16/23 History Furosemide [Lasix] 40 mg PO DAILY@59906/03/22 06/16/23 History Levothyroxine Sodium [Synthroid] 75 mcg PO DAILY@59906/03/22 06/16/23 History Simvastatin 40 mg PO HS@209906/03/22 06/16/23 History atenoloL 100 mg PO HS@2100 06/03/22 06/16/23 History Baclofen [Lioresal] 10 mg PO TID PRN 06/29/22 06/16/23 History Gabapentin [Neurontin] 100 mg PO TID@0600,1400,2200 06/29/22 06/16/23 History Magnesium Oxide [Mag-Ox] 400 mg PO DAILY@89906/29/22 06/16/23 History hydrALAZINE HCL [Apresoline] 50 mg PO TID@0600,1400,2200 06/29/22 06/16/23 History Acetaminophen [Tylenol Arthritis] 650 mg PO Q6H PRN 06/10/23 06/16/23 History Cholecalciferol [Vitamin D3 (25 25 mcg PO DAILY 06/10/23 06/16/23 History Mcg = 1000 Iu)] Fexofenadine HCl [Viviana Allergy] 180 mg PO DAILY PRN 06/10/23 06/16/23 History Lidocaine 5% Patch [Lidoderm 5% 1 patch TOPICAL DIRECTED PRN 06/10/23 06/16/23 History Patch] traMADol HCL 50 mg PO Q6H PRN 06/10/23 06/16/23 History Apixaban [Eliquis] 2.5 mg PO BID 35 Days #70 tab 06/16/23 Rx HYDROcodone/APAP 7.5-325MG [[place] 1 - 2 tab PO Q6H PRN #32 tab 06/16/23 Rx 7.5-325] Sennosides [Senokot] 2 tab PO DAILY PRN #60 tablet 06/16/23 Rx Allergies Allergy/AdvReac Type Severity Reaction Status Date / Time codeine Allergy Nausea & Verified 06/16/23 08:01 Vomiting Physical Exam Vitals: Vital Signs Temp Pulse Resp BP Pulse Ox 06/17/23 08:56 67 16 06/17/23 07:25 98.4 F 67 16 141/63 90 L 06/17/23 02:00 98.4 F 67 17 151/72 96 06/16/23 20:02 98.4 F 72 17 133/71 95 06/16/23 19:55 16 06/16/23 16:25 75 137/80 92 L 06/16/23 16:10 71 143/78 94 L 06/16/23 15:55 71 159/82 92 L 06/16/23 15:40 69 158/83 96 06/16/23 15:10 63 134/79 96 06/16/23 14:55 65 137/79 96 06/16/23 14:40 68 133/68 96 06/16/23 12:45 64 16 131/64 96 06/16/23 12:30 62 16 132/61 94 L 06/16/23 12:15 58 L 17 133/60 97 06/16/23 12:00 61 17 142/68 96 06/16/23 11:45 60 18 135/77 97 06/16/23 11:30 63 16 118/55 97 Intake and Output 06/16/23 06/17/23 06/17/23 22:59 06:59 14:59 Other: Voiding Method Bedside Commode # Voids 1 2 Weight 106.3 kg Head normocephalic Neck supple Lungs clear to auscultation bilaterally no wheezing or crackles Heart regular rate and rhythm S1-S2, no rub or gallop Abdomen is soft nontender nondistended positive bowel sounds no hepatosplenomegaly Extremities no edema Neuro alert and orientated to 3 Results CBC & Chem 7: 06/17/23 05:58 06/17/23 05:58 Labs: Abnormal Lab Results - Last 24 Hours (Table) 06/17/23 06/17/23 Range/Units 05:58 05:58 RBC 3.51 L (4.10-5.20) X 10*6/uL Hgb 10.6 L (12.0-15.0) d/dL Hct 32.7 L (37.2-46.3) % Monocytes # 1.30 H (0.20-1.00) X 10*3/uL Eosinophils # 0.01 L (0.04-0.35) X 10*3/uL Est GFR (CKD-EPI) 46 L (>=60) BUN/Creatinine Ratio 22.00 H (12.00-20.00) Ratio Glucose 128 H (70-110) mg/dL Calcium 8.4 L (8.7-10.3) mg/dL Total Bilirubin 0.2 L (0.3-1.2) mg/dL Total Protein 5.7 L (6.2-8.2) d/dL Albumin 3.5 L (3.8-4.9) d/dL Albumin/Globulin Ratio 1.59 L (1.60-3.17) Ratio Assessment and Plan Assessment: 1. Osteoarthritis to the left knee status post left knee arthroplasty on 06/16/2023 2. History of PE in May 2022 following COVID. Patient reports she was on anticoagulation for 6 months and this was DC'd per PCP 3. History of hyperlipidemia 4. History of essential hypertension 5. History of sleep apnea 6. History of thyroid disorder 7. History of cervical fusion Thank you for this consultation we will continue to follow patient closely throughout stay DVT prophylaxis eliquis per orthopedic services Time with Patient: Greater than 30 (Greater than 60% of the total time spent in counseling and coordination of care)
== END 2023-06-17 11:53 | disposition home health service (06) ==
LOC: OR 07:13 → 4SSUR 11:01 → OR 06-17 11:53
PROVIDERS: ATTEND Orthopaedic Surgery
DX: M17.12 Unilateral primary osteoarthritis, left knee (principal); I10 Essential (primary) hypertension; E78.5 Hyperlipidemia, unspecified; E03.9 Hypothyroidism, unspecified; Z86.711 Personal history of pulmonary embolism; R20.0 Anesthesia of skin; G47.30 Sleep apnea, unspecified; Z98.51 Tubal ligation status; Z98.890 Other specified postprocedural states; Z87.891 Personal history of nicotine dependence; Z86.19 Personal history of other infectious and parasitic diseases; Z83.3 Family history of diabetes mellitus; Z82.49 Family history of ischemic heart disease and other diseases of the circulatory system; Z79.890 Hormone replacement therapy; Z79.891 Long term (current) use of opiate analgesic; Z79.899 Other long term (current) drug therapy; Z88.5 Allergy status to narcotic agent; Z80.1 Family history of malignant neoplasm of trachea, bronchus and lung; Z79.01 Long term (current) use of anticoagulants; Z79.82 Long term (current) use of aspirin
CPT/HCPCS: 97161; 64999; 64448; 80053; 85025; 73560; 27447; C1713; C1776; C1751; J2250; J3370; J1100; J0690 ×3; J2405; J2795

== ENCOUNTER 2023-06-18 17:13 | Emergency (ER) | payer BC, MEDICARE ==
[2023-06-18 17:48] VITALS: TEMP 99
[2023-06-18] MEDS ORDERED: MORPHINE SULFATE 4 MG/ML SYRINGE IVP STA (19:14)
[2023-06-18] MEDS ORDERED: ONDANSETRON 4 MG/2 ML VIAL IVP STA (19:14)
--- NOTE | 2023-06-18 19:15 | ED ---
General Adult HPI - General Chief complaint: Nausea/Vomiting/Diarrhea Stated complaint: post op nausea Time Seen by Provider: 06/18/23 18:22 Source: patient Mode of arrival: wheelchair - History of Present Illness Initial comments: Elena Nieto is an 78yo F who presents to the ER today with complaints of nausea and vomiting as well as severe. Left knee. Patient is 2 days status post left knee replacement. She was doing well in the immediate postop period but woke up this morning felt very nauseated she had some vomiting she was concerned that taking anymore of her pain meds that make it worse or she hasn't taken any since 8 AM. Patient reports she contacted her orthopedic office and was prescribed Zofran ODT for took one but persists with nausea to the point that she didn't feel comfortable taking anymore pain secondary her for evaluation. Patient REPORTS that today since her pain infusion has worn off fairly she has pain in her thigh that is quite uncomfortable. No swelling no redness no pain at the incision. No fevers. - Related Data Home Medications Medication Instructions Recorded Confirmed Ubidecarenone [Co Q-10] 100 mg PO DAILY 11/14/19 06/18/23 Vit C/E/Zn/Coppr/Lutein/Zeaxan 1 cap PO HS 11/14/19 06/18/23 [Preservision Areds 2 Softgel] Aspirin EC [Ecotrin Low Dose] 81 mg PO DAILY 06/03/22 06/18/23 Calcium Carbonate [Calcium] 600 mg PO DAILY 06/03/22 06/18/23 Enalapril [Vasotec] 40 mg PO DAILY 06/03/22 06/18/23 Levothyroxine Sodium [Synthroid] 75 mcg PO AC-BRKFST 06/03/22 06/18/23 Simvastatin 40 mg PO HS 06/03/22 06/18/23 atenoloL 100 mg PO HS 06/03/22 06/18/23 Magnesium Oxide [Mag-Ox] 400 mg PO DAILY 06/29/22 06/18/23 hydrALAZINE HCL [Apresoline] 50 mg PO TID@0600,1400,2200 06/29/22 06/18/23 Acetaminophen [Tylenol Arthritis] 650 mg PO Q6H PRN 06/10/23 06/18/23 Cholecalciferol [Vitamin D3 (25 25 mcg PO DAILY 06/10/23 06/18/23 Mcg = 1000 Iu)] Fexofenadine HCl [Viviana Allergy] 180 mg PO DAILY PRN 06/10/23 06/18/23 Lidocaine 5% Patch [Lidoderm 5% 1 patch TRANSDERM DAILY PRN 06/10/23 06/18/23 Patch] traMADol HCL 50 mg PO Q6H PRN 06/10/23 06/18/23 Baclofen [Lioresal] 10 - 20 mg PO QID PRN 06/18/23 06/18/23 EPINEPHrine (Auto Inject) [Epipen] 0.3 mg IM ONCE PRN 06/18/23 06/18/23 Furosemide [Lasix] 40 mg PO AC-BRKFST 06/18/23 06/18/23 Gabapentin 800 mg PO TID 06/18/23 06/18/23 Ondansetron Odt [Zofran Odt] 4 mg PO TID PRN 06/18/23 06/18/23 Previous Rx's Medication Instructions Recorded Apixaban [Eliquis] 2.5 mg PO BID 35 Days #70 tab 06/16/23 HYDROcodone/APAP 7.5-325MG [[place] 1 - 2 tab PO Q6H PRN #32 tab 06/16/23 7.5-325] Sennosides [Senokot] 2 tab PO DAILY PRN #60 tablet 06/16/23 Allergies Allergy/AdvReac Type Severity Reaction Status Date / Time codeine AdvReac Nausea & Verified 06/18/23 18:21 Vomiting Review of Systems ROS Statement: Those systems with pertinent positive or pertinent negative responses have been documented in the HPI. ROS Other: All systems not noted in ROS Statement are negative. Past Medical History Past Medical History: Eye Disorder, Hyperlipidemia, Hypertension, Sleep Apnea/CPAP/BIPAP, Thyroid Disorder Additional Past Medical History / Comment(s): Arthritis History of Any Multi-Drug Resistant Organisms: ESBL, MRSA Date of last positivie culture/infection: 08/02/22 ESBL E.coli, MRSA 06/14 MDRO Source:: Urine Past Surgical History: Joint Replacement Additional Past Surgical History / Comment(s): bilateral cataract surgery, L knee replacement Past Anesthesia/Blood Transfusion Reactions: No Reported Reaction Past Psychological History: No Psychological Hx Reported Smoking Status: Former smoker Past Alcohol Use History: Rare Past Drug Use History: None Reported - Past Family History Father History Unknown: Yes Mother History Unknown: Yes Additional Family Medical History / Comment(s): lung mets unsure of primary source General Exam - General Exam Comments Initial Comments: Physical Exam GENERAL: Patient is well-developed and well-nourished. Patient is nontoxic and well-hydrated and is in no distress. HENT: Normocephalic, Atraumatic. EYES: PERRL, EOMI PULMONARY: Unlabored respirations. CARDIOVASCULAR: RRR Warm and well perfused extremities ABDOMEN: Non-distended SKIN: Incision over left knee, no erythema or induration, no blush or bleeding on tape : Deferred NEUROLOGIC: Alert and oriented Normal speech Normal gait MUSCULOSKELETAL: Moving all extremities with no apparent injury PSYCHIATRIC: No SI/HI Course Vital Signs 06/18/23 17:43 Temperature 99.0 F Pulse Rate 74 Respiratory 20 Rate Blood Pressure 187/87 O2 Sat by Pulse 95 Oximetry Medical Decision Making - Medical Decision Making Patient was seen and evaluated, history is obtained from the patient, and review of medical record. Patient's pain pump wore off on her left leg she now has pain from the thigh to the knee. No swelling no signs of infection. She also hasn't taken any pain medications because he is nauseated. Labs are obtained patient left voluntarily likely due to his feeling. She received Zofran and IV fluids. Surgical [facility] [place] from pain. She is feeling better for a brief period of time however when I attempted to remove the pain pump she had worsening nausea without vomiting. She was treated with Reglan and Benadryl. The pain pump which is empty had a catheter removed from her thigh. There is no bleedingor infection. After in the pump were disposed of. Patient care was discussed with orthopedic surgeon Dr. Rickey Mckeon who recommended pain management and outpatient follow-up. States that the pain in the thigh is likely due to having the tourniquet during surgery. I discussed this with the patient. She was much more comfortable after morphine. She had tolerated the by mouth meds in the hospital without nausea prior to discharge she is comfortable staying on the same medications at home. Her nausea is improved now. She is given additional dose of morphine prior to discharge with discharge home with a plan to contact orthopedic office tomorrow. Was pt. sent in by a medical professional or institution (ESTRELLITA Reed, [employer], urgent care, hospital, or [facility]...) When possible be specific @ -No Did you speak to anyone other than the patient for history (EMS, parent, family, police, friend...)? What history was obtained from this source @ -No Did you review nursing and triage notes (agree or disagree)? Why? @ -I reviewed and agree with nursing and triage notes Were old charts reviewed (outside hosp., previous admission, EMS record, old EKG, old radiological studies, urgent care reports/EKG's, [facility] records)? Report findings @ -Previous surgical notes were reviewed Differential Diagnosis (chest pain, altered mental status, abdominal pain women, abdominal pain men, vaginal bleeding, weakness, fever, dyspnea, syncope, headache, dizziness, GI bleed, back pain, seizure, CVA, palpatations, mental health, musculoskeletal)? @ -Medication reaction, anesthesia reaction, GI illness EKG interpreted by me (3pts min.). @ -As above X-rays interpreted by me (1pt min.). @ -None done CT interpreted by me (1pt min.). @ -None done U/S interpreted by me (1pt. min.). @ -None done What testing was considered but not performed or refused? (CT, X-rays, U/S, labs)? Why? @ -None What meds were considered but not given or refused? Why? @ -None Did you discuss the management of the patient with other professionals (professionals i.e. ESTRELLITA Reed, JEWEL HOLE FINISH OPENER, lab, RT, psych nurse, social economist, corn grower, teacher, real estate loan officer, director case management)? Give summary @ -Dr. Rickey Mckeon orthopedics Was smoking cessation discussed for >3mins.? @ -No Was critical care preformed (if so, how long)? @ -No Were there social determinants of health that impacted care today? How? (Homelessness, low income, unemployed, alcoholism, drug addiction, transportation, low edu. Level, literacy, decrease access to med. care, long term, rehab)? @ -No Was there de-escalation of care discussed even if they declined (Discuss DNR or withdrawal of care, Hospice)? DNR status @ -No What co-morbidities impacted this encounter? (DM, HTN, Smoking, COPD, CAD, Cancer, CVA, ARF, Chemo, Hep., AIDS, mental health diagnosis, sleep apnea, morbid obesity)? @ -None Was patient admitted / discharged? Hospital course, mention meds given and route, prescriptions, significant lab abnormalities, going to OR and other pertinent info. @ -Discharge Undiagnosed new problem with uncertain prognosis? @ -No Drug Therapy requiring intensive monitoring for toxicity (Heparin, Nitro, Insulin, Cardizem)? @ -No Were any procedures done? @ -No Diagnosis/symptom? @ -default Acute, or Chronic, or Acute on Chronic? @ -default Uncomplicated (without systemic symptoms) or Complicated (systemic symptoms)? @ -default Side effects of treatment? @ -No Exacerbation, Progression, or Severe Exacerbation? @ -No Poses a threat to life or bodily function? How? (Chest pain, [place], [place], pneumonia, PE, COPD, DKA, ARF, appy, cholecystitis, CVA, Diverticulitis, Homicidal, Suicidal, threat to staff... and all critical care pts) @ -No - Lab Data Result diagrams: 06/18/23 19:31 06/18/23 19:31 Lab Results 06/18/23 06/18/23 06/18/23 Range/Units 19:31 19:31 19:31 WBC 8.0 (3.8-10.6) k/uL RBC 3.85 (3.80-5.40) m/uL Hgb 12.2 (11.4-16.0) gm/dL Hct 34.6 (34.0-46.0) % MCV 89.8 (80.0-100.0) fL MCH 31.8 (25.0-35.0) pg MCHC 35.4 (31.0-37.0) g/dL RDW 12.6 (11.5-15.5) % Plt Count 221 (150-450) k/uL MPV 8.2 Neutrophils % 77 % Lymphocytes % 13 % Monocytes % 8 % Eosinophils % 1 % Basophils % 0 % Neutrophils # 6.2 (1.3-7.7) k/uL Lymphocytes # 1.0 (1.0-4.8) k/uL Monocytes # 0.7 (0-1.0) k/uL Eosinophils # 0.1 (0-0.7) k/uL Basophils # 0.0 (0-0.2) k/uL PT 10.6 (9.0-12.0) sec INR 1.0 (<1.2) APTT 25.3 (22.0-30.0) sec Sodium 133 L (137-145) mmol/L Potassium 4.1 (3.5-5.1) mmol/L Chloride 95 L (98-107) mmol/L Carbon Dioxide 27 (22-30) mmol/L Anion Gap 11 mmol/L BUN 18 H (7-17) mg/dL Creatinine 0.74 (0.52-1.04) mg/dL Est GFR (CKD-EPI)AfAm 89 (>60 ml/min/1.73 sqM) Est GFR (CKD-EPI)NonAf 77 (>60 ml/min/1.73 sqM) Glucose 119 H (74-99) mg/dL Plasma Lactic Acid Anastacio (0.7-2.0) mmol/L Calcium 8.6 (8.4-10.2) mg/dL Total Bilirubin 0.9 (0.2-1.3) mg/dL AST 26 (14-36) U/L ALT 15 (4-34) U/L Alkaline Phosphatase 61 (38-126) U/L Total Protein 6.9 (6.3-8.2) g/dL Albumin 3.7 (3.5-5.0) g/dL 06/18/23 Range/Units 19:31 WBC (3.8-10.6) k/uL RBC (3.80-5.40) m/uL Hgb (11.4-16.0) gm/dL Hct (34.0-46.0) % MCV (80.0-100.0) fL MCH (25.0-35.0) pg MCHC (31.0-37.0) g/dL RDW (11.5-15.5) % Plt Count (150-450) k/uL MPV Neutrophils % % Lymphocytes % % Monocytes % % Eosinophils % % Basophils % % Neutrophils # (1.3-7.7) k/uL Lymphocytes # (1.0-4.8) k/uL Monocytes # (0-1.0) k/uL Eosinophils # (0-0.7) k/uL Basophils # (0-0.2) k/uL PT (9.0-12.0) sec INR (<1.2) APTT (22.0-30.0) sec Sodium (137-145) mmol/L Potassium (3.5-5.1) mmol/L Chloride (98-107) mmol/L Carbon Dioxide (22-30) mmol/L Anion Gap mmol/L BUN (7-17) mg/dL Creatinine (0.52-1.04) mg/dL Est GFR (CKD-EPI)AfAm (>60 ml/min/1.73 sqM) Est GFR (CKD-EPI)NonAf (>60 ml/min/1.73 sqM) Glucose (74-99) mg/dL Plasma Lactic Acid Anastacio 1.2 (0.7-2.0) mmol/L Calcium (8.4-10.2) mg/dL Total Bilirubin (0.2-1.3) mg/dL AST (14-36) U/L ALT (4-34) U/L Alkaline Phosphatase (38-126) U/L Total Protein (6.3-8.2) g/dL Albumin (3.5-5.0) g/dL Disposition Clinical Impression: Nausea and vomiting, Post-op pain Disposition: HOME SELF-CARE Instructions (If sedation given, give patient instructions): Acute Nausea and Vomiting (ED) Additional Instructions: Call Dr Naidu's office tomorrow to discuss pain management Is patient prescribed a controlled substance at d/c from ED?: No Referrals: Charley Brown MD [Primary Care Provider] - 1-2 days
[2023-06-18] MEDS: SODIUM CHLORIDE 0.9% 500 ML 500 ML IV SCH ×2 (19:23→22:00)
[2023-06-18 19:41] LABS: Basophils % (A) 0 %; Eosinophils # (A) 0.1 k/uL (0-0.7); Eosinophils % (A) 1 %; HCT 34.6 % (34.0-46.0); HGB 12.2 gm/dL (11.4-16.0); Lymphocytes % (A) 13 %; MCH 31.8 pg (25.0-35.0); MCHC 35.4 g/dL (31.0-37.0); MCV 89.8 fL (80.0-100.0); Mean Platelet Volume 8.2; Monocytes # (A) 0.7 k/uL (0-1.0); Monocytes % (A) 8 %; Neutrophils # (A) 6.2 k/uL (1.3-7.7); Neutrophils % (A) 77 %; Platelet Count 221 k/uL (150-450); RBC 3.85 m/uL (3.80-5.40); RDW 12.6 % (11.5-15.5)
[2023-06-18 19:50] LABS: ALT 15 U/L (4-34); AST 26 U/L (14-36); African American GFR (CKD) 89 (>60 ml/min/1.73 sqM); Albumin 3.7 g/dL (3.5-5.0); Alkaline Phosphatase 61 U/L (38-126); Anion Gap 11 mmol/L; Blood Urea Nitrogen 18 mg/dL (7-17); Calcium 8.6 mg/dL (8.4-10.2); Carbon Dioxide 27 mmol/L (22-30); Chloride 95 mmol/L (98-107); Glucose 119 mg/dL (74-99); Non-African American GFR(CKD) 77 (>60 ml/min/1.73 sqM); Potassium 4.1 mmol/L (3.5-5.1); Sodium 133 mmol/L (137-145); Total Bilirubin 0.9 mg/dL (0.2-1.3); Total Protein 6.9 g/dL (6.3-8.2)
[2023-06-18 19:53] LABS: Partial Thromboplastin Time 25.3 sec (22.0-30.0); Prothrombin Time 10.6 sec (9.0-12.0)
[2023-06-18] MEDS ORDERED: METOCLOPRAMIDE 5 MG/ML 2 ML VIAL IVP STA (21:07)
[2023-06-18] MEDS ORDERED: diphenhydrAMINE 50 MG/ML 1 ML VIAL IVP STA (21:07)
[2023-06-18 22:51] VITALS: BP 153/77; PULSE 77; RESP 18
== END 2023-06-18 22:51 | disposition home or self-care (01) ==
LOC: EC 17:13
DX: G89.18 Other acute postprocedural pain (principal); R11.2 Nausea with vomiting, unspecified; E78.5 Hyperlipidemia, unspecified; I10 Essential (primary) hypertension; G47.30 Sleep apnea, unspecified; E07.9 Disorder of thyroid, unspecified; Z87.891 Personal history of nicotine dependence; Z79.890 Hormone replacement therapy; Z79.82 Long term (current) use of aspirin; Z79.899 Other long term (current) drug therapy; Z88.5 Allergy status to narcotic agent
CPT/HCPCS: 80053; 83605; 85025; 85610; 85730; 99284; 96374; 96375 ×3; 96361 ×3; J2270; J1200; J2765; J2405; 36415

== ENCOUNTER 2024-12-20 11:23 | Emergency (ER) | payer MEDICARE, BC ==
[2024-12-20 11:26] VITALS: TEMP 98.2
[2024-12-20 12:48] LABS: Basophils % (A) 1 %; Eosinophils # (A) 0.2 k/uL (0-0.7); Eosinophils % (A) 5 %; HGB 12.1 gm/dL (11.4-16.0); Lymphocytes % (A) 23 %; MCH 30.2 pg (25.0-35.0); MCHC 33.7 g/dL (31.0-37.0); MCV 89.5 fL (80.0-100.0); Mean Platelet Volume 7.6; Monocytes # (A) 0.4 k/uL (0-1.0); Monocytes % (A) 8 %; Neutrophils # (A) 2.7 k/uL (1.3-7.7); Neutrophils % (A) 60 %; Platelet Count 230 k/uL (150-450); RBC 4.02 m/uL (3.80-5.40); RDW 12.4 % (11.5-15.5); WBC 4.5 k/uL (3.8-10.6)
[2024-12-20 13:04] LABS: ALT 17 U/L (4-34); AST 27 U/L (14-36); African American GFR (CKD) 80 (>60 ml/min/1.73 sqM); Albumin 3.7 g/dL (3.5-5.0); Alkaline Phosphatase 56 U/L (38-126); Anion Gap 8 mmol/L; Blood Urea Nitrogen 23 mg/dL (7-17); Calcium 9.1 mg/dL (8.4-10.2); Carbon Dioxide 29 mmol/L (22-30); Chloride 100 mmol/L (98-107); Glucose 108 mg/dL (74-99); Non-African American GFR(CKD) 70 (>60 ml/min/1.73 sqM); Potassium 4.7 mmol/L (3.5-5.1); Sodium 137 mmol/L (137-145); Total Bilirubin 0.6 mg/dL (0.2-1.3); Total Protein 6.5 g/dL (6.3-8.2)
--- NOTE | 2024-12-20 13:07 | US ---
EXAMINATION TYPE: US venous doppler duplex LE LT DATE OF EXAM: 12/20/2024 12:51 PM COMPARISON: US 2021 CLINICAL INDICATION: Female, 79 years old with history of eval for dvt; Lump left lower leg TECHNIQUE: The lower extremity deep venous system is examined utilizing real time linear array sonog jose david with graded compression, color doppler sonography, and spectral doppler. SIDE PERFORMED: Left FINDINGS: VESSELS IMAGED: Common Femoral Vein Deep Femoral Vein Greater Saphenous Vein * Femoral Vein Popliteal Vein Small Saphenous Vein * Proximal Calf Veins (* superficial vessels) Left Leg: Appears negative for DVT Left lateral lower leg: appears wnl at patient's palpable IMPRESSION: 1. No evidence of deep vein thrombosis of the left lower extremity. 2. No ultrasound evidence for abnormality at the palpable site. [facility], , 12/20/2024 1:05 PM
[2024-12-20 13:13] LABS: NT-Pro-B-Type Natriuretic Pept 463 pg/mL
--- NOTE | 2024-12-20 13:36 | ED ---
General Adult HPI - General Chief complaint: Extremity Problem,Nontraumatic Stated complaint: L leg swelling Time Seen by Provider: 12/20/24 11:50 Source: patient, RN notes reviewed, old records reviewed Mode of arrival: ambulatory Limitations: no limitations - History of Present Illness Initial comments: Patient is an 79-year-old female who presents emergency department complaining of left calf pain. Has been ongoing for a few days. Does have a history of PE from COVID in the past. Did recently have a COVID infection within the last few months. Presents now over concern for possible blood clot in her left leg. Denies shortness of breath or chest pain. States it is isolated to the distal left posterior calf. Is not on blood thinners. Denies any fevers, chills. Denies any shortness of breath. Has a history of diabetes, hypertension, hyperlipidemia. Denies any obvious injuries. Presents for further evaluation at this time. - Related Data Home Medications Medication Instructions Recorded Confirmed Ubidecarenone [Co Q-10] 100 mg PO DAILY 11/14/19 06/18/23 Vit C/E/Zn/Coppr/Lutein/Zeaxan 1 cap PO HS 11/14/19 06/18/23 [Preservision Areds 2 Softgel] Aspirin EC [Ecotrin Low Dose] 81 mg PO DAILY 06/03/22 06/18/23 Calcium Carbonate [Calcium] 600 mg PO DAILY 06/03/22 06/18/23 Enalapril [Vasotec] 40 mg PO DAILY 06/03/22 06/18/23 Levothyroxine Sodium [Synthroid] 75 mcg PO AC-BRKFST 06/03/22 06/18/23 Simvastatin 40 mg PO HS 06/03/22 06/18/23 atenoloL 100 mg PO HS 06/03/22 06/18/23 Magnesium Oxide [Mag-Ox] 400 mg PO DAILY 06/29/22 06/18/23 hydrALAZINE HCL [Apresoline] 50 mg PO TID@0600,1400,2200 06/29/22 06/18/23 Acetaminophen [Tylenol Arthritis] 650 mg PO Q6H PRN 06/10/23 06/18/23 Cholecalciferol [Vitamin D3 (25 25 mcg PO DAILY 06/10/23 06/18/23 Mcg = 1000 Iu)] Fexofenadine HCl [Viviana Allergy] 180 mg PO DAILY PRN 06/10/23 06/18/23 Lidocaine 5% Patch [Lidoderm 5% 1 patch TRANSDERM DAILY PRN 06/10/23 06/18/23 Patch] traMADol HCL 50 mg PO Q6H PRN 06/10/23 06/18/23 Baclofen [Lioresal] 10 - 20 mg PO QID PRN 06/18/23 06/18/23 EPINEPHrine (Auto Inject) [Epipen] 0.3 mg IM ONCE PRN 06/18/23 06/18/23 Furosemide [Lasix] 40 mg PO AC-BRKFST 06/18/23 06/18/23 Gabapentin 800 mg PO TID 06/18/23 06/18/23 Ondansetron Odt [Zofran Odt] 4 mg PO TID PRN 06/18/23 06/18/23 Previous Rx's Medication Instructions Recorded Apixaban [Eliquis] 2.5 mg PO BID 35 Days #70 tab 06/16/23 HYDROcodone/APAP 7.5-325MG [[place] 1 - 2 tab PO Q6H PRN #32 tab 06/16/23 7.5-325] Sennosides [Senokot] 2 tab PO DAILY PRN #60 tablet 06/16/23 Allergies Allergy/AdvReac Type Severity Reaction Status Date / Time codeine AdvReac Nausea & Verified 12/20/24 11:26 Vomiting Review of Systems ROS Statement: Those systems with pertinent positive or pertinent negative responses have been documented in the HPI. Review of Systems: CONST: Denies fever EYES: Denies blurry vision ENT: Denies nasal congestion C/V: Denies Chest pain RESP: Denies shortness of breath GI: Denies abdominal pain : Denies dysuria SKIN: Denies rash. MSK: Endorses atraumatic calf pain NEURO: Denies headache ROS Other: All systems not noted in ROS Statement are negative. Past Medical History Past Medical History: Diabetes Mellitus, Eye Disorder, Hyperlipidemia, Hyper tension, Sleep Apnea/CPAP/BIPAP, Thyroid Disorder Additional Past Medical History / Comment(s): Arthritis History of Any Multi-Drug Resistant Organisms: ESBL, MRSA Date of last positivie culture/infection: 08/02/22 ESBL E.coli, MRSA 06/14 MDRO Source:: Urine Past Surgical History: Joint Replacement Additional Past Surgical History / Comment(s): bilateral cataract surgery, L knee replacement Past Anesthesia/Blood Transfusion Reactions: No Reported Reaction Past Psychological History: No Psychological Hx Reported Smoking Status: Former smoker Past Alcohol Use History: Rare Past Drug Use History: None Reported - Past Family History Father History Unknown: Yes Mother History Unknown: Yes Additional Family Medical History / Comment(s): lung mets unsure of primary source General Exam - General Exam Comments Initial Comments: General: Appears in no acute distress. HEAD: Normal with no signs of head trauma. EYES: EOMI ENT: Hearing grossly intact RESPIRATORY: Clear breath sounds bilaterally. No wheezes, rales, or rhonchi. C/V: Regular rate and rhythm. S1 and S2 auscultated,peripheral pulses 2+ and intact throughout ABD: Abd is soft, nontender, nondistended EXT: Normal range of motion, no obvious deformity. Tenderness to palpation posterior left calf with no significant swelling or edema. Point tenderness. Could be muscle spasm. No redness or evidence of infection. SKIN: No rashes or lesions observed on exposed skin. NEURO: Alert and oriented x 4. Limitations: no limitations Course Vital Signs 12/20/24 11:24 Temperature 98.2 F Pulse Rate 82 Respiratory 20 Rate Blood Pressure 171/93 O2 Sat by Pulse 99 Oximetry Medical Decision Making - Medical Decision Making Was pt. sent in by a medical professional or institution (ESTRELLITA Reed, MOLDER MACHINE, urgent care, hospital, or longterm...) When possible be specific @ -Sent by PCP for DVT evaluation. Did you speak to anyone other than the patient for history (EMS, parent, family, police, friend...)? What history was obtained from this source @ -No Did you review nursing and triage notes (agree or disagree)? Why? @ -I reviewed and agree with nursing and triage notes Were old charts reviewed (outside hosp., previous admission, EMS record, old EKG, old radiological studies, urgent care reports/EKG's, longterm records)? Report findings @ -No old charts were reviewed Differential Diagnosis (chest pain, altered mental status, abdominal pain women, abdominal pain men, vaginal bleeding, weakness, fever, dyspnea, syncope, headache, dizziness, GI bleed, back pain, seizure, CVA, palpatations, mental health, musculoskeletal)? @ -DVT, muscle spasm, muscle strain. This list is not all inclusive. EKG interpreted by me (3pts min.). @ -As above X-rays interpreted by me (1pt min.). @ -None done CT interpreted by me (1pt min.). @ -None done U/S interpreted by me (1pt. min.). @ -DVT ultrasound negative for left lower extremity DVT What testing was considered but not performed or refused? (CT, X-rays, U/S, labs)? Why? @ -None What meds were considered but not given or refused? Why? @ -None Did you discuss the management of the patient with other professionals (professionals i.e. , PA, MOLDER MACHINE, lab, RT, psych nurse, social secretary, communications electrician supervisor, teacher, customs patrol officer, disability case manager)? Give summary @ -No Was smoking cessation discussed for >3mins.? @ -No Was critical care preformed (if so, how long)? @ -No Were there social determinants of health that impacted care today? How? (Homelessness, low income, unemployed, alcoholism, drug addiction, transportation, low edu. Level, literacy, decrease access to med. care, correction, rehab)? @ -No Was there de-escalation of care discussed even if they declined (Discuss DNR or withdrawal of care, Hospice)? DNR status @ -No What co-morbidities impacted this encounter? (DM, HTN, Smoking, COPD, CAD, Cancer, CVA, ARF, Chemo, Hep., AIDS, mental health diagnosis, sleep apnea, morbid obesity)? @ -None Was patient admitted / discharged? Hospital course, mention meds given and route, prescriptions, significant lab abnormalities, going to OR and other pertinent info. @ -Patient presents over concern for DVT in the left lower extremity. No concern for PE at this time. No chest pain or shortness of breath. Low concern for DVT. We will obtain ultrasound of the left lower extremity. We will obtain basic labs as well as screening BNP and EKG. Patient was in agreement this plan. Vitals are within acceptable limits. Patient declines any analgesia medications at this time. EKG shows no signs of acute ischemia. Ultrasound shows no evidence of DVT. Laboratory studies are all within acceptable limits including BMP within ac ceptable limits. On reevaluation I updated the patient. Likely a muscle strain or spasm in the left lower extremity. Recommended rest, ice, [id number] analgesia medications. Patient was in agreement this plan. I instructed the patient to follow up with their PCP in the next 1-3 days. I e xplained that the patient should return to the emergency department if they experience any worsening symptoms. Strict return precautions were discussed with the patient. The patient expressed understanding of these instructions. I answered all questions that the patient had. The patient was discharged home in good condition with their prescriptions and follow up information. Undiagnosed new problem with uncertain prognosis? @ -No Drug Therapy requiring intensive monitoring for toxicity (Heparin, Nitro, Insulin, Cardizem)? @ -No Were any procedures done? @ -No Diagnosis/symptom? @ -Left calf muscle spasm Acute, or Chronic, or Acute on Chronic? @ -Acute Uncomplicated (without systemic symptoms) or Complicated (systemic symptoms)? @ -Uncomplicated Side effects of treatment? @ -No Exacerbation, Progression, or Severe Exacerbation? @ -No Poses a threat to life or bodily function? How? (Chest pain, [place], [place], pneumonia, PE, COPD, DKA, ARF, appy, cholecystitis, CVA, Diverticulitis, Homicidal, Suicidal, threat to staff... and all critical care pts) @ -Unlikely - Lab Data Result diagrams: 12/20/24 12:09 12/20/24 12:09 Lab Results 12/20/24 12/20/24 Range/Units 12:09 12:09 WBC 4.5 (3.8-10.6) k/uL RBC 4.02 (3.80-5.40) m/uL Hgb 12.1 (11.4-16.0) gm/dL Hct 36.0 (34.0-46.0) % MCV 89.5 (80.0-100.0) fL MCH 30.2 (25.0-35.0) pg MCHC 33.7 (31.0-37.0) g/dL RDW 12.4 (11.5-15.5) % Plt Count 230 (150-450) k/uL MPV 7.6 Neutrophils % 60 % Lymphocytes % 23 % Monocytes % 8 % Eosinophils % 5 % Basophils % 1 % Neutrophils # 2.7 (1.3-7.7) k/uL Lymphocytes # 1.0 (1.0-4.8) k/uL Monocytes # 0.4 (0-1.0) k/uL Eosinophils # 0.2 (0-0.7) k/uL Basophils # 0.0 (0-0.2) k/uL Sodium 137 (137-145) mmol/L Potassium 4.7 (3.5-5.1) mmol/L Chloride 100 (98-107) mmol/L Carbon Dioxide 29 (22-30) mmol/L Anion Gap 8 mmol/L BUN 23 H (7-17) mg/dL Creatinine 0.80 (0.52-1.04) mg/dL Est GFR (CKD-EPI)AfAm 80 (>60 ml/min/1.73 sqM) Est GFR (CKD-EPI)NonAf 70 (>60 ml/min/1.73 sqM) Glucose 108 H (74-99) mg/dL Calcium 9.1 (8.4-10.2) mg/dL Total Bilirubin 0.6 (0.2-1.3) mg/dL AST 27 (14-36) U/L ALT 17 (4-34) U/L Alkaline Phosphatase 56 (38-126) U/L NT-Pro-B Natriuret Pep 463 pg/mL Total Protein 6.5 (6.3-8.2) g/dL Albumin 3.7 (3.5-5.0) g/dL - EKG Data -: EKG Interpreted by Me EKG Comments: 12-lead Electrocardiogram Interpretation Note EKG was reviewed and interpreted by myself. 12-lead ECG performed at 1209is interpreted by me as revealing normal sinus rhythm at a rate of 69 beats per minute. [place] is normal. [place] interval is 188 ms, QRS durations 113 ms, QTc is 412 ms.. There were no ST or T wave abnormalities to suggest myocardial ischemia or injury. R wave progression across the precordium was satisfactory. By my interpretation this EKG is non-diagnostic for acute ischemia. Disposition Clinical Impression: Muscle spasm Disposition: HOME SELF-CARE Condition: Good Instructions (If sedation given, give patient instructions): Muscle Spasm (ED) Is patient prescribed a controlled substance at d/c from ED?: No Referrals: Charley Brown MD [Primary Care Provider] - 1-2 days Time of Disposition: 13:30
[2024-12-20 14:13] VITALS: BP 184/93; PULSE 71; RESP 18
== END 2024-12-20 14:15 | disposition home or self-care (01) ==
LOC: EC 11:23
DX: M62.831 Muscle spasm of calf (principal); Z88.5 Allergy status to narcotic agent; Z87.891 Personal history of nicotine dependence
CPT/HCPCS: 36415; 80053; 83880; 85025; 93005; 99284